=== PATIENT | male | born 1960 | race Caucasian/White ===

== ENCOUNTER 2023-06-17 23:39 | Emergency (ER) | payer OTHER, SELFPAY ==
[2023-06-18] VITALS (7 sets, daily range): BP systolic 117–155; BP diastolic 50–96; BMI 37.3
--- NOTE | 2023-06-18 03:00 | ED.GENMED ---
History of Present Illness
<ARTI Carr - Last Filed: 06/18/23 05:44>
General
Chief Complaint: Alcohol Problem
Source: patient
Exam Limitations: none
Time Seen by Provider: 06/18/23 02:40
Nursing documentation reviewed up to this point in time: agreed with
Travel History
Have you had any contact with someone who has COVID-19?: No
Do you have any symptoms of coronavirus? Fever > 100 degrees, chills, cough, shortness of breath, sore throat, loss of taste or smell, muscle aches, or headache?: No
History of Present Illness
History of Present Illness:
This is a 63 year old male with a PMH of COPD, afib, CHF, and alcohol abuse, who presents to the ED c/o SOB x 4 days. Pt states he started drinking 4 days ago which is when his symptoms began. He drinks 2 bottles of wine a day. Pt is also having
associated palpitations, fatigue, nausea and vomiting. Pt denies hematemesis but states he has been dry heaving and vomiting mucus. He notes that he has also developed chills. Pt notes that he has an appointment scheduled in 4 days at an alcohol
abuse clinic and he has been to rehab 4 times in the past. Pt has not been weighing himself daily and the last weight he measured was 240 lbs 2 weeks ago. He stopped taking his lasix 1 month ago. Pt denies any CP, lightheadedness, diarrhea,
constipation. Pt was alcohol free for about 1 month post discharge from the hospital and was exercising twice a day.
Pt stopped smoking 4 years ago.
Past History
<ARTI Carr - Last Filed: 06/18/23 05:44>
Past History
ED Past Medical History: Arrthythmia, CHF, COPD, HTN and Hypercholesterolemia
ED Past Surgical History: Appendectomy
Patient has exhibited threatening behavior?: No
Social History
Tobacco: Former smoker
Alcohol: Chronic alcoholic
Drug: None
Personal:
Living: with family
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
Family History
Family History: Other (Non-contributory)
Review of Systems
<ARTI Carr - Last Filed: 06/18/23 05:44>
Review of Systems
Constitutional: Reports chills; Denies fever
Respiratory: Reports trouble breathing; Denies cough
Cardiac: Reports palpitations; Denies chest pain
ABD/GI: Reports nausea and vomiting; Denies abdominal pain, diarrhea or constipated
: Reports no symptoms
Skin: Reports no symptoms
Phy Exam
<ARTI Carr - Last Filed: 06/18/23 05:44>
General Physical Exam
General Presentation: well appearing
General age: appears stated age
General Skin: warm and dry
General Habitus: obese
General Mental: alert
General Hydration: dry mucous membranes
Cardiovascular Exam
Cardiovascular Exam: no edema, no murmur and irregularly irregular
Pulmonary Exam
Pulmonary Exam: no stridor, no cough and decreased breath sounds
Oxygen Status: room air
Gastrointestinal Exam
Gastrointestinal Exam: normal bowel sounds, non tender, soft and non distended
Neurological Exam
Neurological Exam: alert and oriented x3
Musculoskeletal Exam
Musculoskeletal Exam: no edema
Skin Exam
Skin Exam: normal color and warm/dry
Psychiatric Exam
Psychiatric Exam: normal mood/affect
Scores
<ARTI Carr - Last Filed: 06/18/23 05:44>
Withdrawal Assessment of Alcohol
Withdrawal Assessment Completed?: Not applicable
<Kristie Gale DO - Last Filed: 06/18/23 09:42>
Withdrawal Assessment of Alcohol
Withdrawal Assessment Completed?: Yes
Nausea and Vomiting: No nausea and no vomiting
Tactile Disturbances: None
Tremor: No tremor
Auditory Disturbances: Not present
Paroxysmal Sweats: No sweat visible
Visual Disturbances: Not present
Anxiety: No anxiety, at ease
Headache, Fullness in Head: Not present
Agitation: Normal activity
Orientation and clouding of sensorium: Oriented and can do serial additions
Total CIWA Score: 0
Alcohol Withdrawal Medication Recommendation: Equal to MSAS Score 0-4. Monitor & re-assess q2hrs, NO MEDICATION NEEDED
Course
<ARTI Carr - Last Filed: 06/18/23 05:44>
Orders/Labs/Results
Orders:
Orders
06/18/23 00:49
Electrocardiogram (*1) Urgent
Reason for Study: Shortness of Breath
EKG- Treatment ONCE
Chest [CR Chest - 2 Views ] Urgent
Comment:
Reason For Exam: feels sob
06/18/23 03:04
Vital Signs- Treatment ONCE
Frequency: Once
06/18/23 03:05
Cardiac Monitoring- Treatment ONCE
06/18/23 03:15
Encourage PO Hydration-Treatme ONCE
Ipratropium/Albuterol Sulfate [Duoneb] 3 ml INH R NOW ONE
06/18/23 03:35
Alcohol Urgent
Complete Blood Count/With Diff Urgent
Comprehensive Metabolic Panel Urgent
NT-proBNP Urgent
Troponin I Urgent
06/18/23 07:00
0.9% Sodium Chloride 1000 ml [Nss] 1,000 ml Mvi, Adult [Multivitamin] 10 ml Thiamine Injection 100 mg IV 1,000 mls/hr
Abnormal Lab Results
06/18/23
03:35
RBC 3.99 L 10^6/uL
(4.70-6.10)
Hgb 12.9 L g/dL
(13.0-18.0)
Hct 36.8 L %
(39.0-52.0)
MCH 32.3 H pg
(27.0-31.0)
Plt Count 123 L 10^3/uL
(130-400)
Absolute Monos (auto) 0.7 H 10^3/uL
(0.1-0.6)
Glucose 127 H mg/dl
(70-99)
Calcium 7.9 L mg/dl
(8.4-10.2)
AST 81 H U/L
(17-59)
Alkaline Phosphatase 308 H U/L
(38-126)
06/18/23 03:35
06/18/23 03:35
Vital Signs
Initial and Last Documented VS:
Initial Vital Signs
Temp Pulse Resp BP Pulse Ox
97.8 F 50 22 117/54 96
06/18/23 00:10 06/18/23 00:10 06/18/23 00:10 06/18/23 00:10 06/18/23 00:10
Last Documented Vital Signs
Temp Pulse Resp BP Pulse Ox
97.8 F 83 20 155/96 94
06/18/23 00:10 06/18/23 07:58 06/18/23 07:58 06/18/23 07:58 06/18/23 07:58
<Kristie Gale, DO - Last Filed: 06/18/23 09:42>
Orders/Labs/Results
Orders:
Orders
06/18/23 00:49
Electrocardiogram (*1) Urgent
Reason for Study: Shortness of Breath
EKG- Treatment ONCE
Chest [CR Chest - 2 Views ] Urgent
Comment:
Reason For Exam: feels sob
06/18/23 03:04
Vital Signs- Treatment ONCE
Frequency: Once
06/18/23 03:05
Cardiac Monitoring- Treatment ONCE
06/18/23 03:15
Encourage PO Hydration-Treatme ONCE
Ipratropium/Albuterol Sulfate [Duoneb] 3 ml INH R NOW ONE
06/18/23 03:35
Alcohol Urgent
Complete Blood Count/With Diff Urgent
Comprehensive Metabolic Panel Urgent
NT-proBNP Urgent
Troponin I Urgent
06/18/23 07:00
0.9% Sodium Chloride 1000 ml [Nss] 1,000 ml Mvi, Adult [Multivitamin] 10 ml Thiamine Injection 100 mg IV 1,000 mls/hr
Abnormal Lab Results
06/18/23
03:35
RBC 3.99 L 10^6/uL
(4.70-6.10)
Hgb 12.9 L g/dL
(13.0-18.0)
Hct 36.8 L %
(39.0-52.0)
MCH 32.3 H pg
(27.0-31.0)
Plt Count 123 L 10^3/uL
(130-400)
Absolute Monos (auto) 0.7 H 10^3/uL
(0.1-0.6)
Glucose 127 H mg/dl
(70-99)
Calcium 7.9 L mg/dl
(8.4-10.2)
AST 81 H U/L
(17-59)
Alkaline Phosphatase 308 H U/L
(38-126)
06/18/23 03:35
06/18/23 03:35
Vital Signs
Initial and Last Documented VS:
Initial Vital Signs
Temp Pulse Resp BP Pulse Ox
97.8 F 50 22 117/54 96
06/18/23 00:10 06/18/23 00:10 06/18/23 00:10 06/18/23 00:10 06/18/23 00:10
Last Documented Vital Signs
Temp Pulse Resp BP Pulse Ox
97.8 F 83 20 155/96 94
06/18/23 00:10 06/18/23 07:58 06/18/23 07:58 06/18/23 07:58 06/18/23 07:58
<ARTI Carr - Last Filed: 06/18/23 05:44>
*Critical Care Note
Total Time (30-74mins, 75-104mins- exclusive of procedures): Not Applicable
<Kristie Gale DO - Last Filed: 06/18/23 09:42>
*Radiology
Radiology exam reviewed: preliminary read by ED provider (Chest x-ray similar and unchanged to previous. No evidence of CHF nor infiltrate.)
*Pulse Oximetry
Patient hypoxic: no
*EKG
Interpreted by ED Provider?: Yes
Interpretation: abnormal
Comparison EKG: no changes (Unchanged from previous)
Rate: bradycardiac
Rhythm: a-fib
[place]: normal axis
Interval: normal QT interval
QRS Pattern: normal QRS
Ischemia: no ischemia
*Shipping/Receiving Clerk Interpretation
Rate: bradycardiac
Interpretation: normal
Rhythm: a-fib
ED Attending Note
<ARTI aCrr - Last Filed: 06/18/23 05:44>
-
Portions of this chart may have been created with voice recognition software.� Occasional wrong word or��sound alike� substitutions may have occurred due to the inherent limitations of voice recognition software.
<Kristie Gale DO - Last Filed: 06/18/23 09:42>
ED Attending Note
Patient seen and examined by attending physician: Yes
I performed the substantive portion of visit, reviewed & personally made and approve the management plan that is documented in note by myself or JHONNY.: Yes
I performed a history and physical exam of patient and discussed management with resident, I reviewed resident's note and agree with documented findings and plan of care.: Yes
ED Attending Note:
63-year-old gentleman with history of alcohol abuse, sporadic binge drinking was recently hospitalized 1 month ago for similar complaints of shortness of breath. Found to have exacerbation of COPD as well as acute CHF.
Patient states he remained sober and had been feeling well, going to the gym once or twice a day until 4 days ago when he began binge drinking again admits to drinking 2 bottles of wine per day.
With resumption of alcohol he complains of increasing shortness of breath over the past 4 days. He has not had a cough, denies fever nor chills, no chest pain. Shortness of breath is worse with exertion, worse with lying supine.
Symptoms are worse tonight prompting ED visit. He does admit to intermittent dry heaves but has had no vomiting, no hematemesis. He denies abdominal pain, no diarrhea or constipation, he denies black or tarry stools.
He does have history of permanent atrial fibrillation, maintained on aspirin.
He has history of cirrhosis with history of esophageal varices, previous GI bleeds with variceal banding. No recent GI bleeding.
Patient states he has an appointment with outpatient alcohol detox program scheduled for June 22. He is currently not interested in inpatient rehabilitation.
Previous smoker, he quit 4 years ago.
Patient feels he is dehydrated and requesting IV fluids.
He does admit to moderate weight gain over the past 2 weeks but denies peripheral edema. He was prescribed as needed Lasix upon discharge 1 month ago. He has not taken Lasix.
GENERAL: 63-year-old gentleman appears his stated age, awake and alert, pleasant, appears in no acute distress. Lying supine, easily rolls from [id number], no acute distress. No cough appreciated.
EYE: pupils equal and reactive. anicteric
NECK: Supple, nontender, no meningismus, no significant adenopathy.
ENT: posterior pharynx is clear, oral mucosa is minimally dry. No rhinorrhea.
CARDIAC: Irregularly irregular at a rate of 50, no murmur.
LUNGS: no acute respiratory distress, moderately decreased breath sounds throughout, scattered end expiratory wheezing bilaterally.
ABDOMEN: Rotund, soft, nondistended, without focal tenderness, no r/g, no cvat. normoactive BS.
NEUROLOGICAL: Alert and oriented x3, no focal neuro deficits. Gait is steady.
SKIN: Warm and dry, normal color, skin intact. No rash.
MUSCULOSKELETAL: No C/C/E. peripheral pulses are full and equal b/l. No palpable tenderness.
PSYCH: Normal and appropriate interaction.
With recurrent shortness of breath, concern for COPD exacerbation, concern for recurrent CHF. Less likely pneumonia, patient has not had a cough nor fever.
PE is unlikely as well.
Alcohol intoxication is likely not cause for shortness of breath as well.
There is concern for recurrent alcohol use/binge drinking. Concern for potential alcohol withdrawal. Thus far no evidence of withdrawal on exam.
Will give DuoNeb nebulizer, check labs including BNP.
Chest x-ray shows mild interstitial fibrosis, platelike atelectasis left lateral lung field, overall similar to previous film May 25.
EKG shows atrial fibrillation with slow ventricular response at 50. No acute ST-T wave abnormalities.
06/18/2023 07:00 AM
Patient has been sleeping soundly since receiving DuoNeb nebulizer.
He has had no vomiting, no shortness of breath.
Labs overall reassuring.
Troponin is negative. BNP is low at 170.
Alcohol level elevated at 242.
He continues to have no evidence of alcohol withdrawal.
I suspect his symptoms are acute alcohol intoxication related.
Encouraged to remain sober and his plan is to follow-up with outpatient counseling on June 22.
06/18/2023 08:30 AM
Patient complains of recurrent nausea, feeling somewhat short of breath but again respirations are easy and nonlabored, lungs are clear to auscultation.
He does admit to significant concern that he will be unable to remain sober.
I have again recommended inpatient treatment for alcohol use disorder and patient is now agreeable to speak with [facility] collections specialist.
There is no indication for further IV fluids, he is currently tolerating sips of water.
Vital signs remained stable.
Awaiting [facility] collections specialist evaluation.
Discharge Plan
Departure
Patient Disposition: Home (Routine Discharge)
Date of Disposition: 06/18/23
Time of Disposition: 07:17
Patient with high blood pressure during this ER visit?: No
Condition: Good
Discharge Problem:
Alcohol intoxication, Alcohol consumption binge drinking, Exertional shortness of breath
Instructions: Alcohol Use Disorder (DC)
Prescriptions:
No Action
omega 5-too-oiy-fish oil [Fish Oil] 1,000 mg (120 mg-180 mg) Capsule
2 cap PO DAILY
Hold Instructions: Resume on 11/12/22.
Trelegy Ellipta 100-62.5-25 mcg Blister With Device
1 inh INHALATION R DAILY
metoprolol succinate 50 mg tablet extended release 24 hr
100 mg PO DAILY
diltiazem HCl 360 mg capsule,extended release 24hr
360 mg PO DAILY Qty: 0 0RF
levalbuterol tartrate 45 mcg/actuation Hfa Aerosol Inhaler
1 puff INHALATION R DAILY
aspirin 81 mg tablet,delayed release (DR/EC)
81 mg PO DAILY
pantoprazole [Protonix] 40 mg tablet,delayed release (DR/EC)
40 mg PO DAILY
prednisone 10 mg Tablet
See Rx Instructions .ROUTE .COMPLEX Qty: 30 0RF
Rx Instructions:
30 mg daily x3 days, 20 mg daily x3 days, 10 mg daily x3 days.
furosemide [Lasix] 40 mg tablet
40 mg PO DAILY PRN (Reason: Weight gain) Qty: 30 0RF
Referrals:
Berna Lyons CRNP [Family Provider] - Call in 1-3 days for appt
Activity Restrictions/Additional Instructions:
Continue outpatient treatment for alcohol use disorder as already scheduled.
Continue Trelegy inhaler daily and continue albuterol rescue inhaler as needed.
Continue to avoid alcohol consumption.
Interventions
Interventions:
*Risk Screen - Suicide Last Done: 06/18/23 01:27
*General Assessment Last Done: 06/18/23 01:27
*Neglect/Abuse Screening Last Done: 06/18/23 01:27
ED- Fall Risk Assessment Last Done: 06/18/23 03:54
*ED COVID-19 Vaccine History Last Done: 06/18/23 01:27
ED- Neurological Assessment Last Done: 06/18/23 01:27
ED-Psychological Assessment Last Done: 06/18/23 01:27
[2023-06-18] MEDS: DUONEB 3 ML INH (03:44)
[2023-06-18 03:52] LABS: % Basophils 0.6 % (0-2); % Eosinophils 2.5 % (0-6); % Immature Granulocytes 0.5 % (0-0.5); % Lymphocytes 29.1 % (20.5-51.1); % Monocytes 7.6 % (1.7-9.3); % Neutrophils 59.7 % (42.2-75.2); Absolute Basophils 0.1 10^3/uL (0-0.2); Absolute Eosinophils 0.2 10^3/uL (0-0.7); Absolute Lymphocytes 2.5 10^3/uL (1.2-3.4); Absolute Monocytes 0.7 10^3/uL (0.1-0.6); Absolute Neutrophils 5.2 10^3/uL (1.4-6.5); Hematocrit 36.8 % (39.0-52.0); Hemoglobin 12.9 g/dL (13.0-18.0); Mean Corp Hgb Conc. 35.1 g/dL (33.0-37.0); Mean Corpuscular Hgb 32.3 pg (27.0-31.0); Mean Corpuscular Volume 92.2 fL (80.0-94.0); Mean Platelet Volume 9.6 fL (7.4-10.4); Nucleated Red Blood Cells % 0 % (-); Platelet Count 123 10^3/uL (130-400); Red Blood Cell Count 3.99 10^6/uL (4.70-6.10); Red Cell Dist. Width 13.9 % (11.5-14.5); White Blood Cell Count 8.7 10^3/uL (4.8-10.8)
[2023-06-18 04:03] LABS: ALT (SGPT) 49 U/L (0-50); AST (SGOT) 81 U/L (17-59); Albumin 3.8 g/dl (3.5-5.0); Alcohol 242 mg/dl; Alkaline Phosphatase 308 U/L (38-126); Blood Urea Nitrogen 15 mg/dl (9-20); Calcium 7.9 mg/dl (8.4-10.2); Carbon Dioxide 22 mmol/L (22-30); Chloride 103 mmol/L (98-107); Estimated Creatinine Clearance 78 ml/min; Glucose 127 mg/dl (70-99); Sodium 136 mmol/L (135-145); Total Protein 6.6 g/dl (6.3-8.2); eGFR > 60.00
[2023-06-18 04:14] LABS: NT-proBNP 170 pg/ml; Troponin I < 0.012 ng/ml
[2023-06-18] MEDS: MULTIVITAMIN 1011 ML IV (06:44)
[2023-06-18] MEDS: MULTIVITAMIN 1011 MG IV (06:44)
[2023-06-18] MEDS: ZOFRAN ODT (ORALLY DISINTEGRATING) 4 MG PO (10:16)
== END 2023-06-18 11:21 | disposition home or self-care (01) ==
LOC: EMR 23:39
PROVIDERS: EMERGENCY PHYSICIAN Emergency Medicine; FAMILY PHYSICIAN Nurse Practitioner Family
DX: F10.129 Alcohol abuse with intoxication, unspecified (principal); Y90.8 Blood alcohol level of 240 mg/100 ml or more; R06.02 Shortness of breath; I48.21 Permanent atrial fibrillation; K74.60 Unspecified cirrhosis of liver; Z87.891 Personal history of nicotine dependence; Z79.82 Long term (current) use of aspirin
CPT/HCPCS: 99285; 96365; 94640; 71046; 80053; 82077; 83880; 84484; 85025; 93005

== ENCOUNTER 2023-07-05 08:16 | Emergency (ER) | payer OTHER, SELFPAY ==
[2023-07-05 08:19] VITALS: BP 139/91
[2023-07-05 08:55] VITALS: BMI 35.8
[2023-07-05 09:10] LABS: % Basophils 1.2 % (0-2); % Eosinophils 2.2 % (0-6); % Immature Granulocytes 0.5 % (0-0.5); % Lymphocytes 35.8 % (20.5-51.1); % Monocytes 7.5 % (1.7-9.3); % Neutrophils 52.8 % (42.2-75.2); Absolute Basophils 0.1 10^3/uL (0-0.2); Absolute Eosinophils 0.2 10^3/uL (0-0.7); Absolute Lymphocytes 2.8 10^3/uL (1.2-3.4); Absolute Monocytes 0.6 10^3/uL (0.1-0.6); Absolute Neutrophils 4.1 10^3/uL (1.4-6.5); Hematocrit 45.2 % (39.0-52.0); Hemoglobin 15.5 g/dL (13.0-18.0); Mean Corp Hgb Conc. 34.3 g/dL (33.0-37.0); Mean Corpuscular Hgb 31.8 pg (27.0-31.0); Mean Corpuscular Volume 92.8 fL (80.0-94.0); Mean Platelet Volume 9.3 fL (7.4-10.4); Nucleated Red Blood Cells % 0 % (-); Platelet Count 194 10^3/uL (130-400); Red Blood Cell Count 4.87 10^6/uL (4.70-6.10); Red Cell Dist. Width 13.4 % (11.5-14.5); White Blood Cell Count 7.8 10^3/uL (4.8-10.8)
[2023-07-05 09:18] LABS: ALT (SGPT) 61 U/L (0-50); AST (SGOT) 89 U/L (17-59); Albumin 4.3 g/dl (3.5-5.0); Alkaline Phosphatase 283 U/L (38-126); Blood Urea Nitrogen 11 mg/dl (9-20); Calcium 8.4 mg/dl (8.4-10.2); Carbon Dioxide 28 mmol/L (22-30); Chloride 108 mmol/L (98-107); Estimated Creatinine Clearance > 125 ml/min; Glucose 127 mg/dl (70-99); Potassium 4.8 mmol/L (3.5-5.1); Sodium 143 mmol/L (135-145); Total Bilirubin 0.7 mg/dl (0.2-1.3); Total Protein 7.9 g/dl (6.3-8.2); eGFR > 60.00
[2023-07-05 09:22] LABS: COVID-19 Antigen Negative (Negative)
[2023-07-05 09:26] LABS: Alcohol 385 mg/dl
[2023-07-05 09:27] LABS: Amphetamines Negative (Negative); Barbiturates Negative (Negative); Benzodiazepines Negative (Negative); Buprenorphine Negative (Negative); Cocaine Negative (Negative); Marijuana Negative (Negative); Methadone Negative (Negative); Methamphetamines Negative (Negative); Opiates Negative (Negative); Phencyclidine Negative (Negative); Tricyclic Antidepressants Negative (Negative)
--- NOTE | 2023-07-05 09:49 | ED.GENMED ---
History of Present Illness
General
Chief Complaint: Alcohol Problem
Source: patient, spouse and family
Time Seen by Provider: 07/05/23 08:37
Travel History
Have you had any contact with someone who has COVID-19?: No
Do you have any symptoms of coronavirus? Fever > 100 degrees, chills, cough, shortness of breath, sore throat, loss of taste or smell, muscle aches, or headache?: No
History of Present Illness
History of Present Illness:
63-year-old male who presents stating he has been drinking a lot for the last few weeks. The patient states he does go on benders where he drinks a lot. Patient states that he has been depressed and has had some suicidal thoughts. Denies specific
plan to me. The patient presents with his family. He admits that he has a history of A-fib that is likely driven by his alcoholism. He states he has been alcohol for quite some time has been to rehab several times in the past. He was sent for
medical clearance from crisis
Past History
Past History
ED Past Medical History: Arrthythmia (A-fib, not on anticoagulation due to esophageal varices history), Asthma, CHF, COPD, HTN and Hypercholesterolemia
ED Past Surgical History: Appendectomy
Patient has exhibited threatening behavior?: No
Social History
Tobacco: Former smoker
Alcohol: Chronic alcoholic
Drug: None
Personal:
Living: with family
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
Family History
Family History: Other (Non-contributory)
Phy Exam
Physical Exam
Physical Exam:
CONSTITUTIONAL Patient alert and oriented to person, place and time. Well-appearing. Vital signs reviewed. Appears intoxicated
HEAD atraumatic, normocephalic.
EYES eyelids normal to inspection, Pupils equally round and reactive to light, Extraocular muscles intact, Conjunctiva normal, Sclera normal.
NECK normal range of motion, Trachea midline, no jugular venous distention.
RESPIRATORY CHEST No respiratory distress noted, Chest expansion equal, Bilateral breath sounds clear.
CARDIOVASCULAR irregularly irregular, Heart sounds normal.
ABDOMEN abdomen nontender, Bowel sounds normal. No distention.
BACK normal inspection, no obvious deformities
UPPER EXTREMITY range of motion normal, Motor strength normal, no cyanosis, no edema.
LOWER EXTREMITY range of motion normal, Motor strength normal, no cyanosis, no edema.
NEURO Speech normal, No focal motor deficits, Mayo coma scale 15, Memory normal, Cranial Nerves intact to screening exam.
SKIN skin warm, dry, and normal in color.
PSYCHIATRIC patient oriented to person place and time, tearful at times
Scores
Withdrawal Assessment of Alcohol
Withdrawal Assessment Completed?: Not applicable
Course
Orders/Labs/Results
Orders:
Orders
07/05/23 08:36
Electrocardiogram (*1) Urgent
Reason for Study: Other
Other Reason for Exam: medical clearance
07/05/23 08:38
EKG- Treatment ONCE
07/05/23 08:48
Alcohol Urgent
COVID-19 Antigen Urgent
Source: Nasal Swab
Complete Blood Count/With Diff Urgent
Comprehensive Metabolic Panel Urgent
Urine Drug Abuse Screen Urgent
Date Specimen was Collected: 07/05/23
Time Specimen was Collected: 08:38
Abnormal Lab Results
07/05/23
08:48
MCH 31.8 H pg
(27.0-31.0)
Chloride 108 H mmol/L
(98-107)
Glucose 127 H mg/dl
(70-99)
AST 89 H U/L
(17-59)
ALT 61 H U/L
(0-50)
Alkaline Phosphatase 283 H U/L
(38-126)
07/05/23 08:48
07/05/23 08:48
Vital Signs
Initial and Last Documented VS:
Initial Vital Signs
Temp Pulse Resp BP Pulse Ox
98.2 F 109 16 139/91 98
07/05/23 08:19 07/05/23 08:19 07/05/23 08:19 07/05/23 08:19 07/05/23 08:19
Last Documented Vital Signs
Temp Pulse Resp BP Pulse Ox
98.2 F 104 18 135/78 94
07/05/23 08:19 07/05/23 11:32 07/05/23 11:32 07/05/23 11:32 07/05/23 11:32
MDM/Problems Addressed
MDM/Problems Addressed:
Alcoholism, major depression, chronic A-fib
*Pulse Oximetry
Patient hypoxic: no
*EKG
Interpreted by ED Provider?: Yes
Interpretation: abnormal
Rate: tachycardiac
Rhythm: a-fib
Interval: normal interval
Ischemia: non-specific ST changes
*Critical Care Note
Total Time (30-74mins, 75-104mins- exclusive of procedures): Not Applicable
Data Reviewed
Review of Other/Old Records Reveals: Progress Notes (Prior hospitalist notes reviewed reveal that the patient is chronically not on anticoagulation due to GI bleeding risk with esophageal varices) and Discharge Summary (Prior discharge summary
reviewed)
Prescriptions/Medications Considered But Not Given:
Considered anticoagulation but patient is a high risk
Patient Management
Escalation/DeEscalation of care consider admission/obs:
Patient stable. Labs were reviewed. Okay for discharge to crisis
ED Attending Note
-
Portions of this chart may have been created with voice recognition software.� Occasional wrong word or��sound alike� substitutions may have occurred due to the inherent limitations of voice recognition software.
Discharge Plan
Departure
Patient Disposition: [facility]
Date of Disposition: 07/05/23
Time of Disposition: 09:57
Patient with high blood pressure during this ER visit?: Yes
Discharge Problem:
Acute alcoholism, Atrial fibrillation, chronic, Major depression
Instructions: Alcohol Use Disorder (DC)
Prescriptions:
No Action
omega 6-wqy-syl-fish oil [Fish Oil] 1,000 mg (120 mg-180 mg) Capsule
2 cap PO DAILY
Hold Instructions: Resume on 11/12/22.
Trelegy Ellipta 100-62.5-25 mcg Blister With Device
1 inh INHALATION R DAILY
metoprolol succinate 50 mg tablet extended release 24 hr
100 mg PO DAILY
diltiazem HCl 360 mg capsule,extended release 24hr
360 mg PO DAILY Qty: 0 0RF
levalbuterol tartrate 45 mcg/actuation Hfa Aerosol Inhaler
1 puff INHALATION R DAILY
aspirin 81 mg tablet,delayed release (DR/EC)
81 mg PO DAILY
pantoprazole [Protonix] 40 mg tablet,delayed release (DR/EC)
40 mg PO DAILY
prednisone 10 mg Tablet
See Rx Instructions .ROUTE .COMPLEX Qty: 30 0RF
Rx Instructions:
30 mg daily x3 days, 20 mg daily x3 days, 10 mg daily x3 days.
furosemide [Lasix] 40 mg tablet
40 mg PO DAILY PRN (Reason: Weight gain) Qty: 30 0RF
Referrals:
Berna Lyons CRNP [Family Provider] -
Activity Restrictions/Additional Instructions:
Please go directly to crisis for further management
Interventions
Interventions:
*Risk Screen - Suicide Last Done: 07/05/23 08:22
*General Assessment Last Done: 07/05/23 08:55
*Neglect/Abuse Screening Last Done: 07/05/23 08:55
ED- Fall Risk Assessment Last Done: 07/05/23 08:57
*ED COVID-19 Vaccine History Last Done: 07/05/23 08:19
*Nursing Disposition Last Done: 07/05/23 11:33
ED- Neurological Assessment Last Done: 07/05/23 10:00
ED-Psychological Assessment Last Done: 07/05/23 10:00
Discharge Date and Time
Discharge Date/Time: 07/05/23 11:35
[2023-07-05 11:32] VITALS: BP 135/78
== END 2023-07-05 11:35 ==
LOC: EMR 08:16
PROVIDERS: EMERGENCY PHYSICIAN Emergency Medicine; FAMILY PHYSICIAN Nurse Practitioner Family
DX: R45.851 Suicidal ideations (principal); I48.20 Chronic atrial fibrillation, unspecified; F10.229 Alcohol dependence with intoxication, unspecified; F32.9 Major depressive disorder, single episode, unspecified; Z11.52 Encounter for screening for COVID-19; J45.909 Unspecified asthma, uncomplicated; I11.0 Hypertensive heart disease with heart failure; I50.9 Heart failure, unspecified; E78.00 Pure hypercholesterolemia, unspecified; Z87.891 Personal history of nicotine dependence; Z79.82 Long term (current) use of aspirin
CPT/HCPCS: 99284; 80053; 80306; 82077; 85025; 87811; 93005

== ENCOUNTER 2023-07-26 13:35 | Inpatient (IN) | payer OTHER, SELFPAY ==
[2023-07-26] VITALS (35 sets, daily range): BP systolic 127–234; BP diastolic 78–188; BMI 35.5
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
[2023-07-26] MEDS: LR 1000 IV (08:50)
[2023-07-26] MEDS: LOPRESSOR 5 MG IV (08:50)
[2023-07-26 09:12] LABS: % Basophils 0.4 % (0-2); % Eosinophils 1.4 % (0-6); % Immature Granulocytes 0.2 % (0-0.5); % Lymphocytes 28.6 % (20.5-51.1); % Monocytes 7.6 % (1.7-9.3); % Neutrophils 61.8 % (42.2-75.2); Absolute Eosinophils 0.1 10^3/uL (0-0.7); Absolute Lymphocytes 1.4 10^3/uL (1.2-3.4); Absolute Monocytes 0.4 10^3/uL (0.1-0.6); Absolute Neutrophils 3.1 10^3/uL (1.4-6.5); Hematocrit 40.1 % (39.0-52.0); Mean Corp Hgb Conc. 34.9 g/dL (33.0-37.0); Mean Corpuscular Hgb 31.7 pg (27.0-31.0); Mean Corpuscular Volume 90.9 fL (80.0-94.0); Mean Platelet Volume 9.6 fL (7.4-10.4); Nucleated Red Blood Cells % 0 % (-); Red Blood Cell Count 4.41 10^6/uL (4.70-6.10)
[2023-07-26] MEDS: ATIVAN 2 MG IV (09:20)
[2023-07-26 09:28] LABS: ALT (SGPT) 51 U/L (0-50); AST (SGOT) 81 U/L (17-59); Alcohol 92 mg/dl; Alkaline Phosphatase 274 U/L (38-126); Blood Urea Nitrogen 9 mg/dl (9-20); Calcium 7.9 mg/dl (8.4-10.2); Carbon Dioxide 25 mmol/L (22-30); Chloride 106 mmol/L (98-107); Glucose 125 mg/dl (70-99); Potassium 3.8 mmol/L (3.5-5.1); Sodium 140 mmol/L (135-145); eGFR > 60.00
[2023-07-26 09:29] LABS: Platelet Count 89 10^3/uL (130-400)
[2023-07-26 10:33] LABS: Folate 6.4 ng/ml (2.76-20)
[2023-07-26] MEDS: XOPENEX 1.25 MG INHALANT SOLUTION INH ×2 (11:37→19:57)
[2023-07-26] MEDS: DECADRON 6 MG IV ×2 (11:37→22:22)
[2023-07-26] MEDS: ATROVENT NEBULES 0.5 MG INH ×2 (11:37→19:57)
[2023-07-26] MEDS: FOLVITE 50.2000000000000028 MG IV (12:31)
--- NOTE | 2023-07-26 12:35 | HPS.HSE ---
Addendum entered and electronically signed by Ace Santana MD 07/26/23 13:37:
63-year-old male former heavy smoker with a past medical history of COPD, continued heavy alcohol abuse with dependency, paroxysmal atrial fibrillation not on anticoagulation, alcoholic liver cirrhosis with esophageal varices with bleeding requiring
banding, obstructive sleep apnea, and previous alcohol withdrawal with DT presents with a 1 week history of shortness of breath. Patient reports associated coughing, productive of brown sputum. No fever. He also noted that his heart rate was
fast, and felt palpitations. He has a history of atrial fibrillation not on anticoagulation due to esophageal variceal bleeding.
His heart rate is currently in the 120s, blood pressure elevated. He has received 1 dose of metoprolol tartrate 5 mg IV.
Admit to IMU. Will give diltiazem 10 mg IV bolus, followed by diltiazem drip 5 mg/h. Titrate drip as needed. Consult cardiology.
Patient is tachycardic, with shortness of breath. He is mildly wheezing, with diminished breath sounds.
Will check chest CT to rule out PE. Give IV steroids, ipratropium, Xopenex. Avoid albuterol. Consult pulmonology.
He is a heavy drinker, he drinks 3 L of wine a day plus whiskey. Last drink was 07/25/2023.
Will order phenobarbital taper in addition to MSAS protocol with IV ativan, thiamine, folic acid.
As for reported hematuria and bloody stools, will check stool guaiac, asked nurse to save urine and stool.
Trend hemoglobin, SCDs for DVT prophylaxis.
I have personally seen and examined the patient, and agree with the plan of care as documented by WADE Obrien
Advance care planning discussed, patient is a full code.
All other issues as outlined by the advanced care practitioner.
Total time spent to see the patient on the floor, examine the patient, review data and lab results, discuss treatment plan with patient, nursing staff around 75 minutes.
Original Note:
Family Physician
-
Family Physician: WADE Marc
Chief Complaint
-
Shortness of breath, palpitations
History of Present Illness
63-year-old male from home complaning of shortness of breath that started yesterday along with chills. He reports this morning his heart was racing. He has history of A-fib and states he is compliant with his diltiazem but he is only on aspirin 81
mg. He denies prior history of any AC therapy. He has very poor memory recall and review of his chart showed had history of esophageal varices with upper GI bleed May 2022 requiring esophageal banding. He denies current indigestion,
dyspepsia he does state over the past few days he has had some hematuria along with bright red stool x 1 last being on 4 days ago with bright red stool and hematuria resolved yesterday. There are 2 family members at bedside he reports
telling this to yesterday. He drinks daily 3 L of white zinfendel with last drink yesterday 07/25/2023 at 5 PM. He denies headache, chest pain, abdominal pain, nausea, vomiting, diarrhea.
He has past medical history of former smoker 2 pack a day 47 years quit 2019, daily alcohol abuse, paroxysmal A-fib, HTN, GERD, Coles's esophagus, esophageal varices esophageal banding May 2022, cirrhosis, alcohol induced hepatitis, prior
alcohol withdrawal with delirium tremors, fatty liver obesity, COPD, ALCIDES/CPAP, polymyalgia rheumatica.
Medical History
Past Medical History
Past Medical History: Reports Other
Additional Past Medical History:
1. Osteoarthritis,
2. Hypertension.
3. Hyperlipidemia.
4. Paroxysmal atrial fibrillation/atrial flutter
5. Left internal carotid artery stenosis, 70%, and right internal
carotid artery stenosis, 50-69%.
6. Emphysema.
7. Pulmonary nodule.
8. Obstructive sleep apnea, compliant with CPAP.
10. GERD.
11. Coles's esophagus.
12. Diverticulosis with history of diverticulitis.
13. Fatty liver disease.
14. Cirrhosis noted on 2019 ultrasound
15. History of alcohol-induced hepatitis.
16. Previous duodenal ulcer with melena.
17. Esophageal varices with upper GI bleed, 05/2022, status post
esophageal banding;
18. Sciatica.
19. Polymyalgia rheumatica.
20. Left retinal tear, status post repair.
25. Chronic alcoholism with history of delirium tremens.
Past Surgical History: Reports Other
Additional Past Surgical History:
Appendectomy
Bilateral hip replacement
Bilateral retinal surgery
Social History
Tobacco: Former Smoker (47 years 2 pack a day quit 2019)
Alcohol: Daily (3 L of white send Padilla daily)
Drug: None
Personal:
Living: With Family
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
Family History
Family History: Other (Mother breast cancer history of MD, father colon cancer)
Allergies / Home Medications
Allergies reflects when Allergies were last updated in [email or web address].
Home Medications with original date entered in [email or web address]
Allergy/Medication List:
Allergies
Allergy/AdvReac Type Severity Reaction Status Date / Time
No Known Allergies Allergy Verified 02/04/23 10:43
Home Medications
omega 3-qjx-djm-fish oil 1,000 mg (120 mg-180 mg) capsule (Fish Oil) 2 cap PO DAILY Supplement 10/05/22
fluticasone fur. 100 mcg-umeclid 62.5 mcg-vilant 25 mcg inhalat.powder (Trelegy Ellipta) 1 inh inhalation R DAILY Lung/Breathing Issues 10/06/22
metoprolol succinate 50 mg tablet,extended release 24 hr 100 mg PO DAILY Blood Pressure 11/03/22
diltiazem HCl 360 mg capsule,extended release 24 hr 360 mg PO DAILY atrial fibrillation #0 caps 11/06/22
aspirin 81 mg tablet,delayed release 81 mg PO DAILY Blood Clot Prevention/Tx 02/04/23
levalbuterol tartrate 45 mcg/actuation aerosol inhaler 1 puff inhalation R DAILY Lung/Breathing Issues 02/04/23
pantoprazole 40 mg tablet,delayed release (Protonix) 40 mg PO DAILY Gastrointestinal Issue 02/04/23
Review of Systems
-
History Source: Patient and Family (To female family members at bedside)
A 12 point ROS was completed and negative except as noted: Yes
Constitutional: Reports Chills; Denies Fever
EENT: Denies Sore Throat or Runny Nose
Respiratory: Reports Cough and Trouble Breathing
Cardiac: Reports Palpitations; Denies Chest Pain, Diaphoresis or Syncope
Abdomen/GI: Reports Other (Bright red stool last 3 days ago reported); Denies Abdominal Pain, Nausea, Vomiting, Diarrhea or Constipated
: Reports Bleeding (Reported past few days); Denies Dysuria, Frequency, Flank Pain or Incontinence
Musculoskeletal: Denies Joint Pain or Edema
Skin: Denies Itching or Rash
Neurological: Denies Dizzy or Headache
Endocrine: Reports No Symptoms
Hematologic/Lymphatic: Reports No Symptoms
Psych: Reports Calm
Physical Exam
Vital Signs
Vital Signs
Temp Pulse Resp BP Pulse Ox
98.3 F 112 22 161/134 95
07/26/23 07:42 07/26/23 11:30 07/26/23 11:30 07/26/23 11:20 07/26/23 11:30
Physical Exam
General: Comfortable, Conversant, Chills, Obese and Other (Confusion patient unclear of what day it is and recent events, positive tremors to hands); No Fever
HEENT: NormoCephalic, Anicteric, Moist mucous membranes, PERRLA, No Ptosis and Oxygen (2 LNC)
Respiratory: Decreased Breath Sounds
Cardiac: S1/S2 and Irregular Rhythm (Rapid A-fib with RVR); No Murmur, Rub, Gallop or Peripheral Edema
GI: Soft, Non Tender, Non Distended, Normal Bowel Sounds and Other (Protuberant abdomen)
Rectal: Deferred by Provider
Genito-urinary: Deferred by me
Musculoskeletal: No Clubbing, No Cyanosis and No Edema
Skin: Warm and Dry; No Rash
Neuro: Awake, Alert, Oriented (To name, place, some of the events but is confused current date and events of the past few days), Cranial Nerves Intact, No Sensory Deficits and Tremors (Bilateral hands impending DTs); No Slurred Speech or Facial Droop
Psych: Calm
Laboratory Results
-
07/26/23 08:52
07/26/23 08:52
Laboratory Results
Total Bilirubin 1.0 mg/dl (0.2-1.3) 07/26/23 08:52
AST 81 U/L (17-59) H 07/26/23 08:52
ALT 51 U/L (0-50) H 07/26/23 08:52
Alkaline Phosphatase 274 U/L (38-126) H 07/26/23 08:52
Data Reviewed
-
Lab Data: Labs Reviewed by me
Impression/Plan
-
Impression/plan:
Admit to IMU
#A-fib with RVR
No Ac therapy secondary to thrombocytopenia/prior history esophageal varices bleeding requiring banding
-CT pe Study
-Iv cardizem gtt 10 bolus with gtt at 5
Consult CBC cardiology
#Alcohol abuse with alcohol withdrawal concern for impending Wernicke's encephalopathy
Drinks 3 L a day last drink 07/25/2023 5 PM
EtOH 92
-MSAs screen with protocol
IV thiamine, IV folate
-Pehnobarb taper
#Acute on chronic COPD exacerbation
92% 2 LNC
Decadron 6 mg given in ER, continue IV Decadron 6 mg every 12 hours
-Continue Xopenex scheduled and as needed
-Ipratropium nebs
-Consult Pulm
-Continue Trelegy Ellipta
#Accelerated HTN secondary to alcohol withdrawal
161/131
IV Cardizem drip will start and titrate for A-fib
-IV Lopressor given in ER
-Monitor BP
#Reported hematuria
-Follow UA nurse to monitor urine output for hematuria
#Reported rectal bleeding
-Heme check stools monitor bowel movements for rectal bleeding
-Current PLT 89, follow CBC
#Chronic thrombocytopenia secondary to cirrhosis
#Chronic transaminitis secondary to alcohol abuse
#Cirrhosis noted on 2019 ultrasound
#Hx alcohol induced hepatitis
#Fatty liver
-PLT 89, follow CBC
#Hx esophageal varices upper GI bleed May 2022 esophageal banding
#Coles's esophagus
#GERD
-IV PPI
#ALCIDES
On CPAP
#Polymyalgia rheumatica
-No current meds
#Left internal carotid stenosis 70%, right carotid stenosis 50-69%
#Obesity due to excess calorie consumption
Weight loss recommended
DVT prophylaxis
SCDs
Full code
--- NOTE | 2023-07-26 13:30 | CON.CAR ---
Consultation
Consultation Request
Date/Time Consultation Requested: July 26, 2023 12:50 PM
Date/Time Consultation Performed: July 26, 2019 2 PM
Requesting Provider: Hospitalist
Performing Provider: Sam
Reason for Consultation: A-fib RVR
Medical History
-
Chief Complaint: Shortness of breath and A-fib
History of Present Illness:
63-year-old male with extensive past medical history reviewed below who is here today for shortness of breath and atrial fibrillation. He tells me that he got up to go to the bathroom this morning and was unable to breathe. He also felt his heart
racing at that time. He has gone in and out of atrial fibrillation at home. He otherwise feels okay and has no other cardiac symptoms. He tells me he has been drinking for the last 2 weeks. He thinks it has been a while since his last been in
atrial fibrillation. He denies any chest pain or heart failure symptoms. Unfortunately, he has a poor memory. He is a former smoker and quit in 2019. Otherwise, he has no other ischemic or heart failure symptoms. He reports compliance with his
diltiazem. His [id number] score is 1 for hypertension. He is not on anticoagulation at this time. In the ED he was started on a diltiazem drip.
He has past medical history of former smoker 2 pack a day 47 years quit 2019, daily alcohol abuse, paroxysmal A-fib, HTN, GERD, Coles's esophagus, esophageal varices esophageal banding May 2022, cirrhosis, alcohol induced hepatitis, prior
alcohol withdrawal with delirium tremors, fatty liver obesity, COPD, ALCIDES/CPAP, polymyalgia rheumatica.
Past Medical History
Past Medical History: Other (former smoker 2 pack a day 47 years quit 2019, daily alcohol abuse, paroxysmal A-fib, HTN, GERD, Coles's esophagus, esophageal varices esophageal banding May 2022, cirrhosis, alcohol induced hepatitis, prior
alcohol withdrawal with delirium tremors, fatty liver obesity, COPD, ALCIDES/CPAP, polymya)
Past Surgical History: Other (Appendectomy Bilateral hip replacement Bilateral retinal surgery)
Social History
Tobacco: Former Smoker
Alcohol: Daily (3 L of white zinfandel)
Drug: None
Personal:
Living: With Family
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
Family History
Family History: Reviewed & Not Pertinent
Allergies / Home Medications
Allergy/AdvReac Type Severity Reaction Status Date / Time
No Known Allergies Allergy Verified 07/26/23 07:44
Medication Instructions Recorded Confirmed Type
omega 9-luk-yhz-fish oil 1,000 mg 2 cap PO DAILY Supplement 10/05/22 07/26/23 History
(120 mg-180 mg) capsule (Fish Oil)
fluticasone fur. 100 mcg-umeclid 1 inh inhalation R DAILY 10/06/22 07/26/23 History
62.5 mcg-vilant 25 mcg Lung/Breathing Issues
inhalat.powder (Trelegy Ellipta)
metoprolol succinate 50 mg 50 mg PO DAILY Blood Pressure 11/03/22 07/26/23 History
tablet,extended release 24 hr
diltiazem HCl 360 mg 360 mg PO DAILY atrial 11/06/22 07/26/23 Rx
capsule,extended release 24 hr fibrillation #0 caps
aspirin 81 mg tablet,delayed 81 mg PO DAILY Blood Clot 02/04/23 07/26/23 History
release Prevention/Tx
levalbuterol tartrate 45 1 puff inhalation R Q6HPRN PRN sob 02/04/23 07/26/23 History
mcg/actuation aerosol inhaler
Review of Systems
-
All other systems: Negative unless noted
Physical Exam
Vital Signs
Temp Pulse Resp BP Pulse Ox
98.3 F 112 22 161/134 95
07/26/23 07:42 07/26/23 11:30 07/26/23 11:30 07/26/23 11:20 07/26/23 11:30
Lab Results
07/26/23 08:52
07/26/23 08:52
Physical Exam
General: Well Developed and Sweats
HEENT: Normocephalic and Moist Mucous Membranes
Respiratory: Other (Poor air movement bilaterally)
Cardiac: S1/S2 (Tachycardic irregular rhythm) and Irregular Rhythm
GI: Soft
Musculoskeletal: No Clubbing, No Cyanosis and No Edema
Skin: Warm
Neuro: Awake, Alert and Oriented
Psych: Other (Anxious appearing)
Impression / Plan
-
63-year-old male with extensive past medical history is here today with alcohol withdrawal, and hypertension.
A-fib RVR
-Not on anticoagulation secondary to thrombocytopenia and prior history of esophageal varices and bleeding requiring
-Diltiazem drip
Alcohol withdrawal
-Per primary team
-Recommend screening for vitamin deficiencies
Hypertension
-Continue metoprolol
Cirrhosis
-Chronic stable avoid hepatotoxic agents
Data Reviewed
-
EKG: Tracing Personally Visualized and interpreted, Discussed with Patient and Discussed with Family
Medical Tests (Nuc Med, Echo etc): Report Reviewed by me
Labs: Labs Reviewed by me
[2023-07-26 13:36] LABS: COVID-19 Antigen Negative (Negative)
[2023-07-26] MEDS: PHENOBARBITAL 104 MG IV (13:49)
[2023-07-26] MEDS: CARDIZEM 10 MG IV (15:02)
[2023-07-26] MEDS: THIAMINE INJECTION 255 MG IV ×2 (15:03→22:21)
[2023-07-26] MEDS: CARDIZEM 125 IV (16:01)
--- NOTE | 2023-07-26 16:13 | CON.PUL ---
Consultation
Consultation Request
Date/Time Consultation Requested: 07/26/2023
Date/Time Consultation Performed: 07/26/2023
Requesting Provider: Dr. Santana
Performing Provider: Dr. Umair Rossi
Reason for Consultation: Acute exacerbation of COPD
Medical History
-
History of Present Illness:
63-year-old man with history of severe COPD on chronic oxygen, poor compliant with follow-up, cirrhosis of the liver due to alcohol, ongoing alcohol abuse, history of atrial fibrillation not on anticoagulation due to esophageal varices, obstructive
sleep apnea not on CPAP therapy due to intolerance, prior history of alcohol withdrawal. Reports increased coughing, brown phlegm production and shortness of breath. Denies any fevers or hemoptysis.
[place] palpitations, fast heart rate and shortness of breath. He was found to have heart rates in the 120s on atrial fibrillation.
Found to be also mildly bronchospastic.
Past Medical History
Past Medical History: Other (See assessment and plan section)
Social History
Tobacco: Former Smoker (80+ pack year history quit in 2019)
Alcohol: Daily (Significant amount of wine daily)
Drug: None
Living: With Family
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
Family History
Family History: Reviewed & Not Pertinent
Allergies / Home Medications
Allergies
Allergy/AdvReac Type Severity Reaction Status Date / Time
No Known Allergies Allergy Verified 07/26/23 07:44
Home Medications
Medication Instructions Recorded Confirmed Last Taken Type
omega 0-oug-wnj-fish oil 1,000 mg 2 cap PO DAILY Supplement 10/05/22 07/26/23 07/24/23 History
(120 mg-180 mg) capsule (Fish Oil)
fluticasone fur. 100 mcg-umeclid 1 inh inhalation R DAILY 10/06/22 07/26/23 07/26/23 History
62.5 mcg-vilant 25 mcg Lung/Breathing Issues
inhalat.powder (Trelegy Ellipta)
metoprolol succinate 50 mg 50 mg PO DAILY Blood Pressure 11/03/22 07/26/23 07/24/23 History
tablet,extended release 24 hr
diltiazem HCl 360 mg 360 mg PO DAILY atrial 11/06/22 07/26/23 07/24/23 Rx
capsule,extended release 24 hr fibrillation #0 caps
aspirin 81 mg tablet,delayed 81 mg PO DAILY Blood Clot 02/04/23 07/26/23 07/24/23 History
release Prevention/Tx
levalbuterol tartrate 45 1 puff inhalation R Q6HPRN PRN sob 02/04/23 07/26/23 07/26/23 History
mcg/actuation aerosol inhaler
Review of Systems
-
History Source: Patient
All other systems: Negative unless noted
Vitals / Labs / Diagnostic Testing
Vital Signs
Temp Pulse Resp BP Pulse Ox
98.3 F 142 22 180/90 95
07/26/23 07:42 07/26/23 15:02 07/26/23 11:30 07/26/23 15:02 07/26/23 11:30
Lab Data
07/26/23 08:52
07/26/23 08:52
Microbiology
07/26/23 12:36 Nasal Swab Influenza Types A & B (ALFRED) - Final
Negative for Influenza A & B, NAAT
Negative results must be combined with clinical observations
and patient history.
Nucleic Acid Amplification test (NAAT)performed on the
[employer] platform.
Diagnostic Testing:
Physical Exam
-
HEENT: Normocephalic
Cardiovascular: S1/S2
Respiratory: Wheeze
GI: Soft and Non Distended
Neurology: Awake, Alert and Oriented
Skin: Warm
General: Respiratory Distress (Mild with activity)
Assessment
-
63-year-old man with history of severe COPD, chronic hypoxemic respiratory failure, alcoholic comes to the hospital complaining of cough, phlegm production and shortness of breath. Found to be bronchospastic. CT chest with bronchiolitis. Also
found to be in rapid atrial fibrillation admitted for further evaluation.
Acute exacerbation of COPD-possibly infectious in etiology.
CT chest 07/26/2023: Reviewed, showed no evidence for pulmonary embolism. Mild infectious/inflammatory bronchiolitis of the right middle lobe and lower lobes. Hepatic cirrhosis.
Atrial fibrillation with rapid ventricular response-possibly driven by above.
Cardiac biomarkers negative
Normal proBNP.
Conditions present prior to admission:
COPD-follows Dr. García-not on home oxygen, maintained on Trelegy 100, albuterol or nebulizers as needed
Chronic hypoxemic respiratory failure
Former smoker.
Decreased diffusing capacity
Pulmonary nodule.
ALCIDES-CPAP intolerant.
Obesity
Glucose intolerance
Hypertension.
Hyperlipidemia.
Osteoarthritis.
PAF.
Carotid stenosis.
GERD.
Coles's esophagus.
Diverticulosis.
Alcohol cirrhosis.
Alcohol induced hepatitis.
Duodenal ulcer.
Esophageal varices with GI bleed 05/2022.�
Sciatica.
PMR.�
Left retinal tear.
Alcohol use disorder with history of DTs.�
Appendectomy.� Bilateral hip replacements.� Bilateral retinal surgery.
Assessment and plan:
Given increased coughing and phlegm production acute exacerbation possibly infectious in etiology. More so with bronchiolitis RLL on CAT scan.
I agree with IV corticosteroids
Atrovent/levalbuterol
Agree with oral doxycycline 100 mg p.o. twice a day. Total of 7 days given CAT scan findings.
Acapella device
Antitussives
Sputum culture if able
Mucolytic's
Patient usually follows up with Dr. García, has not been able to follow-up recently. Usually maintain on Trelegy
-
Rapid atrial fibrillation: On IV Cardizem
Cardiac biomarkers negative
No evidence for volume overload
Not a candidate for anticoagulation
Cardiology following the patient as well
-
[facility] records reviewed: Patient is followed in our office also for lung nodules. High risk for lung cancer. He will need ongoing radiographic follow-up in the next 6 to 8 weeks. Patient is aware that he is at high risk for cancer. He was
encouraged to follow-up.
-
Severe obstructive sleep apnea: Patient discontinued BiPAP in 2020.
Avoid sedatives
He understands that daily alcohol use makes sleep apnea worse.
He understands verifications of untreated obstructive sleep apnea.
-
Monitor for alcohol withdrawal.
-
DVT prophylaxis SCDs
-
last time seen in our office was in February 2023. He canceled in April. It is recommended that he follow-up in the next 2 weeks after discharge with Dr. García.
-
[2023-07-26 16:45] LABS: Urine Albumin Negative (Neg - Trace); Urine Bilirubin Negative (Negative); Urine Character Clear (Clear); Urine Color Yellow; Urine Glucose Negative (Negative); Urine Ketone Negative (Negative); Urine Leukocyte Negative (Negative); Urine Nitrite Negative (Negative); Urine Occult Blood Negative (Negative); Urine Urobilinogen Negative (Neg - 1+)
[2023-07-26] MEDS: TOPROL XL 50 MG PO (20:18)
[2023-07-26] MEDS: VIBRAMYCIN 100 MG PO (20:19)
[2023-07-26 20:58] LABS: APTT 32.9 Sec (23.4-35.0)
[2023-07-26 21:01] LABS: GGTP 1087 U/L (15-73); Magnesium 1.6 mg/dl (1.6-2.3); Phosphorus 3.4 mg/dl (2.5-4.5)
[2023-07-26 21:07] LABS: B-Hydroxybutyrate 0.11 mmol/L (0.02-0.27)
[2023-07-26] MEDS: PHENOBARBITAL 97.5 MG IV (22:22)
[2023-07-27] VITALS (16 sets, daily range): BP systolic 128–168; BP diastolic 64–124; PULSE 87–116; O2SAT 93; BMI 35.7
[2023-07-27 00:27] LABS: Urine Albumin Negative (Neg - Trace); Urine Bilirubin Negative (Negative); Urine Character Clear (Clear); Urine Color Yellow; Urine Glucose 2+ (Negative); Urine Ketone Negative (Negative); Urine Leukocyte Negative (Negative); Urine Nitrite Negative (Negative); Urine Occult Blood Negative (Negative); Urine Specific Gravity 1.005 (<1.030); Urine Urobilinogen Negative (Neg - 1+)
[2023-07-27 00:40] LABS: Amphetamines Negative (Negative); Barbiturates Positive (Negative); Benzodiazepines Positive (Negative); Buprenorphine Negative (Negative); Cocaine Negative (Negative); Methadone Negative (Negative); Methamphetamines Negative (Negative); Opiates Negative (Negative); Phencyclidine Negative (Negative)
[2023-07-27 00:41] LABS: Marijuana Negative (Negative); Tricyclic Antidepressants Negative (Negative)
[2023-07-27 01:02] LABS: Fentanyl, Urine Negative (Negative)
--- NOTE | 2023-07-27 02:44 | PTCARENOTE ---
Pt admitted from ED. Pt AOA and agreeable to care. Pt received on 2L O2, maintaining SATs of 95%. lungs clear bilaterally. Received Pt with Cardizem at 10 mg/hr. Pt HR remains stable in the 80s, Cardizem rate changed to 5mg/hr per order set. Pt has
slight visible tremors, not experiencing other withdraw symptoms at this time, MSAS remains under 4. UA sent. No new orders at this time. Please see nursing shift assessment for full head to toe.
[2023-07-27 05:09] LABS: Total Bilirubin 1.7 mg/dl (0.2-1.3)
[2023-07-27 05:10] LABS: ALT (SGPT) 44 U/L (0-50); AST (SGOT) 66 U/L (17-59); Albumin 3.8 g/dl (3.5-5.0); Alkaline Phosphatase 250 U/L (38-126); Blood Urea Nitrogen 12 mg/dl (9-20); Calcium 8.2 mg/dl (8.4-10.2); Carbon Dioxide 26 mmol/L (22-30); Chloride 104 mmol/L (98-107); Estimated Creatinine Clearance > 125 ml/min; Glucose 168 mg/dl (70-99); HDL Cholesterol 71 mg/dl; LDL Cholesterol, Calculated 183 mg/dl; Potassium 3.7 mmol/L (3.5-5.1); Sodium 135 mmol/L (135-145); Total Cholesterol 271 mg/dl (50-199); Total Protein 6.9 g/dl (6.3-8.2); Triglyceride 86 mg/dl (10-149); Very Low Density Lipoprotein 17 mg/dl (0-30); eGFR > 60.00
--- NOTE | 2023-07-27 06:00 | PTCARENOTE ---
Cardizem drip at 5mg/hr overnight. Pts HR maintained in the 80s overnight. Updated LICENSING DIRECTOR. LICENSING DIRECTOR advised to maintain rate at 5mg/hr. no new orders at this time.
--- NOTE | 2023-07-27 06:10 | W.PN.PUL3 ---
Today's Communication / Plan
-
Decrease IV steroids
Remains on Cardizem drip
Continue Symbicort, Spiriva. Resume Trelegy as outpatient
Patient has BiPAP machine at home, has not open the box. Will follow-up as outpatient
Continue phenobarbital protocol, monitor for DTs
Assessment
-
63-year-old man with history of severe COPD, chronic hypoxemic respiratory failure, alcoholic comes to the hospital complaining of cough, phlegm production and shortness of breath. Found to be bronchospastic. CT chest with bronchiolitis. Also
found to be in rapid atrial fibrillation admitted for further evaluation.
Acute exacerbation of COPD-possibly infectious in etiology.
CT chest 07/26/2023: Reviewed, showed no evidence for pulmonary embolism. Mild infectious/inflammatory bronchiolitis of the right middle lobe and lower lobes. Hepatic cirrhosis.
Atrial fibrillation with rapid ventricular response-possibly driven by above.
Cardiac biomarkers negative
Normal proBNP.
Conditions present prior to admission:
COPD-follows Dr. García-not on home oxygen, maintained on Trelegy 100, albuterol or nebulizers as needed
Chronic hypoxemic respiratory failure
Former smoker.
Decreased diffusing capacity
Pulmonary nodule.
ALCIDES-CPAP intolerant.
Obesity
Glucose intolerance
Hypertension.
Hyperlipidemia.
Osteoarthritis.
PAF.
Carotid stenosis.
GERD.
Coles's esophagus.
Diverticulosis.
Alcohol cirrhosis.
Alcohol induced hepatitis.
Duodenal ulcer.
Esophageal varices with GI bleed 05/2022.�
Sciatica.
PMR.�
Left retinal tear.
Alcohol use disorder with history of DTs.�
Appendectomy.� Bilateral hip replacements.� Bilateral retinal surgery.
Assessment and plan:
At this time, patient overall has improved. Cough improved, denies any wheezing or chest tightness. Denies any lightheadedness. Remains on Cardizem drip.
Reviewed imaging, mild right lower lobe bronchiolitis
Chest exam is unremarkable, no wheezing
Moving forward
We will continue with steroids, decreased dosing
Atrovent/levalbuterol will continue
Agree with oral doxycycline 100 mg p.o. twice a day. Total of 7 days given CAT scan findings. To be completed 08/01
Acapella device
Antitussives
Sputum culture if able
Mucolytic's
Patient usually follows up with Dr. García, has not been able to follow-up recently. Usually maintain on Trelegy
Currently on Symbicort/Spiriva
-
Rapid atrial fibrillation: On IV Cardizem
Cardiac biomarkers negative
No evidence for volume overload
Not a candidate for anticoagulation
Cardiology following the patient as well
Remains on levalbuterol
-
[facility] records reviewed: Patient is followed in our office also for lung nodules. High risk for lung cancer. He will need ongoing radiographic follow-up in the next 6 to 8 weeks. Patient is aware that he is at high risk for cancer. He was
encouraged to follow-up.
-
Severe obstructive sleep apnea: Patient discontinued BiPAP in 2020.
Avoid sedatives
He understands that daily alcohol use makes sleep apnea worse.
He understands verifications of untreated obstructive sleep apnea.
He has a new machine at home, has yet to open up the box
Will require follow-up to optimize BiPAP given cardiac comorbidities
Monitor for alcohol withdrawal. Tachycardia presently is improved
Remains on phenobarbital protocol
No tremors on my exam
-
DVT prophylaxis SCDs
-
last time seen in our office was in February 2023. He canceled in April. It is recommended that he follow-up in the next 2 weeks after discharge with Dr. García.
Disposition efforts
Subjective Data
-
Date of Service:
Date of Service: July 27, 2023
Subjective:
Patient is feeling improved today. Less short of breath, denies chest pain, chest tightness, lightheadedness, palpitations. Remains on Cardizem drip.
Objective Data
Data Reviewed
Vital Signs / I&O / Oxygen:
Vital Signs
Temp Pulse Resp BP Pulse Ox
97.9 F 81 18 154/97 96
07/27/23 03:38 07/27/23 06:00 07/27/23 06:00 07/27/23 06:00 07/27/23 06:00
SaO2 96
Nasal Cannula flow liters per 2
minute
Physical Exam
General: Comfortable (Large neck)
HEENT: Normocephalic, Anicteric and Moist Mucous Membranes
Cardiovascular: S1-S2, Regular Rhythm, Murmur (n), Rub (n), Peripheral Edema (n sequential teds in place) and Calf Tenderness (n)
Respiratory: Wheeze (n), Crackles (n), Rhonchi (n), Non-Labored Respirations and Other (Decreased)
GI: Soft, Non Distended (Obese) and Non Tender
Neurology: Awake, Alert and No Motor Deficits
Skin: Cyanosis (n), Jaundice (n) and Rash (n)
Labs/Micro/Reports
Lab Data
07/26/23 08:52
07/27/23 04:21
Laboratory Results
07/26/23
20:27
PT 16.0 H
INR 1.30
APTT 32.9
Microbiology
07/26/23 12:36 Nasal Swab Influenza Types A & B (ALFRED) - Final
Negative for Influenza A & B, NAAT
Negative results must be combined with clinical observations
and patient history.
Nucleic Acid Amplification test (NAAT)performed on the
[employer] platform.
[2023-07-27] MEDS: THIAMINE INJECTION 255 MG IV ×3 (06:12→20:41)
[2023-07-27] MEDS: XOPENEX 1.25 MG INHALANT SOLUTION INH ×3 (07:20→19:22)
[2023-07-27] MEDS: SPIRIVA RESPIMAT 2.5 MCG 2 PUFF INH (07:20)
[2023-07-27] MEDS: SYMBICORT 80/4.5 MCG INHALER 2 PUFF INH ×2 (07:20→19:22)
--- NOTE | 2023-07-27 08:14 | W.PN.HOSP.TC ---
Today's Communication/Plan
-
Continue current care
Assessment / Plan
Assessment / Plan
Gen-AAOx3, NAD, obese
HEENT-NC, AT, anicteric, clear oral mm
Neck-supple
CV-reg, no M, +S1/S2
Lungs-clear B/L
Abd-soft, NT, ND
Ext-no edema
Musculoskeletal-no cyanosis, clubbing
Skin-warm and dry
Neuro-grossly non-focal
Psych-calm, cooperative
Acute on chronic hypoxic respiratory failure -due to acute COPD exacerbation.
Acute COPD exacerbation -improving. Not wheezing on exam. Continue doxycycline, steroids, inhalers. Pulmonary following.
Rapid atrial fibrillation with RVR -rate controlled on IV Cardizem drip. Will transition to oral if okay with cardiology. Not on chronic anticoagulation due to known alcohol abuse history, esophageal varices, thrombocytopenia.
Severe alcohol use disorder -monitor for withdrawal. Continue phenobarbital taper. Continue alcohol withdrawal protocol.
Alcoholic cirrhosis
Essential hypertension with hypertensive urgency
Gross hematuria -self resolved. Occurred 3 weeks ago according to patient. No hematuria noted on urinalysis. I spoke with patient and recommend outpatient follow-up with urology.
hyperlipidemia
GERD
History of PMR
Obesity due to excess calories
Full code
Anticipated Discharge: > 48 hours
Subjective/Interval History
-
Date of Service: July 27, 2023
Patient seen and examined. No complaints.
Objective Data
-
Labs:
Laboratory Results
07/26/23 07/27/23
20:27 04:21
PT 16.0 H
INR 1.30
APTT 32.9
Sodium 135
Potassium 3.7
Chloride 104
Carbon Dioxide 26
BUN 12
Creatinine 0.5 L
Glucose 168 H
Calcium 8.2 L
Total Bilirubin 1.7 H
AST 66 H
ALT 44
Alkaline Phosphatase 250 H
Vital Signs:
Vital Signs
Temp Pulse Resp BP Pulse Ox
97.6 F 79 20 154/97 96
07/27/23 07:04 07/27/23 07:21 07/27/23 07:21 07/27/23 06:00 07/27/23 07:21
Review of Systems
-
History Source: Patient
All other systems: Reviewed and negative
[2023-07-27] MEDS: ASPIR LOW (ENTERIC COATED) 81 MG PO (08:18)
[2023-07-27] MEDS: FOLVITE 1 MG PO (08:19)
[2023-07-27] MEDS: TOPROL XL 50 MG PO ×2 (08:19→20:34)
[2023-07-27] MEDS: VIBRAMYCIN 100 MG PO ×2 (08:19→20:34)
[2023-07-27] MEDS: PHENOBARBITAL 97.5 MG IV ×3 (08:19→20:34)
[2023-07-27] MEDS: PROTONIX IV 40 MG IV (08:19)
[2023-07-27] MEDS: DECADRON 4 MG IV ×2 (10:34→20:34)
--- NOTE | 2023-07-27 10:48 | W.PN.CD ---
Today's Communication / Plan
-
Increase metoprolol ER from 50 one time a day to BID
Move IV dilt to Dilt 30 QID
Adjust meds over time
Closer to discharge convert to daily dosing for better adherence
Impression / Plan
-
63-year-old male with extensive past medical history is here today with alcohol withdrawal, and hypertension.
A-fib RVR
- Rate: OK at present
- Rhythm: paroxysmal by history, we saw sinus in Mar 2023, so far staying in AFib
- Anticoagulation: Not a candidtate given prior bleeding varices and active ETOH
- [id number] at least 1 (HTN) and in May [birth year], on his birthday will go to 2
Alcohol use disorder, severe
Hypertension
Cirrhosis
COPD with exacerbation
Subjective:
No CP or dyspnea
Physical Exam
Vital Signs/Labs
Vital Signs
Temp Pulse Resp BP Pulse Ox
97.6 F 79 20 154/97 96
07/27/23 07:04 07/27/23 07:21 07/27/23 07:21 07/27/23 06:00 07/27/23 07:21
07/26/23 07/27/23 07/28/23
06:59 06:59 06:59
Actual Weight 109.6 kg
07/26/23 08:52
07/27/23 04:21
PT 16.0 Sec (11.4-14.6) H 07/26/23 20:27
INR 1.30 07/26/23 20:27
APTT 32.9 Sec (23.4-35.0) 07/26/23 20:27
Magnesium 1.6 mg/dl (1.6-2.3) 07/26/23 20:27
Triglycerides 86 mg/dl (10-149) 07/27/23 04:21
LDL Cholesterol, Calc 183 mg/dl 07/27/23 04:21
VLDL Cholesterol, Calc 17 mg/dl (0-30) 07/27/23 04:21
HDL Cholesterol 71 mg/dl 07/27/23 04:21
Physical Exam
Constitutional: No acute distress
Cardiovascular: Rhythm/rate is irregular
Respiratory: Respiratory effort normal and Lungs clear to auscul.
GI: Soft and Distention absent
Neuro/Psych: AO x 3
Data Reviewed
-
Date of Service: July 27, 2023
--- NOTE | 2023-07-27 11:26 | CM ---
CM following re: discharge planning.
Reviewed pt's chart, met with pt.
Pt is a 63 year old male, admitted with primary dx of rapid A-Fib, ETOH withdrawal.
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 No DME, VN or SNF history.
Pt admitted to sig h/o alcohol abuse, has been drinking 2 big bottles of wine daily. Pt reports he jus twas at [facility] for detox and was staying there for 7 days. Pt reports he has never been to inpatient residential D&A rehab, met with [facility] more
than 5 times, after discharge from [facility] started going to AA meetings. Pt expressed his agreement to meet with [facility] team again and feels he should think seriously regarding working on his sobriety. Pt admitted that it became very difficult for him
to stop drinking. Emotional support with reassurance offered and provided.
A referral to [facility] made and [facility] will meet with the pt tomorrow.
Pt expressed his desire to return back home with resumptions of AA meetings and to follow up with [facility].
PCP: Berna Lyons
Pharmacy: [facility]
D/C plan: home with resumptions of AA meetings and to follow up with [facility].
CM will follow with discharge plan updates as hospitalization progresses
[2023-07-27] MEDS: CARDIZEM 30 MG PO ×3 (13:30→20:34)
--- NOTE | 2023-07-27 16:50 | PTCARENOTE ---
Remains AAOx3, anxious and tearful- emotional support provided. MSAS 2 this am 3 this pm but just prior to IV Phenobarb dose. Tremulous, AF on tele rates 80-90s, Appetite good, NO N/V/D. IV Cardizem off after po doses started today.
[2023-07-27] MEDS: LOVENOX 40 MG SC (18:10)
[2023-07-28] VITALS (7 sets, daily range): BP systolic 103–160; BP diastolic 71–96; BMI 35.0
[2023-07-28 04:00] LABS: % Immature Granulocytes 0.5 % (0-0.5); % Lymphocytes 8.4 % (20.5-51.1); % Monocytes 2.8 % (1.7-9.3); % Neutrophils 88.3 % (42.2-75.2); Absolute Lymphocytes 0.6 10^3/uL (1.2-3.4); Absolute Monocytes 0.2 10^3/uL (0.1-0.6); Absolute Neutrophils 5.8 10^3/uL (1.4-6.5); Hematocrit 39.8 % (39.0-52.0); Hemoglobin 13.7 g/dL (13.0-18.0); Mean Corp Hgb Conc. 34.4 g/dL (33.0-37.0); Mean Corpuscular Hgb 31.1 pg (27.0-31.0); Mean Corpuscular Volume 90.5 fL (80.0-94.0); Mean Platelet Volume 10.1 fL (7.4-10.4); Nucleated Red Blood Cells % 0 % (-); Platelet Count 63 10^3/uL (130-400); Red Cell Dist. Width 13.6 % (11.5-14.5); White Blood Cell Count 6.5 10^3/uL (4.8-10.8)
[2023-07-28 04:31] LABS: ALT (SGPT) 44 U/L (0-50); AST (SGOT) 71 U/L (17-59); Albumin 3.6 g/dl (3.5-5.0); Alkaline Phosphatase 216 U/L (38-126); Blood Urea Nitrogen 18 mg/dl (9-20); Calcium 8.2 mg/dl (8.4-10.2); Carbon Dioxide 23 mmol/L (22-30); Chloride 107 mmol/L (98-107); Estimated Creatinine Clearance > 125 ml/min; Glucose 154 mg/dl (70-99); Potassium 3.8 mmol/L (3.5-5.1); Sodium 135 mmol/L (135-145); Total Bilirubin 1.6 mg/dl (0.2-1.3); Total Protein 6.6 g/dl (6.3-8.2); eGFR > 60.00
--- NOTE | 2023-07-28 05:13 | PTCARENOTE ---
No acute events overnight. MSAS as high as 3. Remained on room air.
[2023-07-28] MEDS: THIAMINE INJECTION 255 MG IV (05:45)
--- NOTE | 2023-07-28 07:05 | W.PN.PUL3 ---
Today's Communication / Plan
-
Wean off steroids as below
Continue Doxy based on CT findings
Strongly rec follow up in sleep clinic
Will need follow up CT in 3 mo
We will sign off. Please call with questions
Assessment
-
63-year-old man with history of severe COPD, chronic hypoxemic respiratory failure, alcoholic comes to the hospital complaining of cough, phlegm production and shortness of breath. Found to be bronchospastic. CT chest with bronchiolitis. Also
found to be in rapid atrial fibrillation admitted for further evaluation.
Acute exacerbation of COPD-possibly infectious in etiology.
CT chest 07/26/2023: Reviewed, showed no evidence for pulmonary embolism. Mild infectious/inflammatory bronchiolitis of the right middle lobe and lower lobes. Hepatic cirrhosis.
Atrial fibrillation with rapid ventricular response-possibly driven by above.
Cardiac biomarkers negative
Normal proBNP.
Conditions present prior to admission:
COPD-follows Dr. García-not on home oxygen, maintained on Trelegy 100, albuterol or nebulizers as needed
Chronic hypoxemic respiratory failure
Former smoker.
Decreased diffusing capacity
Pulmonary nodule.
ALCIDES-CPAP intolerant
Obesity
Glucose intolerance
Hypertension.
Hyperlipidemia.
Osteoarthritis.
PAF.
Carotid stenosis.
GERD.
Coles's esophagus.
Diverticulosis.
Alcohol cirrhosis.
Alcohol induced hepatitis.
Duodenal ulcer.
Esophageal varices with GI bleed 05/2022.�
Sciatica.
PMR.�
Left retinal tear.
Alcohol use disorder with history of DTs.�
Appendectomy.� Bilateral hip replacements.� Bilateral retinal surgery.
Assessment and plan:
At this time, patient overall has improved.
HR better. Chest exam is clear
Reviewed imaging, mild right lower lobe bronchiolitis
No evidence of DTs
Moving forward
We will continue with steroids, decreased dosing. Wean by 10mg every 2 days till off
Atrovent/levalbuterol will continue
Agree with oral doxycycline 100 mg p.o. twice a day. Total of 7 days given CAT scan findings. To be completed 08/01
Patient usually follows up with Dr. García, has not been able to follow-up recently. Usually maintain on Trelegy
Currently on Symbicort/Spiriva
Transitioned to oral CCBs
Not a candidate for anticoagulation
Cardiology following the patient as well
Remains on levalbuterol
[facility] records reviewed: Patient is followed in our office also for lung nodules. High risk for lung cancer. He will need ongoing radiographic follow-up in the next 6 to 8 weeks. Patient is aware that he is at high risk for cancer. He was
encouraged to follow-up.
Severe obstructive sleep apnea: Patient discontinued BiPAP in 2020.
Avoid sedatives
He understands that daily alcohol use makes sleep apnea worse.
He understands verifications of untreated obstructive sleep apnea.
He has a new machine at home, has yet to open up the box
Will require follow-up to optimize BiPAP given cardiac comorbidities
Monitor for alcohol withdrawal. Tachycardia presently is improved
Remains on phenobarbital protocol
No tremors on my exam
DVT prophylaxis SCDs and on Lovenox
last time seen in our office was in February 2023. He canceled in April. It is recommended that he follow-up in the next 2 weeks after discharge with Dr. García.
Disposition efforts
Info left in chart
We will sign off. Please call with questions
Subjective Data
-
Date of Service:
Date of Service: July 28, 2023
Subjective:
Pt feels well. Eating breakfast. Denies cp, n, Abd pain, SOB
Objective Data
Data Reviewed
Vital Signs / I&O / Oxygen:
Vital Signs
Temp Pulse Resp BP Pulse Ox
97.8 F 85 13 154/96 95
07/28/23 04:01 07/28/23 04:00 07/28/23 04:00 07/28/23 04:00 07/28/23 04:00
Intake and Output
07/27/23 07/28/23 07/29/23
06:59 06:59 06:59
Intake Total 2355 / 2355
Output Total 2575 / 2575
Balance -220 / -220
SaO2 95
Nasal Cannula flow liters per 2
minute
Physical Exam
General: Comfortable (Large neck)
HEENT: Normocephalic, Anicteric and Moist Mucous Membranes
Cardiovascular: S1-S2, Regular Rhythm, Murmur (n), Rub (n) and Peripheral Edema (no)
Respiratory: Wheeze (n), Crackles (n), Rhonchi (n), Non-Labored Respirations, Stridor (n) and Other (Decreased)
GI: Soft, Non Distended (Obese) and Non Tender
Neurology: Awake, Alert and No Motor Deficits
Skin: Cyanosis (n), Jaundice (n) and Rash (n)
Labs/Micro/Reports
Lab Data
07/28/23 03:38
07/28/23 03:38
Microbiology
07/26/23 12:36 Nasal Swab Influenza Types A & B (ALFRED) - Final
Negative for Influenza A & B, NAAT
Negative results must be combined with clinical observations
and patient history.
Nucleic Acid Amplification test (NAAT)performed on the
[employer] platform.
[2023-07-28] MEDS: SYMBICORT 80/4.5 MCG INHALER 2 PUFF INH (08:06)
[2023-07-28] MEDS: XOPENEX 1.25 MG INHALANT SOLUTION INH (08:06)
[2023-07-28] MEDS: SPIRIVA RESPIMAT 2.5 MCG 2 PUFF INH (08:06)
--- NOTE | 2023-07-28 08:19 | W.PN.HOSP.TC ---
Addendum entered and electronically signed by Richard Broussard DO 07/28/23 13:05:
Alcohol abuse/dependence with withdrawal
Hypertensive Urgency
Acute infectious bronchiolitis
Acute hypoxic respiratory insufficiency -resolved.
Addendum entered and electronically signed by Richard Broussard, 07/28/23 08:44:
Cardiology, Dr. Kim, okay with discharge today. Outpatient follow-up.
Original Note:
Today's Communication/Plan
-
Disposition
Assessment / Plan
Assessment / Plan
Gen-AAOx3, NAD, obese
HEENT-NC, AT, anicteric, clear oral mm
Neck-supple
CV-reg, no M, +S1/S2
Lungs-clear B/L
Abd-soft, NT, ND
Ext-no edema
Musculoskeletal-no cyanosis, clubbing
Skin-warm and dry
Neuro-grossly non-focal
Psych-calm, cooperative
Acute on chronic hypoxic respiratory failure -due to acute COPD exacerbation. Oxygenation improved, now on room air. Can check ambulatory pulse ox on room air prior to discharge.
Acute COPD exacerbation -improving. Not wheezing on exam. Continue doxycycline, steroids, inhalers. Pulmonary following.
Rapid atrial fibrillation with RVR -rate improving, off IV Cardizem now. Continue oral Cardizem, metoprolol. Metoprolol dose was doubled to 50 mg twice daily. Not on chronic anticoagulation due to known alcohol abuse history, esophageal varices,
thrombocytopenia.
Severe alcohol use disorder -monitor for withdrawal. Continue phenobarbital taper. Continue alcohol withdrawal protocol.
Alcoholic cirrhosis
Essential hypertension with hypertensive urgency -urgency resolved. Blood pressure 145/96 this morning.
Gross hematuria -self resolved. Occurred 3 weeks ago according to patient. No hematuria noted on urinalysis. I spoke with patient and recommend outpatient follow-up with urology.
hyperlipidemia
GERD
History of PMR
Obesity due to excess calories
Full code
Dispo -potential discharge later today if okay with cardiology. Pulmonary okay with discharge, I spoke with Dr. García.
Close outpatient follow-up needed.
Anticipated Discharge: Today
Subjective/Interval History
-
Date of Service: July 28, 2023
Patient seen and examined. Overall feeling better. Getting a nebulizer treatment currently. No complaints.
Objective Data
-
Labs:
Laboratory Results
07/28/23
03:38
WBC 6.5
Hgb 13.7
Hct 39.8
Plt Count 63 L D
Sodium 135
Potassium 3.8
Chloride 107
Carbon Dioxide 23
BUN 18
Creatinine 0.5 L
Glucose 154 H
Calcium 8.2 L
Total Bilirubin 1.6 H
AST 71 H
ALT 44
Alkaline Phosphatase 216 H
Vital Signs:
Vital Signs
Temp Pulse Resp BP Pulse Ox
97.8 F 86 20 145/96 93
07/28/23 04:01 07/28/23 08:09 07/28/23 08:09 07/28/23 07:36 07/28/23 08:09
I&O
07/27/23 07/28/23 07/29/23
06:59 06:59 06:59
Intake Total 2355 / 2355
Output Total 2575 / 2575 600 / 600
Balance -220 / -220 -600 / -600
Review of Systems
-
History Source: Patient
All other systems: Reviewed and negative
--- NOTE | 2023-07-28 08:30 | W.PN.CD ---
Today's Communication / Plan
-
From the cardiac meds home on:
- generic Cardizem CD 120 mg daily
- generic Toprol XL 100 mg daily
- (he will have meds here today so next dose will be tomorrow)
- as outpatient his PCP can offer statin for his LDL with his CAD risk factors
Cardiology will sign off
OK for home from cardiac perspective
Impression / Plan
-
63-year-old male with extensive past medical history is here today with alcohol withdrawal, and hypertension.
A-fib RVR => much improved
- Rate: OK at present
- Rhythm: paroxysmal by history, we saw sinus in Mar 2023, so far staying in AFib
- Anticoagulation: Not a candidate given prior bleeding varices and active ETOH
- WEH2RR2-OEOM at least 1 (HTN) and in May [birth year], on his birthday will go to 2
Mixed hyperlipidemia
- LDL in the 180s
- I told him to discuss statin with his PCP
- If he sees us in the office we will also discuss
Alcohol use disorder, severe
Hypertension
- I asked him to obtain a BP cuff and monitor home BP at least 2x/month and review with his PCP
Cirrhosis
COPD with exacerbation
- Tolerating metoprolol ER
Subjective:
No CP or dyspnea. No palps
Physical Exam
Vital Signs/Labs
Vital Signs
Temp Pulse Resp BP Pulse Ox
97.8 F 86 20 145/96 93
07/28/23 04:01 07/28/23 08:09 07/28/23 08:09 07/28/23 07:36 07/28/23 08:09
07/27/23 07/28/23 07/29/23
06:59 06:59 06:59
Actual Weight 109.6 kg 107.5 kg
07/28/23 03:38
07/28/23 03:38
PT 16.0 Sec (11.4-14.6) H 07/26/23 20:27
INR 1.30 07/26/23 20:27
APTT 32.9 Sec (23.4-35.0) 07/26/23 20:27
Magnesium 1.6 mg/dl (1.6-2.3) 07/26/23 20:27
Triglycerides 86 mg/dl (10-149) 07/27/23 04:21
LDL Cholesterol, Calc 183 mg/dl 07/27/23 04:21
VLDL Cholesterol, Calc 17 mg/dl (0-30) 07/27/23 04:21
HDL Cholesterol 71 mg/dl 07/27/23 04:21
Physical Exam
Constitutional: No acute distress
Cardiovascular: Rhythm/rate is irregular and S1S2 is normal
Respiratory: Respiratory effort normal
GI: Soft and Distention absent
Neuro/Psych: Alert
Data Reviewed
-
Date of Service: July 28, 2023
--- NOTE | 2023-07-28 08:54 | W.DS.TRANS ---
DC Summary - [employer]
-
Discharge Instructions:
Discharge Diagnosis/Procedures Acute COPD exacerbation, rapid atrial
fibrillation, severe alcohol use disorder
Diet Low Fat,Low Cholesterol,2 Gram Sodium
Activity As tolerated
Driving Restrictions As prior to admission
Bathing Restrictions None
Instructions:
Stand-Alone Forms:
Changes to Home Medications: No
Discharge Medications:
DC Medications w/original date entered in [id number]
fluticasone fur. 100 mcg-umeclid 62.5 mcg-vilant 25 mcg inhalat.powder (Trelegy Ellipta) 1 inh inhalation R DAILY Lung/Breathing Issues 10/06/22
aspirin 81 mg tablet,delayed release 81 mg PO DAILY Blood Clot Prevention/Tx 02/04/23
levalbuterol tartrate 45 mcg/actuation aerosol inhaler 1 puff inhalation R Q6HPRN PRN sob 02/04/23
diltiazem HCl 120 mg capsule,extended release 24 hr 120 mg PO DAILY #30 caps 07/28/23
doxycycline hyclate 100 mg capsule 100 mg PO Q12 #10 caps 07/28/23
folic acid 1 mg tablet 1 mg PO DAILY #30 tabs 07/28/23
metoprolol succinate 100 mg tablet,extended release 24 hr 100 mg PO DAILY #30 tabs 07/28/23
phenobarbital 32.4 mg tablet 32.4 mg PO TID #18 tabs 07/28/23
thiamine HCl (vitamin B1) 100 mg tablet 100 mg PO DAILY #30 tabs 07/28/23
Home Medication Changes
Pending Results: No
[2023-07-28] MEDS: PROTONIX IV 40 MG IV (09:26)
[2023-07-28] MEDS: DECADRON 4 MG IV (09:27)
[2023-07-28] MEDS: CARDIZEM CD 120 MG PO (09:27)
[2023-07-28] MEDS: FOLVITE 1 MG PO (09:27)
[2023-07-28] MEDS: VIBRAMYCIN 100 MG PO (09:27)
[2023-07-28] MEDS: ASPIR LOW (ENTERIC COATED) 81 MG PO (09:27)
[2023-07-28] MEDS: TOPROL XL 50 MG PO (09:28)
[2023-07-28] MEDS: PHENOBARBITAL 97.5 MG IV (09:34)
[2023-07-28] MEDS: CARDIZEM PO (10:12)
[2023-07-28] MEDS: TOPROL XL PO (10:12)
--- NOTE | 2023-07-28 10:16 | PTCARENOTE ---
Assumed care of patient at beginning of this shift from previous RN. Patient for discharge with phenobarbital 32.4 po tid; confirmed with Dr Broussard via tiger text that patient may receive scheduled dose of phenobarbital 97.5mg IV and start po dose
tonight. Seen by Dr Kim who ordered toprol xl 50mg now dose, which was given. Patient states he will not have a ride until this afternoon. See worklist for full assessment and vital signs; see MAR for med administration.
--- NOTE | 2023-07-28 10:37 | CM ---
CM following re: discharge planning.
Reviewed pt's chart, met with pt.
Discharge order is noted. Pt is aware, expressed his agreement with discharge and he stated his niece will come at 12:00 p.m. to transport him home.
Pt expressed his desire to work strong on his sobriety. Pt stated he met with [facility] yesterday, has their information and he will follow up with [facility] on an outpatient level. Pt stated he will looking for a possibility to get to Rehab
after work if it will not conflict his job security. Pt stated he will resume AA meetings and will work with his sponsor. Encouragement to participate in inpatient/outpatient D&A related programs offered and provided.
D/C plan: home with [facility] to follow up, resumptions of AA meetings and family support. Niece to transport
--- NOTE | 2023-07-28 12:16 | PN.CDI ---
CDI
- -
CDI:
Physician Documentation Request
Admit Date: 07/26/23 13:35
Dear Doctor Aarti,
Please review the following and provide your response in the progress notes.
Due to conflicting documentation, please clarify the patient's respiratory status....
Clinical Indicators:
H+P, 07/25
#Patient is tachycardic, with shortness of breath.
#He is mildly wheezing, with diminished breath sounds.
Pulmonary consult, 07/25
#COPD-follows Dr. García-not on home oxygen,
#...maintained on Trelegy 100, albuterol or nebulizers as needed
#Chronic hypoxemic respiratory failure
PN, 07/27
#Acute on chronic hypoxic respiratory failure -due to acute COPD exacerbation.
#...Oxygenation improved, now on room air.
#Acute COPD exacerbation -improving.
#...Not wheezing on exam. Continue doxycycline, steroids, inhalers. Pulmonary following.
Maintained on 2L NC O2 and RA
during admission
Recognized standard criteria for respiratory failure includes:
(Source: [facility] Hospitalist Mar 2013)
ABGs (1 or more)
�PO2 <60 or RA SpO2 <91%
�PcO2 >50 and pH <7.35
�pO2 decrease or pcO2 increase by 10 mmHg from baseline if known Symptoms:
�Tachypnea, SOB, dyspnea
�Pallor or cyanosis
�Anxiety or restlessness
�Use of accessory muscles
�Retractions (grunting in newborns)
�Unable to speak in complete sentences
Supplemental O2 requirement of 40% (5LPM) or more Intubation is not required
Based on the above information and the recognized standard for respiratory failure could you please verify this diagnoses is still accurate and reflective of the patient�s condition to ensure quality of the medical record.
Please clarify in the Progress Notes:
Respiratory failure is/was present and is a clinical diagnosis based on (please include this additional support in the medical record)
After study respiratory failure has been ruled out
Other
Use of terms such as suspected, likely, concern for, or probable (associated with a specific diagnosis that is being evaluated, monitored, or treated as if it exists) are acceptable and can be coded in the inpatient setting, when documented at the
time of discharge.
Thank you,
Sandra Betancur RN BSN CCDS
CDI Specialist
please contact via tiger text
Please use your independent medical judgment in providing your response.
--- NOTE | 2023-07-28 12:26 | PN.CDI ---
CDI
- -
CDI:
Physician Documentation Request
Admit Date: 07/26/23 13:35
Dear Doctor Aarti,
Please review the following and provide your response in the progress notes.
Clinical Indicators:
Pulmonary, PN, 07/26
#Acute exacerbation of COPD-possibly infectious in etiology.
#CT chest 07/26/2023: Reviewed, showed no evidence for pulmonary embolism.
#...Mild infectious/inflammatory bronchiolitis of the right middle lobe and lower lobes.
#...continue with steroids, decreased dosing
#Agree with oral doxycycline 100 mg p.o. twice a day.
#...Total of 7 days given CAT scan findings. To be completed 08/01
PN, 07/27
#Acute COPD exacerbation -improving. Not wheezing on exam.
#...Continue doxycycline, steroids, inhalers.
Please clarify which of the following accurately represents the acuity of the infectious/inflammatory bronchiolitis:
Acute infectious bronchiolitis
Other
Unable to determine
Use of terms such as suspected, likely, concern for, or probable (associated with a specific diagnosis that is being evaluated, monitored, or treated as if it exists) are acceptable and can be coded in the inpatient setting, when documented at the
time of discharge.
Thank you,
Sandra Betancur RN BSN CCDS
CDI Specialist
please contact via tiger text
Please use your independent medical judgment in providing your response.
--- NOTE | 2023-07-28 12:34 | PN.CDI ---
CDI
- -
CDI:
Physician Documentation Request
Admit Date: 07/26/23 13:35
Dear Doctor Aarti,
Please review the following and provide your response in the progress notes.
Clinical Indicators:
H+P, 07/25
#Accelerated HTN secondary to alcohol withdrawal
#161/131
#IV Cardizem drip will start and titrate for A-fib
#-IV Lopressor given in ER
#-Monitor BP
PN, 07/26
#Essential hypertension with hypertensive urgency
Please clarify which is a more accurate diagnosis reflecting the type and acuity of the documented hypertension:
Hypertensive Emergency - B/P is severely elevated (systolic > or = to 180 or diastolic > or = to 110) but can occur at lower levels especially in patients who did not previously have high B/P. There is usually associated organ damage. Symptoms may
include: memory loss, LOC, CVA, OK, angina, renal failure, pulmonary edema. Generally requires more aggressive treatment and a hospitalization.
Hypertensive Crisis - an acute elevation in B/P that can lead to organ damage. Broad term that is further differentiated to include urgency or emergency based on presence of organ damage.
Essential primary hypertension
Hypertensive Urgency - B/P is severely elevated (systolic > or = to 180 or diastolic > or = to 110) but there is no associated organ damage. Symptoms may include: headache, shortness of breath, nosebleeds, severe anxiety. Treatment usually consists
of addition to or adjusting of oral medications and does not generally necessitate hospitalization.
Other (please specify)
Use of terms such as suspected, likely, concern for, or probable (associated with a specific diagnosis that is being evaluated, monitored, or treated as if it exists) are acceptable and can be coded in the inpatient setting, when documented at the
time of discharge.
Thank you,
Sandra Betancur RN BSN CCDS
CDI Specialist
please contact via tiger text
Please use your independent medical judgment in providing your response.
--- NOTE | 2023-07-28 12:45 | PN.CDI ---
CDI
- -
CDI:
Physician Documentation Request
Admit Date: 07/26/23 13:35
Dear Doctor Aarti,
Please review the following and provide your response in the progress notes.
Clinical Indicators:
ED, 07/25
#Alcohol withdrawal, Atrial fibrillation with RVR,
#...Acute exacerbation of chronic obstructive pulmonary disease
H+P, 07/25
#Accelerated HTN secondary to alcohol withdrawal
07/27/23 16:50 - Patient Care Note
#Remains AAOx3, anxious and tearful- emotional support provided.
#MSAS 2 this am 3 this pm but just prior to IV Phenobarb dose.
#Tremulous, AF on tele rates 80-90s,
07/28/23 10:16 - Patient Care Note
#Patient for discharge with phenobarbital 32.4 po tid;
#...confirmed with Dr Broussard via tiger text that
#patient may receive scheduled dose of phenobarbital 97.5mg IV and start po dose tonight.
PN, 07/27
#Severe alcohol use disorder -monitor for withdrawal.
#Continue phenobarbital taper.
#Continue alcohol withdrawal protocol.
Selected Entries
07/26/23
08:40 07/26/23
09:00 07/26/23
10:00
MSAS SCORE 9 9 6
07/26/23
11:00 07/26/23
12:00 07/26/23
13:00
MSAS SCORE 5 4 4
07/26/23
14:00 07/26/23
15:00 07/26/23
16:00
MSAS SCORE 3 3 3
07/26/23
17:00 07/26/23
18:00 07/26/23
20:00
MSAS SCORE 3 3 3
07/26/23
22:00 07/27/23
00:00 07/28/23
06:00
MSAS SCORE 4 3 2
07/28/23
10:00
MSAS SCORE 2
Please provide further specificity as outlined below:
Alcohol abuse/dependence with withdrawal
Alcohol use disorder
Other
Use of terms such as suspected, likely, concern for, or probable (associated with a specific diagnosis that is being evaluated, monitored, or treated as if it exists) are acceptable and can be coded in the inpatient setting, when documented at the
time of discharge.
Thank you,
Sandra Betancur RN BSN CCDS
CDI Specialist
please contact via tiger text
Please use your independent medical judgment in providing your response.
== END 2023-07-28 13:19 | disposition home or self-care (01) | DRG 191 ==
LOC: IMU 13:35
PROVIDERS: Clinical Nurse Specialist Family Health; Physician Assistant; ADMITTING PHYSICIAN Family Medicine; ATTENDING PHYSICIAN Hospitalist; CONSULT PHYSICIAN Internal Medicine Cardiovascular Disease; CONSULT PHYSICIAN Internal Medicine Critical Care Medicine; EMERGENCY PHYSICIAN Emergency Medicine; FAMILY PHYSICIAN Nurse Practitioner Family
DX: J44.1 Chronic obstructive pulmonary disease with (acute) exacerbation (principal); F10.239 Alcohol dependence with withdrawal, unspecified; I48.92 Unspecified atrial flutter; J96.11 Chronic respiratory failure with hypoxia; I48.0 Paroxysmal atrial fibrillation; I15.8 Other secondary hypertension; R44.1 Visual hallucinations; K21.9 Gastro-esophageal reflux disease without esophagitis; E78.00 Pure hypercholesterolemia, unspecified; W01.10XA Fall on same level from slipping, tripping and stumbling with subsequent striking against unspecified object, initial encounter; Y93.9 Activity, unspecified; Y92.9 Unspecified place or not applicable; K70.10 Alcoholic hepatitis without ascites; S09.90XA Unspecified injury of head, initial encounter; G47.33 Obstructive sleep apnea (adult) (pediatric); M19.90 Unspecified osteoarthritis, unspecified site; R91.1 Solitary pulmonary nodule; M54.30 Sciatica, unspecified side; M35.3 Polymyalgia rheumatica; K22.70 Barrett's esophagus without dysplasia; K57.90 Diverticulosis of intestine, part unspecified, without perforation or abscess without bleeding; K76.0 Fatty (change of) liver, not elsewhere classified; K70.30 Alcoholic cirrhosis of liver without ascites; J44.0 Chronic obstructive pulmonary disease with (acute) lower respiratory infection; D69.59 Other secondary thrombocytopenia; E78.2 Mixed hyperlipidemia; I16.0 Hypertensive urgency; E66.09 Other obesity due to excess calories; Y90.4 Blood alcohol level of 80-99 mg/100 ml; Z87.11 Personal history of peptic ulcer disease; Z96.643 Presence of artificial hip joint, bilateral; Z79.51 Long term (current) use of inhaled steroids; Z79.82 Long term (current) use of aspirin; Z91.81 History of falling; Z91.199 Patient's noncompliance with other medical treatment and regimen due to unspecified reason; Z87.891 Personal history of nicotine dependence; Z11.52 Encounter for screening for COVID-19; Z68.35 Body mass index [BMI] 35.0-35.9, adult; Z99.81 Dependence on supplemental oxygen
CPT/HCPCS: 70450; 71101; 71275; 80053; 80061; 80306; 80307; 81003; 82010; 82077; 82746; 82977; 83735; 84100; 85025; 85610; 85730; 87502; 87811; 93005; 94640; 96361; 96374; 96375; 97163; 97166; 99285; Q9967

== ENCOUNTER 2023-09-13 02:53 | Inpatient (IN) | payer OTHER, SELFPAY ==
[2023-09-13] VITALS (13 sets, daily range): BP systolic 100–148; BP diastolic 53–124; PULSE 76; O2SAT 95; BMI 36.5; BMI 35.7
[2023-09-13] MEDS: ZOFRAN 4 MG IV (00:17)
[2023-09-13] MEDS: ATIVAN 0.5 MG IV (00:18)
--- NOTE | 2023-09-13 00:21 | ED.GENMED ---
History of Present Illness
General
Chief Complaint: Breathing Problem
Source: patient and ambulance crew
Exam Limitations: none
Time Seen by Provider: 09/13/23 00:16
Nursing documentation reviewed up to this point in time: agreed with
History of Present Illness
History of Present Illness:
Patient with history of alcoholism and atrial fibrillation, currently not on anticoagulation secondary to alcohol abuse and previous history of variceal bleed, presents to ED secondary to recurrent cough with shortness of breath over the past 3
days. Per paramedics, patient was found to be in severe respiratory distress at home with initial pulse ox of 89% on room air. Patient placed on 100% nonrebreather and brought to the hospital. Upon arrival, patient denies chest pain. Denies
nausea, vomiting, or diarrhea. Patient does admit to continual alcohol intake at home, including last night. Denies fever or chills. Denies rash. Denies headache. Denies dizziness. Patient was admitted to the hospital and treated for similar
complaint 2 months ago, when he was discharged home with diagnosis of likely COPD exacerbation with new onset atrial fibrillation, likely secondary to alcohol use.
Past History
Past History
ED Past Medical History: Arrthythmia (A-fib, not on anticoagulation due to esophageal varices history), Asthma, CHF, COPD, HTN and Hypercholesterolemia
ED Past Surgical History: Appendectomy
Patient has exhibited threatening behavior?: No
Social History
Tobacco: Former smoker
Alcohol: Chronic alcoholic
Drug: None
Personal:
Living: with family
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
Family History
Family History: Other (Non-contributory)
Review of Systems
Review of Systems
Allergies reviewed?: Yes
All Other Systems: ROS reviewed and negative except as documented in HPI and ROS
Constitutional: Reports no symptoms; Denies fever or chills
EENT: Reports no symptoms
Respiratory: Reports cough and trouble breathing
Cardiac: Reports no symptoms; Denies chest pain
ABD/GI: Reports no symptoms; Denies abdominal pain, nausea or vomiting
Musculoskeletal: Reports no symptoms
Skin: Reports no symptoms
Neurological: Reports no symptoms
Phy Exam
Physical Exam
Physical Exam:
Physical Exam
General: moderate respiratory distress, acutely ill. afebrile. overweight.
Head: nc/at. eomi
Neck: supple. no meningeal signs.
Heart: irregular irregular, no murmur. equal radial pulses.
Lungs: moderate respiratory distress. diminished breath sounds bilaterally
Abdomen: normal bowel sounds. not tender.
Neuro: alert and oriented. no focal neurological deficits
Skin: no rash
Psychiatric: well kept. interactive and cooperative
Extremities: no edema. no calf tenderness.
Scores
Heart Failure Risk
Heart Failure Risk Score: Not Applicable
Course
Orders/Labs/Results
Orders:
Orders
09/13/23 00:14
Electrocardiogram (*1) Urgent
Reason for Study: Shortness of Breath
Cardiac Monitoring- Treatment ONCE
EKG- Treatment ONCE
09/13/23 00:15
Lorazepam [Ativan] 2 mg .ROUTE .STK-MED ONE
Ondansetron Injectable [Zofran] 4 mg .ROUTE .STK-MED ONE
09/13/23 00:16
Lorazepam [Ativan] 0.5 mg IV NOW STA
Ondansetron Injectable [Zofran] 4 mg IV NOW STA
CR Chest Portable - 1 View Urgent
Comment:
Reason For Exam: sob
Reason Study Needs to be Portable: Patient Unstable
09/13/23 00:18
Alcohol Urgent
CMP [Comprehensive Metabolic Panel] Urgent
Complete Blood Count/With Diff Urgent
Magnesium Urgent
NT-proBNP Urgent
Troponin I Urgent
Dexamethasone Sod Phosphate [Decadron] 10 mg IV NOW STA
Ipratropium/Albuterol Sulfate [Duoneb] 3 ml INH R NOW STA
09/13/23 00:21
COVID-19 Antigen Urgent
Source: Nasal Swab
09/13/23 00:24
Add On- LAB Urgent
Tests Added?: alcohol level
09/13/23 00:25
D-Dimer Urgent
09/13/23 00:58
CT Chest Pe Study Urgent
Comment:
Reason For Exam: sob/hypoxia
09/13/23 02:02
Procalcitonin Urgent
PCT Algorithmm Indication: Respiratory
09/13/23 02:29
Admit/Transfer Patient As Directed
Co-Sign Provider:
Level of Care: Inpatient admission
Assign to:: IMU- Intermediate Care
Physician / Group: Trent
Diagnosis: Acute Hypoxemia, COPD
Reason for Hospitalization: Acute Hypoxemia, COPD
Expected length of stay greater than two midnights?: Yes
ELOS- Estimated Length of Stay in days: 3
I certify the patient meets the requirements for IP care: Yes
09/13/23 02:30
Code Status As Directed
Resuscitation Status: Full Code
09/13/23 02:42
Phenobarbital Sodium [Phenobarbital] 260 mg 0.9% Sodium Chloride 100 ml [Nss] 100 ml IV NOW
09/13/23 04:05
0.9% Sodium Chloride [Nss (Preservative Free)] See Protocol IV PRN PRN
Acetaminophen [Tylenol] 650 mg PO Q4HPRN PRN
Albuterol Nebs [Ventolin Nebules] 2.5 mg INH R Q4HPRN PRN
Dextrose 50%-Water [Dextrose 50% Syringe] 12.5 grams IV [id number] PRN
FOLic ACID [Folvite] 1 mg 0.9% Sodium Chloride 50 ml [Nss] 50 ml IV DAILYPRN
Glucagon [GlucaGen] 1 mg IM PRN PRN
Lorazepam [Ativan] 1 mg IV Q1HPRN PRN
Lorazepam [Ativan] 1 mg PO Q2HPRN PRN
Lorazepam [Ativan] 2 mg IV Q1HPRN PRN
Polyethylene Glycol Powder [Miralax] 17 grams PO DAILY PRN
09/13/23 04:05
Case Management Consult Once
Case Management Consult: Other
Comment: Substance abuse counseling
Consult Notification Routine
Specialty to Notify: Pulmonary
DIETARY CONSULT Routine
Reason for Consult: Nutrition support, possible refeeding guidelines
PULMONARY CONSULT Routine
Consulting Provider: Umair Persaud
Was physician already notified: No
Reason for consult: COPD / Hypoxemia
Activity As Directed
Activity Level: Ambulate
With Assistance
Bedside Glucose Monitoring As Directed
Frequency: AC&HS
Additional Instructions:: Change to q6h if pt on TPN, tube feeding or not eating
Bladder Scan As Directed
Follow Bladder Retention/Intermittent Cath Algorithm?: Yes
PRN if no void in __ hours: 6
Frequency: Per Retention Algorithm
If Bladder Scan Result >: 400
then:: Straight cath
EKG with chest pain [ECG as needed] As Directed
ECG as needed for:: Chest Pain
I/O [Intake/ Output] As Directed
Frequency: Per unit guidelines
MSAS SCORE As Directed
MSAS Score 0-4: Repeat MSAS every 2 hours until 0-4 for three consecutive assessments, then every 4 hours x 48
hours.
MSAS Score 5-7: For MILD withdrawl symptoms. Repeat MSAS and RASS every 2 hours
MSAS Score 8-11: For MODERATE withdrawal symptoms. Repeat MSAS and RASS every 1 hour. Consider ICU or IMU
level of care.
MSAS Score > 11: For SEVERE withdrawal symptoms. Repeat MSAS and RASS every 1 hour. Notify provider, consider
ICU level of care.
MSAS Additional Instructions: If no improvement or no decrease in score from severe to moderate within 12
hours, consult psychiatry
MSAS Notify Provider: Notify provider if patient requires more than 10 mg of Lorazepam in eight hour period.
Pneumatic Compression Sleeves As Directed
Type: Knee high
Straight Cath As Directed
Frequency: Per Retention Algorithm
Additional Instructions: straight cath as needed per acute urinary retention algorithm for 24 hrs
Additional Instructions: for bladder scan greater than 400 mL
Vital Signs As Directed
Frequency: Per unit guidelines
Weight As Directed
Frequency: Daily
Oxygen Therapy [O2 Therapy] [RESP] Routine
Titrate/Wean O2 to maintain O2 sat greater than (%): 94
Rx Incentive Spirometry [RESP] Routine
Frequency: q1h while awake
Ot Eval And Treat Routine
PT Consult [Pt Eval And Treat] Routine
Activity Level: Ambulate
With Assistance
DX Deep Vein Thrombosis Video Routine
09/13/23 04:22
Complete Blood Count/No Diff IN AM
Glycohemoglobin (HgbA1c) IN AM
TSH Reflex To Free T4 Routine
Troponin I Q6H
09/13/23 06:00
EKG [Electrocardiogram (*1)] IN AM
Reason for Study: Chest Pain
09/13/23 07:30
Insulin Aspart Corrective Low [Novolog Flexpen-Low Resistance] See Protocol SC AC
09/13/23 08:00
Aspirin Low Dose EC [Aspir Low (Enteric Coated)] 81 mg PO DAILY
Dexamethasone Sod Phosphate [Decadron] 4 mg IV Q8H
Diltiazem Extended Release [Cardizem Cd] 120 mg PO DAILY
Doxycycline [Vibramycin] 100 mg PO Q12
FOLic ACID [Folvite] 1 mg PO DAILY
Ipratropium/Albuterol Sulfate [Duoneb] 3 ml INH R QID
Metoprolol Xl [Toprol Xl] 100 mg PO DAILY
Phenobarbital Sodium [Phenobarbital] 97.5 mg IV TID
Thiamine Injection 200 mg IV Q8
09/13/23 10:05
Troponin I Q6H
09/13/23 16:05
Troponin I Q6H
09/14/23 Breakfast
Regular
At Your Request: Limited Participation
09/15/23 08:00
Phenobarbital [Luminal] 64.8 mg PO TID
09/16/23 08:00
Thiamine HCl [Vitamin B1] 100 mg PO BID
09/17/23 08:00
Phenobarbital [Luminal] 32.4 mg PO TID
Abnormal Lab Results
09/13/23 09/13/23
00:18 00:25
WBC 11.2 H 10^3/uL
(4.8-10.8)
RBC 4.23 L 10^6/uL
(4.70-6.10)
Hct 37.6 L %
(39.0-52.0)
MCH 31.4 H pg
(27.0-31.0)
Absolute Neuts (auto) 7.6 H 10^3/uL
(1.4-6.5)
Absolute Monos (auto) 1.2 H 10^3/uL
(0.1-0.6)
Monocytes % 10.4 H %
(1.7-9.3)
D-Dimer 1.24 H ug/mlFEU
(0.00-0.50)
Glucose 162 H mg/dl
(70-99)
AST 64 H U/L
(17-59)
Alkaline Phosphatase 215 H U/L
(38-126)
09/13/23 00:18
09/13/23 00:18
Vital Signs
Initial and Last Documented VS:
Initial Vital Signs
Pulse Resp Pulse Ox
88 29 97
09/13/23 00:19 09/13/23 00:19 09/13/23 00:19
Last Documented Vital Signs
Temp Pulse Resp BP Pulse Ox
98.1 F 62 19 136/81 93
09/13/23 04:24 09/13/23 04:45 09/13/23 04:45 09/13/23 03:00 09/13/23 04:45
MDM/Problems Addressed
MDM/Problems Addressed:
Patient evaluated immediately upon arrival secondary to moderate respiratory distress on 100% nonrebreather. Patient given oxygen support as well as neb treatment, ativan, and nebulizer treatment, with improvement in symptoms. Patient able to be
titrated off nonrebreather and placed on oxygen via nasal cannula. Patient presenting symptoms likely secondary to recurrent COPD exacerbation, worsened by underlying anxiety as well as continued alcohol abuse. Patient will be admitted for further
evaluation and treatment.
CTA report reviewed -no PE noted, but groundglass opacities noted bilaterally. Patient without any overt upper respiratory symptoms. As such, will check procalcitonin prior to initiating antibiotics.
Critical care statement: A total of 40 minutes of critical care time was provided for this patient. This includes management of unstable vital signs, evaluation of the patient at bedside, reviewing the patient's pertinent medical records, review of
old EKGs and review of pertinent medical records. This time with separate from time utilized to perform the aforementioned documented procedures
*EKG
Interpreted by ED Provider?: Yes
EKG Intrepretation Date: 09/13/23
Heart Rate: 77
Rate: normal
Rhythm: a-fib
[place]: right axis deviation
Interval: normal interval
QRS Pattern: normal QRS
*Critical Care Note
Total Time (30-74mins, 75-104mins- exclusive of procedures): 40 min
ED Attending Note
-
Portions of this chart may have been created with voice recognition software.� Occasional wrong word or��sound alike� substitutions may have occurred due to the inherent limitations of voice recognition software.
Discharge Plan
Departure
Patient Disposition: Admit
Date of Disposition: 09/13/23
Time of Disposition: 01:57
Admit to: Telemetry
Presentation/result/management discussed w/ accepting MD/DO: Hospitalist
Discharge Problem:
COPD exacerbation
Interventions
Interventions:
*Risk Screen - Suicide Last Done: 09/13/23 00:20
*General Assessment Last Done: 09/13/23 00:20
*Neglect/Abuse Screening Last Done: 09/13/23 00:20
ED- Fall Risk Assessment Last Done: 09/13/23 01:00
*ED COVID-19 Vaccine History Last Done: 09/13/23 00:20
*Nursing Disposition Last Done: 09/13/23 04:17
ED- Cardiac Assessment Last Done: 09/13/23 01:00
ED- Pulmonary Assessment Last Done: 09/13/23 01:00
Discharge Date and Time
Discharge Date/Time: 09/13/23 04:18
[2023-09-13] MEDS: DUONEB 3 ML INH ×5 (00:29→19:27)
[2023-09-13] MEDS: DECADRON 10 MG IV (00:29)
[2023-09-13 00:39] LABS: COVID-19 Antigen Negative (Negative)
[2023-09-13 00:41] LABS: % Basophils 0.3 % (0-2); % Eosinophils 0.5 % (0-6); % Immature Granulocytes 0.4 % (0-0.5); % Monocytes 10.4 % (1.7-9.3); % Neutrophils 67.4 % (42.2-75.2); Absolute Eosinophils 0.1 10^3/uL (0-0.7); Absolute Lymphocytes 2.4 10^3/uL (1.2-3.4); Absolute Monocytes 1.2 10^3/uL (0.1-0.6); Absolute Neutrophils 7.6 10^3/uL (1.4-6.5); Hematocrit 37.6 % (39.0-52.0); Hemoglobin 13.3 g/dL (13.0-18.0); Mean Corp Hgb Conc. 35.4 g/dL (33.0-37.0); Mean Corpuscular Hgb 31.4 pg (27.0-31.0); Mean Corpuscular Volume 88.9 fL (80.0-94.0); Mean Platelet Volume 9.9 fL (7.4-10.4); Nucleated Red Blood Cells % 0 % (-); Platelet Count 134 10^3/uL (130-400); Red Blood Cell Count 4.23 10^6/uL (4.70-6.10); Red Cell Dist. Width 13.6 % (11.5-14.5); White Blood Cell Count 11.2 10^3/uL (4.8-10.8)
[2023-09-13 00:44] LABS: D-Dimer 1.24 ug/mlFEU (0.00-0.50)
[2023-09-13 00:58] LABS: NT-proBNP 576 pg/ml; Troponin I < 0.012 ng/ml
[2023-09-13 01:09] LABS: ALT (SGPT) 40 U/L (0-50); AST (SGOT) 64 U/L (17-59); Albumin 4.2 g/dl (3.5-5.0); Alkaline Phosphatase 215 U/L (38-126); Blood Urea Nitrogen 13 mg/dl (9-20); Calcium 8.6 mg/dl (8.4-10.2); Carbon Dioxide 25 mmol/L (22-30); Chloride 101 mmol/L (98-107); Estimated Creatinine Clearance > 125 ml/min; Glucose 162 mg/dl (70-99); Magnesium 1.6 mg/dl (1.6-2.3); Potassium 4.5 mmol/L (3.5-5.1); Sodium 136 mmol/L (135-145); Total Bilirubin 1.1 mg/dl (0.2-1.3); Total Protein 6.9 g/dl (6.3-8.2); eGFR > 60.00
--- NOTE | 2023-09-13 02:35 | HPS.HSE ---
Family Physician
-
Family Physician: WADE Marc
Chief Complaint
-
SOB
History of Present Illness
Patient is a 63y M with PMH significant for COPD, alcohol use disorder and paroxysmal atrial fibrillation who presents to ED complaining of SOB. Patient states that he felt SOB throughout the day on Thursday. He noted specifically that he
became SOB with any exertion and had trouble even getting around his home. He went to sleep this evening but woke around 11:30 PM acutely SOB. He called EMS and per report his SpO2 was 89% on room air when they arrived. Patient was placed on NRB
mask and brought to the ED for further evaluation.
On initial arrival to the ED, his SpO2 was 96% on NRB mask.
Patient denies any associated chest pain, palpitations, cough, fevers / chills, etc. He denies any recent issues until Thursday AM. No known sick contacts.
Patient notes that he remained abstinent from alcohol for about 6 weeks following his last hospital stay. Unfortunately, he has since returned to drinking and notes that he is now drinking 2 bottles of wine daily with his last drink being this
evening.
He quit smoking about 4 years ago.
He remains non-compliant with his home PAP therapy.
Medical History
Past Medical History
Past Medical History: Reports Other
Additional Past Medical History:
Hypertension
Paroxysmal atrial fibrillation/atrial flutter
ASCVD (Carotid Stenosis)
COPD
Obstructive sleep apnea, non-compliant with CPAP.
GERD / Coles's esophagus.
Diverticular Disease
Alcoholic Cirrhosis
History of Duodenal Ulcer / Esophageal Varices / GI Bleeding
Sciatica.
Polymyalgia rheumatica.
Chronic alcoholism with history of delirium tremens
Past Surgical History: Reports Other
Additional Past Surgical History:
Appendectomy
Bilateral hip replacement
Bilateral retinal surgery
Social History
Tobacco: Former Smoker (47 years 2 pack a day quit 2019)
Alcohol: Daily (Two bottles of wine daily. Occasional whiskey.)
Drug: None
Personal:
Living: With Family
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
Family History
Family History: Other (Mother breast cancer history of [place], father colon cancer)
Allergies / Home Medications
Allergies reflects when Allergies were last updated in [facility].
Home Medications with original date entered in [facility]
Allergy/Medication List:
Allergies
Allergy/AdvReac Type Severity Reaction Status Date / Time
No Known Allergies Allergy Verified 09/13/23 00:26
Home Medications
fluticasone fur. 100 mcg-umeclid 62.5 mcg-vilant 25 mcg inhalat.powder (Trelegy Ellipta) 1 inh inhalation R DAILY Lung/Breathing Issues 10/06/22
aspirin 81 mg tablet,delayed release 81 mg PO DAILY Blood Clot Prevention/Tx 02/04/23
levalbuterol tartrate 45 mcg/actuation aerosol inhaler 1 puff inhalation R Q6HPRN PRN sob 02/04/23
diltiazem HCl 120 mg capsule,extended release 24 hr 120 mg PO DAILY #30 caps 07/28/23
metoprolol succinate 100 mg tablet,extended release 24 hr 100 mg PO DAILY #30 tabs 07/28/23
thiamine HCl (vitamin B1) 100 mg tablet 100 mg PO DAILY #30 tabs 07/28/23
Review of Systems
-
History Source: Patient
A 12 point ROS was completed and negative except as noted: Yes
Constitutional: Reports Fatigue; Denies Fever or Chills
EENT: Denies Sore Throat
Respiratory: Reports Trouble Breathing; Denies Cough or Hemoptysis
Cardiac: Denies Chest Pain or Palpitations
Abdomen/GI: Denies Abdominal Pain, Nausea, Vomiting, Diarrhea, Bloody Stools or Black Stools
: Denies Dysuria, Frequency or Flank Pain
Neurological: Denies Dizzy or Headache
Psych: Reports Anxiety; Denies Depression
Physical Exam
Vital Signs
Vital Signs
Temp Pulse Resp BP Pulse Ox
98.9 F 80 30 121/59 96
09/13/23 00:20 09/13/23 00:20 09/13/23 00:20 09/13/23 00:20 09/13/23 00:20
Physical Exam
General: Other (63y M in moderate distress due to dyspnea.)
HEENT: Moist mucous membranes, PERRLA and Other (Thick neck. No JVD.)
Respiratory: Other (Decreased BS throughout with expiratory wheezes. No rales / rhonchi.)
Cardiac: S1/S2 and Irregular Rhythm; No Murmur
GI: Soft, Non Tender, Non Distended and Normal Bowel Sounds
Musculoskeletal: No Clubbing, No Cyanosis and No Edema
Neuro: AO x 3
Psych: Anxious
Laboratory Results
-
09/13/23 00:18
09/13/23 00:18
Laboratory Results
Total Bilirubin 1.1 mg/dl (0.2-1.3) 09/13/23 00:18
AST 64 U/L (17-59) H 09/13/23 00:18
ALT 40 U/L (0-50) 09/13/23 00:18
Alkaline Phosphatase 215 U/L (38-126) H 09/13/23 00:18
Troponin I < 0.012 ng/ml 09/13/23 00:18
Impression/Plan
-
A/P: Patient is a 63y M with PMH significant for COPD, A-Fib, HTN and alcohol use disorder who presents to ED complaining of SOB.
COPD with Acute Exacerbation
Possible Atypical Pneumonia / Bronchiolitis
Acute Hypoxemic Respiratory Insufficiency
- Admit for further evaluation and treatment.
- Patient with significant subjective dyspnea, hypoxemia and decreased BS / wheezing on exam.
- IV steroids, nebs, O2 support, etc.
- CT done in the ED today shows no PE with scattered ground glass opacities potentially c/w infectious process.
- COVID negative in the ED.
- Doxycycline for now and follow for clinical improvement. Procalcitonin is pending.
- Pulmonary evaluation for additional recommendations.
Paroxysmal Atrial Fibrillation
- Stable. Irregular at present, but rate fairly well-controlled.
- Continue current med regimen and adjust as needed.
- Note that patient is not chronically on OAC given bleeding risks / ongoing alcohol abuse.
Alcohol Use Disorder
Alcoholic Cirrhosis with Esophageal Varices, History of Thrombocytopenia, etc
- Patient already appears anxious and somewhat tremulous in the ED.
- Prior reported history of DTs.
- Will begin phenobarbital taper and monitor MSAS with additional BZD dosing as needed.
- Thiamine / folate supplementation, etc.
- Platelet count is stable at present. No signs / symptoms of active bleeding.
- Would begin PPI daily.
ASCVD / Carotid Stenosis
Benign Hypertension
- Stable. Continue outpatient med regimen.
Obesity due to excess calories
ALCIDES - Not compliant with PAP therapy
- Affects all aspects of care.
- Encourages compliance with PAP though patient states that - 'it doesn't help'.
- Patient reports that he exercises at the gym daily.
- Encouraged improved diet and increased exercise with goal of weight loss.
- Eliminating alcohol would also greatly contribute to weight loss.
Hyperglycemia
- Multiple risk factors for DM. Check A1C.
- Monitor glucose - especially while on IV steroids - and cover with SSI if needed.
DVT Prophylaxis: SCDs
Code Status: Full
[2023-09-13] MEDS: PHENOBARBITAL 104 MG IV (02:55)
[2023-09-13 03:06] LABS: Procalcitonin 0.09 ng/ml (0.0-0.25)
[2023-09-13 04:38] LABS: Hematocrit 36.6 % (39.0-52.0); Hemoglobin 12.9 g/dL (13.0-18.0); Mean Corp Hgb Conc. 35.2 g/dL (33.0-37.0); Mean Corpuscular Hgb 31.3 pg (27.0-31.0); Mean Corpuscular Volume 88.8 fL (80.0-94.0); Mean Platelet Volume 10.2 fL (7.4-10.4); Platelet Count 106 10^3/uL (130-400); Red Blood Cell Count 4.12 10^6/uL (4.70-6.10); Red Cell Dist. Width 13.6 % (11.5-14.5); White Blood Cell Count 7.5 10^3/uL (4.8-10.8)
--- NOTE | 2023-09-13 04:52 | PTCARENOTE ---
pt is aaox3, no c/o pain. MSAS=4. Pt has mild hand tremors. pt is on 2L o2 SpO2=93%. pt is oriented to room w/ call pate in reach.
[2023-09-13 05:01] LABS: ALT (SGPT) 33 U/L (0-50); AST (SGOT) 61 U/L (17-59); Alkaline Phosphatase 210 U/L (38-126); Blood Urea Nitrogen 14 mg/dl (9-20); Calcium 8.8 mg/dl (8.4-10.2); Carbon Dioxide 24 mmol/L (22-30); Chloride 102 mmol/L (98-107); Direct Bilirubin 0.6 mg/dl (0.0-0.4); Estimated Creatinine Clearance > 125 ml/min; Glucose 185 mg/dl (70-99); Potassium 4.9 mmol/L (3.5-5.1); Sodium 134 mmol/L (135-145); Total Bilirubin 1.5 mg/dl (0.2-1.3); Total Protein 6.7 g/dl (6.3-8.2); eGFR > 60.00
[2023-09-13 05:13] LABS: Troponin I < 0.012 ng/ml
[2023-09-13 05:33] LABS: TSH Reflex To Free T4 1.21 uIU/ml (0.47-4.68)
[2023-09-13 08:06] LABS: Glucose - Point of Care 238 mg/dl (70-99)
[2023-09-13] MEDS: NOVOLOG FLEXPEN-LOW RESISTANCE 2 UNITS SC ×3 (08:45→18:35)
[2023-09-13 08:46] LABS: Glycohemoglobin (HgbA1c) 5.8 % (4.0-5.6)
[2023-09-13] MEDS: TOPROL XL 100 MG PO (08:47)
[2023-09-13] MEDS: CARDIZEM CD 120 MG PO (08:47)
[2023-09-13] MEDS: VIBRAMYCIN 100 MG PO ×2 (08:47→19:03)
[2023-09-13] MEDS: FOLVITE 1 MG PO (08:47)
[2023-09-13] MEDS: MAGNESIUM OXIDE 500 MG PO (08:48)
[2023-09-13] MEDS: ASPIR LOW (ENTERIC COATED) 81 MG PO (08:48)
[2023-09-13] MEDS: THIAMINE INJECTION 200 MG IV ×2 (08:48→17:32)
[2023-09-13] MEDS: DECADRON 4 MG IV (08:49)
[2023-09-13] MEDS: PHENOBARBITAL 97.5 MG IV ×3 (08:50→21:11)
[2023-09-13] MEDS: PROTONIX IV 40 MG IV (08:50)
[2023-09-13] MEDS: NSS (PRESERVATIVE FREE) 10 ML IV (08:51)
[2023-09-13] MEDS: MAGNESIUM SULFATE 50 IV (09:29)
--- NOTE | 2023-09-13 10:34 | W.PN.HOSP.TC ---
Today's Communication/Plan
-
IV steroids
Alcohol withdrawal treatment
Replace magnesium
Continue antibiotics
Sputum culture
Wean oxygen as tolerated
Assessment / Plan
Assessment / Plan
63-year-old male presented to the hospital with shortness of breath. Patient drinks 2 bottles of wine every day he quit smoking 4 years ago. He also does not use his CPAP at home CAT scan of the chest-
No central PE. Enlarged main pulmonary artery. Patchy opacities including scattered groundglass opacities bilaterally suggesting inflammatory/infectious etiology with small right and trace left pleural effusion. Coronary artery calcification
possible. Cirrhotic morphology of the liver
Echo 04/10/2023-normal LV size and function. EF 55%. Mild concentric LVH. Normal RV size and function. Mild TR. Pulmonary pressure 38 mmHg.
Sitting in the chair
Feels better
Cardiovascular system S1-S2 appreciated, Irregular
Chest bilateral wheezes noted abdomen soft and nontender
No pedal edema
# Acute hypoxic respiratory failure
Likely atypical pneumonia/bronchitis
On Trelegy Ellipta as outpatient
COPD exacerbation
IV steroids, nebulizer treatment, oxygen support
CTA scan of the chest with no PE scattered groundglass opacities
Doxycycline
Pulmonary consultation
# Paroxysmal atrial fibrillation-presently in regular rhythm rates fairly controlled
He is not on any anticoagulation as outpatient (because of alcohol abuse per )
Continue metoprolol 100 mg daily, diltiazem 120 mg daily
# ASCVD/carotid stenosis
Coronary calcification
# Hypertension-metoprolol
# Alcohol dependence/alcohol use disorder
Cirrhosis morphology of the liver
History of hepatic steatosis likely secondary to alcohol use
Hepatology follow-up as outpatient
Watch for withdrawal
MSAs protocol, thiamine, phenobarbital taper
Patient was in the rehab about 6 weeks ago and lasted there only for a week and did not feel that was for him.
He is aware that he has changes in the liver and also discussed about the course of alcohol liver disease.
He is planning to quit.
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
# Obesity with a BMI of 35.7-weight loss advised
# Sleep apnea-noncompliant with CPAP at home
# Hyperglycemia-check hemoglobin A1c
# GERD/peptic ulcer disease-PPI/Coles's esophagus
# History of polymyalgia rheumatica /osteoarthritis
# Ex-smoker
# DVT prophylaxis-add Lovenox
# Full code
Discussed with at bedside
Discussed with nursing
Anticipated Discharge: > 48 hours
Subjective/Interval History
-
Date of Service: September 13, 2023
Objective Data
-
Labs:
Laboratory Results
09/13/23 09/13/23
00:18 04:22
WBC 11.2 H 7.5
Hgb 13.3 12.9 L
Hct 37.6 L 36.6 L
Plt Count 134 106 L D
Sodium 136 134 L
Potassium 4.5 4.9
Chloride 101 102
Carbon Dioxide 25 24
BUN 13 14
Creatinine 0.7 0.7
Glucose 162 H 185 H
Calcium 8.6 8.8
Total Bilirubin 1.1 1.5 H
AST 64 H 61 H
ALT 40 33
Alkaline Phosphatase 215 H 210 H
Vital Signs:
Vital Signs
Temp Pulse Resp BP Pulse Ox
98.2 F 78 21 136/81 92
09/13/23 07:38 09/13/23 07:36 09/13/23 07:36 09/13/23 03:00 09/13/23 07:36
[2023-09-13 11:25] LABS: Troponin I < 0.012 ng/ml
[2023-09-13 11:40] LABS: Glucose - Point of Care 213 mg/dl (70-99)
--- NOTE | 2023-09-13 13:46 | CON.PUL ---
Addendum entered and electronically signed by Umair Persaud MD 09/13/23 14:12:
Reevaluated the patient.
Moving good air.
Able to speak in full sentences
Would reduce steroids, hopefully to prednisone tomorrow
Home oxygen assessment tomorrow.
Original Note:
Consultation
Consultation Request
Date/Time Consultation Requested: 09/13/2023
Date/Time Consultation Performed: 09/13/2023
Requesting Provider: Dr. Bynum
Performing Provider: Dr. Umair Rossi
Reason for Consultation: Acute exacerbation of COPD
Medical History
-
History of Present Illness:
63-year-old man with past medical history significant for COPD, alcohol use, paroxysmal atrial fibrillation who presented to the emergency room complaining of shortness of breath.
Shortness of breath that started on Thursday all day. Progressed to the point that it was minimal efforts. He was found to have mildly hypoxemic at 89%. He was placed on a nonrebreather mask. There is no reports of hemoptysis, fevers, chills or
purulent sputum production.
He has been drinking daily, 2 bottles of wine the evening of admission.
Quit smoking 4 years ago.
He is supposed to use CPAP therapy but he is not compliant.
Past Medical History
Past Medical History: Other (See assessment and plan section)
Social History
Tobacco: Former Smoker (Quit 4 years ago)
Alcohol: Daily
Drug: None
Personal:
Living: With Family
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
Family History
Family History: Reviewed & Not Pertinent
Allergies / Home Medications
Allergies
Allergy/AdvReac Type Severity Reaction Status Date / Time
No Known Allergies Allergy Verified 09/13/23 00:26
Home Medications
�Medication �Instructions �Recorded �Confirmed �Last Taken �Type
fluticasone fur. 100 mcg-umeclid 1 inh inhalation R DAILY 10/06/22 09/13/23 07/26/23 History
62.5 mcg-vilant 25 mcg Lung/Breathing Issues
inhalat.powder (Trelegy Ellipta)
aspirin 81 mg tablet,delayed 81 mg PO DAILY Blood Clot 02/04/23 09/13/23 07/24/23 History
release Prevention/Tx
levalbuterol tartrate 45 1 puff inhalation R Q6HPRN PRN sob 02/04/23 09/13/23 07/26/23 History
mcg/actuation aerosol inhaler
diltiazem HCl 120 mg 120 mg PO DAILY #30 caps 07/28/23 09/13/23 Unknown Rx
capsule,extended release 24 hr
metoprolol succinate 100 mg 100 mg PO DAILY #30 tabs 07/28/23 09/13/23 Unknown Rx
tablet,extended release 24 hr
thiamine HCl (vitamin B1) 100 mg 100 mg PO DAILY #30 tabs 07/28/23 09/13/23 Unknown Rx
tablet
Review of Systems
-
History Source: Patient
All other systems: Negative unless noted
Vitals / Labs / Diagnostic Testing
Vital Signs
Temp Pulse Resp BP Pulse Ox
97.5 F 68 19 124/109 95
09/13/23 11:55 09/13/23 11:10 09/13/23 11:10 09/13/23 10:00 09/13/23 11:10
Lab Data
09/13/23 04:22
09/13/23 04:22
Diagnostic Testing:
Physical Exam
-
HEENT: Normocephalic
Cardiovascular: S1/S2
Respiratory: Wheeze
GI: Soft and Non Distended
Neurology: Awake, Alert, Oriented, AO x 3 and No Motor Deficits
Skin: Warm
General: Respiratory Distress (n)
Assessment
-
Acute exacerbation of JEGF-qvjlzrrhz-fdqupiei infectious
CT chest 09/13/2023: Limited study, motion artifact. No evidence for pulmonary embolism. Enlarged main pulmonary artery. Patchy opacities including scattered groundglass opacities bilaterally suggesting inflammatory/infectious etiology/trace
lateral effusion on the left.
Prominent lingular solid pulmonary nodule. To my view new compared to July 2023.
Right lower lobe groundglass opacity new compared to July 2022. Scattered other small areas of groundglass opacity.
Conditions present prior admission:
Discharged from the hospital 07/2023.
Hypertension
Carotid stenosis
COPD-follows up with Dr. García maintained on Trelegy, albuterol nebulizer as needed.
History of pulmonary nodule
History of paroxysmal atrial fibrillation
Obstructive sleep apnea noncompliant with CPAP
GERD/Coles's esophagus
Diverticular disease
Alcoholic cirrhosis
History of duodenal ulcer/esophageal varices and GI bleeding
Sciatica pain
Polymyalgia rheumatica
Chronic alcohol use-prior history of delirium.
Bilateral hip replacement
Bilateral retinal surgery.
Former smoker [id number] history quit in 2019.
Assessment and plan:
Acute exacerbation of COPD: Possibly infectious
Discussed with patient he states that he overdid it, suspect he might have aspirated while he was intoxicated.
Given ongoing alcohol abuse, check for aspiration. Recent admission with similar symptoms 07/2023.
Negative influenza
Negative COVID/afebrile
Initial leukocytosis on admission
-
Continue with current plan
IV corticosteroids
Doxycycline orally twice a day would complete total of 7 days.
Sputum culture if able
Speech evaluation
Nebulizer therapy 4 times a day
Monitor for fevers
Hold inhalers while on acute exacerbation. Restarted per discharge.
-
Lung nodules: Some of their are new compared to July. Could be inflammatory versus malignant.
[facility] records reviewed: Patient is followed in our office also for lung nodules. High risk for lung cancer. He will need ongoing radiographic follow-up in the next 6 to 8 weeks. Patient is aware that he is at high risk for cancer. He was
encouraged to follow-up.
Severe obstructive sleep apnea: Patient discontinued BiPAP in 2020.
Avoid sedatives
He understands that daily alcohol use makes sleep apnea worse.
He understands verifications of untreated obstructive sleep apnea.
Has a new machine but not using.
Will require follow-up to optimize BiPAP given cardiac comorbidities
-
Monitor for alcohol withdrawal.
No tremors on my exam
-
DVT prophylaxis-Lovenox
-
Will continue to follow
[2023-09-13] MEDS: LOVENOX 40 MG SC (17:33)
[2023-09-13 18:10] LABS: Glucose - Point of Care 217 mg/dl (70-99)
[2023-09-13 18:44] LABS: Troponin I < 0.012 ng/ml
[2023-09-13] MEDS: DECADRON 2 MG IV (19:03)
--- NOTE | 2023-09-13 20:19 | PTCARENOTE ---
this rn responsible for vital signs captured after 1900.
[2023-09-13 21:47] LABS: Glucose - Point of Care 272 mg/dl (70-99)
[2023-09-14] VITALS (8 sets, daily range): BP systolic 127–146; BP diastolic 74–95; O2SAT 92–94
[2023-09-14] MEDS: THIAMINE INJECTION 200 MG IV ×2 (00:24→10:51)
[2023-09-14 06:00] LABS: Hematocrit 36.8 % (39.0-52.0); Hemoglobin 12.9 g/dL (13.0-18.0); Mean Corp Hgb Conc. 35.1 g/dL (33.0-37.0); Mean Corpuscular Hgb 31.7 pg (27.0-31.0); Mean Corpuscular Volume 90.4 fL (80.0-94.0); Red Blood Cell Count 4.07 10^6/uL (4.70-6.10); Red Cell Dist. Width 13.3 % (11.5-14.5); White Blood Cell Count 6.8 10^3/uL (4.8-10.8)
[2023-09-14 06:18] LABS: Blood Urea Nitrogen 17 mg/dl (9-20); Calcium 8.8 mg/dl (8.4-10.2); Carbon Dioxide 26 mmol/L (22-30); Chloride 104 mmol/L (98-107); Estimated Creatinine Clearance > 125 ml/min; Glucose 152 mg/dl (70-99); Potassium 4.3 mmol/L (3.5-5.1); Sodium 135 mmol/L (135-145); eGFR > 60.00
[2023-09-14 07:45] LABS: Glucose - Point of Care 133 mg/dl (70-99)
[2023-09-14] MEDS: DUONEB 3 ML INH ×3 (08:10→15:25)
[2023-09-14 08:18] LABS: Mean Platelet Volume 9.9 fL (7.4-10.4); Platelet Count 78 10^3/uL (130-400)
[2023-09-14] MEDS: NOVOLOG FLEXPEN-LOW RESISTANCE SC (08:28)
[2023-09-14] MEDS: CARDIZEM CD 120 MG PO (09:01)
[2023-09-14] MEDS: VIBRAMYCIN 100 MG PO (09:02)
[2023-09-14] MEDS: ASPIR LOW (ENTERIC COATED) 81 MG PO (09:02)
[2023-09-14] MEDS: TOPROL XL 100 MG PO (09:02)
[2023-09-14] MEDS: MAGNESIUM OXIDE 500 MG PO (09:02)
[2023-09-14] MEDS: PHENOBARBITAL 97.5 MG IV (09:02)
[2023-09-14] MEDS: NSS (PRESERVATIVE FREE) 10 ML IV (09:04)
[2023-09-14] MEDS: DECADRON 2 MG IV (09:04)
[2023-09-14] MEDS: PROTONIX IV 40 MG IV (09:04)
[2023-09-14] MEDS: FOLVITE 1 MG PO (09:05)
--- NOTE | 2023-09-14 09:11 | PTOTSP ---
Dysphagia Evaluation
Suspect oral and pharyngeal stages of swallowing are grossly WFL. Patient denied any signs/symptoms of dysphagia/aspiration. No signs observed this date. Patient has acute on chronic risk factors for dysphagia (i.e., acute COPD exacerbation,
GERD, alcohol use disorder).
Recommend:
1. Regular, Thin Liquids
2. General aspiration and reflux precautions
3. Medications as best tolerated
4. No further dysphagia therapy warranted at this time. Please reconsult as appropriate/aligned with patient's wishes.
--- NOTE | 2023-09-14 10:53 | W.PN.PUL3 ---
Today's Communication / Plan
-
Steroid wean
Complete course of PO Abx
Outpatient follow up for his multiple lung nodules seen on current CTA chest
He also qualifies for LDCT Chest for lung cancer screening until 2034 (he quit smoking in 2019)
Pt being prepared for discharge home - pulmonary service will now sign off. Please call with any questions or concerns.
We will arrange for outpatient office follow up.
Assessment
-
Acute exacerbation of GATX-hdgoxrzka-eaxegwtc infectious
CT chest 09/13/2023: Limited study, motion artifact. No evidence for pulmonary embolism. Enlarged main pulmonary artery. Patchy opacities including scattered groundglass opacities bilaterally suggesting inflammatory/infectious etiology/trace
lateral effusion on the left.
Prominent terrance-medial PRETTY solid pulmonary nodule, new compared to July 2023.
Right lower lobe groundglass opacity new compared to July 2022. Scattered other small areas of groundglass + nodular opacities, likely due to aspiration PNA/pneumonitis
Conditions present prior admission:
Discharged from the hospital 07/2023.
Hypertension
Carotid stenosis
COPD-follows up with Dr. García maintained on Trelegy, albuterol nebulizer as needed.
History of pulmonary nodule
History of paroxysmal atrial fibrillation
Obstructive sleep apnea noncompliant with CPAP
GERD/Coles's esophagus
Diverticular disease
Alcoholic cirrhosis
History of duodenal ulcer/esophageal varices and GI bleeding
Sciatica pain
Polymyalgia rheumatica
Chronic alcohol use-prior history of delirium.
Bilateral hip replacement
Bilateral retinal surgery.
Former smoker [id number] history quit in 2019.
Assessment and plan:
Acute exacerbation of COPD: Possibly infectious
Discussed with patient he states that he overdid it, suspect he might have aspirated while he was intoxicated.
Given ongoing alcohol abuse, check for aspiration --> passed MONOTYPE MACHINIST eval on 09/14/2023. Recent admission with similar symptoms 07/2023.
Negative influenza
Negative COVID/afebrile
Initial leukocytosis on admission - now resolved
-
Continue with current plan
Transition from IV decadron to PO prednisone taper starting at 40mg and reduce by 10mg every 4th day until off
Doxycycline orally twice a day would complete total of 7 days.
Sputum culture shows NGTD
Passed MONOTYPE MACHINIST eval today
Nebulizer therapy 4 times a day
Monitor for fevers
Hold inhalers while on acute exacerbation. Restart Trelegy upon discharge.
-
Lung nodules: Some of them are new compared to July; he had a 5mm RML nodule seen in July 2023 that is now gone as of current CT chest. THis suggests his nodules are inflammatory/infection. He does have new nodules in his PRETTY that need to be
monitored as these could be malignant.
[facility] records reviewed: Patient is followed in our office also for lung nodules. High risk for lung cancer. He will need ongoing radiographic follow-up in the next 6 to 8 weeks. Patient is aware that he is at high risk for cancer. He was
encouraged to follow-up.
Severe obstructive sleep apnea: Patient discontinued BiPAP in 2020.
Avoid sedatives
He understands that daily alcohol use makes sleep apnea worse.
He understands verifications of untreated obstructive sleep apnea.
Has a new machine but not using.
Will require follow-up to optimize BiPAP given cardiac comorbidities
-
Monitor for alcohol withdrawal.
No tremors on my exam
-
DVT prophylaxis-Lovenox
-
Pt being prepared for discharge home. We will arrange for outpatient office follow up with us. We will now sign off. Please call with questions.
Patient seen and evaluated on 09/14/2023.
Subjective Data
-
Date of Service:
Date of Service: September 14, 2023
Chief Complaint: Pulmonary Follow Up
Subjective:
Seen today prior to him going home. He says he feels well, he understands he needs to quit drinking alcohol. He is currently on room air breathing comfortably. He passed MONOTYPE MACHINIST eval today. No overnight events reported. Denies chest pain, COX, SOB,
abd pain, n/v/f/c.
Review of Systems
General: Other (neg unless mentioned above)
Objective Data
Data Reviewed
Vital Signs / I&O / Oxygen:
Vital Signs
Temp Pulse Resp BP Pulse Ox
97.2 F 83 18 136/82 95
09/14/23 07:47 09/14/23 09:01 09/14/23 08:28 09/14/23 09:01 09/14/23 08:30
Intake and Output
09/13/23 09/14/23 09/15/23
06:59 06:59 06:59
Intake Total 930 / 930
Output Total 1150 / 1150 450 / 450
Balance -220 / -220 -450 / -450
SaO2 95
Nasal Cannula flow liters per 2
minute
Physical Exam
General: Respiratory Distress (negative) and Comfortable
HEENT: Normocephalic, Anicteric and Moist Mucous Membranes
Cardiovascular: S1-S2 and Peripheral Edema (negative)
Respiratory: Wheeze (negative), Crackles (negative), Rhonchi (negative) and Non-Labored Respirations
GI: Soft, Non Distended and Non Tender
Neurology: Awake, Alert and Tremors (negative)
Skin: Warm and Dry
Labs/Micro/Reports
Lab Data
09/14/23 05:36
09/14/23 05:36
Microbiology
09/13/23 18:02 Sputum Respiratory Culture - Final
09/13/23 18:02 Sputum Gram Stain - Final
--- NOTE | 2023-09-14 11:00 | W.PN.HOSP.TC ---
Addendum entered and electronically signed by Sandra Storey MD 09/25/23 06:42:
aspiration pneumonitis (due to vomiting) was also possibly a contributor to acute hypoxic resp failure
Addendum entered and electronically signed by Sandra Storey MD 09/14/23 14:47:
pt seen and examined independently--agree with plan set forth by Dr. Terry
GENERAL: well developed, well nourished, male in no apparent distress
HEENT: NC/AT--no O2
HEART: regular rate and rhythm, +S1, +S2
LUNGS : clear to auscultation bilaterally
ABDOM: soft, nontender, nondistended, + bowel sounds
EXT: no cyanosis, clubbing, or edema
NEUROLOGIC: grossly intact--no signs of DTs
Acute hypoxic respiratory failure--multifactorial--COPD exac (previous smoker), aspiration pneumonitis (from vomiting)--On Trelegy Ellipta as outpatient--Weaned off oxygen, on room air--does not qualify for home O2--Will switch to oral prednisone
with quick taper
Proximal atrial fibrillation--Patient has not been on any anticoagulation outpatient--likely due to possible falls and thrombocytopenia--Continue metoprolol 100 mg daily, diltiazem 120 mg daily
Alcohol use disorder-- no signs of DTs--Patient is alert, oriented to time place and person--On MSAS protocol, has not needed Ativan since admission--He declines rehab--had discussion with him about AA--refuses [facility]
Essential Hypertension--On metoprolol
Thrombocytopenia--Suspect due to alcohol use disorder--would recheck cbc in 1 week--was also on lovenox for DVT proph
Sleep apnea--Noncompliant with CPAP
Hyperglycemia--Blood glucose 152
GERD
DVT ppx
code status -- full code
Original Note:
Today's Communication/Plan
-
possible discharge today
Assessment / Plan
Assessment / Plan
Impression
Acute hypoxic respiratory failure
Proximal atrial fibrillation
Hypertension
Alcohol use disorder
Thrombocytopenia
sleep apnea
Hyperglycemia
GERD
Assessment and plan
Acute hypoxic respiratory failure
COPD exacerbation
On Trelegy Ellipta as outpatient. He has a history of past COPD exacerbation
Weaned off oxygen, on room air
Is able to get up from the bed and sit in the chair without distress
Will switch to oral prednisone
Possible discharge today
CHEST CT :
IMPRESSION:
Limited study as a result of motion artifact without findings to suggest central pulmonary embolism. More peripheral pulmonary embolism cannot be excluded.Enlarged main pulmonary artery. Is there a history of pulmonary artery hypertension?. Some
patchy opacities including scattered groundglass opacities bilaterally suggesting inflammatory/infectious etiology with accompanying small right and trace left pleural effusions.
Likely coronary artery calcifications, limited by contrast.
Included portions of liver suggesting cirrhotic morphology. Clinical correlation recommended.
Proximal atrial fibrillation
Patient has not been on any anticoagulation outpatient
Continue metoprolol 100 mg daily, diltiazem 120 mg daily
As patient is an alcoholic user, starting Eliquis can have bleeding risk, falls
Alcohol use disorder
Patient is alert, oriented to time place and person.
On MSAS protocol, has not needed Ativan since admission
Reduce dose of phenobarbital
Continue to watch withdrawal symptoms
Patient denies any tremor or hallucination
Encourage patient on quitting
Patient is aware and is ready to quit and go ' cold turkey'
He declines rehab
Hypertension
On metoprolol
Thrombocytopenia
Suspect due to alcohol use disorder
Sleep apnea
Noncompliant with CPAP
Hyperglycemia
Check A1c
Blood glucose 152
# GERD
# DVT ppx
Anticipated Discharge: Today
Subjective/Interval History
-
Date of Service: September 14, 2023
Patient denies chest pain shortness of breath
Objective Data
-
Labs:
Laboratory Results
09/14/23
05:36
WBC 6.8
Hgb 12.9 L
Hct 36.8 L
Plt Count 78 L D
Sodium 135
Potassium 4.3
Chloride 104
Carbon Dioxide 26
BUN 17
Creatinine 0.6 L
Glucose 152 H
Calcium 8.8
Vital Signs:
Vital Signs
Temp Pulse Resp BP Pulse Ox
97.2 F 83 18 136/82 95
09/14/23 07:47 09/14/23 09:01 09/14/23 08:28 09/14/23 09:01 09/14/23 08:30
I&O
09/13/23 09/14/23 09/15/23
06:59 06:59 06:59
Intake Total 930 / 930
Output Total 1150 / 1150 450 / 450
Balance -220 / -220 -450 / -450
Review of Systems
-
History Source: Patient
All other systems: Reviewed and negative
Physical Exam
-
General: Comfortable
HEENT: Normocephalic and Atraumatic
Respiratory: Clear to Auscultation
Cardiac: Regular Rhythm and S1/S2
GI: Soft, Nontender, Nondistended and Other (Reducible umbilical hernia)
Musculoskeletal: No Edema
Neuro: AO x 3
--- NOTE | 2023-09-14 11:35 | PTCARENOTE ---
Pt rec'd from production shift supervisor, Aox3 but sl fidgety,medications reviewed, pt stated he is taking a med that his PCP prescribed to help with alcohol cravings but he is not sure of the name. Pt anxious to go home. Walked to bathroom to wash up and PCT
found him in the shower. Pt reminded that he needs to have order to shower. Continuing to monitor.
--- NOTE | 2023-09-14 11:58 | W.DCSUMMARY ---
Addendum entered and electronically signed by Sandra Storey MD 09/25/23 06:42:
aspiration pneumonitis (due to vomiting) was also possibly a contributor to acute hypoxic resp failure
Addendum entered and electronically signed by Sandra Storey MD 09/14/23 18:36:
Read fully Dr. Tilley's d/c summary. Agree with plan as outline below.
Time for d/c 38 minutes with the assistance of the resident.
Original Note:
Discharge Summary
Discharge Data
Date of Admission: 09/13/23
Date of Discharge: 09/14/23
-
Pending Results: No
Hospital Course
63-year-old male came to the ED shortness of breath. Per EMS report his SpO2 SpO2 was 89% on room air. Patient was placed on nonrebreather mask which improved his oxygen saturation and he was brought to ED. on NRB his oxygen improved to 96%.
In the ED patient was normotensive and afebrile. Patient has a history of chronic alcohol abuse , did not have any withdrawal symptoms on arrival to ED. in the ED patient was given oxygen to, and which improved his symptoms. Patient's presenting
symptom was likely secondary to her recurrent a COPD exacerbation which was worsened by underlying anxiety as well as continued alcohol use. Patient was then transferred to IMU on telemetry. Patient has a history of proximal atrial fibrillation.
He is not on any anticoagulation at home. On diltiazem was continued and patient was also started on metoprolol for atrial fibrillation. Pulmonology was consulted, doxycycline 100 mg orally twice a day was started for acute exacerbation. Patient
was was then monitored for any withdrawal symptoms of alcohol which she did not develop he. He was given phenobarbital which was then tapered. Leukocytosis improved on antibiotics. Thrombocytopenia was noted possibly due to chronic alcohol use.
CBC in 1 week after discharge. Patient was noted to be hyperglycemic, no history of diabetes mellitus. On the day of discharge vitals were stable. No tremors were noted, Ativan was not needed as patient did not have any withdrawal symptoms.
Phenobarbital was tapered. Patient will be switched to tapered oral prednisone for 5 days. Patient is in no acute respiratory distress, SpO2 95 on room air. Ambulatory pulse ox on room air was 92% at goal.
Acute hypoxic respiratory failure
Continue Trelegy Ellipta
Switch to order tapered prednisone-40 mg x 2 days, 20 mg x 2 days, 10 mg x 2 days
Paroxysmal atrial fibrillation
Continue metoprolol 100 mg daily, diltiazem 120 mg daily
Follow-up with a vocational rehabilitation specialist
Alcohol use disorder
Encourage patient to quit's drinking. Patient is convinced and wants to go ' cold turkey'
Advised patient AAA would be helpful.
Continue thiamine
Hypertension
Continue metoprolol
Thrombocytopenia
Suspect due to alcohol use disorder
CBC in 1 week after discharge
Sleep apnea
Advised to use CPAP
Hyperglycemia
Follow-up with PCP
Check A1c, blood glucose level
GERD
Continue home medication
Time spent 38 minutes
Discharge Plan
-
Patient Disposition: Home (Routine Discharge)
Discharge Diagnosis/Procedures: Acute hypoxic respiratory failure
Proximal atrial fibrillation
Hypertension
Alcohol use disorder
Thrombocytopenia
sleep apnea
Hyperglycemia
GERD
History of polymyalgia rheumatica /osteoarthritis
Former smoker
Condition: Fair
Diet: 2 Gram Sodium
Activity: As tolerated
Driving Restrictions: As prior to admission
Bathing Restrictions: None
Blood Work: CBC in 1 week
Other Services: PT
Referrals:
Berna Lyons CRNP [Family Provider] - in less than 1 week
Additional Discharge Medication Instructions: Diltiazem 120 mg orally 1 tablet once a day
Metoprolol succinate 100 mg 1 tablet once a day orally
Prescriptions:
New
metoprolol succinate 100 mg Tablet Extended Release 24 Hr
100 mg PO DAILY Qty: 90 0RF
diltiazem HCl 120 mg Capsule,Extended Release 24hr
120 mg PO DAILY Qty: 90 0RF
prednisone 10 mg Tablet
See Rx Instructions .ROUTE .COMPLEX Qty: 30 0RF
Rx Instructions:
Take By Mouth:
40 mg daily x3 days, 30 mg daily x3 days,
20 mg daily x3 days, 10 mg daily x3 days.
doxycycline hyclate 100 mg capsule
100 mg PO BID 5 Days Qty: 10 0RF
Continued
metoprolol succinate 100 mg Tablet Extended Release 24 Hr
100 mg PO DAILY Qty: 30 0RF
thiamine HCl (vitamin B1) 100 mg tablet
100 mg PO DAILY Qty: 30 0RF
aspirin 81 mg tablet,delayed release (DR/EC)
81 mg PO DAILY Qty: 30 0RF
levalbuterol tartrate 45 mcg/actuation Hfa Aerosol Inhaler
1 puff INHALATION R Q6HPRN PRN (Reason: sob) Qty: 90 0RF
Trelegy Ellipta 100-62.5-25 mcg Blister With Device
1 inh INHALATION R DAILY Qty: 90 0RF
Discontinued
diltiazem HCl 120 mg Capsule,Extended Release 24hr
120 mg PO DAILY Qty: 30 0RF
Discharge Orders:
Discharge Patient (As Directed); Ordered 09/14/23
Ordered By: Mara Terry
Discharge Date and Time
Discharge Date/Time: 09/14/23 17:35
Print Language: VENEZUELAN
--- NOTE | 2023-09-14 12:02 | CM ---
Addendum entered by Leana Mitchell 09/14/23 14:57:
Plan: Home when medically stable with script for outpatient physical therapy for agency of his choice
Sister will provide transport home
Original Note:
Met with patient at the bedside; initial assessment and case management consult completed
Pharmacy verified: [facility]
Lives with his in a [place] w/Basement home; 1 step to enter; 15 steps down to the basement; railing present on basement stairs; his bathroom has a stall shower
Reported that he started taking Naltrexone
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
DME: rolling walker, cane
SNF/Rehab/Home Health utilization history: had a recent ETOH rehab stay @ [facility] 6 weeks ago; also reported that he went to Cardiac Rehab in the past
Transportation: Family or Friend will provide ride home
Plan: Home when medically stable
PT recommended home health for home PT; patient prefers going to outpatient physical therapy. Attending notified via [place] Text to write a script for outpatient Physical Therapy
[facility] counseling offered. Patient declined.
[2023-09-14 12:08] LABS: Glucose - Point of Care 185 mg/dl (70-99)
[2023-09-14] MEDS: NOVOLOG FLEXPEN-LOW RESISTANCE 1 UNITS SC (13:24)
--- NOTE | 2023-09-23 09:10 | PN.CDI ---
CDI
- -
CDI:
Physician Documentation Request
Admit Date: 09/13/23 02:53
Dear Doctor Harrison,
Clinical Indicators:
The diagnosis of aspiration pneumonitis was documented on 09/13 in progress notes but is not consistently noted in subsequent documentation /discharge summary
09/13 note 'Acute hypoxic respiratory failure--multifactorial--COPD exac (previous smoker), aspiration pneumonitis (from vomiting)'
Discharge summary states 'Patient's presenting symptom was likely secondary to her recurrent a COPD exacerbation which was worsened by underlying anxiety as well as continued alcohol use..... Pulmonology was consulted, doxycycline 100 mg orally
twice a day was started for acute exacerbation'
Please clarify the following:
____ - aspiration pneumonitis was present on admission
____ - aspiration pneumonitis was ruled out
____ - Other
Use of terms such as suspected, likely, concern for, or probable (associated with a specific diagnosis that is being evaluated, monitored, or treated as if it exists) are acceptable and can be coded in the inpatient setting, when documented at the
time of discharge.
Thank you,
Esperanza Hawthorne RN, BSN
CDI Specialist
tiger text
Please use your independent medical judgment in providing your response.
== END 2023-09-14 17:35 | disposition home or self-care (01) | DRG 177 ==
LOC: IMU 02:53
PROVIDERS: Hospitalist; Student in an Organized Health Care Education/Training Program; ADMITTING PHYSICIAN Hospitalist; ATTENDING PHYSICIAN Internal Medicine; CONSULT PHYSICIAN Internal Medicine Critical Care Medicine; EMERGENCY PHYSICIAN Emergency Medicine; FAMILY PHYSICIAN Nurse Practitioner Family
DX: J69.0 Pneumonitis due to inhalation of food and vomit (principal); J96.01 Acute respiratory failure with hypoxia; J44.1 Chronic obstructive pulmonary disease with (acute) exacerbation; I85.10 Secondary esophageal varices without bleeding; I48.92 Unspecified atrial flutter; F10.20 Alcohol dependence, uncomplicated; I48.0 Paroxysmal atrial fibrillation; E78.00 Pure hypercholesterolemia, unspecified; G47.33 Obstructive sleep apnea (adult) (pediatric); I25.10 Atherosclerotic heart disease of native coronary artery without angina pectoris; K21.9 Gastro-esophageal reflux disease without esophagitis; K22.70 Barrett's esophagus without dysplasia; M35.3 Polymyalgia rheumatica; I50.9 Heart failure, unspecified; E66.09 Other obesity due to excess calories; R73.9 Hyperglycemia, unspecified; R91.1 Solitary pulmonary nodule; M19.90 Unspecified osteoarthritis, unspecified site; D72.829 Elevated white blood cell count, unspecified; I71.40 Abdominal aortic aneurysm, without rupture, unspecified; K70.30 Alcoholic cirrhosis of liver without ascites; D69.6 Thrombocytopenia, unspecified; I11.0 Hypertensive heart disease with heart failure; F41.9 Anxiety disorder, unspecified; Z96.643 Presence of artificial hip joint, bilateral; Z87.891 Personal history of nicotine dependence; Z91.199 Patient's noncompliance with other medical treatment and regimen due to unspecified reason; Z87.11 Personal history of peptic ulcer disease; Z79.51 Long term (current) use of inhaled steroids; Z79.82 Long term (current) use of aspirin; Z68.35 Body mass index [BMI] 35.0-35.9, adult; Z11.52 Encounter for screening for COVID-19
CPT/HCPCS: 71045; 71275; 80048; 80053; 82077; 82248; 82962; 83036; 83735; 83880; 84145; 84443; 84484; 85025; 85027; 85379; 87205; 87811; 92610; 93005; 94640; 96374; 96375; 97163; 97166; 99291; Q9967

== ENCOUNTER 2023-11-11 08:22 | Inpatient (IN) | payer OTHER, SELFPAY ==
[2023-11-09 13:26] VITALS: BP 171/81
[2023-11-09 14:02] LABS: % Basophils 0.5 % (0-2); % Immature Granulocytes 0.5 % (0-0.5); % Lymphocytes 14.3 % (20.5-51.1); % Monocytes 8.4 % (1.7-9.3); % Neutrophils 76.3 % (42.2-75.2); Absolute Lymphocytes 0.9 10^3/uL (1.2-3.4); Absolute Monocytes 0.5 10^3/uL (0.1-0.6); Absolute Neutrophils 4.8 10^3/uL (1.4-6.5); Hematocrit 43.6 % (39.0-52.0); Hemoglobin 14.3 g/dL (13.0-18.0); Mean Corp Hgb Conc. 32.8 g/dL (33.0-37.0); Mean Corpuscular Volume 94.6 fL (80.0-94.0); Mean Platelet Volume 9.3 fL (7.4-10.4); Nucleated Red Blood Cells % 0 % (-); Platelet Count 102 10^3/uL (130-400); Red Blood Cell Count 4.61 10^6/uL (4.70-6.10); Red Cell Dist. Width 14.6 % (11.5-14.5); White Blood Cell Count 6.3 10^3/uL (4.8-10.8)
[2023-11-09 14:13] LABS: ALT (SGPT) 42 U/L (0-50); AST (SGOT) 78 U/L (17-59); Albumin 4.3 g/dl (3.5-5.0); Alkaline Phosphatase 448 U/L (38-126); Blood Urea Nitrogen 12 mg/dl (9-20); Calcium 8.7 mg/dl (8.4-10.2); Carbon Dioxide 24 mmol/L (22-30); Chloride 104 mmol/L (98-107); Glucose 191 mg/dl (70-99); Potassium 4.1 mmol/L (3.5-5.1); Sodium 139 mmol/L (135-145); Total Bilirubin 2.3 mg/dl (0.2-1.3); Total Protein 8.1 g/dl (6.3-8.2); eGFR > 60.00
[2023-11-09 14:26] LABS: Lipase 149 U/L (23-300)
[2023-11-09 14:34] LABS: Alcohol None Detected
--- NOTE | 2023-11-09 15:23 | ED TECH ---
Pt in triage stating that he 'feels like he is going to pass out.' Vitals signs repeated and triage nurse made aware.
[2023-11-09 15:25] VITALS: BP 160/86
[2023-11-09 16:19] VITALS: BP 156/91
[2023-11-09] MEDS: ZOFRAN 4 MG IV (16:32)
[2023-11-09] MEDS: ATIVAN 1 MG IV (16:33)
--- NOTE | 2023-11-09 16:40 | ED.GENMED ---
History of Present Illness
General
Chief Complaint: Withdrawal Symptoms
Source: patient and spouse
Time Seen by Provider: 11/09/23 16:00
History of Present Illness
History of Present Illness:
63-year-old male with past medical history of atrial fibrillation, COPD, CHF, hypertension, hyperlipidemia, esophageal varices secondary to alcohol abuse presenting to the emergency department for evaluation of shortness of breath and palpitations
that started yesterday which orts feels similar to when he has been in A-fib in the past. Patient and note that he has been drinking extensively over the last 2 weeks noting at least 750 mL bottles one of them daily but states up to as many as
4 bottles per day. Patient notes that today he has been feeling very tremulous, nauseous and generally feeling unwell. He notes that he has withdrawn from alcohol in the past and has gone through DTs with hallucinations but denies any seizure
history. Patient's last drink was at some time Thursday. Patient is on metoprolol and diltiazem p.o. for his A-fib but is not able to be anticoagulated due to his alcohol history, history of GI bleeding and known esophageal varices.
Past History
Past History
ED Past Medical History: Arrthythmia (A-fib, not on anticoagulation due to esophageal varices history), Asthma, CHF, COPD, HTN and Hypercholesterolemia
ED Past Surgical History: Appendectomy, Orthopedic and Other
Patient has exhibited threatening behavior?: No
Social History
Tobacco: Former smoker
Alcohol: Chronic alcoholic
Drug: None
Personal:
Living: with family
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
Family History
Family History: Other (Non-contributory)
Review of Systems
Review of Systems
All Other Systems: ROS reviewed and negative except as documented in HPI and ROS
Phy Exam
Physical Exam
Physical Exam:
GENERAL: Alert , in no apparent distress
EYE: Clear conjunctiva
NECK: Supple
ENT: o/p clr, mmm.
CARDIAC: Irregularly irregular, rate between 88 bpm and 98 bpm
LUNGS: Clear breath sounds bilaterally, no acute respiratory distress,
ABDOMEN: Soft but distended, without focal tenderness, no r/g, no cvat
NEUROLOGICAL: Alert and oriented
SKIN: Warm and dry, skin intact.
MUSCULOSKELETAL: well perfused.
PSYCH: Normal and appropriate interaction.
Scores
[id number] Score for Afib Stroke Risk
Age in Years (65=0, 65-74=1, >/=75=2): <65
Sex (Female=+1): Male
Congestive Heart Failure History (Yes=+1): Yes
Hypertension History (Yes=+1): Yes
Stroke/TIA/Thromboembolism History (Yes=+2): No
Vascular Disease History (Yes=+1): No
Diabetes Mellitus (Yes=+1): No
Score: 2
Anticoagulation Recommendations: Recommend anticoagulation (as validated in nonvalvular fib)
Heart Failure Risk
Heart Failure Risk Score: Not Applicable
Heart Score for Chest Pain Patients
STEMI patient?: Not applicable
Withdrawal Assessment of Alcohol
Withdrawal Assessment Completed?: Yes
Nausea and Vomiting: Mild nausea with no vomiting
Tactile Disturbances: Very mild itching, pins and needles, burning or numbness
Tremor: Moderate, with patient's arms extended
Auditory Disturbances: Not present
Paroxysmal Sweats: No sweat visible
Visual Disturbances: Not present
Anxiety: Mild anxiety
Headache, Fullness in Head: Not present
Agitation: Normal activity
Orientation and clouding of sensorium: Oriented and can do serial additions
Total CIWA Score: 7
Alcohol Withdrawal Medication Recommendation: Equal to MSAS Score 0-4. Monitor & re-assess q2hrs, NO MEDICATION NEEDED
Course
Orders/Labs/Results
Orders:
Orders
11/09/23 13:29
Electrocardiogram (*1) Urgent
Reason for Study: Palpitations
EKG- Treatment ONCE
11/09/23 13:36
Alcohol Urgent
Complete Blood Count/With Diff Urgent
Comprehensive Metabolic Panel Urgent
Lipase Urgent
Magnesium Urgent
Phosphorus Urgent
Comment: MAG & PHOS ADDED ON BY FLOOR 4:50PM 11-09-23
11/09/23 16:10
Lorazepam [Ativan] 1 mg IV NOW STA
Ondansetron Injectable [Zofran] 4 mg IV NOW STA
11/09/23 16:53
Add On- LAB Urgent
Tests Added?: magnesium, phosphorus
Abnormal Lab Results
11/09/23
13:36
RBC 4.61 L 10^6/uL
(4.70-6.10)
MCV 94.6 H fL
(80.0-94.0)
MCHC 32.8 L g/dL
(33.0-37.0)
RDW 14.6 H %
(11.5-14.5)
Plt Count 102 L 10^3/uL
(130-400)
Absolute Lymphs (auto) 0.9 L 10^3/uL
(1.2-3.4)
Neutrophils % 76.3 H %
(42.2-75.2)
Lymphocytes % 14.3 L %
(20.5-51.1)
Creatinine 0.6 L mg/dL
(0.7-1.3)
Glucose 191 H mg/dl
(70-99)
Total Bilirubin 2.3 H mg/dl
(0.2-1.3)
AST 78 H U/L
(17-59)
Alkaline Phosphatase 448 H U/L
(38-126)
11/09/23 13:36
11/09/23 13:36
Vital Signs
Initial and Last Documented VS:
Initial Vital Signs
Temp Pulse Resp BP Pulse Ox
97.1 F 112 22 171/81 95
11/09/23 13:26 11/09/23 13:26 11/09/23 13:26 11/09/23 13:26 11/09/23 13:26
Last Documented Vital Signs
Temp Pulse Resp BP Pulse Ox
97.1 F 99 18 160/86 93
11/09/23 13:26 11/09/23 15:25 11/09/23 15:25 11/09/23 15:25 11/09/23 16:25
Enamel Pulverizer consulted with Physician
Enamel Pulverizer consulted with physician?: Yes
Name of Physician Consulted: Omayra
MDM/Problems Addressed
Differential Diagnosis Includes:
Atrial fibrillation secondary to chronic alcohol use, alcohol withdrawal, electrolyte disturbance, no current symptoms to suggest acute GI bleeding
MDM/Problems Addressed:
63-year-old male presenting the emergency department for evaluation of 2 separate concerns. First concern is alcohol abuse noting to be drinking up to 4 bottles of wine per day, last drink was a little less than 24 hours ago. Currently feeling
withdrawal symptoms including palpitations, paresthesias, nausea and tremors. Patient found to be in A-fib but is currently rate controlled. Unable to be anticoagulated despite his [id number] score due to history of GI bleeding, esophageal
varices and continued alcohol use. Patient declining [facility] consultation. Based off his chronic medical conditions I do have some concern for discharging the patient home. Combined with his active A-fib and acute withdrawal symptoms will admit
for continued cardiac monitoring and treatment of his alcohol withdrawal. Cardiology can be consulted as needed.
Chronic conditions affecting care: Arrhythmia and Psychiatric illness (Alcohol abuse)
Acute Exacerbation and/or Progression of Chronic Illness: Arrhythmia and Psychiatric illness (Alcohol abuse)
*Pulse Oximetry
Patient hypoxic: no
*EKG
Interpreted by ED Provider?: Yes
Comparison EKG: no changes
Heart Rate: 102
Rate: tachycardiac
Rhythm: a-fib
[place]: right axis deviation
Ischemia: no ischemia
*Deputy Harbormaster Interpretation
Rate: normal
Rhythm: a-fib
*Critical Care Note
Total Time (30-74mins, 75-104mins- exclusive of procedures): Not Applicable
Data Reviewed
Review of Other/Old Records Reveals: Labs and Records
Source: patient
Patient Management
Discussion with other providers: Hospitalist
Escalation/DeEscalation of care consider admission/obs:
Hospitalist team was notified and accepts for continued evaluation and treatment. Patient was given Ativan and Zofran in the ER. He remains currently stable.
ED Attending Note
-
Portions of this chart may have been created with voice recognition software.� Occasional wrong word or��sound alike� substitutions may have occurred due to the inherent limitations of voice recognition software.
Discharge Plan
Departure
Patient Disposition: Admit
Date of Disposition: 11/09/23
Time of Disposition: 16:54
Presentation/result/management discussed w/ accepting MD/DO: Hospitalist
Discharge Problem:
Alcohol withdrawal, Atrial fibrillation
Prescriptions:
No Action
metoprolol succinate 100 mg Tablet Extended Release 24 Hr
100 mg PO DAILY Qty: 30 0RF
thiamine HCl (vitamin B1) 100 mg tablet
100 mg PO DAILY Qty: 30 0RF
metoprolol succinate 100 mg Tablet Extended Release 24 Hr
100 mg PO DAILY Qty: 90 0RF
diltiazem HCl 120 mg Capsule,Extended Release 24hr
120 mg PO DAILY Qty: 90 0RF
aspirin 81 mg tablet,delayed release (DR/EC)
81 mg PO DAILY Qty: 30 0RF
levalbuterol tartrate 45 mcg/actuation Hfa Aerosol Inhaler
1 puff INHALATION R Q6HPRN PRN (Reason: sob) Qty: 90 0RF
Trelegy Ellipta 100-62.5-25 mcg Blister With Device
1 inh INHALATION R DAILY Qty: 90 0RF
prednisone 10 mg Tablet
See Rx Instructions .ROUTE .COMPLEX Qty: 30 0RF
Rx Instructions:
Take By Mouth:
40 mg daily x3 days, 30 mg daily x3 days,
20 mg daily x3 days, 10 mg daily x3 days.
doxycycline hyclate 100 mg capsule
100 mg PO BID 5 Days Qty: 10 0RF
Referrals:
Berna Lyons CRNP [Family Provider] -
Interventions
Interventions:
*Risk Screen - Suicide Last Done: 11/09/23 13:26
*General Assessment Last Done: 11/09/23 13:26
*Neglect/Abuse Screening Last Done: 11/09/23 13:26
*ED COVID-19 Vaccine History Last Done: 11/09/23 16:28
ED- Cardiac Assessment Last Done: 11/09/23 16:25
ED- Neurological Assessment Last Done: 11/09/23 16:25
ED-Psychological Assessment Last Done: 11/09/23 16:25
ED- Pulmonary Assessment Last Done: 11/09/23 16:25
Discharge Date and Time
Print Language: LUXEMBOURGISH
--- NOTE | 2023-11-09 17:08 | HPS.HSE ---
Family Physician
-
Family Physician: WADE Marc
Chief Complaint
-
shortness of breath
History of Present Illness
63-year-old male past medical history of COPD, paroxysmal atrial fibrillation not on anticoagulation, hypertension, alcohol use disorder, alcoholic cirrhosis, esophageal varices, thrombocytopenia, carotid stenosis, obesity, obstructive sleep apnea
presenting for shortness of breath which started last night which he noticed while hw was lying down.
He did have some nausea without any vomiting. He denies any palpitations, chest pain. He did have some chills. Denies any lower extremity edema. He denies any abdominal pain or diarrhea or GI bleeding.
Patient states that he went to rehab but started drinking alcohol again 3 months ago. He drinks 1 bottle of wine every day. Yesterday he drank 3 bottles of wine, his last drink in the morning. He denies smoking or marijuana or any other drugs.
Medical History
Past Medical History
Past Medical History: Reports Other (COPD, paroxysmal atrial fibrillation not on anticoagulation, hypertension, alcohol use disorder, alcoholic cirrhosis, esophageal varices, thrombocytopenia, carotid stenosis, obesity, obstructive sleep apnea)
Past Surgical History: Reports None
Social History
Tobacco: Non-smoker
Alcohol: Daily
Drug: None
Family History
Family History: Not pertinent
Allergies / Home Medications
Allergies reflects when Allergies were last updated in [facility].
Home Medications with original date entered in [facility]
Allergy/Medication List:
Allergies
Allergy/AdvReac Type Severity Reaction Status Date / Time
No Known Allergies Allergy Verified 11/09/23 13:26
Home Medications
metoprolol succinate 100 mg tablet,extended release 24 hr 100 mg PO DAILY #30 tabs 07/28/23
thiamine HCl (vitamin B1) 100 mg tablet 100 mg PO DAILY #30 tabs 07/28/23
aspirin 81 mg tablet,delayed release 81 mg PO DAILY Blood Clot Prevention/Tx #30 tabs 09/14/23
diltiazem HCl 120 mg capsule,extended release 24 hr 120 mg PO DAILY #90 caps 09/14/23
doxycycline hyclate 100 mg capsule 100 mg PO BID 5 days #10 caps 09/14/23
fluticasone fur. 100 mcg-umeclid 62.5 mcg-vilant 25 mcg inhalat.powder (Trelegy Ellipta) 1 inh inhalation R DAILY Lung/Breathing Issues #90 ea 09/14/23
levalbuterol tartrate 45 mcg/actuation aerosol inhaler 1 puff inhalation R Q6HPRN PRN sob #90 grams 09/14/23
metoprolol succinate 100 mg tablet,extended release 24 hr 100 mg PO DAILY #90 tabs 09/14/23
prednisone 10 mg tablet See Rx Instructions .Route .COMPLEX Lung/breathing issues #30 tabs 09/14/23
Review of Systems
-
History Source: Patient
A 12 point ROS was completed and negative except as noted: Yes
Constitutional: Reports No Symptoms
EENT: Reports No Symptoms
Respiratory: Reports See HPI
Cardiac: Reports See HPI
Abdomen/GI: Reports See HPI
: Reports No Symptoms
Musculoskeletal: Reports No Symptoms
Skin: Reports No Symptoms
Neurological: Reports No Symptoms
Endocrine: Reports No Symptoms
Hematologic/Lymphatic: Reports No Symptoms
Psych: Reports No Symptoms
Physical Exam
Vital Signs
Vital Signs
Temp Pulse Resp BP Pulse Ox
97.1 F 99 18 160/86 93
11/09/23 13:26 11/09/23 15:25 11/09/23 15:25 11/09/23 15:25 11/09/23 16:25
Physical Exam
General: Well Developed, Well Nourished and No Apparent Distress
HEENT: NormoCephalic, Moist mucous membranes and Atraumatic
Respiratory: Clear
Cardiac: S1/S2 and Regular Rhythm; No Murmur or Rub
GI: Soft, Non Tender, Non Distended and Normal Bowel Sounds; No Organomegaly
Rectal: Deferred by Provider
Musculoskeletal: No Clubbing, No Cyanosis and No Edema
Skin: No Rash
Neuro: Nonfocal/grossly intact
Laboratory Results
-
11/09/23 13:36
11/09/23 13:36
Laboratory Results
Total Bilirubin 2.3 mg/dl (0.2-1.3) H 11/09/23 13:36
AST 78 U/L (17-59) H 11/09/23 13:36
ALT 42 U/L (0-50) 11/09/23 13:36
Alkaline Phosphatase 448 U/L (38-126) H 11/09/23 13:36
Lipase 149 U/L (23-300) 11/09/23 13:36
Data Reviewed
-
Lab Data: Labs Reviewed by me
Old Records: Reviewed
Impression/Plan
-
IMPRESSION:
PLAN:
# Acute alcohol withdrawal
# Alcohol use disorder
-Alcohol level negative
-Alcohol withdrawal protocol
-Thiamine and folate
-IV fluids
# Atrial fibrillation with RVR
-EKG shows atrial fibrillation with heart rate of 102, max heart rate recorded 112
-[id number] of 2 however not candidate for anticoagulation given history of varices
-check CXR
-Continue diltiazem
-Continue metoprolol
Alcoholic cirrhosis
History of esophageal varices
Thrombocytopenia secondary to cirrhosis
-Stable
COPD
-Continue inhalers
Essential hypertension
Carotid stenosis
-Continue aspirin
Obesity secondary to excess calories
Obstructive sleep apnea
-Noncompliant with CPAP
Full code
DVT prophylaxis�SCDs
Regular diet
[2023-11-09 17:25] LABS: Magnesium 1.7 mg/dl (1.6-2.3); Phosphorus 3.1 mg/dl (2.5-4.5)
[2023-11-09 18:00] VITALS: BP 165/108
[2023-11-09 18:40] VITALS: BMI 34.3
[2023-11-09 18:51] VITALS: BP 153/71; BMI 34.3
--- NOTE | 2023-11-09 18:55 | PTCARENOTE ---
pt presents from ED via stretcher. pt is AAO*3, Vss 2 L o2. MSAS score 6. pt c/o pain in his abd 5 out of 10. c/o nausea no vomiting. pt is oriented to the room. call pate within the reach. will continue plan of care.
--- NOTE | 2023-11-09 19:21 | PTCARENOTE ---
pt msas score 6. pt calm. pt refused ativan.
[2023-11-09] MEDS: NSS 1000 IV (19:24)
[2023-11-09] MEDS: THIAMINE INJECTION 200 MG IV (19:56)
[2023-11-09] MEDS: NSS (PRESERVATIVE FREE) 10 ML IV (20:15)
[2023-11-09] MEDS: PROTONIX IV 40 MG IV (20:15)
[2023-11-09 23:26] VITALS: BP 157/85
[2023-11-10 03:36] VITALS: BP 162/91
[2023-11-10 06:52] LABS: % Basophils 0.7 % (0-2); % Eosinophils 1.5 % (0-6); % Immature Granulocytes 0.5 % (0-0.5); % Lymphocytes 24.1 % (20.5-51.1); % Monocytes 10.6 % (1.7-9.3); % Neutrophils 62.6 % (42.2-75.2); Absolute Eosinophils 0.1 10^3/uL (0-0.7); Absolute Monocytes 0.4 10^3/uL (0.1-0.6); Absolute Neutrophils 2.5 10^3/uL (1.4-6.5); Hematocrit 38.1 % (39.0-52.0); Hemoglobin 12.7 g/dL (13.0-18.0); Mean Corp Hgb Conc. 33.3 g/dL (33.0-37.0); Mean Corpuscular Hgb 31.1 pg (27.0-31.0); Mean Corpuscular Volume 93.4 fL (80.0-94.0); Mean Platelet Volume 9.7 fL (7.4-10.4); Nucleated Red Blood Cells % 0 % (-); Platelet Count 62 10^3/uL (130-400); Red Blood Cell Count 4.08 10^6/uL (4.70-6.10); Red Cell Dist. Width 14.7 % (11.5-14.5); White Blood Cell Count 4.1 10^3/uL (4.8-10.8)
[2023-11-10] MEDS: SPIRIVA RESPIMAT 2.5 MCG 2 PUFF INH (07:06)
[2023-11-10] MEDS: SYMBICORT 80/4.5 MCG INHALER 2 PUFF INH ×2 (07:07→19:48)
[2023-11-10] MEDS: XOPENEX HFA 45 MCG INHALER 2 PUFF INH (07:10)
[2023-11-10 07:30] VITALS: BP 148/83
[2023-11-10 09:26] LABS: ALT (SGPT) 32 U/L (0-50); AST (SGOT) 58 U/L (17-59); Albumin 3.6 g/dl (3.5-5.0); Alkaline Phosphatase 304 U/L (38-126); Blood Urea Nitrogen 13 mg/dl (9-20); Calcium 8.5 mg/dl (8.4-10.2); Carbon Dioxide 27 mmol/L (22-30); Chloride 105 mmol/L (98-107); Estimated Creatinine Clearance > 125 ml/min; Glucose 111 mg/dl (70-99); Sodium 138 mmol/L (135-145); Total Bilirubin 2.4 mg/dl (0.2-1.3); eGFR > 60.00
[2023-11-10] MEDS: NSS IV (09:29)
[2023-11-10] MEDS: ATIVAN 1 MG PO ×3 (09:35→18:25)
[2023-11-10] MEDS: TOPROL XL 100 MG PO (09:36)
[2023-11-10] MEDS: PROTONIX 40 MG PO (09:36)
[2023-11-10] MEDS: ASPIR LOW (ENTERIC COATED) 81 MG PO (09:36)
[2023-11-10] MEDS: FOLVITE 1 MG PO (09:36)
[2023-11-10] MEDS: CARDIZEM CD 120 MG PO (09:36)
[2023-11-10] MEDS: THIAMINE INJECTION 200 MG IV ×2 (09:39→19:28)
[2023-11-10 11:05] VITALS: BP 151/83
--- NOTE | 2023-11-10 11:42 | W.PN.HOSP.TC ---
Today's Communication/Plan
-
MSAS protocol-if worsening will need standing meds
dc IVF
Cont home meds
encourage po intake
Assessment / Plan
Assessment / Plan
# Acute alcohol withdrawal
# Alcohol use disorder almost daily basis
-Alcohol level negative
-Alcohol withdrawal protocol
-Thiamine and folate
-IV fluids DCed
-encourage po intake
# Paroxysmal Atrial fibrillation with RVR
-[id number] of 2 however not candidate for anticoagulation given history of varices and alcohol abuse placing him at extremely high risk of bleeding complications.
-Continue diltiazem
-Continue metoprolol
Alcoholic cirrhosis
History of esophageal varices
Thrombocytopenia likely secondary to alcohol effects on bone marrow
-counseled on alcohol cessation. However, multiple admission with similar situation.
COPD
-Continue inhalers
Essential hypertension
Carotid stenosis
-Continue aspirin
Obesity secondary to excess calories
Obstructive sleep apnea
-Noncompliant with CPAP
Full code
DVT prophylaxis�SCDs
Anticipated Discharge: > 48 hours
Subjective/Interval History
-
Date of Service: November 10, 2023
states of tremors
agreeable to take ativan
Objective Data
-
Labs:
Laboratory Results
11/10/23
06:31
WBC 4.1 L
Hgb 12.7 L
Hct 38.1 L
Plt Count 62 L D
Sodium 138
Potassium 4.0
Chloride 105
Carbon Dioxide 27
BUN 13
Creatinine 0.7
Glucose 111 H
Calcium 8.5
Total Bilirubin 2.4 H
AST 58
ALT 32
Alkaline Phosphatase 304 H
Vital Signs:
Vital Signs
Temp Pulse Resp BP Pulse Ox
98.1 F 89 18 151/83 98
11/10/23 11:05 11/10/23 11:05 11/10/23 11:05 11/10/23 11:05 11/10/23 11:23
I&O
11/09/23 11/10/23 11/11/23
06:59 06:59 06:59
Intake Total 240 / 240
Output Total 905 / 905
Balance -665 / -665
Physical Exam
-
HEENT: Normocephalic and Atraumatic
Respiratory: Clear to Auscultation
Cardiac: Regular Rhythm and S1/S2
GI: Soft, Nontender and Nondistended
Musculoskeletal: No Edema
Neuro: Awake, Alert, Oriented, AO x 3 and Tremors
Psych: Anxious
Data Reviewed
-
Total Time Spent with Patient (in minutes): 55
[2023-11-10 15:42] VITALS: BP 150/83
--- NOTE | 2023-11-10 17:02 | CM ---
Alert awake oriented patient who lives with his Laurence who lives in a 1 story home with 1 step to enter and bed and bathroom on first floor. He is independent in driving and in all activities of daily living.He was offered VN he declined
need.[facility] saw pt he declined resources.He is on oxygen here.Reg observation letter given signed on chart.
[facility] hx /[facility] SN[facility] history
Pharmacy [facility]
PCP DR Lyons
PLAN Home Declined VN [facility] for oxygen needs
[2023-11-10 19:45] VITALS: BP 143/68
[2023-11-10 23:42] VITALS: BP 144/85
[2023-11-11 03:46] VITALS: BP 156/86
[2023-11-11] MEDS: ATIVAN 1 MG PO ×6 (06:57→23:11)
[2023-11-11] MEDS: CARDIZEM CD 120 MG PO (06:57)
[2023-11-11] MEDS: TOPROL XL 100 MG PO (06:58)
[2023-11-11 07:13] VITALS: BP 150/73
--- NOTE | 2023-11-11 07:16 | PTCARENOTE ---
Patient with HR up in 140s @ change of shift. Scheduled Cardizem and metoprolol given. Complains of SOB. Respiratory team notified to administer Xopenex. Patient placed on 2L. MSAS of 6. PRN ativan given. Plan of care ongoing.
[2023-11-11] MEDS: SPIRIVA RESPIMAT 2.5 MCG 2 PUFF INH (07:20)
[2023-11-11] MEDS: SYMBICORT 80/4.5 MCG INHALER 2 PUFF INH ×2 (07:20→19:37)
[2023-11-11] MEDS: XOPENEX HFA 45 MCG INHALER 2 PUFF INH (07:20)
[2023-11-11] MEDS: ASPIR LOW (ENTERIC COATED) 81 MG PO (09:28)
[2023-11-11] MEDS: FOLVITE 1 MG PO (09:29)
[2023-11-11] MEDS: PROTONIX 40 MG PO (09:29)
[2023-11-11] MEDS: THIAMINE INJECTION 200 MG IV ×2 (09:29→19:23)
[2023-11-11 11:00] VITALS: BP 146/86
--- NOTE | 2023-11-11 11:36 | W.PN.HOSP.TC ---
Today's Communication/Plan
-
Continue with bronchodilators
Start patient on IV steroids
Assessment / Plan
Assessment / Plan
# Acute alcohol withdrawal
# Alcohol use disorder almost daily basis
-Alcohol level negative
-Alcohol withdrawal protocol
-Thiamine and folate
-IV fluids DCed
-Intermittently refusing as needed Ativan�will start standing Ativan 1mg-hold for sedation
-encourage po intake
# Paroxysmal Atrial fibrillation with RVR
-[id number] of 2 however not candidate for anticoagulation given history of varices and alcohol abuse placing him at extremely high risk of bleeding complications.
-Continue diltiazem
-Continue metoprolol
Alcoholic cirrhosis
History of esophageal varices
Thrombocytopenia likely secondary to alcohol effects on bone marrow
-counseled on alcohol cessation. However, multiple admission with similar situation.
Acute hypoxic respiratory insufficiency
Mild acute COPD exacerbation
-Continue inhalers Xopenex, LAMA/LABA
-As needed nebulizer
-Sputum sample
-Start patient on Decadron 4 every 12
Essential hypertension
Carotid stenosis
-Continue aspirin
Obesity secondary to excess calories
Obstructive sleep apnea
-Noncompliant with CPAP
Full code
DVT prophylaxis�SCDs
Anticipated Discharge: > 48 hours
Subjective/Interval History
-
Date of Service: November 11, 2023
states of productive cough wtih brown sputum
on 2L oxygen
tremors improved
was tachycardic earlier and now HR improved
Objective Data
-
Vital Signs:
Vital Signs
Temp Pulse Resp BP Pulse Ox
98.8 F 81 16 146/86 96
11/11/23 11:00 11/11/23 11:00 11/11/23 11:00 11/11/23 11:00 11/11/23 11:00
I&O
11/10/23 11/11/23 11/12/23
06:59 06:59 06:59
Intake Total 240 / 240 1080 / 1080
Output Total 905 / 905 850 / 850
Balance -665 / -665 230 / 230
Physical Exam
-
General: Well Nourished, No Apparent Distress and Obese
HEENT: Normocephalic and Atraumatic
Respiratory: Decreased Breath Sounds
Cardiac: Regular Rhythm and S1/S2
GI: Soft, Nontender and Nondistended
Musculoskeletal: No Edema
Neuro: Awake, Alert, Oriented, AO x 3, Tremors and Nonfocal/Grossly Intact
Psych: Calm
Data Reviewed
-
Total Time Spent with Patient (in minutes): 55
--- NOTE | 2023-11-11 11:50 | PTCARENOTE ---
Blood tinged urine noted. Dr. Cabrera made aware. Patient stays this issue has been 'off and on for a few months.' Patient attribute blood tinged urine to his hernia. Plan of care on going at this time. Hemoglobin stable.
[2023-11-11] MEDS: DECADRON 4 MG IV ×2 (12:24→23:11)
[2023-11-11 14:35] VITALS: BP 143/79
[2023-11-11] MEDS: XOPENEX 1.25 MG INHALANT SOLUTION INH (16:45)
[2023-11-11] MEDS: ATROVENT NEBULES 0.5 MG INH (16:45)
[2023-11-11 19:33] VITALS: BP 139/88
[2023-11-11 23:19] VITALS: BP 155/79
[2023-11-12] VITALS (7 sets, daily range): BP systolic 134–170; BP diastolic 84–109; O2SAT 92–95; BMI 33.9
[2023-11-12] MEDS: ATIVAN 1 MG PO (06:04)
[2023-11-12] MEDS: TOPROL XL 100 MG PO (06:31)
[2023-11-12 07:37] LABS: Blood Urea Nitrogen 20 mg/dl (9-20); Calcium 9.1 mg/dl (8.4-10.2); Carbon Dioxide 22 mmol/L (22-30); Chloride 106 mmol/L (98-107); Estimated Creatinine Clearance > 125 ml/min; Glucose 168 mg/dl (70-99); Magnesium 1.8 mg/dl (1.6-2.3); Potassium 3.8 mmol/L (3.5-5.1); Sodium 138 mmol/L (135-145); eGFR > 60.00
[2023-11-12] MEDS: SPIRIVA RESPIMAT 2.5 MCG 2 PUFF INH (08:12)
[2023-11-12] MEDS: SYMBICORT 80/4.5 MCG INHALER 2 PUFF INH (08:12)
[2023-11-12] MEDS: XOPENEX HFA 45 MCG INHALER 2 PUFF INH (08:13)
[2023-11-12] MEDS: FOLVITE 1 MG PO (08:39)
[2023-11-12] MEDS: CARDIZEM CD 120 MG PO (08:39)
[2023-11-12] MEDS: PROTONIX 40 MG PO (08:39)
[2023-11-12] MEDS: THIAMINE INJECTION 200 MG IV (08:39)
[2023-11-12] MEDS: ASPIR LOW (ENTERIC COATED) 81 MG PO (08:39)
[2023-11-12] MEDS: FLUSH (NSS) 1 FLUSH IV (08:40)
--- NOTE | 2023-11-12 11:49 | W.PN.HOSP.TC ---
Today's Communication/Plan
-
stop standing ativan
steroids
bronchodilators
Assessment / Plan
Assessment / Plan
# Acute alcohol withdrawal
# Alcohol use disorder almost daily basis
-Alcohol level negative
-Alcohol withdrawal protocol
-Thiamine and folate
-IV fluids DCed
-Can DC further standing ativan.
-encourage po intake
# Paroxysmal Atrial fibrillation with RVR
-[id number] of 2 however not candidate for anticoagulation given history of varices and alcohol abuse placing him at extremely high risk of bleeding complications.
-Continue diltiazem
-Continue metoprolol
Alcoholic cirrhosis
History of esophageal varices
Thrombocytopenia likely secondary to alcohol effects on bone marrow
-counseled on alcohol cessation. However, multiple admission with similar situation.
Acute hypoxic respiratory insufficiency
Mild acute COPD exacerbation
-Continue inhalers Xopenex, LAMA/LABA
-As needed nebulizer
-Sputum sample
-Start patient on Decadron 4 every 12 and po prednisone taper on dc.
-wean off to RA at rest.
Essential hypertension
Carotid stenosis
-Continue aspirin
Obesity secondary to excess calories
Obstructive sleep apnea
-Noncompliant with CPAP
Full code
DVT prophylaxis�SCDs
Anticipated Discharge: Within 24 hours
Subjective/Interval History
-
Date of Service: November 12, 2023
denies productive cough
SOB has improved
no tremors
feeling better
Objective Data
-
Labs:
Laboratory Results
11/12/23
06:50
Sodium 138
Potassium 3.8
Chloride 106
Carbon Dioxide 22
BUN 20
Creatinine 0.6 L
Glucose 168 H
Calcium 9.1
Vital Signs:
Vital Signs
Temp Pulse Resp BP Pulse Ox
97.8 F 91 16 148/86 94
11/12/23 11:37 11/12/23 11:37 11/12/23 11:37 11/12/23 11:37 11/12/23 11:37
I&O
11/11/23 11/12/23 11/13/23
06:59 06:59 06:59
Intake Total 1080 / 1080 960 / 960
Output Total 850 / 850 1400 / 1400
Balance 230 / 230 -440 / -440
Physical Exam
-
General: Well Nourished, No Apparent Distress and Obese
HEENT: Normocephalic and Atraumatic
Respiratory: Clear to Auscultation (improvement compared to yesterday )
Cardiac: Regular Rhythm and S1/S2
GI: Soft, Nontender, Nondistended and Normal Bowel Sounds
Musculoskeletal: No Edema
Neuro: Awake, Alert, Oriented, AO x 3 and Nonfocal/Grossly Intact; Negative Tremors
Psych: Calm
[2023-11-12] MEDS: DECADRON 4 MG IV (13:33)
--- NOTE | 2023-11-12 13:41 | W.DCSUMMARY ---
Discharge Summary
Discharge Data
Date of Admission: 11/11/23
Date of Discharge: 11/12/23
-
Pending Results: No
Hospital Course
63-year-old with past medical history of alcohol abuse daily basis, atrial fibrillation, alcohol cirrhosis, COPD, hypertension, carotid stenosis, obesity, ALCIDES noncompliant with CPAP was presenting from home for alcohol withdrawal. Patient was
started on alcohol withdrawal protocol. IV fluid was started. Patient was tolerating diet�IV fluid discontinued. Patient received Ativan per the protocol and also standing Ativan. Patient alcohol withdrawal significantly improved. Patient was
tolerating diet. Patient also found to be in mild COPD exacerbation was started on IV steroids. Patient with improvement in breathing. Oxygen was able to be weaned off. Patient was not interested in inpatient rehab. States he will try to cut
down as outpatient. Counseled patient multiple times to stop drinking alcohol. Patient will be discharged on p.o. prednisone taper recommendation to follow-up outpatient with pulmonary. Patient upon ambulation oxygenation was stable.
Discharge Plan
-
Patient Disposition: Home (Routine Discharge)
Discharge Diagnosis/Procedures: Acute alcohol withdrawal
Alcohol use disorder almost daily basis
Acute hypoxic respiratory insufficiency secondary to mild acute COPD exacerbation
Condition: Fair
Diet: Regular
Activity: With assistance and As tolerated
Driving Restrictions: No driving for 24 hours
Activity Restrictions/Additional Instructions:
Follow-up with your primary hand collator in 2 to 3 weeks.
Referrals:
Berna Lyons CRNP [Family Provider] - in less than 1 week
Prescriptions:
New
prednisone 10 mg Tablet
See Rx Instructions .ROUTE .COMPLEX Qty: 30 0RF
Rx Instructions:
Take By Mouth:
40 mg daily x3 days, 30 mg daily x3 days,
20 mg daily x3 days, 10 mg daily x3 days.
Continued
metoprolol succinate 100 mg Tablet Extended Release 24 Hr
100 mg PO DAILY Qty: 30 0RF
diltiazem HCl 120 mg Capsule,Extended Release 24hr
120 mg PO DAILY Qty: 90 0RF
aspirin 81 mg tablet,delayed release (DR/EC)
81 mg PO DAILY Qty: 30 0RF
levalbuterol tartrate 45 mcg/actuation Hfa Aerosol Inhaler
1 puff INHALATION R Q6HPRN PRN (Reason: sob) Qty: 90 0RF
Trelegy Ellipta 100-62.5-25 mcg Blister With Device
1 inh INHALATION R DAILY Qty: 90 0RF
pantoprazole 40 mg Tablet,Delayed Release (Dr/Ec)
40 mg PO DAILY
levalbuterol tartrate 45 mcg/actuation Hfa Aerosol Inhaler
2 puff INHALATION R DAILY
Patient Comments:
11/09/23: patient states he take the 2 puffs before he uses his Trelegy Ellipta every day.
Unknown Eye Drops drops
1 drp BOTH EYES DAILY
thiamine HCl (vitamin B1) 100 mg tablet
100 mg PO DAILY
Discharge Orders:
Discharge Patient (As Directed); Ordered 11/12/23
Ordered By: Sherif Cabrera
Discharge Date and Time
Print Language: ICELANDIC
== END 2023-11-12 16:39 | disposition home or self-care (01) | DRG 897 ==
LOC: 4 EAST ACU 08:22
PROVIDERS: Emergency Medicine; ADMITTING PHYSICIAN Hospitalist; ATTENDING PHYSICIAN Hospitalist; EMERGENCY PHYSICIAN Emergency Medicine; FAMILY PHYSICIAN Nurse Practitioner Family
DX: F10.939 Alcohol use, unspecified with withdrawal, unspecified (principal); J44.1 Chronic obstructive pulmonary disease with (acute) exacerbation; R06.89 Other abnormalities of breathing; R09.02 Hypoxemia
CPT/HCPCS: 71046; 80048; 80053; 82077; 83690; 83735; 84100; 85025; 87070; 87205; 93005; 94640; 96374; 96375; 99285

== ENCOUNTER 2023-12-05 03:20 | Inpatient (IN) | payer OTHER, SELFPAY ==
[2023-12-04 22:53] VITALS: BP 107/57; BP 121/73; BMI 37.1
[2023-12-04 23:00] VITALS: BP 107/57
[2023-12-04 23:11] LABS: % Basophils 0.4 % (0-2); % Eosinophils 0.4 % (0-6); % Immature Granulocytes 0.6 % (0-0.5); % Lymphocytes 24.2 % (20.5-51.1); % Neutrophils 65.4 % (42.2-75.2); Absolute Immature Granulocytes 0.1 10^3/uL (0-0.05); Absolute Lymphocytes 2.4 10^3/uL (1.2-3.4); Absolute Monocytes 0.9 10^3/uL (0.1-0.6); Absolute Neutrophils 6.5 10^3/uL (1.4-6.5); Hematocrit 39.8 % (39.0-52.0); Hemoglobin 13.4 g/dL (13.0-18.0); Mean Corp Hgb Conc. 33.7 g/dL (33.0-37.0); Mean Corpuscular Hgb 31.8 pg (27.0-31.0); Mean Corpuscular Volume 94.3 fL (80.0-94.0); Mean Platelet Volume 9.9 fL (7.4-10.4); Nucleated Red Blood Cells % 0 % (-); Platelet Count 133 10^3/uL (130-400); Red Blood Cell Count 4.22 10^6/uL (4.70-6.10); Red Cell Dist. Width 16.1 % (11.5-14.5); White Blood Cell Count 9.9 10^3/uL (4.8-10.8)
[2023-12-04] MEDS: ATROVENT NEBULES 1 MG INH (23:13)
[2023-12-04] MEDS: VENTOLIN NEBULES 15 MG INH (23:13)
[2023-12-04] MEDS: SOLU-MEDROL PF 125 MG IV (23:17)
[2023-12-04] MEDS: MAGNESIUM SULFATE 50 IV (23:25)
[2023-12-04 23:30] VITALS: BP 100/53
[2023-12-04 23:30] LABS: AST (SGOT) 272 U/L (17-59); Albumin 3.9 g/dl (3.5-5.0); Alkaline Phosphatase 488 U/L (38-126); Blood Urea Nitrogen 11 mg/dl (9-20); Carbon Dioxide 19 mmol/L (22-30); Estimated Creatinine Clearance 55 ml/min; Glucose 131 mg/dl (70-99); Magnesium 1.9 mg/dl (1.6-2.3); Total Bilirubin 2.2 mg/dl (0.2-1.3); Total Protein 7.2 g/dl (6.3-8.2); eGFR 44.46
[2023-12-04 23:31] LABS: NT-proBNP 438 pg/ml; Troponin I < 0.012 ng/ml
[2023-12-04] MEDS: ATROPINE 0.1 MG/ML SYRINGE 1 MG IV (23:36)
[2023-12-04 23:38] LABS: ALT (SGPT) 127 U/L (0-50); Calcium 7.7 mg/dl (8.4-10.2); Chloride 104 mmol/L (98-107); Potassium 5.4 mmol/L (3.5-5.1); Sodium 137 mmol/L (135-145)
[2023-12-05] VITALS (12 sets, daily range): BP systolic 106–158; BP diastolic 48–95; PULSE 2; BMI 36.7
[2023-12-05 00:06] LABS: TSH 1.52 uIU/ml (0.47-4.68)
[2023-12-05] MEDS: NSS 1000 IV ×4 (00:15→23:50)
[2023-12-05] MEDS: CALCIUM GLUCONATE 100 IV ×2 (00:28→10:50)
--- NOTE | 2023-12-05 00:33 | ED.GENMED ---
History of Present Illness
<Chasity Mata PA-C - Last Filed: 12/05/23 02:57>
General
Chief Complaint: Breathing Problem
Source: patient and ambulance crew
Time Seen by Provider: 12/04/23 23:03
History of Present Illness
History of Present Illness:
63yoM with a history of atrial fibrillation, COPD, and alcohol use presenting via EMS for evaluation of shortness of breath. Patient reports being short of breath for the past 2 weeks with associated cough and congestion. EMS was called today due to
respiratory distress. He was hypoxic to 88% on EMS arrival and was placed on a NRB. Heart rate is in the 30s on arrival. Patient reportedly drank several bottles of wine this evening. Remainder of history is limited. He denies any chest pain,
dizziness, syncope.
Past History
<Chasity Mata PA-C - Last Filed: 12/05/23 02:57>
Past History
ED Past Medical History: Arrthythmia (A-fib, not on anticoagulation due to esophageal varices history), Asthma, CHF, COPD, HTN and Hypercholesterolemia
ED Past Surgical History: Appendectomy, Orthopedic and Other
Patient has exhibited threatening behavior?: No
Social History
Tobacco: Former smoker
Alcohol: Chronic alcoholic
Drug: None
Personal:
Living: with family
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
Family History
Family History: Other (Non-contributory)
Phy Exam
<Chasity Mata PA-C - Last Filed: 12/05/23 02:57>
General Physical Exam
General Presentation: moderate distress
General Skin: warm and diaphoretic
General Habitus: obese
General Mental: appears intoxicated
Cardiovascular Exam
Cardiovascular Exam: bradycardia (HR in 30s) and irregularly irregular
Pulmonary Exam
Pulmonary Exam: decreased breath sounds
Oxygen Status: non-rebreather mask
Respirations: accessory muscle use and labored
Musculoskeletal Exam
Musculoskeletal Exam: no edema
Scores
<Chasity Mata PA-C - Last Filed: 12/05/23 02:57>
Heart Failure Risk
Heart Failure Risk Score: Not Applicable
Course
<Chasity Mata PA-C - Last Filed: 12/05/23 02:57>
Orders/Labs/Results
Orders:
Orders
12/04/23 22:55
EKG [Electrocardiogram (*1)] Urgent
Reason for Study: Tachycardia
EKG- Treatment ONCE
12/04/23 22:58
Portable Chest Xray [CR Chest Portable - 1 View] Urgent
Comment:
Reason For Exam: sob
Reason Study Needs to be Portable: Patient Unstable
12/04/23 23:00
Complete Blood Count/With Diff Urgent
Comprehensive Metabolic Panel Urgent
Magnesium Urgent
Comment: ADD ON
Pro-BNP [NT-proBNP] Urgent
TSH Urgent
Comment: ADD ON
Troponin I Urgent
Comment: ADD ON
12/04/23 23:01
Add On- LAB Urgent
Tests Added?: troponin
12/04/23 23:02
Add On- LAB Urgent
Tests Added?: TSH, mag
Atropine Sulfate [Atropine 0.1 mg/ml Syringe] 1 mg .ROUTE .STK-MED ONE
12/04/23 23:04
Albuterol Sulfate [Ventolin Nebules] 15 mg INH R NOW STA
Calcium Gluconate 1,000 mg IV PRN PRN
Ipratropium Nebs [Atrovent Nebules] 1 mg INH R NOW STA
Magnesium Sulfate 2 Gram/50 ml [Magnesium Sulfate] 2 gram in 50 ml IV NOW
Magnesium Sulfate 4 Gram/100Ml [Magnesium Sulfate] 4 gram in 100 ml IV NOW
MethylPREDNISolone PF [Solu-Medrol Pf] 125 mg IV NOW STA
12/04/23 23:05
INT (Intravenous Needle Therapy) As Directed
Comment: Insert and maintain 2 IV access sites
Rx Incentive Spirometry [RESP] Routine
Frequency: Other
Comment: BID
12/04/23 23:34
Atropine Sulfate [Atropine 0.1 mg/ml Syringe] 1 mg IV NOW STA
12/05/23 00:09
0.9% Sodium Chloride 1000 ml [Nss] 1,000 ml IV BOLUS
12/05/23 00:15
Calcium Gluconate 2 gram/100mL [Calcium Gluconate] 2 gram in 100 ml IV ONCE
12/05/23 02:51
COVID-19 Antigen Urgent
Source: Nasal Swab
Abnormal Lab Results
12/04/23
23:00
RBC 4.22 L 10^6/uL
(4.70-6.10)
MCV 94.3 H fL
(80.0-94.0)
MCH 31.8 H pg
(27.0-31.0)
RDW 16.1 H %
(11.5-14.5)
Abs Immat Gran (auto) 0.1 H 10^3/uL
(0-0.05)
Absolute Monos (auto) 0.9 H 10^3/uL
(0.1-0.6)
Immature Gran % 0.6 H %
(0-0.5)
Potassium 5.4 H mmol/L
(3.5-5.1)
Carbon Dioxide 19 L mmol/L
(22-30)
Creatinine 1.7 H mg/dL
(0.7-1.3)
Glucose 131 H mg/dl
(70-99)
Calcium 7.7 L mg/dl
(8.4-10.2)
Total Bilirubin 2.2 H mg/dl
(0.2-1.3)
AST 272 H U/L
(17-59)
ALT 127 H U/L
(0-50)
Alkaline Phosphatase 488 H U/L
(38-126)
12/04/23 23:00
12/04/23 23:00
Vital Signs
Initial and Last Documented VS:
Initial Vital Signs
Pulse Resp BP Pulse Ox
41 18 107/57 97
12/04/23 22:53 12/04/23 22:53 12/04/23 22:53 12/04/23 22:53
Last Documented Vital Signs
Temp Pulse Resp BP Pulse Ox
97.4 F 69 12 141/70 94
12/05/23 02:41 12/05/23 02:30 12/05/23 02:30 12/05/23 02:30 12/05/23 02:30
<Danica Mederos MD - Last Filed: 12/05/23 01:15>
Orders/Labs/Results
Orders:
Orders
12/04/23 22:55
EKG [Electrocardiogram (*1)] Urgent
Reason for Study: Tachycardia
EKG- Treatment ONCE
12/04/23 22:58
Portable Chest Xray [CR Chest Portable - 1 View] Urgent
Comment:
Reason For Exam: sob
Reason Study Needs to be Portable: Patient Unstable
12/04/23 23:00
Complete Blood Count/With Diff Urgent
Comprehensive Metabolic Panel Urgent
Magnesium Urgent
Comment: ADD ON
Pro-BNP [NT-proBNP] Urgent
TSH Urgent
Comment: ADD ON
Troponin I Urgent
Comment: ADD ON
12/04/23 23:01
Add On- LAB Urgent
Tests Added?: troponin
12/04/23 23:02
Add On- LAB Urgent
Tests Added?: TSH, mag
Atropine Sulfate [Atropine 0.1 mg/ml Syringe] 1 mg .ROUTE .STK-MED ONE
12/04/23 23:04
Albuterol Sulfate [Ventolin Nebules] 15 mg INH R NOW STA
Calcium Gluconate 1,000 mg IV PRN PRN
Ipratropium Nebs [Atrovent Nebules] 1 mg INH R NOW STA
Magnesium Sulfate 2 Gram/50 ml [Magnesium Sulfate] 2 gram in 50 ml IV NOW
Magnesium Sulfate 4 Gram/100Ml [Magnesium Sulfate] 4 gram in 100 ml IV NOW
MethylPREDNISolone PF [Solu-Medrol Pf] 125 mg IV NOW STA
12/04/23 23:05
INT (Intravenous Needle Therapy) As Directed
Comment: Insert and maintain 2 IV access sites
Rx Incentive Spirometry [RESP] Routine
Frequency: Other
Comment: BID
12/04/23 23:34
Atropine Sulfate [Atropine 0.1 mg/ml Syringe] 1 mg IV NOW STA
12/05/23 00:09
0.9% Sodium Chloride 1000 ml [Nss] 1,000 ml IV BOLUS
12/05/23 00:15
Calcium Gluconate 2 gram/100mL [Calcium Gluconate] 2 gram in 100 ml IV ONCE
12/05/23 02:51
COVID-19 Antigen Urgent
Source: Nasal Swab
Abnormal Lab Results
12/04/23
23:00
RBC 4.22 L 10^6/uL
(4.70-6.10)
MCV 94.3 H fL
(80.0-94.0)
MCH 31.8 H pg
(27.0-31.0)
RDW 16.1 H %
(11.5-14.5)
Abs Immat Gran (auto) 0.1 H 10^3/uL
(0-0.05)
Absolute Monos (auto) 0.9 H 10^3/uL
(0.1-0.6)
Immature Gran % 0.6 H %
(0-0.5)
Potassium 5.4 H mmol/L
(3.5-5.1)
Carbon Dioxide 19 L mmol/L
(22-30)
Creatinine 1.7 H mg/dL
(0.7-1.3)
Glucose 131 H mg/dl
(70-99)
Calcium 7.7 L mg/dl
(8.4-10.2)
Total Bilirubin 2.2 H mg/dl
(0.2-1.3)
AST 272 H U/L
(17-59)
ALT 127 H U/L
(0-50)
Alkaline Phosphatase 488 H U/L
(38-126)
12/04/23 23:00
12/04/23 23:00
Vital Signs
Initial and Last Documented VS:
Initial Vital Signs
Pulse Resp BP Pulse Ox
41 18 107/57 97
12/04/23 22:53 12/04/23 22:53 12/04/23 22:53 12/04/23 22:53
Last Documented Vital Signs
Temp Pulse Resp BP Pulse Ox
97.4 F 69 12 141/70 94
12/05/23 02:41 12/05/23 02:30 12/05/23 02:30 12/05/23 02:30 12/05/23 02:30
[place];Chasity Mata PA-C - Last Filed: 12/05/23 02:57>
MDM/Problems Addressed
Differential Diagnosis Includes:
63yoM here with SOB x 2 weeks. Patient also drank multiple bottles of wine this evening. He arrives on a NRB. HR in the 30s on arrival. BP stable. He is ill appearing, diaphoretic. Breath sounds decreased with tachypnea. Differential diagnosis
includes but is not limited to: arrhythmia, heart block, COPD exacerbation, CHF, ACS, pneumonia
Initial ED plan: Check cardiac labs, TSH, magnesium, EKG, and CXR. Will give hour long neb, IV Solumedrol, and IV magnesium for bronchospasm.
<Chasity Mata PA-C - Last Filed: 12/05/23 02:57>
*EKG
Interpreted by ED Provider?: Yes
EKG Intrepretation Date: 12/04/23
Interpretation: abnormal
Heart Rate: 37
Rate: bradycardiac
Rhythm: a-fib
[place]: normal axis
Ischemia: non-specific ST changes
*Critical Care Note
Total Time (30-74mins, 75-104mins- exclusive of procedures): 35
<Chasity Mata PA-C - Last Filed: 12/05/23 02:57>
Update Note
Update Note:
EKG shows slow afib, no evidence of heart block. Labs reveal a creatinine of 1.7, up from baseline of 0.6. Potassium 5.4. Troponin is normal. CXR is clear. Patient ultimately given IV atropine with improvement of his HR to the 50s. Unclear etiology
of bradycardia, ?BRASH syndrome. IV calcium ordered given hyperkalemia. He was admitted for further management.
ED Attending Note
<Chasity Mata PA-C - Last Filed: 12/05/23 02:57>
-
Portions of this chart may have been created with voice recognition software.� Occasional wrong word or��sound alike� substitutions may have occurred due to the inherent limitations of voice recognition software.
<Danica Mederos MD - Last Filed: 12/05/23 01:15>
ED Attending Note
Patient seen and examined by attending physician: Yes
I performed the substantive portion of visit, reviewed & personally made and approve the management plan that is documented in note by myself or JHONNY.: Yes
ED Attending Note:
Patient personally evaluated by me. Arrives with acute respiratory distress, is diaphoretic and bradycardic. Pulse ox came up well with nasal oxygen (3L). Patient appears to be in severe bronchospasm. Will treat with 1 hour DuoNebs, IV steroid,
and mag. It is unclear why patient is so bradycardic. EKG does not look like a heart block, rather, it looks like a slow A-fib.
Discharge Plan
Departure
Patient Disposition: Admit
Date of Disposition: 12/05/23
Time of Disposition: 00:38
Presentation/result/management discussed w/ accepting MD/DO: Hospitalist
Discharge Problem:
Bradycardia, COPD with acute exacerbation, Alcohol intoxication, Acute kidney injury, Hyperkalemia
Prescriptions:
No Action
metoprolol succinate 100 mg Tablet Extended Release 24 Hr
100 mg PO DAILY Qty: 30 0RF
diltiazem HCl 120 mg Capsule,Extended Release 24hr
120 mg PO DAILY Qty: 90 0RF
aspirin 81 mg tablet,delayed release (DR/EC)
81 mg PO DAILY Qty: 30 0RF
levalbuterol tartrate 45 mcg/actuation Hfa Aerosol Inhaler
1 puff INHALATION R Q6HPRN PRN (Reason: sob) Qty: 90 0RF
Trelegy Ellipta 100-62.5-25 mcg Blister With Device
1 inh INHALATION R DAILY Qty: 90 0RF
pantoprazole 40 mg Tablet,Delayed Release (Dr/Ec)
40 mg PO DAILY
levalbuterol tartrate 45 mcg/actuation Hfa Aerosol Inhaler
2 puff INHALATION R DAILY
Patient Comments:
11/09/23: patient states he take the 2 puffs before he uses his Trelegy Ellipta every day.
Unknown Eye Drops drops
1 drp BOTH EYES DAILY
thiamine HCl (vitamin B1) 100 mg tablet
100 mg PO DAILY
prednisone 10 mg Tablet
See Rx Instructions .ROUTE .COMPLEX Qty: 30 0RF
Rx Instructions:
Take By Mouth:
40 mg daily x3 days, 30 mg daily x3 days,
20 mg daily x3 days, 10 mg daily x3 days.
Referrals:
PRIVATE,PHYSICIAN [Family Provider] -
Interventions
Interventions:
*Risk Screen - Suicide Last Done: 12/04/23 22:53
*General Assessment Last Done: 12/04/23 22:53
*Neglect/Abuse Screening Last Done: 12/04/23 22:53
ED- Fall Risk Assessment Last Done: 12/05/23 02:33
*ED COVID-19 Vaccine History Last Done: 12/04/23 22:53
ED- Cardiac Assessment Last Done: 12/04/23 23:27
ED- Pulmonary Assessment Last Done: 12/04/23 23:27
Discharge Date and Time
Print Language: ARABIC
--- NOTE | 2023-12-05 03:11 | HPS.HSE ---
Family Physician
-
Family Physician: PHYSICIAN PRIVATE
Chief Complaint
-
SOB
History of Present Illness
Patient is a 63y M with PMH significant for COPD, A-Fib and alcohol use disorder who presents to ED complaining of SOB. Patient states that he drank 3 bottles of wine today and feels that he 'overdid it'. He states he has been somewhat SOB for
the past week or so - but felt much worse this evening. He denies any fevers / chills or new / worsened cough. He called 911 and was brought to the ED via EMS. He was noted to have initial SpO2 in the 80s and was placed on supplemental oxygen
therapy. He was treated with magnesium and hour-long neb in the ED.
At the time of my examination, patient is sleeping quite soundly. He wakes with a start and states that he continues to feel somewhat SOB.
He denies any chest pain, palpitations, N/V/D, urinary symptoms or other complaints.
Medical History
Past Medical History
Past Medical History: Reports Other
Additional Past Medical History:
Hypertension
Paroxysmal atrial fibrillation/atrial flutter
ASCVD (Carotid Stenosis)
COPD
Obstructive sleep apnea, non-compliant with CPAP.
GERD / Coles's esophagus.
Diverticular Disease
Alcoholic Cirrhosis
History of Duodenal Ulcer / Esophageal Varices / GI Bleeding
Sciatica.
Polymyalgia rheumatica.
Chronic alcoholism with history of delirium tremens
Past Surgical History: Reports Other
Additional Past Surgical History:
Appendectomy
Bilateral hip replacement
Bilateral retinal surgery
Social History
Tobacco: Former Smoker (47 years 2 pack a day quit 2019)
Alcohol: Daily (Two bottles of wine daily. Occasional whiskey.)
Drug: None
Personal:
Living: With Family
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
Family History
Family History: Other (Mother breast cancer history of [place], father colon cancer)
Allergies / Home Medications
Allergies reflects when Allergies were last updated in [facility]
Home Medications with original date entered in [facility]
Allergy/Medication List:
Allergies
Allergy/AdvReac Type Severity Reaction Status Date / Time
No Known Allergies Allergy Verified 11/09/23 13:26
Home Medications
metoprolol succinate 100 mg tablet,extended release 24 hr 100 mg PO DAILY #30 tabs 07/28/23
aspirin 81 mg tablet,delayed release 81 mg PO DAILY Blood Clot Prevention/Tx #30 tabs 09/14/23
diltiazem HCl 120 mg capsule,extended release 24 hr 120 mg PO DAILY #90 caps 09/14/23
fluticasone fur. 100 mcg-umeclid 62.5 mcg-vilant 25 mcg inhalat.powder (Trelegy Ellipta) 1 inh inhalation R DAILY Lung/Breathing Issues #90 ea 09/14/23
levalbuterol tartrate 45 mcg/actuation aerosol inhaler 1 puff inhalation R Q6HPRN PRN sob #90 grams 09/14/23
Unknown Eye Drops 1 drp BOTH EYES DAILY dry eyes 11/09/23
levalbuterol tartrate 45 mcg/actuation aerosol inhaler 2 puff inhalation R DAILY Lung/Breathing Issues 11/09/23
pantoprazole 40 mg tablet,delayed release 40 mg PO DAILY Gastrointestinal Issue 11/09/23
thiamine HCl (vitamin B1) 100 mg tablet 100 mg PO DAILY Supplement 11/10/23
Review of Systems
-
History Source: Patient
A 12 point ROS was completed and negative except as noted: Yes
Constitutional: Reports Fatigue; Denies Fever or Chills
EENT: Denies Sore Throat
Respiratory: Reports Cough and Trouble Breathing; Denies Hemoptysis
Cardiac: Denies Chest Pain, Diaphoresis, Palpitations or Syncope
Abdomen/GI: Denies Abdominal Pain, Nausea, Vomiting or Diarrhea
: Denies Dysuria, Frequency or Flank Pain
Musculoskeletal: Denies Joint Pain or Edema
Neurological: Denies Dizzy or Headache
Psych: Denies Depression or Anxiety
Physical Exam
Vital Signs
Vital Signs
Temp Pulse Resp BP Pulse Ox
97.4 F 72 14 158/91 95
12/05/23 02:41 12/05/23 03:00 12/05/23 03:00 12/05/23 03:00 12/05/23 03:00
Physical Exam
General: Other (63y M sleeping soundly / intoxicated. Wakes with a start. Not in evident distress.)
HEENT: Other (Thick neck. MMM.)
Respiratory: Other (Mild expiratory wheezes. Decreased BS at bases.)
Cardiac: S1/S2 and Irregular Rhythm; No Murmur
GI: Non Tender, Non Distended, Normal Bowel Sounds and Other (Obese, Umbilical hernia that is soft, nontender and easily reducible.)
Musculoskeletal: No Clubbing, No Cyanosis and No Edema
Neuro: AO x 3 and Nonfocal/grossly intact
Laboratory Results
-
12/04/23 23:00
12/04/23 23:00
Laboratory Results
Total Bilirubin 2.2 mg/dl (0.2-1.3) H 12/04/23 23:00
AST 272 U/L (17-59) H 12/04/23 23:00
ALT 127 U/L (0-50) H 12/04/23 23:00
Alkaline Phosphatase 488 U/L (38-126) H 12/04/23 23:00
Troponin I Cancelled 12/04/23 23:04
Impression/Plan
-
A/P: Patient is a 63y M with PMH significant for COPD, A-Fib, HTN and alcohol use disorder who presents to ED complaining of SOB.
Acute Hypoxemic Respiratory Failure
COPD
- Admit for further evaluation and treatment.
- ? COPD exacerbation (though not a great deal of wheezing on exam at present) v recurrent aspiration due to intoxication v other.
- Continue IV steroids, nebs, supplemental O2, etc for now.
- Follow for clinical improvement.
- Speech therapy evaluation / aspiration precautions.
Paroxysmal Atrial Fibrillation
Bradycardia
- Patient with HR in the 30s on initial presentation.
- Received a dose of atropine in the ED with rates increasing to the 60-70 range and stable since that time.
- Hold rate modifying medications acutely and follow on telemetry.
- Patient is not on chronic OAC due to history of GI bleeding / ongoing alcohol abuse.
- ? if initial bradycardia was related to acute alcohol intoxication.
Alcohol Use Disorder
Acute Intoxication
Acute Alcoholic Hepatitis
Alcoholic Cirrhosis with Esophageal Varices, Thrombocytopenia, etc
- Patient reports drinking 3 bottles of wine this evening. Typically drinks 2 bottles daily ever day.
- Check alcohol level now.
- Follow for signs / symptoms of withdrawal and treat with BZDs as needed.
- Thiamine, folate, MVI replacement.
- Encourage alcohol cessation efforts.
- Follow for improvement in LFTs.
LORENZO
- SCr = 1.7 compared to baseline of 0.6.
- Likely pre-renal in origin. ? unreported volume losses, N/V?
- IVF support overnight.
- Follow for return to baseline renal function.
ASCVD / Carotid Stenosis
Benign Hypertension
- Stable. Continue outpatient med regimen.
Obesity due to excess calories
ALCIDES - Not compliant with PAP therapy
- Affects all aspects of care.
- Patient states that he no longer has PAP machine at home.
- Encourage cessation of alcohol intake, healthy diet and increased physical activity with goal of weight reduction.
DVT Prophylaxis: SCDs
Code Status: Full
[2023-12-05 03:24] LABS: COVID-19 Antigen Negative (Negative)
[2023-12-05 04:32] LABS: Alcohol 337 mg/dl
[2023-12-05] MEDS: VENTOLIN NEBULES 2.5 MG INH ×3 (05:24→15:14)
[2023-12-05 05:38] LABS: Hematocrit 39.1 % (39.0-52.0); Mean Corp Hgb Conc. 33.2 g/dL (33.0-37.0); Mean Corpuscular Hgb 31.8 pg (27.0-31.0); Mean Corpuscular Volume 95.6 fL (80.0-94.0); Mean Platelet Volume 10.1 fL (7.4-10.4); Platelet Count 117 10^3/uL (130-400); Red Blood Cell Count 4.09 10^6/uL (4.70-6.10); Red Cell Dist. Width 16.1 % (11.5-14.5); White Blood Cell Count 8.1 10^3/uL (4.8-10.8)
[2023-12-05 05:47] LABS: ALT (SGPT) 167 U/L (0-50); AST (SGOT) 480 U/L (17-59); Albumin 3.7 g/dl (3.5-5.0); Alkaline Phosphatase 430 U/L (38-126); Blood Urea Nitrogen 16 mg/dl (9-20); Calcium 7.7 mg/dl (8.4-10.2); Carbon Dioxide 19 mmol/L (22-30); Chloride 106 mmol/L (98-107); Direct Bilirubin 1.5 mg/dl (0.0-0.4); Estimated Creatinine Clearance 66 ml/min; Glucose 141 mg/dl (70-99); Magnesium 2.2 mg/dl (1.6-2.3); Sodium 138 mmol/L (135-145); Total Bilirubin 2.8 mg/dl (0.2-1.3); Total Protein 6.6 g/dl (6.3-8.2); eGFR 56.13
[2023-12-05 06:00] LABS: Troponin I < 0.012 ng/ml
[2023-12-05 06:20] LABS: TSH Reflex To Free T4 0.45 uIU/ml (0.47-4.68)
--- NOTE | 2023-12-05 06:34 | PTCARENOTE ---
Received patient AAOx3, denying pain, CONTEH, complains of feeling lightheaded/dizzy. Pupils 3 mm, sluggish. MSAS 0, neuro checks Q4. Afib 60s-70s, BP stable 120s/70s. Rectal temp 93.2, MARKETING AUTOMATION SPECIALIST notified, started on bairhugger. Palpable radial and pedal
pulses bilaterally, SCDs on. On 6 liters nasal cannula, saturating 95%. SOB, dyspneic at rest and on exertion, orthopneic. RT notified, breathing treatment given. Lung sounds coarse with crackles in the bases, diminished throughout. Abdomen soft,
round, obese. Umbilical hernia POA, positive bowel sounds. Urinal to void. Skin intact, bruises/scabs throughout extremities. CHG bath done, labs sent. NSS at 100 mls/hr ongoing. Call pate within reach.
[2023-12-05 06:49] LABS: Free T4 1.29 ng/dl (0.78-2.19)
--- NOTE | 2023-12-05 07:39 | W.PN.HOSP.TC ---
Today's Communication/Plan
-
phenobarbital taper
BIPAP prn shortness of breath
MSAS protocol
cont steroids bronchodilators
Assessment / Plan
Assessment / Plan
Physical Exam
General: no acute distress appears comfortable obese
HEENT: Thick neck. MMM
Respiratory: Decreased BS no wheezing noted
Cardiac: S1/S2 and Irregular Rhythm; No Murmur
GI: Non Tender, Non Distended, Normal Bowel Sounds Umbilical hernia that is soft, nontender and easily reducible
Musculoskeletal: No Clubbing, No Cyanosis and No Edema
Neuro: AO x 3 and Nonfocal/grossly intact
Psych: anxious
A/P: Patient is a 63y M with PMH significant for COPD, A-Fib, HTN and alcohol use disorder who presents to ED complaining of SOB.
Acute Hypoxemic Respiratory Failure
COPD
-Continue IV steroids, nebs, supplemental O2, taper as tolerated
- Speech therapy eval appreciated appropriate for reg diet, aspiration precautions.
-BIPAP prn sob
Paroxysmal Atrial Fibrillation
Bradycardia
- Patient with HR in the 30s on initial presentation.
- Received a dose of atropine in the ED with rates increasing to the 60-70 range and stable since that time.
- Hold rate modifying medications acutely and follow on telemetry.
- Patient is not on chronic OAC due to history of GI bleeding / ongoing alcohol abuse.
- suspect bradycardia related to acute alcohol intoxication.
Alcohol Use Disorder
Acute Intoxication
Acute Alcoholic Hepatitis
Alcoholic Cirrhosis with Esophageal Varices, Thrombocytopenia, etc
- Patient reports drinking 3 bottles of wine this evening. Typically drinks 2 bottles daily ever day.
- alcohol level appreciated 300s
- cont MSAS protocol
-phenobarbital taper started
- Thiamine, folate, MVI replacement.
- Encourage alcohol cessation efforts.
- trend LFTs.
Hypothermia suspect due to ETOH intoxication
-resolving
LORENZO
- SCr = 1.7 compared to baseline of 0.6.
- Likely pre-renal in origin. ? unreported volume losses, N/V?
- IVF support overnight.
- Follow for return to baseline renal function.
ASCVD / Carotid Stenosis
Benign Hypertension
- Stable. Continue outpatient med regimen.
Obesity due to excess calories
ALCIDES - Not compliant with PAP therapy
- Affects all aspects of care.
- Patient states that he no longer has PAP machine at home.
- Encourage cessation of alcohol intake, healthy diet and increased physical activity with goal of weight reduction.
DVT Prophylaxis: SCDs
Code Status: Full
discussed with patient at bedside and patient's Laurence over phone
I spent a total of 57 minutes with the patient or on the floor. More than 50% of this time involved counseling and coordination of care.
Anticipated Discharge: > 48 hours
Subjective/Interval History
-
Date of Service: December 05, 2023
No acute distress resting comfortably in bed sleeping. Easily woken. Reports feeling sob anxious abd pain tenderness.
Objective Data
-
Labs:
Laboratory Results
12/04/23 12/05/23
23:00 05:17
WBC 9.9 8.1
Hgb 13.4 13.0
Hct 39.8 39.1
Plt Count 133 117 L
Sodium 137 138
Potassium 5.4 H 5.0
Chloride 104 106
Carbon Dioxide 19 L 19 L
BUN 11 16
Creatinine 1.7 H 1.4 H
Glucose 131 H 141 H
Calcium 7.7 L 7.7 L
Total Bilirubin 2.2 H 2.8 H
AST 272 H 480 H
ALT 127 H 167 H
Alkaline Phosphatase 488 H 430 H
Vital Signs:
Vital Signs
Temp Pulse Resp BP Pulse Ox
94.2 F L 64 16 152/92 95
12/05/23 05:54 12/05/23 06:00 12/05/23 06:00 12/05/23 06:00 12/05/23 06:31
I&O
12/04/23 12/05/23 12/06/23
06:59 06:59 06:59
Intake Total 580 / 580
Balance 580 / 580
[2023-12-05] MEDS: SPIRIVA RESPIMAT 2.5 MCG 2 PUFF INH (07:41)
[2023-12-05] MEDS: SYMBICORT 80/4.5 MCG INHALER 2 PUFF INH ×2 (07:41→20:42)
[2023-12-05] MEDS: FOLVITE 1 MG PO (08:46)
[2023-12-05] MEDS: ASPIR LOW (ENTERIC COATED) 81 MG PO (08:46)
[2023-12-05] MEDS: PROTONIX 40 MG PO (08:46)
[2023-12-05] MEDS: THIAMINE INJECTION 200 MG IV ×3 (08:46→23:50)
[2023-12-05] MEDS: SOLU-MEDROL PF 40 MG IV ×2 (08:47→20:38)
[2023-12-05 11:40] LABS: Cortisol, Random > 123.0 ug/dl
--- NOTE | 2023-12-05 11:43 | CON.CAR ---
Addendum entered and electronically signed by Gurvinder Sandra MD 12/05/23 12:38:
I saw and examined the patient.
The DEPUTY MANAGER's note was reviewed and I agree with the note.
63-year-old male with a history of atrial fibrillation, alcohol abuse, GI bleeding, smoking/quit 4 years ago, COPD and obstructive sleep apnea who presents with increased shortness of breath. He has chronic shortness of breath but which was worse
today. He thinks it was related to drinking too much last night. Reportedly drank 3 bottles of wine. Patient noted to have A-fib with slow ventricular response on presentation and also hypothermic with a temperature of 93.2. Heart rates have
since improved. Patient remains short of breath sitting upright with pursed lip breathing on 6 L. Decreased breath sounds bilaterally A-fib rate controlled on telemetry. Currently being treated for exacerbation of COPD.
#Bradycardia/atrial fibrillation with slow ventricular response. Currently heart rates are stable. Bradycardia may have been further precipitated by hypothermia. No additional intervention required at this time.
-Monitor on telemetry
-Echocardiogram Thursday
-Hold on rate control medications and observe.
# A-fib. Patient with history of A-fib was also noted to be A-fib on last admission. Patient's A-fib likely persistent rather than paroxysmal.
-[id number] would be 1 if he has a history of hypertension and he will develop another point when he turns 64 in April. With alcohol history there would be concern regarding safety of anticoagulation and risk versus benefit
# Shortness of breath/respiratory insufficiency/COPD exacerbation. Patient on 6 L decreased air movement bilaterally. Patient just about to get neb treatment.
-Treatment of COPD including nebs, steroids and decision regarding antibiotics as per primary team. If patient does not have prompt improvement consider pulmonary consultation.
# Hypothermia. Some of his hypothermia on presentation could have been due to the fact that he had lots of alcohol last night and he tends to keep the air conditioning on it high at home. TSH unremarkable. Always need to consider sepsis if
patient is persistently hypothermic. Temperature appears to be improving additional evaluation and treatment as directed by primary team.
# Alcohol abuse. Monitor with for withdrawal
Original Note:
Consultation
Consultation Request
Date/Time Consultation Requested: 12/05/23 4:30a
Date/Time Consultation Performed: 12/05/23 11:30a
Requesting Provider: Dr. Newman
Performing Provider: WADE Robles for Dr. Sandra
Reason for Consultation: bradycardia
Medical History
-
Chief Complaint: sob
History of Present Illness:
Mr. Garcia is a 63 yo male with paroxysmal atrial fibrillation, history of GI bleed, COPD, ALCIDES on CPAP, hypertension, dyslipidemia, former smoker and EtOH abuse, who presents to the ER with complaints of shortness of breath. He also admits to
drinking 3 bottles of wine last night. Typically he admits to drinking 2 bottles of wine. Upon arrival to the ER heart rate was in the 30s and 40s in A-fib. He was treated with atropine in the ER and continue to monitor on telemetry without
recurrent bradycardia. Also on admission he was noted to be hypothermic with temperature 93.2, which contributes to bradycardia. Currently he is admitted to the hospitalist service and we are consulted for bradycardia. He feels his shortness of
breath is mildly improved. Telemetry reviewed and no recurrent bradycardia or pauses noted.
Past Medical History
Past Medical History: Other (As above)
Past Surgical History: Other (As above)
Social History
Tobacco: Former Smoker
Alcohol: Daily (2 bottles of wine daily)
Personal:
Living: With Family
Employment: Disabled
Family History
Family History: Reviewed & Not Pertinent
Allergies / Home Medications
Allergy/AdvReac Type Severity Reaction Status Date / Time
No Known Allergies Allergy Verified 11/09/23 13:26
�Medication �Instructions �Recorded �Confirmed �Type
metoprolol succinate 100 mg 100 mg PO DAILY #30 tabs 07/28/23 12/05/23 Rx
tablet,extended release 24 hr
aspirin 81 mg tablet,delayed 81 mg PO DAILY Blood Clot 09/14/23 12/05/23 Rx
release Prevention/Tx #30 tabs
diltiazem HCl 120 mg 120 mg PO DAILY #90 caps 09/14/23 12/05/23 Rx
capsule,extended release 24 hr
fluticasone fur. 100 mcg-umeclid 1 inh inhalation R DAILY 09/14/23 12/05/23 Rx
62.5 mcg-vilant 25 mcg Lung/Breathing Issues #90 ea
inhalat.powder (Trelegy Ellipta)
levalbuterol tartrate 45 1 puff inhalation R Q6HPRN PRN sob 09/14/23 12/05/23 Rx
mcg/actuation aerosol inhaler #90 grams
Unknown Eye Drops 1 drp BOTH EYES DAILY dry eyes 11/09/23 12/05/23 History
levalbuterol tartrate 45 2 puff inhalation R DAILY 11/09/23 12/05/23 History
mcg/actuation aerosol inhaler Lung/Breathing Issues
pantoprazole 40 mg tablet,delayed 40 mg PO DAILY Gastrointestinal 11/09/23 12/05/23 History
release Issue
thiamine HCl (vitamin B1) 100 mg 100 mg PO DAILY Supplement 11/10/23 12/05/23 History
tablet
Review of Systems
-
History Source: Patient
All other systems: Negative unless noted
Physical Exam
Vital Signs
Temp Pulse Resp BP Pulse Ox
95.1 F L 73 18 152/92 93
12/05/23 07:39 12/05/23 07:47 12/05/23 07:47 12/05/23 06:00 12/05/23 07:47
Lab Results
12/05/23 05:17
12/05/23 05:17
Troponin I Cancelled 12/05/23 16:36
Plj-M-Jgycwxhzdkh Pept 438 pg/ml 12/04/23 23:00
Physical Exam
General: Well Developed, No Apparent Distress and Other (Obese)
HEENT: Normocephalic and Moist Mucous Membranes
Respiratory: Wheezes (Mild bilateral diffuse)
Cardiac: S1/S2 and Irregular Rhythm
Breast: Deferred by me
GI: Soft, Non Tender and Normal Bowel Sounds
Rectal: Deferred by Provider
Genito-urinary: Clear Urine
Musculoskeletal: No Clubbing and No Edema
Skin: Warm and Dry
Neuro: AO x 3
Psych: Other (Anxious, tearful talking about EtOH abuse)
Impression / Plan
-
Bradycardia -acute upon arrival in the ER rates in the 30s and 40s.
-Given atropine in the ER with improvement of heart rate.
-No recurrence, no pauses on telemetry.
-Holding diltiazem and Toprol.
-Hypothermia also can cause bradycardia, per hospitalist.
Paroxysmal atrial fibrillation -slow ventricular response on arrival.
-Rates have been in the 60s to 70s sinus with occasional A-fib and PVC.
-Diltiazem and Toprol held given bradycardia, monitor and resume if needed.
-[id number] score is 1, due to prior GI bleed/anemia and EtOH abuse, no OAC therapy.
Hypertension - stable.
-Continue to monitor, currently holding diltiazem and Toprol given bradycardia.
COPD - acute exacerbation per hospitalist.
ALCIDES - stable on CPAP, continue
EtOH abuse - chronic, drinks 2 bottles of wine daily.
-He states being in rehab before but is only remained sober for 6 months.
-We discussed quitting drinking alcohol and inpatient rehab, he will think about it.
Anemia/prior GI bleed - stable H/H.
Data Reviewed
-
EKG: Tracing Personally Visualized and interpreted (initial EKG Afib 37 bpm, then Afib 68 bpm with PVC)
Radiology: Report Reviewed by me (no acute PNA or CHF)
Medical Tests (Nuc Med, Echo etc): Report Reviewed by me (echo 04/2023: EF 55%, mild cLVH, mild TR, PASP 38 mmHg.)
Labs: Labs Reviewed by me
Old Records: Reviewed
--- NOTE | 2023-12-05 11:49 | PTOTSP ---
SPEECH THERAPY SWALLOW EVALUATION:
Patient exhibits oropharyngeal swallow grossly within functional limits at this time, given limited assessment as solids were not assessed at this time due to shortness of breath Patient with predisposing dysphagia risk factors (COPD, GERD, etoh use
disorder). CXR currently clear of acute process, WBC WNL. Patient not exhibiting any signs or symptoms of aspiration at bedside. However, patient remains at risk for aspiration due to respiratory status, and post-prandial aspiration given GERD.
Noted redness of mucosa in oropharynx and posterior oral cavity. Hoarse vocal quality, suspect may be related to reflux and/or frequent vomiting with etoh use. Aspiration of reflux/vomited material not excluded. Limited assessment of swallowing at
this time given respiratory status, though suspect patient would be appropriate to resume baseline diet when respiratory status improves. Recommend Regular texture diet and thin liquids when patient respiratory status improves. Medications whole
with liquid, one at a time. Aspiration and Reflux precautions: Upright positioning; Small single sips; Slow rate of intake; Only provide p.o. when SpO2>90% and RR<30; do not eat when short of breath; Take breaks while eating; Remain upright 30
minutes after eating/drinking; monitor for signs of aspiration and d/c oral diet if any decline in mental or respiratory status. Speech therapy to follow, assess diet tolerance and modify as appropriate, determine indication for instrumental
assessment via VSE if warranted, and provide continued education regarding aspiration risks and precautions.
RECOMMEND:
1) Regular texture diet and thin liquids when respiratory status improves
2) Medications whole with liquid, one at a time
3) Aspiration and Reflux precautions: Upright positioning; Small single sips; Slow rate of intake; Only provide p.o. when SpO2>90% and RR<30; do not eat when short of breath; Take breaks while eating; Remain upright 30 minutes after eating/drinking;
monitor for signs of aspiration and d/c oral diet if any decline in mental or respiratory status
4) Speech therapy to follow
[2023-12-05] MEDS: ATIVAN 1 MG PO ×3 (13:55→20:47)
[2023-12-05] MEDS: DUONEB 3 ML INH ×2 (16:15→20:42)
[2023-12-05] MEDS: LOVENOX 40 MG SC (17:22)
[2023-12-05] MEDS: PHENOBARBITAL 97.5 MG IV ×2 (17:22→20:38)
--- NOTE | 2023-12-05 19:20 | PTCARENOTE ---
day shift note. see nursing assessment. pt in afib on monitor with controlled rate. iv fluids infusing, poor po intake. pt is dyspneic at rest and exertion. occasional harsh cough withsputum production. pt very dyspneic with slight activity and
becomes very anxious. prn nebs given by resp therapy and pt placed on bipap per Dr Jackson order. pt often removing bipap so 6 liters o2 by nasal cannula left in place by resp therapist. sats maintained in 90s. phenobarbitl iv given per order and pt
recieved 2 doses of 1 mg po ativan for MSAS score of 5. pt is occasionally tearful and expressing his frustration that he cant stop drinking alcohol. pt expresses worry that his will leave due to his alcohol use .emotional support provided.
--- NOTE | 2023-12-05 20:00 | PTCARENOTE ---
rec`d pt at 1900. anxious and SOB on exertion. MSAS continued. PRNs given per protocol. afib on monitor. pt took BIPAP off at change of shift. now just on 4L. POX 94%. reg diet but poor appetite. pt uses urinal. NS going in left AC @100/hr. call
pate in reach. safe environment maintained.
[2023-12-05] MEDS: ATIVAN 1 MG IV (23:40)
[2023-12-06] VITALS (14 sets, daily range): BP systolic 123–162; BP diastolic 61–135; PULSE 93–120; O2SAT 96–97; BMI 37.7
[2023-12-06 04:16] LABS: Hematocrit 35.1 % (39.0-52.0); Hemoglobin 12.3 g/dL (13.0-18.0); Mean Corpuscular Volume 91.4 fL (80.0-94.0); Mean Platelet Volume 11.1 fL (7.4-10.4); Platelet Count 45 10^3/uL (130-400); Red Blood Cell Count 3.84 10^6/uL (4.70-6.10); White Blood Cell Count 6.7 10^3/uL (4.8-10.8)
[2023-12-06 04:28] LABS: ALT (SGPT) 139 U/L (0-50); AST (SGOT) 272 U/L (17-59); Albumin 3.9 g/dl (3.5-5.0); Alkaline Phosphatase 421 U/L (38-126); Blood Urea Nitrogen 25 mg/dl (9-20); Calcium 8.6 mg/dl (8.4-10.2); Carbon Dioxide 23 mmol/L (22-30); Chloride 104 mmol/L (98-107); Estimated Creatinine Clearance > 125 ml/min; Glucose 204 mg/dl (70-99); Magnesium 2.2 mg/dl (1.6-2.3); Potassium 4.4 mmol/L (3.5-5.1); Sodium 133 mmol/L (135-145); eGFR > 60.00
[2023-12-06] MEDS: ATIVAN 1 MG IV ×6 (05:05→22:18)
[2023-12-06] MEDS: SYMBICORT 80/4.5 MCG INHALER 2 PUFF INH ×2 (07:13→20:14)
[2023-12-06] MEDS: DUONEB 3 ML INH ×3 (07:14→15:17)
--- NOTE | 2023-12-06 07:19 | W.PN.HOSP.TC ---
Today's Communication/Plan
-
cont MSAS protocol
phenobarbital taper
switch duonebs to Xopenex d/t tachycardia
cont steroids bronchodilators
wean O2 supplementation as tolerated
BIPAP prn comfort shortness of breath
resume Home cardizem as short acting with IV lopressor prn
Assessment / Plan
Assessment / Plan
Physical Exam
General: no acute distress appears comfortable obese
HEENT: Thick neck. MMM
Respiratory: Decreased BS no wheezing noted
Cardiac: S1/S2 and Irregular Irregular tachy; No Murmur
GI: Non Tender, Non Distended, Normal Bowel Sounds Umbilical hernia that is soft, nontender and easily reducible
Musculoskeletal: No Clubbing, No Cyanosis and No Edema
Neuro: AO x 3 and Nonfocal/grossly intact
Psych: anxious
A/P: Patient is a 63y M with PMH significant for COPD, A-Fib, HTN and alcohol use disorder who presents to ED complaining of SOB.
Acute Hypoxemic Respiratory Failure
COPD
-Continue IV steroids, nebs, supplemental O2, taper as tolerated
-Duonebs swiched to Xopenex d/t tachycardia
- Speech therapy eval appreciated appropriate for reg diet, aspiration precautions.
-BIPAP prn sob
Paroxysmal Atrial Fibrillation
Bradycardia
- Patient with HR in the 30s on initial presentation.
- Received a dose of atropine in the ED with rates increasing to the 60-70 range and stable since that time.
- Hold rate modifying medications acutely and follow on telemetry.
- Patient is not on chronic OAC due to history of GI bleeding / ongoing alcohol abuse.
- suspect bradycardia related to acute alcohol intoxication since resolved but now in withdrawal
-HR since increased tachy, resuming home Cardizem but short acting with holding parameters.
Alcohol Use Disorder
Acute Intoxication
Acute Alcoholic Hepatitis
Alcoholic Cirrhosis with Esophageal Varices, Thrombocytopenia, etc
- Patient reports drinking 3 bottles of wine this evening. Typically drinks 2 bottles daily ever day.
- alcohol level appreciated 300s on admission
- cont MSAS protocol
-cont phenobarbital taper
- Thiamine, folate, MVI replacement.
- Encourage alcohol cessation efforts.
- trend LFTs.
Hypothermia suspect due to ETOH intoxication
-resolved
LORENZO
- SCr = 1.7 compared to baseline of 0.6.
- Likely pre-renal in origin. ? unreported volume losses, N/V?
- Resolved with IVF since completed
ASCVD / Carotid Stenosis
Hypertension
-Home Cardizem resumed short acting 30 mg QID given recent Bradycardia d/t ETOH intoxication vs ETOH interaction with medications
-Home metoprolol remains on hold for now, IV lopressor prn
Obesity due to excess calories
ALCIDES - Not compliant with PAP therapy
- Affects all aspects of care.
- Patient states that he no longer has PAP machine at home.
- Encourage cessation of alcohol intake, healthy diet and increased physical activity with goal of weight reduction.
DVT Prophylaxis: SCDs
Code Status: Full
discussed with patient at bedside and patient's Laurence over phone
I spent a total of 58 minutes with the patient or on the floor. More than 50% of this time involved counseling and coordination of care.
Anticipated Discharge: > 48 hours
Subjective/Interval History
-
Date of Service: December 06, 2023
Alcohol withdrawal symptoms persistent. Appears calm at time of evaluation. Continues to require prn ativan.
Objective Data
-
Labs:
Laboratory Results
12/06/23
03:35
WBC 6.7
Hgb 12.3 L
Hct 35.1 L
Plt Count 45 L D
Sodium 133 L
Potassium 4.4
Chloride 104
Carbon Dioxide 23
BUN 25 H
Creatinine 0.7
Glucose 204 H
Calcium 8.6
Total Bilirubin 3.0 H
AST 272 H
ALT 139 H
Alkaline Phosphatase 421 H
Vital Signs:
Vital Signs
Temp Pulse Resp BP Pulse Ox
98.0 F 84 16 136/61 95
12/06/23 03:38 12/06/23 07:16 12/06/23 07:16 12/06/23 04:00 12/06/23 07:16
I&O
12/05/23 12/06/23 12/07/23
06:59 06:59 06:59
Intake Total 580 / 580 1100 / 1100
Output Total 500 / 500
Balance 580 / 580 600 / 600
[2023-12-06] MEDS: SOLU-MEDROL PF 40 MG IV ×2 (07:39→20:30)
[2023-12-06] MEDS: ASPIR LOW (ENTERIC COATED) 81 MG PO (07:40)
[2023-12-06] MEDS: PHENOBARBITAL 97.5 MG IV ×3 (07:40→22:19)
[2023-12-06] MEDS: NSS (PRESERVATIVE FREE) 0.5 ML IV ×4 (07:40→16:52)
[2023-12-06] MEDS: PROTONIX 40 MG PO (07:40)
[2023-12-06] MEDS: THIAMINE INJECTION 200 MG IV ×2 (07:41→16:14)
[2023-12-06] MEDS: FOLVITE 1 MG PO (07:41)
--- NOTE | 2023-12-06 07:49 | W.PN.CD ---
Today's Communication / Plan
-
Respiratory status improving. Patient sleeping comfortably laying on her side on O2 this morning. Yesterday he had to sit upright and was struggling to breathe. Continued treatment of pulmonary issues as directed by primary team.
Bradycardia has resolved. No indication for pacing. Continue to monitor A-fib rates on telemetry
Echocardiogram tomorrow
Continue to monitor for EtOH withdrawal
Impression / Plan
-
Bradycardia -acute upon arrival in the ER rates in the 30s and 40s.
-Bradycardia has improved after treatment of hypothermia. no further evidence of bradycardia.
-Holding diltiazem and Toprol.
Atrial fibrillation -slow ventricular response on arrival. Persistent A-fib. Patient's had a history of atrial fibrillation and was in atrial fibrillation on prior ECGs including a ECGs in September.
-Diltiazem and Toprol previously listed as meds. He has not been given any of these since admission due to presentation with bradycardia. Unclear which meds he was taking as outpatient.
-[id number] score is 1, due to prior GI bleed/anemia and EtOH abuse, no OAC therapy.
Hypertension - stable.
-Continue to monitor, currently holding diltiazem and Toprol given bradycardia.
COPD - acute exacerbation per hospitalist.
ALCIDES - stable on CPAP, continue
EtOH abuse - chronic, drinks 2 bottles of wine daily.
Monitor for withdrawal
Anemia/prior GI bleed - stable H/H.
Physical Exam
Vital Signs/Labs
Vital Signs
Temp Pulse Resp BP Pulse Ox
97.8 F 84 16 136/61 95
12/06/23 07:24 12/06/23 07:16 12/06/23 07:16 12/06/23 04:00 12/06/23 07:16
12/05/23 12/06/23 12/07/23
06:59 06:59 06:59
Actual Weight 112.6 kg 115.7 kg
12/06/23 03:35
12/06/23 03:35
Magnesium 2.2 mg/dl (1.6-2.3) 12/06/23 03:35
TSH 1.52 uIU/ml (0.47-4.68) 12/04/23 23:00
Free T4 1.29 ng/dl (0.78-2.19) 12/05/23 05:17
12/04/23
23:00
Mug-D-Vhoegiovmpe Pept 438
LAB Results
12/04/23 12/04/23 12/05/23
23:00 23:04 05:17
Troponin I < 0.012 Cancelled < 0.012
12/05/23 12/05/23
10:36 16:36
Troponin I Cancelled Cancelled
Physical Exam
Constitutional: No acute distress
Cardiovascular: Rhythm/rate is irregular
Respiratory: Respiratory effort normal
GI: Soft
Neuro/Psych: Alert
Data Reviewed
-
Date of Service: December 06, 2023
Medical Decision Making: Reviewed Test Results
X-Ray/CT/US/MRI/NUC/PET: Report Reviewed by me
Medical Tests (PFT, Pathology etc): Report Reviewed by me
Labs: Labs Reviewed by me
[2023-12-06] MEDS: ATIVAN 1 MG PO ×2 (11:31→20:50)
[2023-12-06] MEDS: NSS 1000 IV (11:31)
[2023-12-06] MEDS: LOVENOX 40 MG SC (16:15)
--- NOTE | 2023-12-06 17:05 | PTCARENOTE ---
Rec'd pt this AM. Throughout shift MSAS has increased from 6-11. Meds given as ordered. Ellieifereyes RUBIO. Additional dose of Ativan ordered and given. Pt tachycardic, tachypnic. O2 sat stable at 96% on 3L NC. Beginning to show signs of hallucinations.
confusion. Improved appetite. Education provided to regarding illness.
[2023-12-06] MEDS: ATIVAN 2 MG IV (17:31)
[2023-12-06] MEDS: NSS (PRESERVATIVE FREE) 1 ML IV (17:31)
--- NOTE | 2023-12-06 17:36 | PTCARENOTE ---
Pt with active hallucionations. MSAS 12. 2mg IV Ativan given
[2023-12-06 18:24] LABS: NT-proBNP 1020 pg/ml
[2023-12-06] MEDS: XOPENEX 0.63 MG INHALANT SOLUTION INH (20:14)
[2023-12-06] MEDS: CARDIZEM 30 MG PO (22:39)
[2023-12-07] VITALS (26 sets, daily range): BP systolic 137–177; BP diastolic 82–116; BMI 37.0
[2023-12-07] MEDS: ATIVAN 1 MG IV ×7 (00:04→21:06)
[2023-12-07] MEDS: NSS (PRESERVATIVE FREE) 0.5 ML IV ×2 (00:04→04:14)
[2023-12-07] MEDS: THIAMINE INJECTION 200 MG IV ×3 (00:05→17:15)
[2023-12-07] MEDS: ATIVAN 2 MG IV ×4 (02:12→09:23)
[2023-12-07] MEDS: NSS (PRESERVATIVE FREE) 1 ML IV (02:13)
[2023-12-07] MEDS: LOPRESSOR 5 MG IV ×3 (03:35→13:39)
--- NOTE | 2023-12-07 05:20 | PTCARENOTE ---
Pt MSAS scores increasing overnight. Pt increasingly agitated, restless. HR in the 160's, pt given prn lopressor for increased HR. BPs reading 160-170 systolic. Pt dosed ativan according to MSAS. VEIN ACCESS TECHNICIAN notifed of changing Pt status. Order received
for b/l soft limb wrist restraints. No new other orders at this time.
[2023-12-07] MEDS: NSS (PRESERVATIVE FREE) 10 ML IV ×2 (05:23→21:07)
[2023-12-07 05:30] LABS: Hematocrit 35.8 % (39.0-52.0); Hemoglobin 12.1 g/dL (13.0-18.0); Mean Corp Hgb Conc. 33.8 g/dL (33.0-37.0); Mean Corpuscular Hgb 33.1 pg (27.0-31.0); Mean Corpuscular Volume 97.8 fL (80.0-94.0); Mean Platelet Volume 10.5 fL (7.4-10.4); Platelet Count 37 10^3/uL (130-400); Red Blood Cell Count 3.66 10^6/uL (4.70-6.10); Red Cell Dist. Width 15.9 % (11.5-14.5); White Blood Cell Count 3.5 10^3/uL (4.8-10.8)
[2023-12-07 05:45] LABS: ALT (SGPT) 123 U/L (0-50); AST (SGOT) 197 U/L (17-59); Albumin 3.4 g/dl (3.5-5.0); Alkaline Phosphatase 441 U/L (38-126); Blood Urea Nitrogen 14 mg/dl (9-20); Calcium 8.3 mg/dl (8.4-10.2); Carbon Dioxide 29 mmol/L (22-30); Chloride 102 mmol/L (98-107); Estimated Creatinine Clearance > 125 ml/min; Glucose 183 mg/dl (70-99); Magnesium 1.9 mg/dl (1.6-2.3); Phosphorus 2.7 mg/dl (2.5-4.5); Potassium 3.8 mmol/L (3.5-5.1); Sodium 136 mmol/L (135-145); Total Bilirubin 2.4 mg/dl (0.2-1.3); Total Protein 6.5 g/dl (6.3-8.2); eGFR > 60.00
[2023-12-07] MEDS: SYMBICORT 80/4.5 MCG INHALER 2 PUFF INH ×2 (07:23→19:30)
[2023-12-07] MEDS: XOPENEX 0.63 MG INHALANT SOLUTION INH ×3 (07:23→19:30)
[2023-12-07] MEDS: PHENOBARBITAL 97.5 MG IV (07:50)
[2023-12-07] MEDS: ASPIR LOW (ENTERIC COATED) 81 MG PO (07:50)
[2023-12-07] MEDS: FOLVITE 1 MG PO (07:50)
[2023-12-07] MEDS: CARDIZEM 30 MG PO ×3 (07:50→17:15)
[2023-12-07] MEDS: PROTONIX 40 MG PO (07:50)
[2023-12-07] MEDS: SOLU-MEDROL PF 40 MG IV ×2 (07:51→20:30)
--- NOTE | 2023-12-07 07:58 | W.PN.CD ---
Today's Communication / Plan
-
Consider treatment for possible PNA
Dilt 30qid starting and continue prn lopressor for HR>120
Impression / Plan
-
Bradycardia -acute upon arrival in the ER rates in the 30s and 40s.
-Resolved after correction of hypothermia
- Now tachycardic with VR 120s (permanent AF pt)
- Dilt 30qid with first dose to be given now
- ECHO today
Atrial fibrillation -slow ventricular response on arrival. Persistent A-fib. Patient's had a history of atrial fibrillation and was in atrial fibrillation on prior ECGs including a ECGs in September.
-Diltiazem and Toprol previously listed as meds. He has not been given any of these since admission due to presentation with bradycardia. Unclear which meds he was taking as outpatient.
-[id number] score is 1, due to prior GI bleed/anemia and EtOH abuse, no OAC therapy.
- Will try dilt 30qid and continue to give prn metoprolol for HR >120
Leukopenia
- CXR raises question PNA
-Lungs with coarse rhonchi
-No fever but would consider ABX for possible PNA
Hypertension - stable.
-Continue to monitor, currently holding diltiazem and Toprol given bradycardia.
COPD - acute exacerbation per hospitalist.
ALCIDES - stable on CPAP, continue
EtOH abuse - chronic, drinks 2 bottles of wine daily.
Appears to now be in full blown alcohol withdrawl
plan per IM
Anemia/prior GI bleed - stable H/H. Hb 12.1.
Physical Exam
Vital Signs/Labs
Vital Signs
Temp Pulse Resp BP Pulse Ox
98.0 F 128 20 152/90 98
12/07/23 03:10 12/07/23 07:50 12/07/23 07:28 12/07/23 07:50 12/07/23 07:28
12/06/23 12/07/23 12/08/23
06:59 06:59 06:59
Actual Weight 255 lb 1.197 oz 250 lb 10.649 oz
12/07/23 04:48
12/07/23 04:48
Magnesium 1.9 mg/dl (1.6-2.3) 12/07/23 04:48
TSH 1.52 uIU/ml (0.47-4.68) 12/04/23 23:00
Free T4 1.29 ng/dl (0.78-2.19) 12/05/23 05:17
12/04/23 12/06/23
23:00 17:56
Mah-E-Oqeuwyqcpaq Pept 438 1020
LAB Results
12/04/23 12/04/23 12/05/23
23:00 23:04 05:17
Troponin I < 0.012 Cancelled < 0.012
12/05/23 12/05/23
10:36 16:36
Troponin I Cancelled Cancelled
Physical Exam
Constitutional: Distress (mildly agitated)
Cardiovascular: Rhythm/rate is irregular and Murmur/rub/gallop absent
Respiratory: Respiratory effort normal, Wheeze Absent, Crackles Absent and Rhonchi Present
Neuro/Psych: Other (Oriented x zero, can move all extremities. speech is unintelligible. )
Data Reviewed
-
Date of Service: December 07, 2023
[2023-12-07 09:48] LABS: Urine Albumin Trace (Neg - Trace); Urine Bilirubin Negative (Negative); Urine Character Clear (Clear); Urine Color Yellow; Urine Glucose 2+ (Negative); Urine Ketone Negative (Negative); Urine Leukocyte Negative (Negative); Urine Nitrite Negative (Negative); Urine Occult Blood Negative (Negative); Urine Urobilinogen 1+ (Neg - 1+); Urine pH 6.5 (5.0-9.0)
--- NOTE | 2023-12-07 10:13 | PTCARENOTE ---
pt responds to name. nods head sometimes to questions. garbled nonsensical speech. bilat wrist restraints on pt for safety. prn ativan given as ordered per msas. pt at bedside reviewed pt condition and plan of care. condom cath in place.
rapid afib seen on monitor. cardiology at bedside reviewed vital signs and current meds. prn lopressor given for HR.
[2023-12-07] MEDS: STERILE WATER FOR INJECTION 10 ML IV (10:32)
[2023-12-07] MEDS: ROCEPHIN 1000 MG IV (10:32)
[2023-12-07] MEDS: VIBRAMYCIN 100 MG PO (10:32)
--- NOTE | 2023-12-07 14:29 | W.PN.HOSP.TC ---
Today's Communication/Plan
-
ceftriaxone, doxycycline
iv steroids
dilt QID, lopressor IV PRN
CIWA, Ativan, Phenobarb
Assessment / Plan
Assessment / Plan
Physical Exam
General: no acute distress appears comfortable obese
HEENT: Thick neck. MMM
Respiratory: Decreased BS no wheezing noted
Cardiac: S1/S2 and Irregular Irregular tachy; No Murmur
GI: Non Tender, Non Distended, Normal Bowel Sounds Umbilical hernia that is soft, nontender and easily reducible
Musculoskeletal: No Clubbing, No Cyanosis and No Edema
Neuro: AO x 3 and Nonfocal/grossly intact
Psych: anxious
A/P: Patient is a 63y M with PMH significant for COPD, A-Fib, HTN and alcohol use disorder who presents to ED complaining of SOB.
Acute Hypoxemic Respiratory Failure
COPD
Pneumonia
-Continue IV steroids, nebs, supplemental O2, taper as tolerated
-Duonebs swiched to Xopenex d/t tachycardia
- Speech therapy eval appreciated appropriate for reg diet, aspiration precautions.
-BIPAP prn sob
-Start Ceftriaxone, Doxycycline (d1)
Paroxysmal Atrial Fibrillation
Bradycardia
- Patient with HR in the 30s on initial presentation.
- suspect bradycardia related to hypothermia
- Patient is not on chronic OAC due to history of GI bleeding / ongoing alcohol abuse.
- restart Dilt and prn lopressor
-F/u ECHO
Alcohol Use Disorder
Acute Intoxication, now withdrawal
Acute Alcoholic Hepatitis
Alcoholic Cirrhosis with Esophageal Varices, Thrombocytopenia, etc
- Patient reports drinking 3 bottles of wine prior to arrival. Typically drinks 2 bottles daily ever day.
- alcohol level appreciated 300s on admission
- cont MSAS protocol
-cont phenobarbital taper
- Thiamine, folate, MVI replacement.
- Encourage alcohol cessation efforts.
- trend LFTs.
-CIWA, ativan IV PRN, phenobarb
Hypothermia suspect due to ETOH intoxication
-resolved
Pancytopenia
-most likely 2/2 to EtOH abuse +/- acute infection
-ctm with resuscitation
LORENZO
- SCr = 1.7 compared to baseline of 0.6.
- Likely pre-renal in origin. ? unreported volume losses, N/V?
- Resolved with IVF since completed
ASCVD / Carotid Stenosis
Hypertension
-Home Cardizem resumed short acting 30 mg QID given recent Bradycardia d/t ETOH intoxication vs ETOH interaction with medications
-Home metoprolol remains on hold for now, IV lopressor prn
Obesity due to excess calories
ALCIDES - Not compliant with PAP therapy
- Affects all aspects of care.
- Patient states that he no longer has PAP machine at home.
- Encourage cessation of alcohol intake, healthy diet and increased physical activity with goal of weight reduction.
DVT Prophylaxis: SCDs
Code Status: Full
Anticipated Discharge: > 48 hours
Subjective/Interval History
-
Date of Service: December 07, 2023
agitated, in 2 point soft restraints
Objective Data
-
Labs:
Laboratory Results
12/07/23
04:48
WBC 3.5 L
Hgb 12.1 L
Hct 35.8 L
Plt Count 37 L
Sodium 136
Potassium 3.8
Chloride 102
Carbon Dioxide 29
BUN 14
Creatinine 0.5 L
Glucose 183 H
Calcium 8.3 L
Total Bilirubin 2.4 H
AST 197 H
ALT 123 H
Alkaline Phosphatase 441 H
Vital Signs:
Vital Signs
Temp Pulse Resp BP Pulse Ox
97.6 F 115 19 153/97 96
12/07/23 11:48 12/07/23 14:03 12/07/23 14:03 12/07/23 13:39 12/07/23 14:03
I&O
12/06/23 12/07/23 12/08/23
06:59 06:59 06:59
Intake Total 1100 / 1100 1890 / 1890
Output Total 500 / 500 2300 / 2300 900 / 900
Balance 600 / 600 -410 / -410 -900 / -900
Review of Systems
-
History Source: Patient
All other systems: Not reviewed unless documented
Physical Exam
-
General: Well Nourished, No Apparent Distress and Obese
HEENT: Normocephalic and Atraumatic
Respiratory: Clear to Auscultation
Cardiac: Regular Rhythm and S1/S2
GI: Soft, Nontender, Nondistended and Normal Bowel Sounds
Musculoskeletal: No Edema
Neuro: Awake, Alert, Oriented, AO x 3 and Nonfocal/Grossly Intact; Negative Tremors
Psych: Calm
Data Reviewed
-
Diagnostic Radiology: Image personally visualized and interpreted and Report Reviewed by me
Labs: Labs Reviewed by me
--- NOTE | 2023-12-07 15:28 | CM ---
CM met with spouse bedside
Pt on MSAS protocol, confused and sedated
Per spouse, they reside in a [facility] with 1[facility]
Pt is independent with his ADLs, drives + and denies use of DMEs
Pt has a WW and SPC from prior knee surgeries
No financial insecurities
PCP- Truong Puga
Rx- Dalila Briones
Spouse tearful during meeting
Hopeful pt is receptive to services through [facility] and inpatient tx
Notes hx with treatment
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
Home alone during the day and spouse of out the house working
PT/OT evals ordered and on hold due to medical status
CM will continue to follow for dc planning
Plan to discuss D/A resources and [facility] once pt more alert and oriented
Discharge Disposition- TBD
[2023-12-07] MEDS: LUMINAL 64.8 MG PO (17:15)
--- NOTE | 2023-12-07 17:26 | PTCARENOTE ---
pt sleeping at times. wakes to name. confused reaching out in the air. garbled speech. calm in bed. falls back to sleep when not stimulated. msas as documented. any sedation held at this time to not oversedate pt.
[2023-12-07] MEDS: VIBRAMYCIN PO ×2 (20:30→20:45)
[2023-12-07] MEDS: CARDIZEM PO (22:36)
[2023-12-07] MEDS: LUMINAL PO (22:36)
[2023-12-07] MEDS: CARDIZEM 125 IV (22:39)
[2023-12-07] MEDS: PHENOBARBITAL 65 MG IV (22:40)
[2023-12-08] VITALS (13 sets, daily range): BP systolic 127–184; BP diastolic 85–108; BMI 36.0
[2023-12-08] MEDS: THIAMINE INJECTION 200 MG IV (00:13)
[2023-12-08] MEDS: ATIVAN 1 MG IV ×4 (00:18→14:36)
[2023-12-08] MEDS: NSS (PRESERVATIVE FREE) 0.25 ML IV (00:19)
[2023-12-08 04:14] LABS: Glucose - Point of Care 156 mg/dl (70-99)
[2023-12-08] MEDS: NSS (PRESERVATIVE FREE) 10 ML IV ×2 (04:45→08:25)
[2023-12-08 04:46] LABS: Venous Blood Gas B.E. 7.7 mmol/L (-4 to +4); Venous Blood Gas HCO3 32.7 mmol/L (22-27); Venous Blood Gas O2 Sat % 99.3 %; Venous Blood Gas pCO2 46 mmHg (35-48); Venous Blood Gas pH 7.46 (7.32-7.43); Venous Blood Gas pO2 133 mmHg (30-50)
[2023-12-08 05:13] LABS: Hematocrit 40.9 % (39.0-52.0); Hemoglobin 13.6 g/dL (13.0-18.0); Mean Corp Hgb Conc. 33.3 g/dL (33.0-37.0); Mean Corpuscular Hgb 32.2 pg (27.0-31.0); Mean Corpuscular Volume 96.9 fL (80.0-94.0); Mean Platelet Volume 9.8 fL (7.4-10.4); Platelet Count 37 10^3/uL (130-400); Red Blood Cell Count 4.22 10^6/uL (4.70-6.10); Red Cell Dist. Width 15.4 % (11.5-14.5); White Blood Cell Count 4.1 10^3/uL (4.8-10.8)
[2023-12-08 05:25] LABS: ALT (SGPT) 112 U/L (0-50); AST (SGOT) 122 U/L (17-59); Albumin 3.6 g/dl (3.5-5.0); Alkaline Phosphatase 407 U/L (38-126); Blood Urea Nitrogen 14 mg/dl (9-20); Calcium 8.7 mg/dl (8.4-10.2); Carbon Dioxide 32 mmol/L (22-30); Chloride 102 mmol/L (98-107); Estimated Creatinine Clearance > 125 ml/min; Glucose 178 mg/dl (70-99); Phosphorus 2.9 mg/dl (2.5-4.5); Potassium 3.9 mmol/L (3.5-5.1); Sodium 136 mmol/L (135-145); Total Bilirubin 2.3 mg/dl (0.2-1.3); Total Protein 6.7 g/dl (6.3-8.2); eGFR > 60.00
--- NOTE | 2023-12-08 06:19 | PTCARENOTE ---
Caring for pt overnight. aaox2-3, forgetful, anxious. Very tachypneic, SOB, wheezing, increased WOB, in beginning of shift. RT at bedside to assess. Pt refused bipap. 2LNC remains. ETCO2 applied. Pt so SOB unable to give PO meds. SENIOR DIRECTOR CREATIVE SERVICES aware, PO meds
switched around to IV. Cardizem gtt started, HR can be up to 150's afib when awake and moving. MSAS protocol. Restraints removed at beginning of shift. Oral care & suction done numerous times a shift. Pt still hard to understand and mumbling speech.
Neuro checks completed. Will monitor. BA on.
[2023-12-08] MEDS: XOPENEX 0.63 MG INHALANT SOLUTION INH ×4 (07:20→19:50)
[2023-12-08] MEDS: SYMBICORT 80/4.5 MCG INHALER 2 PUFF INH ×2 (07:20→19:50)
--- NOTE | 2023-12-08 08:21 | W.PN.CD ---
Today's Communication / Plan
-
- ECHO today
- Dilt 180 mg QD and titrate Dilt drip
Impression / Plan
-
Tachy Kavon syndrome
-Bradycardia -acute upon arrival in the ER rates in the 30s and 40s.
-Resolved after correction of hypothermia
- Now tachycardic with VR 120s (permanent AF pt)
- Dilt 30qid tried with little effect overnight. Now on IV DIlt drip
- Rate controlled. Will start Dilt 180 mg QD and titrate drip
- May have swallowing issues as well. If swallowing remains an issue, can consider leadless PPM with AVJ ablation.
- ECHO today
Atrial fibrillation -slow ventricular response on arrival. Persistent A-fib. Patient's had a history of atrial fibrillation and was in atrial fibrillation on prior ECGs including a ECGs in September.
-Diltiazem and Toprol previously listed as meds. He has not been given any of these since admission due to presentation with bradycardia. Unclear which meds he was taking as outpatient.
-[id number] score is 1, due to prior GI bleed/anemia and EtOH abuse, no OAC therapy.
- Will try dilt 180 mg QD along with Dilt drip and continue to give prn metoprolol for HR >120
Leukopenia
- CXR raises question PNA
-Lungs with coarse rhonchi
-No fever but would consider ABX for possible PNA
Hypertension - stable.
-Continue to monitor, currently holding diltiazem and Toprol given bradycardia.
COPD - acute exacerbation per hospitalist.
ALCIDES - stable on CPAP, continue
EtOH abuse - chronic, drinks 2 bottles of wine daily.
Appears to now be in full blown alcohol withdrawal
plan per IM
Anemia/prior GI bleed - stable H/H. Hb 12.1 -->13.6.
Physical Exam
Vital Signs/Labs
Vital Signs
Temp Pulse Resp BP Pulse Ox
98.0 F 108 16 169/99 96
12/07/23 23:40 12/08/23 07:24 12/08/23 07:24 12/08/23 06:00 12/08/23 07:24
12/07/23 12/08/23 12/09/23
06:59 06:59 06:59
Actual Weight 113.7 kg 110.4 kg
12/08/23 04:35
12/08/23 04:35
Magnesium 2.0 mg/dl (1.6-2.3) 12/08/23 04:35
TSH 1.52 uIU/ml (0.47-4.68) 12/04/23 23:00
Free T4 1.29 ng/dl (0.78-2.19) 12/05/23 05:17
12/04/23 12/06/23
23:00 17:56
Nhr-V-Cphjcugrfqy Pept 438 [id number]
Physical Exam
Constitutional: No acute distress and Comfortable
EENT: Anicteric and Moist mucous membranes
Cardiovascular: Rhythm & rate is regular, JVD present and Systolic murmur present
Respiratory: Respiratory effort normal and Crackles Present
GI: Soft, Normal bowel sounds and Other (obese)
Neuro/Psych: Other (confused and somewhat agitated. )
Data Reviewed
-
Date of Service: December 08, 2023
Medical Decision Making: Reviewed Test Results, Tests Ordered, Test Interpretation and Review of Case with other Provider
EKG: Tracing Personally Visualized and interpreted
Echo: Report Reviewed by me
Labs: Labs Reviewed by me
Old Records: Reviewed
[2023-12-08] MEDS: PHENOBARBITAL 65 MG IV ×3 (08:25→22:56)
[2023-12-08] MEDS: PROTONIX IV 40 MG IV (08:26)
[2023-12-08] MEDS: SOLU-MEDROL PF 40 MG IV (08:26)
[2023-12-08] MEDS: CARDIZEM 125 IV (09:37)
[2023-12-08] MEDS: CARDIZEM CD PO (10:35)
[2023-12-08] MEDS: VIBRAMYCIN PO (10:35)
[2023-12-08] MEDS: ASPIR LOW (ENTERIC COATED) PO (10:35)
--- NOTE | 2023-12-08 10:42 | PTOTSP ---
Dysphagia Therapy
Patient is at an elevated risk for reduced breathing/swallowing coordination and aspiration given current dyspnea, tachypnea, and changes to mental status and alertness from alcohol withdrawal. Signs concerning for aspiration observed with thin
liquids.
Recommend:
1. Temporary NPO
2. Medications: non-oral preferred; if unable to be given non-orally essential medications sparingly in applesauce
3. Oral care 3x daily
4. Dysphagia therapy at the acute care level.
[2023-12-08] MEDS: STERILE WATER FOR INJECTION 10 ML IV (10:50)
[2023-12-08] MEDS: ROCEPHIN 1000 MG IV (10:50)
--- NOTE | 2023-12-08 11:07 | PTCARENOTE ---
Addendum entered by Haily Cerna RN 12/08/23 11:29:
Frequent loose cough continues; productive for thick white/yellow sputum Oral suctioning via yankauer continues.
Original Note:
Assumed care of patient at beginning of this shift from previous RN with cardizem infusing at 10mg/hr. Cardiology in to see patient and ordered po cardizem. Patient with excessive secretions, confused, unable to understand words at times (mumbles);
Dr Zapata made aware that patient might not be able to take po. Reviewed with Dr Gold; speech therapy consult was entered. Speech therapist Alda recommended patient be NPO and may take po meds only if no alternative, then would need to be in
applesauce. Alda stated that patient is a high risk for aspiration. Dr Gold on unit and made aware; stated he will adjust po meds to IV. See worklist for full assessment, MSAS score and vital signs; see MAR for med administration. Cardizem
infusion remains.
--- NOTE | 2023-12-08 12:03 | PN.CDI ---
CDI
- -
CDI:
Physician Documentation Request
Admit Date: 12/05/23 03:20
Dear Doctor Alla,
Patient admitted for
12/06 Cardiology PN: 'Persistent A-fib. Patient's had a history of atrial fibrillation and was in atrial fibrillation on prior ECGs including a ECGs in September.'
12/07 Hospitalist PN: 'Paroxysmal Atrial Fibrillation'
If possible, please provide further specificity regarding atrial fibrillation, such as:
Persistent atrial fibrillation - episodes of continuous AF that last more than 7 days and do not self-terminate
Paroxysmal atrial fibrillation - terminates spontaneously or with intervention within 7 days of onset
Other - please specify
Use of terms such as suspected, likely, concern for, or probable (associated with a specific diagnosis that is being evaluated, monitored, or treated as if it exists) are acceptable and can be coded in the inpatient setting, when documented at the
time of discharge.
Thank you,
Tana Sparrow RN, BSN
CDI Specialist
Available via [employer] text
Please use your independent medical judgment in providing your response.
[2023-12-08] MEDS: LOPRESSOR 5 MG IV ×2 (12:18→17:18)
[2023-12-08 13:59] LABS: Glucose - Point of Care 158 mg/dl (70-99)
--- NOTE | 2023-12-08 14:14 | W.PN.HOSP.TC ---
Today's Communication/Plan
-
wean steroids to 40mg q24h
abx
npo
dilt ggt
echo
ammonia level
msas, ativan
Assessment / Plan
Assessment / Plan
Physical Exam
General: no acute distress appears comfortable obese
HEENT: Thick neck. MMM
Respiratory: Decreased BS no wheezing noted
Cardiac: S1/S2 and Irregular Irregular tachy; No Murmur
GI: Non Tender, Non Distended, Normal Bowel Sounds Umbilical hernia that is soft, nontender and easily reducible
Musculoskeletal: No Clubbing, No Cyanosis and No Edema
Neuro: AO x 3 and Nonfocal/grossly intact
Psych: anxious
A/P: Patient is a 63y M with PMH significant for COPD, A-Fib, HTN and alcohol use disorder who presents to ED complaining of SOB.
Acute Hypoxemic Respiratory Failure
COPD
Pneumonia
-Continue IV steroids, nebs, supplemental O2, taper as tolerated - wean to 40mg q24h
-Duonebs swiched to Xopenex d/t tachycardia
- Speech therapy eval appreciated appropriate for reg diet, aspiration precautions.
-BIPAP prn sob
-Start Ceftriaxone, Doxycycline (d2)
-NPO
Paroxysmal Atrial Fibrillation
Bradycardia
- Patient with HR in the 30s on initial presentation.
- suspect bradycardia related to hypothermia
- Patient is not on chronic OAC due to history of GI bleeding / ongoing alcohol abuse.
- restart Dilt ggt as NPO
-F/u ECHO
Alcohol Use Disorder
Acute Intoxication, now withdrawal
Acute Alcoholic Hepatitis
Alcoholic Cirrhosis with Esophageal Varices, Thrombocytopenia, etc
- Patient reports drinking 3 bottles of wine prior to arrival. Typically drinks 2 bottles daily ever day.
- alcohol level appreciated 300s on admission
- cont MSAS protocol
-cont phenobarbital taper
- Thiamine, folate, MVI replacement.
- Encourage alcohol cessation efforts.
- trend LFTs.
-CIWA, ativan IV PRN, phenobarb
Acute Metabolic Encephaolpathy
-2/2 to EtOH withdrawal
-ammonia level
-MSAS
Hypothermia suspect due to ETOH intoxication
-resolved
Pancytopenia
-most likely 2/2 to EtOH abuse +/- acute infection
-ctm with resuscitation
LORENZO
- SCr = 1.7 compared to baseline of 0.6.
- Likely pre-renal in origin. ? unreported volume losses, N/V?
- Resolved with IVF since completed
ASCVD / Carotid Stenosis
Hypertension
-Home Cardizem resumed short acting 30 mg QID given recent Bradycardia d/t ETOH intoxication vs ETOH interaction with medications
-Home metoprolol remains on hold for now, IV lopressor prn
Obesity due to excess calories
ALCIDES - Not compliant with PAP therapy
- Affects all aspects of care.
- Patient states that he no longer has PAP machine at home.
- Encourage cessation of alcohol intake, healthy diet and increased physical activity with goal of weight reduction.
DVT Prophylaxis: SCDs
Code Status: Full
Anticipated Discharge: > 48 hours
Subjective/Interval History
-
Date of Service: December 08, 2023
calmer today
Objective Data
-
Labs:
Laboratory Results
12/08/23
04:35
WBC 4.1 L
Hgb 13.6
Hct 40.9
Plt Count 37 L
Sodium 136
Potassium 3.9
Chloride 102
Carbon Dioxide 32 H
BUN 14
Creatinine 0.5 L
Glucose 178 H
Calcium 8.7
Total Bilirubin 2.3 H
AST 122 H
ALT 112 H
Alkaline Phosphatase 407 H
Vital Signs:
Vital Signs
Temp Pulse Resp BP Pulse Ox
97.5 F 102 18 165/96 96
12/08/23 07:35 12/08/23 13:37 12/08/23 13:37 12/08/23 12:18 12/08/23 13:37
I&O
12/07/23 12/08/23 12/09/23
06:59 06:59 06:59
Intake Total 1889 / 1889
Output Total 0 / 2300 2049
Balance -410 / -410 -2049 / -2049
Review of Systems
-
History Source: Patient
All other systems: Not reviewed unless documented
Data Reviewed
-
Diagnostic Radiology: Image personally visualized and interpreted and Report Reviewed by me
Labs: Labs Reviewed by me
[2023-12-08] MEDS: NOVOLOG FLEXPEN-LOW RESISTANCE 1 UNITS SC ×2 (14:45→17:44)
--- NOTE | 2023-12-08 14:49 | PTCARENOTE ---
Patient continues with confusion, difficulty communicating, not making sense when he talks. He has been getting ativan IV prn per the MSAS protocol. POx 95-96% on 2L n/c. Reviewed with Dr Gold who state patient was worse yesterday. See worklist
for MSAS scoring and MAR for med administration.
[2023-12-08] MEDS: VIBRAMYCIN 260 MG IV (15:58)
--- NOTE | 2023-12-08 16:20 | PTCARENOTE ---
Patient with audible wheezing and use of accessory muscles when awake. POx 97% on 2L. He nods his head yes when asked if he feels SOB. Dr Gold made aware via [employer] text. Resp therapist texted for treatment.
[2023-12-08 16:28] LABS: Ammonia 30 umol/L (9-30)
[2023-12-08] MEDS: NOVOLOG FLEXPEN-LOW RESISTANCE SC ×2 (17:12→23:04)
[2023-12-08 17:51] LABS: Glucose - Point of Care 177 mg/dl (70-99)
[2023-12-08 23:15] LABS: Glucose - Point of Care 131 mg/dl (70-99)
[2023-12-09] VITALS (14 sets, daily range): BP systolic 126–177; BP diastolic 84–106
[2023-12-09] MEDS: ATIVAN 1 MG IV ×5 (00:15→22:05)
[2023-12-09] MEDS: CARDIZEM 125 IV ×3 (04:04→20:24)
[2023-12-09] MEDS: VIBRAMYCIN 260 MG IV ×2 (04:04→16:17)
[2023-12-09 05:59] LABS: Hematocrit 38.7 % (39.0-52.0); Hemoglobin 13.1 g/dL (13.0-18.0); Mean Corp Hgb Conc. 33.9 g/dL (33.0-37.0); Mean Corpuscular Volume 94.4 fL (80.0-94.0); Mean Platelet Volume 10.8 fL (7.4-10.4); Platelet Count 56 10^3/uL (130-400); Red Cell Dist. Width 15.7 % (11.5-14.5); White Blood Cell Count 6.1 10^3/uL (4.8-10.8)
[2023-12-09 06:07] LABS: ALT (SGPT) 86 U/L (0-50); AST (SGOT) 80 U/L (17-59); Albumin 3.3 g/dl (3.5-5.0); Alkaline Phosphatase 338 U/L (38-126); Blood Urea Nitrogen 23 mg/dl (9-20); Calcium 8.3 mg/dl (8.4-10.2); Carbon Dioxide 30 mmol/L (22-30); Chloride 103 mmol/L (98-107); Estimated Creatinine Clearance > 125 ml/min; Glucose 129 mg/dl (70-99); Magnesium 2.1 mg/dl (1.6-2.3); Phosphorus 3.1 mg/dl (2.5-4.5); Potassium 3.2 mmol/L (3.5-5.1); Sodium 138 mmol/L (135-145); Total Bilirubin 1.9 mg/dl (0.2-1.3); Total Protein 6.2 g/dl (6.3-8.2); eGFR > 60.00
[2023-12-09] MEDS: NOVOLOG FLEXPEN-LOW RESISTANCE SC (06:11)
[2023-12-09 06:21] LABS: Glucose - Point of Care 124 mg/dl (70-99)
--- NOTE | 2023-12-09 06:34 | PTCARENOTE ---
Caring for pt overnight. Continuing MSAS & ativan. Pt calm & sleeping in beginning of shift, seemed to be doing better, breathing was better and mentation & speech seemed to be getting better than yesterday as well. Around 0100 pt started becoming
very agitated and trying to climb out of bed, being combative. Reached out to RABBET OPERATOR for b/l wrist restraints. Cardizem gtt continues. IV abx. 2LNC. BA on. AAOx1. Will monitor.
[2023-12-09] MEDS: KCL 160 MEQ IV (06:46)
[2023-12-09] MEDS: XOPENEX 0.63 MG INHALANT SOLUTION INH ×3 (07:23→19:40)
[2023-12-09] MEDS: SYMBICORT 80/4.5 MCG INHALER 2 PUFF INH ×2 (07:23→19:40)
--- NOTE | 2023-12-09 07:56 | W.PN.CD ---
Today's Communication / Plan
-
Cont dilt gtt likely HRs elevated given alcohol withdrawal
Transition to PO likely tomorrow when no longer NPO and able to take meds
Impression / Plan
-
Tachy Kavon syndrome
-Bradycardia -acute upon arrival in the ER rates in the 30s and 40s.
-Resolved after correction of hypothermia
- Remains in AF RVR sometimes HRs controlled, currently NPO per speech
- Cont IV dilt for now while NPO, can transition likely titrate to dilt 60 q6 hrs when able to take po and swallow
- May have swallowing issues as well. If swallowing remains an issue, can consider leadless PPM with AVJ ablation. per EP
- ECHO today below
Atrial fibrillation -slow ventricular response on arrival. Persistent A-fib. Patient's had a history of atrial fibrillation and was in atrial fibrillation on prior ECGs including a ECGs in September.
-Diltiazem and Toprol previously listed as meds held given bradycardi; Unclear which meds he was taking as outpatient.
-[id number] score is 1, due to prior GI bleed/anemia and EtOH abuse, no OAC therapy.
- Cont dilt gtt currently NPO per speech, likely can try dilt 60 q6 hrs for when he is able to take PO
Leukopenia
- abx per primary for PNA
Hypertension - elevate for now in setting of withdrawal
-Continue to monitor, currently holding diltiazem and Toprol given bradycardia and NPO
COPD - acute exacerbation per hospitalist.
ALCIDES - stable on CPAP, continue
EtOH abuse - chronic, drinks 2 bottles of wine daily.
Appears to now be in full blown alcohol withdrawal
plan per IM
Anemia/prior GI bleed - stable H/H. Hb 12.1 -->13.6.
Echo: CONCLUSIONS
Left ventricular ejection fraction is 60-65%, by visual assessment. Grossly
normal regional wall motion.
Normal right ventricular size and function.
Trace mitral regurgitation.
Aortic sclerosis without stenosis.
Trace tricuspid regurgitation. Estimated pulmonary artery pressure of 25-30
mmHg.
No significant change since the prior study of 04/10/2023.
Subjective: No acute complaints mildly confused he is unclear why he is here or why restraints are on
Physical Exam
Vital Signs/Labs
Vital Signs
Temp Pulse Resp BP Pulse Ox
98.2 F 106 16 157/91 95
12/09/23 03:25 12/09/23 07:24 12/09/23 07:24 12/09/23 06:00 12/09/23 07:24
12/08/23 12/09/23 12/10/23
06:59 06:59 06:59
Actual Weight 243 lb 6.245 oz
12/09/23 05:18
12/09/23 05:18
Magnesium 2.1 mg/dl (1.6-2.3) 12/09/23 05:18
TSH 1.52 uIU/ml (0.47-4.68) 12/04/23 23:00
Free T4 1.29 ng/dl (0.78-2.19) 12/05/23 05:17
12/04/23 12/06/23
23:00 17:56
Gvf-Y-Uagvywcpjoy Pept 438 1020
Physical Exam
Constitutional: No acute distress
EENT: Anicteric
Cardiovascular: Pedal edema is absent and Rhythm/rate is irregular
Respiratory: Respiratory effort normal
GI: Soft
Neuro/Psych: Alert and Oriented
Data Reviewed
-
Date of Service: December 09, 2023
EKG: Tracing Personally Visualized and interpreted (af)
Echo: Report Reviewed by me
Labs: Labs Reviewed by me
[2023-12-09] MEDS: CARDIZEM CD PO (08:01)
[2023-12-09] MEDS: ASPIR LOW (ENTERIC COATED) PO (08:01)
[2023-12-09] MEDS: SOLU-MEDROL PF 40 MG IV (08:24)
[2023-12-09] MEDS: PROTONIX IV 40 MG IV (08:24)
[2023-12-09] MEDS: PHENOBARBITAL 65 MG IV ×3 (08:25→21:28)
[2023-12-09] MEDS: NSS (PRESERVATIVE FREE) 10 ML IV (08:25)
--- NOTE | 2023-12-09 08:38 | VATNOTE ---
During routine assessment, swelling noted to L arm at site of IV infiltrate. Heat applied and arm elevated.
--- NOTE | 2023-12-09 10:20 | PTOTSP ---
ST Follow-Up
Pt continues to present with clinical signs of pharyngeal dysphagia at bedside. PO diet initiation is premature at this time.
Recommendations:
- Continue NPO status with the exception of meds whole or crushed in puree.
- ARHP - ice chips/small sips of water, sparingly, with supervision, ONLY after oral care has been completed.
- Aspiration precautions: HOB upright as often as possible; oral care a minimum of QID; encourage pt to expectorate secretions/sputum; suctioning with yankauer PRN; only provide PO meds/AHRP if pt is fully awake, alert, and upright.
- TRESTLE BUILDER to re-assess pt's candidacy for PO diet initiation and to determine whether pt would benefit from an instrumental swallow study.
[2023-12-09] MEDS: KCL 270 MEQ IV (10:41)
[2023-12-09] MEDS: ROCEPHIN 1000 MG IV (11:00)
[2023-12-09] MEDS: STERILE WATER FOR INJECTION 10 ML IV (11:00)
[2023-12-09] MEDS: ATIVAN 2 MG IV ×4 (12:35→23:02)
[2023-12-09] MEDS: NSS (PRESERVATIVE FREE) 1 ML IV (12:36)
--- NOTE | 2023-12-09 13:28 | PTCARENOTE ---
attempted to trial pt off b/l wrist restraintsat approx 12 00 this nurse was notified by another staff member that patient appeared to be holding iv tubing in hand. upon entering room pt ripping at monitor wires, pt had ripped iv tubing and pulled
out iv x 2. heart rate 130s pt confused and angry, yelling and swinging at staff. wrist restraints replaced and pt medicated per MSAs with 2 mg ativan. pt currently drowsy and calmer but awakens and is suspicious and angry with staff, calling names.
pt is oriented to self only at this time.
[2023-12-09 13:33] LABS: Glucose - Point of Care 172 mg/dl (70-99)
[2023-12-09] MEDS: NOVOLOG FLEXPEN-LOW RESISTANCE 1 UNITS SC ×2 (13:45→17:54)
--- NOTE | 2023-12-09 14:16 | W.PN.HOSP.TC ---
Today's Communication/Plan
-
phenobarb taper
ct head
electrolyte repletion
Speech eval - PO as tolerated
Cont abx
IV steroids until can tolerate PO steroids
Assessment / Plan
Assessment / Plan
Physical Exam
General: no acute distress appears comfortable obese
HEENT: Thick neck. MMM
Respiratory: Decreased BS no wheezing noted
Cardiac: S1/S2 and Irregular Irregular tachy; No Murmur
GI: Non Tender, Non Distended, Normal Bowel Sounds Umbilical hernia that is soft, nontender and easily reducible
Musculoskeletal: No Clubbing, No Cyanosis and No Edema
Neuro: AO x 3 and Nonfocal/grossly intact
Psych: anxious
A/P: Patient is a 63y M with PMH significant for COPD, A-Fib, HTN and alcohol use disorder who presents to ED complaining of SOB.
Acute Hypoxemic Respiratory Failure
COPD
Pneumonia
-Continue IV steroids, nebs, supplemental O2, taper as tolerated - wean to 40mg q24h
-Duonebs switched to Xopenex d/t tachycardia
- Speech therapy eval appreciated appropriate for reg diet, aspiration precautions.
-BIPAP prn sob
-Start Ceftriaxone, Doxycycline (d3)
-NPO - eval speech
Paroxysmal Atrial Fibrillation
Bradycardia
- Patient with HR in the 30s on initial presentation.
- suspect bradycardia related to hypothermia
- Patient is not on chronic OAC due to history of GI bleeding / ongoing alcohol abuse.
- restart Dilt ggt as NPO
-F/u ECHO - 60-65%
Alcohol Use Disorder
Acute Intoxication, now withdrawal
Acute Alcoholic Hepatitis
Alcoholic Cirrhosis with Esophageal Varices, Thrombocytopenia, etc
- Patient reports drinking 3 bottles of wine prior to arrival. Typically drinks 2 bottles daily ever day.
- alcohol level appreciated 300s on admission
- cont MSAS protocol
-cont phenobarbital taper
- Thiamine, folate, MVI replacement.
- Encourage alcohol cessation efforts.
- trend LFTs.
-CIWA, ativan IV PRN, phenobarb
-CT head
Acute Metabolic Encephaolpathy
-2/2 to EtOH withdrawal
-ammonia level: OK
-MSAS
Hypothermia suspect due to ETOH intoxication
-resolved
Hypokalemia
-monitor and replete
Pancytopenia
-most likely 2/2 to EtOH abuse +/- acute infection
-ctm with resuscitation
LORENZO
- SCr = 1.7 compared to baseline of 0.6.
- Likely pre-renal in origin. ? unreported volume losses, N/V?
- Resolved with IVF since completed
ASCVD / Carotid Stenosis
Hypertension
-Home Cardizem resumed short acting 30 mg QID given recent Bradycardia d/t ETOH intoxication vs ETOH interaction with medications
-Home metoprolol remains on hold for now, IV lopressor prn
Obesity due to excess calories
ALCIDES - Not compliant with PAP therapy
- Affects all aspects of care.
- Patient states that he no longer has PAP machine at home.
- Encourage cessation of alcohol intake, healthy diet and increased physical activity with goal of weight reduction.
DVT Prophylaxis: SCDs
Code Status: Full
Anticipated Discharge: > 48 hours
Subjective/Interval History
-
Date of Service: December 09, 2023
altered but improved in the afternoon
Objective Data
-
Labs:
Laboratory Results
12/09/23
05:18
WBC 6.1
Hgb 13.1
Hct 38.7 L
Plt Count 56 L D
Sodium 138
Potassium 3.2 L
Chloride 103
Carbon Dioxide 30
BUN 23 H
Creatinine 0.6 L
Glucose 129 H
Calcium 8.3 L
Total Bilirubin 1.9 H
AST 80 H
ALT 86 H
Alkaline Phosphatase 338 H
Vital Signs:
Vital Signs
Temp Pulse Resp BP Pulse Ox
97.3 F 116 20 157/91 95
12/09/23 07:40 12/09/23 14:01 12/09/23 14:01 12/09/23 06:00 12/09/23 14:01
I&O
12/08/23 12/09/23 12/10/23
06:59 06:59 06:59
Output Total 2049 / 2049 750 / 750
Balance -2049 / -2049 -750 / -750
Review of Systems
-
History Source: Patient
All other systems: Not reviewed unless documented
Data Reviewed
-
Diagnostic Radiology: Image personally visualized and interpreted and Report Reviewed by me
Labs: Labs Reviewed by me
--- NOTE | 2023-12-09 17:26 | CM ---
Patient with Dx Acute Hypoxemic Respiratory Failure, COPD, Pneumonia Tachy Kavon Syndrome, Afib, Alcohol Use Disorder, Acute Metabolic Encephaolpathy. O2 2L. Receiving IV Caleb gluconate, IV Abx, cardizem gtt, IV solumedrol, IV Phenobarb, IV Ativan
prn. NPO. ST for dysphagia. PT & OT on hold. Per nursing; confused, agitated today. Restraints per nursing. MSAS Score 12.
CM continuing to follow.
Plan TBD.
[2023-12-09 17:35] LABS: Glucose - Point of Care 159 mg/dl (70-99)
[2023-12-09] MEDS: ATIVAN 1 MG PO (20:25)
--- NOTE | 2023-12-09 23:22 | PTCARENOTE ---
Pt initially received awake, confused, restless but cooperative. Med with ativan po for MSAS of 7. Pt with increasing agitation and becoming combative with staff necessitating placing bilat mitts and bilat ankle restraints on in addition to bilat
wrist restraints that were already on. IV ativan given as ordered for increasing MSAS. Will continue to monitor closely.
[2023-12-10] VITALS (16 sets, daily range): BP systolic 134–180; BP diastolic 77–128; BMI 35.9
[2023-12-10] MEDS: ATIVAN 1 MG IV ×8 (00:10→22:14)
[2023-12-10 00:22] LABS: Glucose - Point of Care 125 mg/dl (70-99)
[2023-12-10] MEDS: NOVOLOG FLEXPEN-LOW RESISTANCE SC ×5 (00:33→23:48)
[2023-12-10] MEDS: ATIVAN 2 MG IV ×2 (01:19→23:38)
[2023-12-10] MEDS: CARDIZEM 125 IV ×3 (04:05→20:12)
[2023-12-10] MEDS: VIBRAMYCIN 260 MG IV ×2 (04:06→15:45)
[2023-12-10 04:49] LABS: Hemoglobin 13.7 g/dL (13.0-18.0); Mean Corp Hgb Conc. 34.3 g/dL (33.0-37.0); Mean Corpuscular Hgb 32.1 pg (27.0-31.0); Mean Corpuscular Volume 93.7 fL (80.0-94.0); Mean Platelet Volume 9.6 fL (7.4-10.4); Platelet Count 60 10^3/uL (130-400); Red Blood Cell Count 4.27 10^6/uL (4.70-6.10); Red Cell Dist. Width 15.8 % (11.5-14.5); White Blood Cell Count 6.7 10^3/uL (4.8-10.8)
[2023-12-10 06:05] LABS: ALT (SGPT) 80 U/L (0-50); AST (SGOT) 82 U/L (17-59); Albumin 3.5 g/dl (3.5-5.0); Alkaline Phosphatase 315 U/L (38-126); Blood Urea Nitrogen 20 mg/dl (9-20); Calcium 8.5 mg/dl (8.4-10.2); Carbon Dioxide 28 mmol/L (22-30); Chloride 105 mmol/L (98-107); Estimated Creatinine Clearance > 125 ml/min; Glucose 111 mg/dl (70-99); Phosphorus 3.2 mg/dl (2.5-4.5); Potassium 3.4 mmol/L (3.5-5.1); Sodium 138 mmol/L (135-145); Total Bilirubin 2.4 mg/dl (0.2-1.3); Total Protein 6.5 g/dl (6.3-8.2); eGFR > 60.00
[2023-12-10] MEDS: NSS (PRESERVATIVE FREE) 10 ML IV (07:16)
[2023-12-10] MEDS: PROTONIX IV 40 MG IV (07:16)
[2023-12-10] MEDS: SOLU-MEDROL PF 40 MG IV (07:17)
[2023-12-10] MEDS: ASPIR LOW (ENTERIC COATED) 81 MG PO (07:35)
[2023-12-10] MEDS: LUMINAL 32.4 MG PO ×3 (07:35→22:14)
[2023-12-10] MEDS: CARDIZEM CD 180 MG PO (07:36)
[2023-12-10] MEDS: SYMBICORT 80/4.5 MCG INHALER 2 PUFF INH ×2 (07:58→20:29)
[2023-12-10] MEDS: XOPENEX 0.63 MG INHALANT SOLUTION INH ×3 (07:58→20:30)
[2023-12-10] MEDS: KCL 270 MEQ IV (10:24)
[2023-12-10] MEDS: ROCEPHIN 1000 MG IV (10:25)
[2023-12-10] MEDS: STERILE WATER FOR INJECTION 10 ML IV (10:26)
[2023-12-10 12:07] LABS: Glucose - Point of Care 146 mg/dl (70-99)
--- NOTE | 2023-12-10 12:31 | W.PN.CD ---
Today's Communication / Plan
-
- Agitated but slowly improving.
- Rate control with Dilt gtt
Impression / Plan
-
Tachy Kavon syndrome
-Bradycardia -acute upon arrival in the ER rates in the 30s and 40s.
-Resolved after correction of hypothermia
- Remains in AF RVR sometimes HRs controlled, currently NPO per speech
- Cont IV dilt for now while NPO, can transition likely titrate to dilt 60 q6 hrs when able to take po and swallow - able to swallow intermittently.
- May have swallowing issues as well. If swallowing remains an issue, can consider leadless PPM with AVJ ablation. per EP
- ECHO 12/08/23 - LVEF 60%.
-Keep K > 3,5 (supplemented - now 3.4
Atrial fibrillation -slow ventricular response on arrival. Persistent A-fib. Patient's had a history of atrial fibrillation and was in atrial fibrillation on prior ECGs including a ECGs in September.
-Diltiazem and Toprol previously listed as meds held given bradycardi; Unclear which meds he was taking as outpatient.
-[id number] score is 1, due to prior GI bleed/anemia and EtOH abuse, no OAC therapy.
- Cont dilt gtt currently NPO per speech, likely can try dilt 60 q6 hrs for when he is able to take PO
Leukopenia
- abx per primary for PNA
Hypertension - elevate for now in setting of withdrawal
-Continue to monitor, currently holding diltiazem and Toprol given bradycardia and NPO
COPD - acute exacerbation per hospitalist.
ALCIDES - stable on CPAP, continue
EtOH abuse - chronic, drinks 2 bottles of wine daily.
Appears to now be in full blown alcohol withdrawal
plan per IM
Anemia/prior GI bleed - stable H/H. Hb 12.1 -->13.7.
Echo: CONCLUSIONS
Left ventricular ejection fraction is 60-65%, by visual assessment. Grossly
normal regional wall motion.
Normal right ventricular size and function.
Trace mitral regurgitation.
Aortic sclerosis without stenosis.
Trace tricuspid regurgitation. Estimated pulmonary artery pressure of 25-30
mmHg.
No significant change since the prior study of 04/10/2023.
Subjective: No acute complaints mildly confused he is unclear why he is here or why restraints are on
Physical Exam
Vital Signs/Labs
Vital Signs
Temp Pulse Resp BP Pulse Ox
97.2 F 102 17 142/83 92
12/10/23 07:35 12/10/23 12:00 12/10/23 12:00 12/10/23 12:00 12/10/23 12:00
12/09/23 12/10/23 12/11/23
06:59 06:59 06:59
Actual Weight 110.2 kg
12/10/23 04:17
12/10/23 04:17
Magnesium 2.0 mg/dl (1.6-2.3) 12/10/23 04:17
TSH 1.52 uIU/ml (0.47-4.68) 12/04/23 23:00
Free T4 1.29 ng/dl (0.78-2.19) 12/05/23 05:17
12/04/23 12/06/23
23:00 17:56
Xuz-M-[id number] Pept [id number]
Physical Exam
Constitutional: No acute distress and Confusion
EENT: Anicteric and Moist mucous membranes
Cardiovascular: Pedal edema is absent, JVD pressure is normal, Rhythm/rate is irregular and Systolic murmur present
Respiratory: Respiratory effort normal
Neuro/Psych: Other (agitated and in soft restraints. )
Data Reviewed
-
Date of Service: December 10, 2023
Medical Decision Making: Reviewed Test Results, Test Interpretation and Review of Case with other Provider
EKG: Tracing Personally Visualized and interpreted
Echo: Report Reviewed by me
Labs: Labs Reviewed by me
Old Records: Reviewed
--- NOTE | 2023-12-10 14:50 | W.PN.HOSP.TC ---
Today's Communication/Plan
-
phenobarb taper
ct head
electrolyte repletion
Speech eval - PO as tolerated
Cont abx
IV steroids until can tolerate PO steroids
Dilt ggt
RUQ Sono
Assessment / Plan
Assessment / Plan
Physical Exam
General: no acute distress appears comfortable obese
HEENT: Thick neck. MMM
Respiratory: Decreased BS no wheezing noted
Cardiac: S1/S2 and Irregular Irregular tachy; No Murmur
GI: Non Tender, Non Distended, Normal Bowel Sounds Umbilical hernia that is soft, nontender and easily reducible
Musculoskeletal: No Clubbing, No Cyanosis and No Edema
Neuro: AO x 3 and Nonfocal/grossly intact
Psych: anxious
A/P: Patient is a 63y M with PMH significant for COPD, A-Fib, HTN and alcohol use disorder who presents to ED complaining of SOB.
Acute Hypoxemic Respiratory Failure
COPD
Pneumonia
-Continue IV steroids, nebs, supplemental O2, taper as tolerated - wean to 40mg q24h
-Duonebs switched to Xopenex d/t tachycardia
- Speech therapy eval appreciated appropriate for reg diet, aspiration precautions.
-BIPAP prn sob
-Start Ceftriaxone, Doxycycline (d4)
-NPO - eval speech
Paroxysmal Atrial Fibrillation
Bradycardia
- Patient with HR in the 30s on initial presentation.
- suspect bradycardia related to hypothermia
- Patient is not on chronic OAC due to history of GI bleeding / ongoing alcohol abuse.
- restart Dilt ggt as NPO
-F/u ECHO - 60-65%
Alcohol Use Disorder
Acute Intoxication, now withdrawal
Acute Alcoholic Hepatitis
Alcoholic Cirrhosis with Esophageal Varices, Thrombocytopenia, etc
- Patient reports drinking 3 bottles of wine prior to arrival. Typically drinks 2 bottles daily ever day.
- alcohol level appreciated 300s on admission
- cont MSAS protocol
-cont phenobarbital taper
- Thiamine, folate, MVI replacement.
- Encourage alcohol cessation efforts.
- trend LFTs.
-CIWA, ativan IV PRN, phenobarb
-CT head
Acute Metabolic Encephaolpathy
-2/2 to EtOH withdrawal
-ammonia level: OK
-MSAS
-CT head pending
#Transaminitis
-RUQ sono
-most likely 2/2 to alcoholic hepatitis
Hypothermia suspect due to ETOH intoxication
-resolved
Hypokalemia
-monitor and replete
Pancytopenia
-most likely 2/2 to EtOH abuse +/- acute infection
-ctm with resuscitation
LORENZO
- SCr = 1.7 compared to baseline of 0.6.
- Likely pre-renal in origin. ? unreported volume losses, N/V?
- Resolved with IVF since completed
ASCVD / Carotid Stenosis
Hypertension
-Home Cardizem resumed short acting 30 mg QID given recent Bradycardia d/t ETOH intoxication vs ETOH interaction with medications
-Home metoprolol remains on hold for now, IV lopressor prn
Obesity due to excess calories
ALCIDES - Not compliant with PAP therapy
- Affects all aspects of care.
- Patient states that he no longer has PAP machine at home.
- Encourage cessation of alcohol intake, healthy diet and increased physical activity with goal of weight reduction.
DVT Prophylaxis: HSQ
Code Status: Full
Anticipated Discharge: > 48 hours
Subjective/Interval History
-
Date of Service: December 10, 2023
slightly more awake today
Objective Data
-
Labs:
Laboratory Results
12/10/23
04:17
WBC 6.7
Hgb 13.7
Hct 40.0
Plt Count 60 L
Sodium 138
Potassium 3.4 L
Chloride 105
Carbon Dioxide 28
BUN 20
Creatinine 0.5 L
Glucose 111 H
Calcium 8.5
Total Bilirubin 2.4 H
AST 82 H
ALT 80 H
Alkaline Phosphatase 315 H
Vital Signs:
Vital Signs
Temp Pulse Resp BP Pulse Ox
97.2 F 111 19 134/102 95
12/10/23 07:35 12/10/23 14:00 12/10/23 14:00 12/10/23 14:00 12/10/23 12:33
I&O
12/09/23 12/10/23 12/11/23
06:59 06:59 06:59
Intake Total 180 / 180
Output Total 750 / 750 850 / 850
Balance -750 / -750 -670 / -670
Review of Systems
-
History Source: Patient
All other systems: Not reviewed unless documented
Data Reviewed
-
Diagnostic Radiology: Image personally visualized and interpreted and Report Reviewed by me
Labs: Labs Reviewed by me
[2023-12-10 18:27] LABS: Glucose - Point of Care 145 mg/dl (70-99)
--- NOTE | 2023-12-10 18:57 | PTCARENOTE ---
day shift note. see nursing assessment. afib on monitor. pt remains npo. medicated prn with ativan per MSAS
[2023-12-10] MEDS: HEPARIN 5000 UNITS SC (20:04)
[2023-12-10] MEDS: ATIVAN 1 MG PO (20:29)
--- NOTE | 2023-12-10 20:33 | VATNOTE ---
this josé miguel when called to redress IV sites, noted left asrm inftrate as still swollen, approx. +2 edema. mostly forearm area
[2023-12-10 23:50] LABS: Glucose - Point of Care 111 mg/dl (70-99)
[2023-12-11] VITALS (32 sets, daily range): BP systolic 118–169; BP diastolic 70–124; BMI 36.0; BMI 35.3
[2023-12-11] MEDS: ATIVAN 1 MG IV ×2 (01:27→03:43)
[2023-12-11] MEDS: CARDIZEM 125 IV ×4 (03:13→19:49)
[2023-12-11] MEDS: ATIVAN 1 MG PO (05:08)
[2023-12-11] MEDS: VIBRAMYCIN 260 MG IV ×2 (05:14→16:52)
[2023-12-11] MEDS: NOVOLOG FLEXPEN-LOW RESISTANCE SC ×3 (05:20→17:39)
[2023-12-11 05:30] LABS: Glucose - Point of Care 104 mg/dl (70-99)
--- NOTE | 2023-12-11 05:47 | PTCARENOTE ---
Patient scored between 8-12 on MSAS overnight. PO and IV ativan given. Patient frequently agitated and confused, applied bilateral mitts due to pulling out IV lines, removing oxygen and aggression. Bilateral wrist restraints still applied for
aggression, agitation and removing IV/O2. Patient repositioned in bed and resting. will continue to monitor.
[2023-12-11 05:54] LABS: ALT (SGPT) 70 U/L (0-50); AST (SGOT) 77 U/L (17-59); Albumin 3.5 g/dl (3.5-5.0); Alkaline Phosphatase 307 U/L (38-126); Blood Urea Nitrogen 20 mg/dl (9-20); Calcium 8.5 mg/dl (8.4-10.2); Carbon Dioxide 28 mmol/L (22-30); Chloride 106 mmol/L (98-107); Estimated Creatinine Clearance > 125 ml/min; Glucose 111 mg/dl (70-99); Magnesium 1.9 mg/dl (1.6-2.3); Phosphorus 3.4 mg/dl (2.5-4.5); Potassium 3.7 mmol/L (3.5-5.1); Sodium 139 mmol/L (135-145); Total Bilirubin 2.6 mg/dl (0.2-1.3); Total Protein 6.5 g/dl (6.3-8.2); eGFR > 60.00
[2023-12-11 05:56] LABS: Hemoglobin 13.7 g/dL (13.0-18.0); Mean Corp Hgb Conc. 33.4 g/dL (33.0-37.0); Mean Corpuscular Hgb 31.7 pg (27.0-31.0); Mean Corpuscular Volume 94.9 fL (80.0-94.0); Mean Platelet Volume 9.6 fL (7.4-10.4); Platelet Count 70 10^3/uL (130-400); Red Blood Cell Count 4.32 10^6/uL (4.70-6.10); Red Cell Dist. Width 15.8 % (11.5-14.5); White Blood Cell Count 7.9 10^3/uL (4.8-10.8)
[2023-12-11] MEDS: SYMBICORT 80/4.5 MCG INHALER 2 PUFF INH (07:48)
[2023-12-11] MEDS: XOPENEX 0.63 MG INHALANT SOLUTION INH ×3 (07:48→19:48)
[2023-12-11] MEDS: ATIVAN 2 MG IV ×5 (08:02→16:53)
--- NOTE | 2023-12-11 08:02 | W.PN.CD ---
Today's Communication / Plan
-
- Rate control continued
- Titrate IV dilt and PO 60 mg qid as able to take.
Impression / Plan
-
Tachy Kavon syndrome
-Bradycardia -acute upon arrival in the ER rates in the 30s and 40s.
-Resolved after correction of hypothermia
- Remains in AF RVR sometimes HRs controlled, currently NPO per speech
- Cont IV dilt for now while NPO, can transition likely titrate to dilt 60 q6 hrs when able to take po and swallow - able to swallow intermittently.
- May have swallowing issues as well. If swallowing remains an issue, can consider leadless PPM with AVJ ablation. per EP
- ECHO 12/08/23 - LVEF 60%.
-Keep K > 3,5 (supplemented - now 3.4
Atrial fibrillation -slow ventricular response on arrival. Persistent A-fib. Patient's had a history of atrial fibrillation and was in atrial fibrillation on prior ECGs including a ECGs in September.
-Diltiazem and Toprol previously listed as meds held given bradycardi; Unclear which meds he was taking as outpatient.
-[id number] score is 1, due to prior GI bleed/anemia and EtOH abuse, no OAC therapy.
- Cont dilt gtt currently NPO per speech, likely can try dilt 60 q6 hrs for when he is able to take PO
Leukopenia
- abx per primary for PNA
Hypertension - elevate for now in setting of withdrawal
-Continue to monitor, currently holding diltiazem and Toprol given bradycardia and NPO
COPD - acute exacerbation per hospitalist.
ALCIDES - stable on CPAP, continue
EtOH abuse - chronic, drinks 2 bottles of wine daily.
Appears to now be in full blown alcohol withdrawal
plan per IM
Anemia/prior GI bleed - stable H/H. Hb 12.1 -->13.7.
Echo: CONCLUSIONS
Left ventricular ejection fraction is 60-65%, by visual assessment. Grossly
normal regional wall motion.
Normal right ventricular size and function.
Trace mitral regurgitation.
Aortic sclerosis without stenosis.
Trace tricuspid regurgitation. Estimated pulmonary artery pressure of 25-30
mmHg.
No significant change since the prior study of 04/10/2023.
Subjective: No acute complaints; mildly confused
Physical Exam
Vital Signs/Labs
Vital Signs
Temp Pulse Resp BP Pulse Ox
97.5 F 102 18 150/90 98
12/11/23 03:46 12/11/23 08:00 12/11/23 08:00 12/11/23 04:00 12/11/23 08:00
12/10/23 12/11/23 12/12/23
06:59 06:59 06:59
Actual Weight 110.2 kg 110.5 kg
12/11/23 05:16
12/11/23 05:16
Magnesium 1.9 mg/dl (1.6-2.3) 12/11/23 05:16
TSH 1.52 uIU/ml (0.47-4.68) 12/04/23 23:00
Free T4 1.29 ng/dl (0.78-2.19) 12/05/23 05:17
12/04/23 12/06/23
23:00 17:56
Rtz-[id number]-[id number] Pept 438 1020
Physical Exam
Constitutional: Comfortable and Confusion
EENT: Anicteric and Moist mucous membranes
Cardiovascular: JVD pressure is normal, Rhythm/rate is irregular and Systolic murmur present
Respiratory: Respiratory effort normal and Lungs clear to auscul.
GI: Soft, Non tender and Normal bowel sounds
Neuro/Psych: Other (confused)
Data Reviewed
-
Date of Service: December 11, 2023
Medical Decision Making: Reviewed Test Results and Test Interpretation
EKG: Tracing Personally Visualized and interpreted
Echo: Report Reviewed by me
Labs: Labs Reviewed by me
Old Records: Reviewed
[2023-12-11] MEDS: NSS (PRESERVATIVE FREE) 1 ML IV ×4 (08:04→14:31)
[2023-12-11] MEDS: NSS (PRESERVATIVE FREE) 10 ML IV (08:07)
[2023-12-11] MEDS: SOLU-MEDROL PF 40 MG IV (08:07)
[2023-12-11] MEDS: PROTONIX IV 40 MG IV (08:08)
[2023-12-11] MEDS: CARDIZEM CD 180 MG PO (08:08)
[2023-12-11] MEDS: ASPIR LOW (ENTERIC COATED) 81 MG PO (08:08)
[2023-12-11] MEDS: HEPARIN 5000 UNITS SC ×2 (08:08→19:49)
[2023-12-11] MEDS: LUMINAL 32.4 MG PO (08:08)
--- NOTE | 2023-12-11 08:20 | PTCARENOTE ---
Recd pt this AM. MSAS 14, combative, hallucinating, using profanity. uncooperative. See MAR. bedside abdominal US in progress.
--- NOTE | 2023-12-11 09:43 | PTCARENOTE ---
Pt remains with MSAS 14, additoinal dose of Ativan given per protocol, See. MAR.
[2023-12-11] MEDS: STERILE WATER FOR INJECTION 10 ML IV (10:17)
[2023-12-11] MEDS: ROCEPHIN 1000 MG IV (10:17)
[2023-12-11 12:13] LABS: Glucose - Point of Care 135 mg/dl (70-99)
--- NOTE | 2023-12-11 15:24 | W.PN.HOSP.TC ---
Addendum entered and electronically signed by Denver Gold MD 12/11/23 15:31:
Stop steroids with ongoing Encephalopathy
no wheezing, resp status stable
Original Note:
Today's Communication/Plan
-
F/u Sono read
Abx
Dilt ggt
Assessment / Plan
Assessment / Plan
Physical Exam
General: no acute distress appears comfortable obese
HEENT: Thick neck. MMM
Respiratory: Decreased BS no wheezing noted
Cardiac: S1/S2 and Irregular Irregular tachy; No Murmur
GI: Non Tender, Non Distended, Normal Bowel Sounds Umbilical hernia that is soft, nontender and easily reducible
Musculoskeletal: No Clubbing, No Cyanosis and No Edema
Neuro: AO x 3 and Nonfocal/grossly intact
Psych: anxious
A/P: Patient is a 63y M with PMH significant for COPD, A-Fib, HTN and alcohol use disorder who presents to ED complaining of SOB.
Acute Hypoxemic Respiratory Failure
COPD
Pneumonia
-Continue IV steroids, nebs, supplemental O2, taper as tolerated - wean to 40mg q24h
-Duonebs switched to Xopenex d/t tachycardia
- Speech therapy eval appreciated appropriate for reg diet, aspiration precautions.
-BIPAP prn sob
-Start Ceftriaxone, Doxycycline (d5) out of D7
-NPO - eval speech
Paroxysmal Atrial Fibrillation
Bradycardia
- Patient with HR in the 30s on initial presentation.
- suspect bradycardia related to hypothermia
- Patient is not on chronic OAC due to history of GI bleeding / ongoing alcohol abuse.
- restart Dilt ggt as NPO
-F/u ECHO - 60-65%
Alcohol Use Disorder
Acute Intoxication, now withdrawal
Acute Alcoholic Hepatitis
Alcoholic Cirrhosis with Esophageal Varices, Thrombocytopenia, etc
- Patient reports drinking 3 bottles of wine prior to arrival. Typically drinks 2 bottles daily ever day.
- alcohol level appreciated 300s on admission
- cont MSAS protocol
-cont phenobarbital taper
- Thiamine, folate, MVI replacement.
- Encourage alcohol cessation efforts.
- trend LFTs.
-CIWA, ativan IV PRN, phenobarb
-no need for CT head - no focal multisensory loss
-Will need to decide enteral intake if no improvement in mental status soon
Acute Metabolic Encephalopathy
-2/2 to EtOH withdrawal
-ammonia level: OK
-MSAS
#Transaminitis
-RUQ sono still pending read - if ascites - will need to tap
-most likely 2/2 to alcoholic hepatitis
Hypothermia suspect due to ETOH intoxication
-resolved
Hypokalemia
-monitor and replete
Pancytopenia
-most likely 2/2 to EtOH abuse +/- acute infection
-ctm with resuscitation
LORENZO
- SCr = 1.7 compared to baseline of 0.6.
- Likely pre-renal in origin. ? unreported volume losses, N/V?
- Resolved with IVF since completed
ASCVD / Carotid Stenosis
Hypertension
-Home Cardizem resumed short acting 30 mg QID given recent Bradycardia d/t ETOH intoxication vs ETOH interaction with medications
-Home metoprolol remains on hold for now, IV lopressor prn
Obesity due to excess calories
ALCIDES - Not compliant with PAP therapy
- Affects all aspects of care.
- Patient states that he no longer has PAP machine at home.
- Encourage cessation of alcohol intake, healthy diet and increased physical activity with goal of weight reduction.
DVT Prophylaxis: HSQ
Code Status: Full
Anticipated Discharge: Within 24 hours
Subjective/Interval History
-
Date of Service: December 11, 2023
still confused
Objective Data
-
Labs:
Laboratory Results
12/11/23
05:16
WBC 7.9
Hgb 13.7
Hct 41.0
Plt Count 70 L
Sodium 139
Potassium 3.7
Chloride 106
Carbon Dioxide 28
BUN 20
Creatinine 0.6 L
Glucose 111 H
Calcium 8.5
Total Bilirubin 2.6 H
AST 77 H
ALT 70 H
Alkaline Phosphatase 307 H
Vital Signs:
Vital Signs
Temp Pulse Resp BP Pulse Ox
98.0 F 113 20 169/120 98
12/11/23 11:53 12/11/23 14:33 12/11/23 14:33 12/11/23 12:00 12/11/23 14:33
I&O
12/10/23 12/11/23 12/12/23
06:59 06:59 06:59
Intake Total 180 / 180 930 / 930
Output Total 850 / 850
Balance -670 / -670 930 / 930
Review of Systems
-
History Source: Patient
All other systems: Not reviewed unless documented
Data Reviewed
-
Diagnostic Radiology: Image personally visualized and interpreted and Report Reviewed by me
Labs: Labs Reviewed by me
[2023-12-11] MEDS: PHENOBARBITAL 32.5 MG IV ×2 (16:44→21:34)
[2023-12-11] MEDS: PRECEDEX 100 IV ×2 (16:45→21:34)
[2023-12-11] MEDS: LUMINAL PO (16:51)
--- NOTE | 2023-12-11 16:56 | CON.INTV ---
Consultation
Consultation Request
Date/Time Consultation Requested: 12/11/2023 - 161
Date/Time Consultation Performed: 12/11/2023 - 163
Requesting Provider: Dr. Gold
Performing Provider: Dr. Etienne
Reason for Consultation: EtOH withdrawal
Medical History
-
Chief Complaint: SOB
History of Present Illness:
63-year-old male former tobacco smoker with a past medical history of COPD, lung nodules, severe ALCIDES noncompliant with CPAP, alcoholic cirrhosis, chronic alcoholism, hypertension, history of GI bleed with history of duodenal ulcer/esophageal
varices, polymyalgia rheumatica and sciatica who presented with shortness of breath on 12/05/2023. He drank 3 bottles of wine on the day of admission. His breathing has been poor about a week or so prior to him come to the ER. He was initially
admitted for possible COPD exacerbation with IV steroids, nebs and oxygen. He also was bradycardic into the 30s initially during his hospitalization and received atropine in the ER. He was started on MSAS protocol with phenobarbital taper.
Patient also started on antibiotics for left mid�lower lung pneumonia. Patient was having worsening alcohol withdrawal symptoms and was n.p.o., starting on Cardizem drip for his A-fib with RVR. He has been receiving prn Ativan since admission with
high MSAS scores with worsening agitation, and is now being transferred to the ICU for Precedex initiation. Critical care services consulted for additional management/recommendations.
When I saw the patient he was in bed, just given phenobarbital 32.5 mg, Ativan 2mg IVP x1, and now on Precedex at 0.4mcg/kg/hr, and he is sedated, easily arousable to voice, but then quickly falls back asleep. Currently on Cardizem drip at 10 mg/h.
Heart rate 98, BP 146/70 and saturating 90% on 1 L/min nasal cannula.
PMHx: Hypertension, carotid artery stenosis, COPD, lung nodules, paroxysmal A-fib, severe ALCIDES noncompliant with CPAP, GERD, Coles's esophagus, diverticular disease, alcoholic cirrhosis, history of duodenal ulcer/EV with history of GI bleed,
sciatica, history of PMR, alcoholism, former tobacco use disorder ([id number] history, quit 2019)
PSHx: Bilateral hip replacement, bilateral retinal surgery, appendectomy, cataract surgery
Past Medical History
Past Medical History: Other (Above as per HPI)
Past Surgical History: Other (Above as per HPI)
Social History
Tobacco: Former Smoker ([id number] history, quit 2019)
Alcohol: Chronic Alcoholic
Drug: None
Personal:
Living: With Family
Employment: Employed ([employer])
Family History
Family History: Cancer (Father + mother: Unknown which type)
Allergies / Home Medications
Allergies
Allergy/AdvReac Type Severity Reaction Status Date / Time
No Known Allergies Allergy Verified 11/09/23 13:26
Home Medications
�Medication �Instructions �Recorded �Confirmed �Last Taken �Type
metoprolol succinate 100 mg 100 mg PO DAILY #30 tabs 07/28/23 12/05/23 11/09/23 Rx
tablet,extended release 24 hr
aspirin 81 mg tablet,delayed 81 mg PO DAILY Blood Clot 09/14/23 12/05/23 11/09/23 Rx
release Prevention/Tx #30 tabs
diltiazem HCl 120 mg 120 mg PO DAILY #90 caps 09/14/23 12/05/23 11/09/23 Rx
capsule,extended release 24 hr
fluticasone fur. 100 mcg-umeclid 1 inh inhalation R DAILY 09/14/23 12/05/23 11/09/23 Rx
62.5 mcg-vilant 25 mcg Lung/Breathing Issues #90 ea
inhalat.powder (Trelegy Ellipta)
levalbuterol tartrate 45 1 puff inhalation R Q6HPRN PRN sob 09/14/23 12/05/23 07/26/23 Rx
mcg/actuation aerosol inhaler #90 grams
Unknown Eye Drops 1 drp BOTH EYES DAILY dry eyes 11/09/23 12/05/23 11/09/23 History
levalbuterol tartrate 45 2 puff inhalation R DAILY 11/09/23 12/05/23 11/09/23 History
mcg/actuation aerosol inhaler Lung/Breathing Issues
pantoprazole 40 mg tablet,delayed 40 mg PO DAILY Gastrointestinal 11/09/23 12/05/23 11/09/23 History
release Issue
thiamine HCl (vitamin B1) 100 mg 100 mg PO DAILY Supplement 11/10/23 12/05/23 11/09/23 History
tablet
Review of Systems
-
Unable to Obtain full review of systems at this time due to: Acuity
Vitals / Labs / Diagnostic Testing
Vital Signs
Temp Pulse Resp BP Pulse Ox
97.9 F 113 20 169/120 98
12/11/23 15:51 12/11/23 14:33 12/11/23 14:33 12/11/23 12:00 12/11/23 14:33
Lab Data
12/11/23 05:16
12/11/23 05:16
Diagnostic Testing:
Physical Exam
-
HEENT: Normocephalic and Anicteric
Cardiovascular: S1/S2 and Peripheral Edema (negative)
Respiratory: Wheeze (negative), Rales (negative), Rhonchi (negative) and Non-Labored Respirations
GI: Soft, Non Distended, Non Tender and Normal Bowel Sounds
Neurology: Tremors (negative) and Other (Sedated; pupils are equal at 2 mm bilaterally)
Skin: Warm and Dry
General: Respiratory Distress (negative), Comfortable, Chills (negative) and Sweats (negative)
Assessment
-
Assessment: 63-year-old male former tobacco smoker with a past medical history of COPD, lung nodules, severe ALCIDES noncompliant with CPAP, alcoholic cirrhosis, chronic alcoholism, hypertension, history of GI bleed with history of duodenal
ulcer/esophageal varices, polymyalgia rheumatica and sciatica who presented with shortness of breath on 12/05/2023. He drank 3 bottles of wine on the day of admission. His breathing has been poor about a week or so prior to him come to the ER. He
was initially admitted for possible COPD exacerbation with IV steroids, nebs and oxygen. He also was bradycardic into the 30s initially during his hospitalization and received atropine in the ER. He was started on MSAS protocol with phenobarbital
taper. Patient also started on antibiotics for left mid�lower lung pneumonia. Patient was having worsening alcohol withdrawal symptoms and was n.p.o., starting on Cardizem drip for his A-fib with RVR. He has been receiving prn Ativan since
admission with high MSAS scores, and is now being transferred to the ICU for Precedex initiation. Critical care services consulted for additional management/recommendations.
Conditions present prior admission:
Discharged from the hospital 07/2023.
Hypertension
Carotid stenosis
COPD-follows up with Dr. García maintained on Trelegy, albuterol nebulizer as needed.
History of pulmonary nodule
History of paroxysmal atrial fibrillation
Severe obstructive sleep apnea noncompliant with CPAP
GERD/Coles's esophagus
Diverticular disease
Alcoholic cirrhosis
History of duodenal ulcer/esophageal varices and GI bleeding
Sciatica pain
Polymyalgia rheumatica
Chronic alcohol use-prior history of delirium.
Bilateral hip replacement
Bilateral retinal surgery.
Former smoker [id number] history quit in 2019.
Impression:
#Alcohol withdrawal with suspected DT
#Left sided pneumonia/CAP
#Atrial fibrillation with RVR
#Alcoholic cirrhosis with ascites, portal hypertension and history of esophageal varices with UGIB
#Thrombocytopenia (due to cirrhosis)
#Transaminitis with hyperbilirubinemia (likely due to alcoholic hepatitis in the setting of alcoholic cirrhosis)
#Moderate-severe COPD with air trapping (last FEV1 was 1.61L / 50% predicted via spirometry from 02/2023) with suspected recent acute exacerbation
#Severe ALCIDES (total index: 53 with O2 saturation jose: 87%) noncompliant to BiPAP (stopped in 2020 for unclear reasons)
Plan:
- Transferred to the ICU for close monitoring and initiation of Precedex
- Continue MSAS with prn ativan
- NPO with aspiration precautions; keep head of bed >30-45�
- Thiamine + folic acid
- 4-point restraints with 4 rails
- Low threshold to intubate
- Check/trend ammonia, INR, AST, ALT, T. bili and GGT
- Regarding his COPD, he follows with us in the office with Dr. García, last office visit in February 2020. He uses Trelegy 100mcg with prn levalbuterol HFA
- Considering patient is now more sedated, changes inhalers to nebs with atrovent/xopenex+ budesonide
- Maintain SpO2 >88% and <96%
- Steroids stopped in setting of his worsening agitation and AMS
- Antibiotics with ceftriaxone + doxycycline and will treat for at least 7 days total (antibiotics started on 12/07/2023)
- Mainta in SpO2 >90-94%
- Cultures have not been obtained this hospitalization
-If patient spikes a fever then gonzalez-culture at that time
- He will need repeat imaging with CXR in about 6 weeks to follow-up left-sided pneumonia to resolution
- Heart rate control with goal HR <110
- Continue Cardizem drip, wean as tolerated
- Replete electrolytes with K>4, Mg>2
- Maintain MAP>65
- Maintain euglycemia with goal BG 140-180
- He also qualifies for LDCT Chest for lung cancer screening until 2034 (he quit smoking in 2019) - this can be discussed in the office when he follows with Dr. García
- DVT ppx
Critical care statement: A total of 44 minutes of critical care time was provided for this patient today. This includes management of unstable vital signs, evaluation of the patient at bedside, reviewing the patient's pertinent medical records
including radiographs, microbiology, laboratory evaluations, and discussion with primary team, consultants, pharmacy, nutrition, physical therapy, case management, charge nurse, critical care nursing, and respiratory therapy.
Data:
Abdominal ultrasound 12/11/2023:
1. SEVERE HEPATIC CIRRHOSIS.
2. No sonographic evidence for cholelithiasis or biliary obstruction.
3. Mild splenomegaly secondary to portal hypertension.
4. Small volume of ascites.
Transthoracic echocardiogram 12/08/2023:
Left ventricular ejection fraction is 60-65%, by visual assessment. Grossly
normal regional wall motion.
Normal right ventricular size and function.
Trace mitral regurgitation.
Aortic sclerosis without stenosis.
Trace tricuspid regurgitation. Estimated pulmonary artery pressure of 25-30
mmHg.
No significant change since the prior study of 04/10/2023.
CXR 12/06/2023:
Parenchymal opacity within the left mid to lower lung, increasing when comparing to to most recent chest radiographs. Finding would be suggestive of pneumonia, although atelectasis could have a similar appearance.
No convincing evidence for pulmonary edema pattern.
--- NOTE | 2023-12-11 17:18 | CM ---
Patient with Dx Acute Hypoxemic Respiratory Failure, COPD, Pneumonia Tachy Kavon Syndrome, Afib, Alcohol Use Disorder, Acute Metabolic Encephaolpathy. O2 2L. Receiving IV Abx, IV Phenobarb. NPO. MSAS. Per nurse;
combative/hallucinating/uncoopertive this am. PT/OT on hold.
Patient transfered from IMU to ICU today for Precedex.
CM continuing to follow.
Plan TBD.
[2023-12-11 17:37] LABS: Glucose - Point of Care 145 mg/dl (70-99)
--- NOTE | 2023-12-11 17:39 | PTCARENOTE ---
patient received from IMU. combative, agitated and yelling expletives. medicated with Ativan per MSAS, Precedex initiated. VAT team at bedside. midline placed right upper arm, with good blood returns. Cardizem per work list. lungs diminished. wet
non productive cough. 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 monitor afib. orders received
[2023-12-11 17:51] LABS: INR 1.57; PT 18.6 Sec (11.4-14.6)
[2023-12-11 17:53] LABS: APTT 30.2 Sec (23.4-35.0)
--- NOTE | 2023-12-11 18:31 | PTCARENOTE ---
spouse at bedside, updated. support given. remains@0.4 mcq precedex, cardizem@10. safe environment maintained
--- NOTE | 2023-12-11 19:05 | PTCARENOTE ---
Assumed care of pt. approx 1899.
Pt currently in 4 point restraints for protective measures, started on DEX for ETOH W/D agitation/violence.
Will attempt to remove lower restraints as tolerated for patient safety.
Current Gtt include cardizem, and DEX see titration flow sheets for details.
Only alert to tactile stimulation, very disoriented, restless upon stimulation. Pupils =/r 2 mm brisk.
MSAS 6, RASS -1.
[2023-12-11] MEDS: ATROVENT NEBULES 0.5 MG INH (19:47)
[2023-12-11] MEDS: PULMICORT 0.5 MG INH (19:48)
[2023-12-12] VITALS (26 sets, daily range): BP systolic 127–145; BP diastolic 67–95; BMI 35.1
[2023-12-12] MEDS: NOVOLOG FLEXPEN-LOW RESISTANCE SC ×4 (00:17→18:08)
[2023-12-12 00:25] LABS: Glucose - Point of Care 116 mg/dl (70-99)
--- NOTE | 2023-12-12 00:30 | PTCARENOTE ---
Pt. assessment remains unchanged.
MSAS steady at 6.
Will trial off 4 point restraints, convert to bi lateral wrist.
[2023-12-12] MEDS: ATIVAN 2 MG IV ×3 (03:15→19:06)
[2023-12-12] MEDS: VIBRAMYCIN 260 MG IV ×2 (03:16→15:58)
[2023-12-12 03:32] LABS: Ammonia 25 umol/L (9-30)
[2023-12-12 03:38] LABS: ALT (SGPT) 58 U/L (0-50); AST (SGOT) 58 U/L (17-59); Albumin 2.9 g/dl (3.5-5.0); Alkaline Phosphatase 224 U/L (38-126); Blood Urea Nitrogen 21 mg/dl (9-20); Calcium 8.2 mg/dl (8.4-10.2); Carbon Dioxide 31 mmol/L (22-30); Chloride 106 mmol/L (98-107); Direct Bilirubin 1.2 mg/dl (0.0-0.4); Estimated Creatinine Clearance > 125 ml/min; GGTP 1109 U/L (15-73); Glucose 122 mg/dl (70-99); Magnesium 1.9 mg/dl (1.6-2.3); Phosphorus 4.2 mg/dl (2.5-4.5); Potassium 4.1 mmol/L (3.5-5.1); Sodium 138 mmol/L (135-145); Total Bilirubin 2.2 mg/dl (0.2-1.3); Total Protein 5.7 g/dl (6.3-8.2); eGFR > 60.00
[2023-12-12 03:59] LABS: Hematocrit 39.3 % (39.0-52.0); Hemoglobin 13.5 g/dL (13.0-18.0); Mean Corp Hgb Conc. 34.4 g/dL (33.0-37.0); Mean Corpuscular Hgb 32.1 pg (27.0-31.0); Mean Corpuscular Volume 93.6 fL (80.0-94.0); Mean Platelet Volume 9.7 fL (7.4-10.4); Platelet Count 65 10^3/uL (130-400); Red Cell Dist. Width 15.1 % (11.5-14.5); White Blood Cell Count 4.1 10^3/uL (4.8-10.8)
[2023-12-12 05:42] LABS: Glucose - Point of Care 107 mg/dl (70-99)
[2023-12-12] MEDS: PRECEDEX 100 IV ×3 (06:00→23:19)
--- NOTE | 2023-12-12 06:20 | PTCARENOTE ---
Assessment HS remains unchanged.
Out of 4 point rx and mitts. only in bi lateral soft wrist restraints.
[2023-12-12] MEDS: XOPENEX 0.63 MG INHALANT SOLUTION INH ×3 (07:25→20:00)
[2023-12-12] MEDS: PULMICORT 0.5 MG INH ×2 (07:25→20:13)
[2023-12-12] MEDS: ATROVENT NEBULES 0.5 MG INH ×3 (07:25→20:00)
[2023-12-12] MEDS: ASPIR LOW (ENTERIC COATED) PO (08:26)
[2023-12-12] MEDS: PROTONIX IV 40 MG IV (08:26)
[2023-12-12] MEDS: PHENOBARBITAL 32.5 MG IV ×3 (08:26→23:15)
[2023-12-12] MEDS: HEPARIN 5000 UNITS SC ×2 (08:26→19:05)
[2023-12-12] MEDS: CARDIZEM CD PO (08:26)
[2023-12-12] MEDS: NSS (PRESERVATIVE FREE) 10 ML IV (08:26)
--- NOTE | 2023-12-12 09:02 | W.PN.INTV ---
Today's Communication / Plan
Recommendations
Precedex
MSAS with prn Ativan
Restraints as needed
Trend LFTs
Psych consult once more awake
Telemetry with repletion of electrolytes
Heart rate control with goal <110 on Cardizem drip, wean as tolerated
Low threshold to intubate although apparently he has advanced directive which had previously brought in; try to locate this soon as possible and I advised to bring in copy as well which she will do tomorrow
Aspiration precautions
Assessment
-
Assessment: 63-year-old male former tobacco smoker with a past medical history of COPD, lung nodules, severe ALCIDES noncompliant with CPAP, alcoholic cirrhosis, chronic alcoholism, hypertension, history of GI bleed with history of duodenal
ulcer/esophageal varices, polymyalgia rheumatica and sciatica who presented with shortness of breath on 12/05/2023. He drank 3 bottles of wine on the day of admission. His breathing has been poor about a week or so prior to him come to the ER. He
was initially admitted for possible COPD exacerbation with IV steroids, nebs and oxygen. He also was bradycardic into the 30s initially during his hospitalization and received atropine in the ER. He was started on MSAS protocol with phenobarbital
taper. Patient also started on antibiotics for left mid�lower lung pneumonia. Patient was having worsening alcohol withdrawal symptoms and was n.p.o., starting on Cardizem drip for his A-fib with RVR. He has been receiving prn Ativan since
admission with high MSAS scores, and is now being transferred to the ICU for Precedex initiation. Critical care services consulted for additional management/recommendations.
Conditions present prior admission:
Discharged from the hospital 07/2023.
Hypertension
Carotid stenosis
COPD-follows up with Dr. García maintained on Trelegy, albuterol nebulizer as needed.
History of pulmonary nodule
History of paroxysmal atrial fibrillation
Severe obstructive sleep apnea noncompliant with CPAP
GERD/Coles's esophagus
Diverticular disease
Alcoholic cirrhosis
History of duodenal ulcer/esophageal varices and GI bleeding
Sciatica pain
Polymyalgia rheumatica
Chronic alcohol use-prior history of delirium.
Bilateral hip replacement
Bilateral retinal surgery.
Former smoker [id number] history quit in 2019.
Impression:
#Alcohol withdrawal with suspected DT
#Left sided pneumonia/CAP
#Atrial fibrillation with RVR now controlled on Cardizem gtt
#Alcoholic cirrhosis with ascites, portal hypertension and history of esophageal varices with UGIB
#Thrombocytopenia (due to cirrhosis)
#Transaminitis with hyperbilirubinemia (likely due to alcoholic hepatitis in the setting of alcoholic cirrhosis)
#Moderate-severe COPD with air trapping (last FEV1 was 1.61L / 50% predicted via spirometry from 02/2023) with suspected recent acute exacerbation
#Severe ALCIDES (total index: 53 with O2 saturation jose: 87%) noncompliant to BiPAP (stopped in 2020 for unclear reasons)
Plan:
- Transferred to the ICU for close monitoring and initiation of Precedex
- Continue MSAS with prn ativan
- Continue NPO until mentation improves; continue aspiration precautions; keep head of bed >30-45�
- Thiamine + folic acid
- Restraints as needed with 4 rails
- Low threshold to intubate
- Ammonia level 25 this AM (12/12/2023); trend LFTs, INR, AST, ALT, T. bili and GGT
- Regarding his COPD, he follows with us in the office with Dr. García, last office visit in February 2020. He uses Trelegy 100mcg with prn levalbuterol HFA
- Considering patient is now more sedated, on 12/10 I changed inhalers to nebs with atrovent/xopenex+ budesonide
- Maintain SpO2 >88% and <96%
- Steroids stopped in setting of his worsening agitation and AMS
- Continue antibiotics with ceftriaxone + doxycycline and will treat for at least 7 days total (antibiotics started on 12/07/2023)
- Maintain SpO2 >90-94%
- Cultures have not been obtained this hospitalization
-If patient spikes a fever then gonzalez-culture at that time
- He will need repeat imaging with CXR in about 6 weeks to follow-up left-sided pneumonia to resolution
- Heart rate control with goal HR <110
- Continue Cardizem drip, wean as tolerated
- Replete electrolytes with K>4, Mg>2
- Maintain MAP>65
- Maintain euglycemia with goal BG 140-180
- He also qualifies for LDCT Chest for lung cancer screening until 2034 (he quit smoking in 2019) - this can be discussed in the office when he follows with Dr. García
- DVT ppx
Critical care statement: A total of 37 minutes of critical care time was provided for this patient today. This includes management of unstable vital signs, evaluation of the patient at bedside, reviewing the patient's pertinent medical records
including radiographs, microbiology, laboratory evaluations, and discussion with primary team, consultants, pharmacy, nutrition, physical therapy, case management, charge nurse, critical care nursing, and respiratory therapy.
Data:
Abdominal ultrasound 12/11/2023:
1. SEVERE HEPATIC CIRRHOSIS.
2. No sonographic evidence for cholelithiasis or biliary obstruction.
3. Mild splenomegaly secondary to portal hypertension.
4. Small volume of ascites.
Transthoracic echocardiogram 12/08/2023:
Left ventricular ejection fraction is 60-65%, by visual assessment. Grossly
normal regional wall motion.
Normal right ventricular size and function.
Trace mitral regurgitation.
Aortic sclerosis without stenosis.
Trace tricuspid regurgitation. Estimated pulmonary artery pressure of 25-30
mmHg.
No significant change since the prior study of 04/10/2023.
CXR 12/06/2023:
Parenchymal opacity within the left mid to lower lung, increasing when comparing to to most recent chest radiographs. Finding would be suggestive of pneumonia, although atelectasis could have a similar appearance.
No convincing evidence for pulmonary edema pattern.
Subjective Dataa
Subjective Data
Date of Service:
Date of Service: December 12, 2023
Chief Complaint: Medical Doctor Md/Medical Director Follow Up
Subjective:
Patient seen and evaluated today at bedside. Remains on Precedex at 0.4mcg/kg/hr and cardizem gtt at 5mg/hr. , Laurence, at bedside and all questions were answered. Heart rate is 85. No acute events reported from overnight.
Review of Systems
General: Unobtainable - Pat Unresp
Objective Data
Data Reviewed
Vital Signs / I&O / Oxygen:
Vital Signs
Temp Pulse Resp BP Pulse Ox
98.0 F 81 10 136/84 97
12/12/23 07:52 12/12/23 09:00 12/12/23 09:00 12/12/23 09:00 12/12/23 09:04
Intake and Output
12/11/23 12/12/23 12/13/23
06:59 06:59 06:59
Intake Total 930 / 930 536.4 / 552.2 63.2 / 63.2
Output Total 1520 / 1520
Balance 930 / 930 -983.6 / -967.8 63.2 / 63.2
SaO2 97
Nasal Cannula flow liters per 3
minute
Physical Exam
General: Respiratory Distress (Negative) and Comfortable
HEENT: Normocephalic and Anicteric
Cardiovascular: Irregular Rhythm and Peripheral Edema (Negative)
Respiratory: Wheeze (Negative), Crackles (Negative), Rhonchi (Negative) and Non-Labored Respirations
GI: Soft, Non Distended, Non Tender and Normal Bowel Sounds
Neurology: Unresponsive (Awakens to verbal and tactile stimulation but then quickly falls back asleep)
Skin: Warm and Dry
Labs/Micro/Reports
Lab Data
12/12/23 03:12
12/12/23 03:12
Laboratory Results
12/11/23
17:28
PT 18.6 H
INR 1.57
APTT 30.2
--- NOTE | 2023-12-12 09:04 | PTCARENOTE ---
pt sedate on precedex gtt. wakes to touch. able to state name. restless when awake. falls asleep quickly. unable to give po meds do to pt sedation/ asp risk. inc of urine condom cath placed on pt. oral care done.
--- NOTE | 2023-12-12 09:07 | PTCARENOTE ---
desmond connor running. cardiology at bedside. updated that pt unable to take po meds. dr stated to hold cardialysem po.
--- NOTE | 2023-12-12 09:23 | W.PN.CD ---
Today's Communication / Plan
-
- Now rate-controlled on Cardizem drip; remains NPO per speech.
- Continue Cardizem drip; transition to Cardizem CD 180 mg daily when tolerating PO intake.
Impression / Plan
-
Tachy Kavon syndrome
- Bradycardia -acute upon arrival in the ER rates in the 30s and 40s.
- Resolved after correction of hypothermia
- Now rate-controlled on Cardizem drip; remains NPO per speech.
- Continue Cardizem drip; transition to Cardizem CD 180 mg daily when tolerating PO intake.
- If swallowing remains an issue, can consider leadless PPM with AVJ ablation per EP Cardiology.
- ECHO 12/08/23 - LVEF 60%.
Atrial fibrillation -slow ventricular response on arrival. Persistent A-fib. Patient's had a history of atrial fibrillation and was in atrial fibrillation on prior ECGs including a ECGs in September.
-Diltiazem and Toprol previously listed as meds held given bradycardia; unclear which meds he was taking as outpatient.
-[id number] score is 1, due to prior GI bleed/anemia and EtOH abuse-->no OAC therapy.
-Continue Cardizem drip as above.
Leukopenia
- abx per primary for PNA
Hypertension -
-Currently controlled.
COPD - acute exacerbation per hospitalist.
ALCIDES - stable on CPAP, continue
EtOH abuse - chronic, drinks 2 bottles of wine daily.
Appears to now be in full blown alcohol withdrawal
plan per IM
Anemia/prior GI bleed - stable H/H. Hb 12.1 -->13.7.
Echo: CONCLUSIONS
Left ventricular ejection fraction is 60-65%, by visual assessment. Grossly
normal regional wall motion.
Normal right ventricular size and function.
Trace mitral regurgitation.
Aortic sclerosis without stenosis.
Trace tricuspid regurgitation. Estimated pulmonary artery pressure of 25-30
mmHg.
No significant change since the prior study of 04/10/2023.
Subjective: No major events overnight. Remains obtunded.
Physical Exam
Vital Signs/Labs
Vital Signs
Temp Pulse Resp BP Pulse Ox
98.0 F 81 10 136/84 97
12/12/23 07:52 12/12/23 09:00 12/12/23 09:00 12/12/23 09:00 12/12/23 09:04
12/11/23 12/12/23 12/13/23
06:59 06:59 06:59
Actual Weight 110.5 kg 107.8 kg
12/12/23 03:12
12/12/23 03:12
PT 18.6 Sec (11.4-14.6) H 12/11/23 17:28
INR 1.57 12/11/23 17:28
APTT 30.2 Sec (23.4-35.0) 12/11/23 17:28
Magnesium 1.9 mg/dl (1.6-2.3) 12/12/23 03:12
TSH 1.52 uIU/ml (0.47-4.68) 12/04/23 23:00
Free T4 1.29 ng/dl (0.78-2.19) 12/05/23 05:17
12/04/23 12/06/23
23:00 17:56
[id number] Pept 438 1020
Physical Exam
Constitutional: No acute distress and Confusion (Obtunded)
EENT: Anicteric
Cardiovascular: Pedal edema is absent, Systolic murmur absent, Rhythm/rate is irregular and S1S2 is normal
Respiratory: Respiratory effort normal and Lungs clear to auscul.
GI: Soft
Neuro/Psych: Other (Obtunded)
Other: Skin (Warm, dry, intact)
Data Reviewed
-
Date of Service: December 12, 2023
EKG: Tracing Personally Visualized and interpreted (Telemetry: Rate-controlled atrial fibrillation)
Medical Tests (PFT, Pathology etc): Discussed with Nurse
Labs: Labs Reviewed by me
Critical Care Time (in minutes): 37
[2023-12-12] MEDS: STERILE WATER FOR INJECTION 10 ML IV (11:21)
[2023-12-12] MEDS: ROCEPHIN 1000 MG IV (11:21)
--- NOTE | 2023-12-12 12:53 | VATNOTE ---
During assessment, noted +2 pitting edema to pt's left arm at site of previous IV infiltration. Heat applied and arm elevated.
--- NOTE | 2023-12-12 13:49 | W.PN.HOSP.TC ---
Addendum entered and electronically signed by Denver Gold MD 12/12/23 14:51:
Persistent A-fib.
Original Note:
Today's Communication/Plan
-
Dexmedetomidine
Ativan as needed
MSAS
Cardizem drip
Advance care directives
Will need to decide on enteral intake soon
Trend LFTs
Assessment / Plan
Assessment / Plan
Physical Exam
General: no acute distress appears comfortable obese
HEENT: Thick neck. MMM
Respiratory: Decreased BS no wheezing noted
Cardiac: S1/S2 and Irregular Irregular tachy; No Murmur
GI: Non Tender, Non Distended, Normal Bowel Sounds Umbilical hernia that is soft, nontender and easily reducible
Musculoskeletal: No Clubbing, No Cyanosis and No Edema
Neuro: AO x 3 and Nonfocal/grossly intact
Psych: anxious
A/P: Patient is a 63y M with PMH significant for COPD, A-Fib, HTN and alcohol use disorder who presents to ED complaining of SOB.
Acute Hypoxemic Respiratory Failure
COPD
Pneumonia
-Continue IV steroids, nebs, supplemental O2, taper as tolerated - wean to 40mg q24h
-Duonebs switched to Xopenex d/t tachycardia
- Speech therapy eval appreciated appropriate for reg diet, aspiration precautions.
-BIPAP prn sob
-Start Ceftriaxone, Doxycycline (d6) out of D7
-NPO - eval speech
Paroxysmal Atrial Fibrillation
Bradycardia
- Patient with HR in the 30s on initial presentation.
- suspect bradycardia related to hypothermia
- Patient is not on chronic OAC due to history of GI bleeding / ongoing alcohol abuse.
- restart Dilt ggt as NPO
-F/u ECHO - 60-65%
� Improved on dexmedetomidine
Alcohol Use Disorder
Acute Intoxication, now withdrawal
Acute Alcoholic Hepatitis
Alcoholic Cirrhosis with Esophageal Varices, Thrombocytopenia, etc
- Patient reports drinking 3 bottles of wine prior to arrival. Typically drinks 2 bottles daily ever day.
- alcohol level appreciated 300s on admission
- cont MSAS protocol
-cont phenobarbital taper
� Start dexmedetomidine, transferred to ICU
- Thiamine, folate, MVI replacement.
- Encourage alcohol cessation efforts.
- trend LFTs.
-CIWA, ativan IV PRN, phenobarb
-no need for CT head - no focal multisensory loss
-Will need to decide enteral intake if no improvement in mental status soon
Acute Metabolic Encephalopathy
-2/2 to EtOH withdrawal
-ammonia level: OK
-MSAS
#Transaminitis
#Severe hepatic cirrhosis
� Small volume ascites, if no improvement in mental status, will need to perform paracentesis to rule out SBP
-most likely 2/2 to alcoholic hepatitis
�LFTs improving
Hypothermia suspect due to ETOH intoxication
-resolved
Hypokalemia
-monitor and replete
Pancytopenia
-most likely 2/2 to EtOH abuse +/- acute infection
-ctm with resuscitation
LORENZO
- SCr = 1.7 compared to baseline of 0.6.
- Likely pre-renal in origin. ? unreported volume losses, N/V?
- Resolved with IVF
ASCVD / Carotid Stenosis
Hypertension
-Home Cardizem resumed short acting 30 mg QID given recent Bradycardia d/t ETOH intoxication vs ETOH interaction with medications
-Home metoprolol remains on hold for now, IV lopressor prn
Obesity due to excess calories
ALCIDES - Not compliant with PAP therapy
- Affects all aspects of care.
- Patient states that he no longer has PAP machine at home.
- Encourage cessation of alcohol intake, healthy diet and increased physical activity with goal of weight reduction.
DVT Prophylaxis: HSQ
Code Status: Full ( Has Adv Directive she is trying to locate - Patient does not want any stomach feeding tubes, or being a 'vegetable')
Total time spent on today's encounter was 50 minutes which included time spent in counseling the patient/family regarding diagnosis and treatment plan as listed above, goals of care, and symptom management. Case was discussed with nursing staff,
specialists, and care coordinators/case management. All labs and imaging personally reviewed by me. Remainder the time spent in detailed review of previous records, lab data, imaging, and other medical provider documentation.
Anticipated Discharge: > 48 hours
Subjective/Interval History
-
Date of Service: December 12, 2023
No acute events overnight
Objective Data
-
Labs:
Laboratory Results
12/12/23
03:12
WBC 4.1 L
Hgb 13.5
Hct 39.3
Plt Count 65 L
Sodium 138
Potassium 4.1
Chloride 106
Carbon Dioxide 31 H
BUN 21 H
Creatinine 0.6 L
Glucose 122 H
Calcium 8.2 L
Total Bilirubin 2.2 H
AST 58
ALT 58 H
Alkaline Phosphatase 224 H
Vital Signs:
Vital Signs
Temp Pulse Resp BP Pulse Ox
98.1 F 77 20 134/80 97
12/12/23 11:39 12/12/23 12:51 12/12/23 12:51 12/12/23 11:00 12/12/23 12:51
I&O
12/11/23 12/12/23 12/13/23
06:59 06:59 06:59
Intake Total 930 / 930 536.4 / 552.2 73.6 / 73.6
Output Total 1520 / 1520
Balance 930 / 930 -983.6 / -967.8 73.6 / 73.6
Review of Systems
-
History Source: Patient
All other systems: Not reviewed unless documented
Data Reviewed
-
Diagnostic Radiology: Image personally visualized and interpreted and Report Reviewed by me
Labs: Labs Reviewed by me
[2023-12-12 14:10] LABS: Glucose - Point of Care 104 mg/dl (70-99)
[2023-12-12] MEDS: CARDIZEM 125 IV (15:53)
[2023-12-12 18:18] LABS: Glucose - Point of Care 117 mg/dl (70-99)
--- NOTE | 2023-12-12 19:56 | PTCARENOTE ---
assumed care of pt approx 1900.
Remains in bi lat wrist RX.
DEX on 0.2, titrated to 0.4 due to increased RASS. x1 Ativan given for agitation.
redirectable at times, oriented to self, and place, forgetful of situation.
Afib, on cardizem gtt 5. Normotensive, Normothermic, anasarca.
--- NOTE | 2023-12-12 23:53 | PTCARENOTE ---
Assessment remains unchanged.
Remains of DEX, MSAS 2, RASS -1.
[2023-12-13] VITALS (26 sets, daily range): BP systolic 119–143; BP diastolic 74–93; BMI 35.2
[2023-12-13] MEDS: NOVOLOG FLEXPEN-LOW RESISTANCE SC ×5 (00:37→23:54)
[2023-12-13 00:41] LABS: Glucose - Point of Care 102 mg/dl (70-99)
[2023-12-13] MEDS: ATIVAN 2 MG IV ×5 (02:41→19:27)
[2023-12-13] MEDS: VIBRAMYCIN 260 MG IV ×2 (03:41→16:45)
--- NOTE | 2023-12-13 04:03 | PTCARENOTE ---
Pt having increased agitation, unable to be redirected, ativan given.
assessment remains largely unchanged from prior.
[2023-12-13] MEDS: PRECEDEX 100 IV ×4 (04:21→22:56)
[2023-12-13 04:57] LABS: Hematocrit 42.8 % (39.0-52.0); Hemoglobin 14.4 g/dL (13.0-18.0); Mean Corp Hgb Conc. 33.6 g/dL (33.0-37.0); Mean Corpuscular Hgb 32.1 pg (27.0-31.0); Mean Corpuscular Volume 95.3 fL (80.0-94.0); Mean Platelet Volume 10.3 fL (7.4-10.4); Platelet Count 79 10^3/uL (130-400); Red Blood Cell Count 4.49 10^6/uL (4.70-6.10); White Blood Cell Count 3.7 10^3/uL (4.8-10.8)
[2023-12-13 05:15] LABS: Glucose - Point of Care 89 mg/dl (70-99)
[2023-12-13 05:36] LABS: ALT (SGPT) 56 U/L (0-50); AST (SGOT) 59 U/L (17-59); Albumin 2.9 g/dl (3.5-5.0); Alkaline Phosphatase 226 U/L (38-126); Blood Urea Nitrogen 24 mg/dl (9-20); Calcium 7.9 mg/dl (8.4-10.2); Carbon Dioxide 28 mmol/L (22-30); Chloride 106 mmol/L (98-107); Estimated Creatinine Clearance > 125 ml/min; Glucose 92 mg/dl (70-99); Magnesium 1.8 mg/dl (1.6-2.3); Potassium 3.7 mmol/L (3.5-5.1); Sodium 137 mmol/L (135-145); Total Bilirubin 3.1 mg/dl (0.2-1.3); Total Protein 5.6 g/dl (6.3-8.2); eGFR > 60.00
[2023-12-13] MEDS: XOPENEX 0.63 MG INHALANT SOLUTION INH ×2 (07:33→12:35)
[2023-12-13] MEDS: ATROVENT NEBULES 0.5 MG INH ×2 (07:33→12:35)
[2023-12-13] MEDS: PULMICORT 0.5 MG INH ×2 (07:33→20:06)
[2023-12-13] MEDS: ASPIR LOW (ENTERIC COATED) PO (08:05)
[2023-12-13] MEDS: HEPARIN 5000 UNITS SC ×2 (08:05→19:27)
[2023-12-13] MEDS: PHENOBARBITAL 32.5 MG IV ×3 (08:06→21:38)
[2023-12-13] MEDS: PROTONIX IV 40 MG IV (08:06)
[2023-12-13] MEDS: NSS (PRESERVATIVE FREE) 10 ML IV (08:06)
--- NOTE | 2023-12-13 09:02 | W.PN.INTV ---
Today's Communication / Plan
Recommendations
Precedex
MSAS with prn Ativan
Restraints as needed
Trend LFTs
Psych consult once more awake
Repletion of electrolytes
Heart rate control with goal <110 on Cardizem drip, wean as tolerated
Low threshold to intubate although apparently he has advanced directive which had previously brought in; brought in copy --> considering the patient is not in a terminal condition, it is appropriate to maintain full code
Aspiration precautions
If mentation does not improve by tomorrow, insert Dobbhoff tube to start tube feeds
Assessment
-
Assessment: 63-year-old male former tobacco smoker with a past medical history of COPD, lung nodules, severe ALCIDES noncompliant with CPAP, alcoholic cirrhosis, chronic alcoholism, hypertension, history of GI bleed with history of duodenal
ulcer/esophageal varices, polymyalgia rheumatica and sciatica who presented with shortness of breath on 12/05/2023. He drank 3 bottles of wine on the day of admission. His breathing has been poor about a week or so prior to him come to the ER. He
was initially admitted for possible COPD exacerbation with IV steroids, nebs and oxygen. He also was bradycardic into the 30s initially during his hospitalization and received atropine in the ER. He was started on MSAS protocol with phenobarbital
taper. Patient also started on antibiotics for left mid�lower lung pneumonia. Patient was having worsening alcohol withdrawal symptoms and was n.p.o., starting on Cardizem drip for his A-fib with RVR. He has been receiving prn Ativan since
admission with high MSAS scores, and is now being transferred to the ICU for Precedex initiation. Critical care services consulted for additional management/recommendations.
Conditions present prior admission:
Discharged from the hospital 07/2023.
Hypertension
Carotid stenosis
COPD-follows up with Dr. García maintained on Trelegy, albuterol nebulizer as needed.
History of pulmonary nodule
History of paroxysmal atrial fibrillation
Severe obstructive sleep apnea noncompliant with CPAP
GERD/Coles's esophagus
Diverticular disease
Alcoholic cirrhosis
History of duodenal ulcer/esophageal varices and GI bleeding
Sciatica pain
Polymyalgia rheumatica
Chronic alcohol use-prior history of delirium.
Bilateral hip replacement
Bilateral retinal surgery.
Former smoker [id number] history quit in 2019.
Impression:
#Alcohol withdrawal with suspected DT
#Left sided pneumonia/CAP
#Atrial fibrillation with RVR now HR controlled on Cardizem gtt
#Alcoholic cirrhosis with ascites, portal hypertension and history of esophageal varices with UGIB
#Thrombocytopenia (due to cirrhosis)
#Transaminitis with hyperbilirubinemia (likely due to alcoholic hepatitis in the setting of alcoholic cirrhosis)
#Moderate-severe COPD with air trapping (last FEV1 was 1.61L / 50% predicted via spirometry from 02/2023) with suspected recent acute exacerbation
#Severe ALCIDES (total index: 53 with O2 saturation jose: 87%) noncompliant to BiPAP (stopped in 2020 for unclear reasons)
Plan:
- Transferred to the ICU for close monitoring and initiation of Precedex
- Continue MSAS with prn ativan
- Continue NPO until mentation improves; continue aspiration precautions; keep head of bed >30-45�
- If mentation does not improve by tomorrow then he will need Dobbhoff tube for enteral nutrition and PO meds
- Thiamine + folic acid
- Restraints as needed with 4 rails
- Low threshold to intubate
- Ammonia level 25 on AM of 12/12/2023; trend LFTs, INR, AST, ALT, T. bili and GGT
- MELD-Na is 16
- Regarding his COPD, he follows with us in the office with Dr. García, last office visit in February 2020. He is Rx Trelegy 100mcg with prn levalbuterol HFA
- Considering patient remains sedated, on 12/10 I changed inhalers to nebs with atrovent/xopenex+ budesonide --> change atrovent/xopenex to Duonebs BID
- Maintain SpO2 >88% and <96%
- Steroids stopped in setting of his worsening agitation and AMS
- Continue antibiotics with ceftriaxone + doxycycline and will treat for at least 7 days total (antibiotics started on 12/07/2023)
- Maintain SpO2 >90-94%
- Cultures have not been obtained this hospitalization
-If patient spikes a fever then gonzalez-culture at that time
- He will need repeat imaging with CXR in about 6 weeks to follow-up left-sided pneumonia to resolution
- Heart rate control with goal HR <110
- Continue Cardizem drip, wean as tolerated
- Replete electrolytes with K>4, Mg>2
- Maintain MAP>65
- Maintain euglycemia with goal BG 140-180
- He also qualifies for LDCT Chest for lung cancer screening until 2034 (he quit smoking in 2019) - this can be discussed in the office when he follows with Dr. García
- DVT ppx
Critical care statement: A total of 41 minutes of critical care time was provided for this patient today. This includes management of unstable vital signs, evaluation of the patient at bedside, reviewing the patient's pertinent medical records
including radiographs, microbiology, laboratory evaluations, and discussion with primary team, consultants, pharmacy, nutrition, physical therapy, case management, charge nurse, critical care nursing, and respiratory therapy.
Data:
Abdominal ultrasound 12/11/2023:
1. SEVERE HEPATIC CIRRHOSIS.
2. No sonographic evidence for cholelithiasis or biliary obstruction.
3. Mild splenomegaly secondary to portal hypertension.
4. Small volume of ascites.
Transthoracic echocardiogram 12/08/2023:
Left ventricular ejection fraction is 60-65%, by visual assessment. Grossly
normal regional wall motion.
Normal right ventricular size and function.
Trace mitral regurgitation.
Aortic sclerosis without stenosis.
Trace tricuspid regurgitation. Estimated pulmonary artery pressure of 25-30
mmHg.
No significant change since the prior study of 04/10/2023.
CXR 12/06/2023:
Parenchymal opacity within the left mid to lower lung, increasing when comparing to to most recent chest radiographs. Finding would be suggestive of pneumonia, although atelectasis could have a similar appearance.
No convincing evidence for pulmonary edema pattern.
Subjective Dataa
Subjective Data
Date of Service:
Date of Service: December 13, 2023
Chief Complaint: Supervisor Pressing Department Follow Up
Subjective:
Seen and evaluated today at bedside. Still remaining agitated when given medications or when stimulated. When I saw the patient he was on Precedex 0.6mcg/kg/hr, and a Cardizem drip at 5 mg an hour. Heart rate 86, BP 119/76 and saturating 93% on 2
L/min nasal cannula. No acute events reported overnight.
Review of Systems
General: Unobtainable - Sedation
Objective Data
Data Reviewed
Vital Signs / I&O / Oxygen:
Vital Signs
Temp Pulse Resp BP Pulse Ox
98.2 F 84 14 139/85 94
12/13/23 07:15 12/13/23 11:00 12/13/23 11:00 12/13/23 11:00 12/13/23 11:00
Intake and Output
12/12/23 12/13/23 12/14/23
06:59 06:59 06:59
Intake Total 536.4 / 552.2 791.2 / 815.2 115.7 / 115.7
Output Total 1520 / 1520 595 / 1095 500 / 500
Balance -983.6 / -967.8 196.2 / -279.8 -384.3 / -384.3
SaO2 94
Nasal Cannula flow liters per 3
minute
Physical Exam
General: Respiratory Distress (Negative) and Comfortable
HEENT: Normocephalic and Anicteric
Cardiovascular: Irregular Rhythm and Peripheral Edema (Negative)
Respiratory: Wheeze (Negative), Crackles (negative), Rhonchi (Negative) and Non-Labored Respirations
GI: Soft, Non Distended, Non Tender and Normal Bowel Sounds
Neurology: Unresponsive (Awakens to verbal and tactile stimulation but then quickly falls back asleep; agitated as times)
Skin: Warm, Dry and Jaundice (negative)
Labs/Micro/Reports
Lab Data
12/13/23 04:33
12/13/23 04:33
[2023-12-13] MEDS: STERILE WATER FOR INJECTION 10 ML IV (10:33)
[2023-12-13] MEDS: ROCEPHIN 1000 MG IV (10:33)
--- NOTE | 2023-12-13 11:12 | PTCARENOTE ---
Family at bedside with Hospitalist team. Review events of day. Follow up plan of cares, reinforce teaching, continue with icu procedures and protocols. Patient continues to wax and wane from sleep to agitation. Follow up MSAS and drip protocols.
Assessment updated, vital signs ongoing and as per protocols. Continue with teaching and supportive cares. Will follow up patient asking information about revcovery care, AA, treatment programs and support system available.
--- NOTE | 2023-12-13 11:19 | W.PN.CD ---
Today's Communication / Plan
-
- Patient remains NPO; still not fully lucid.
- Continue Cardizem drip; transition to Cardizem CD 180 mg daily when tolerating PO intake.
Impression / Plan
-
Tachy Kavon syndrome
- Bradycardia -acute upon arrival in the ER rates in the 30s and 40s.
- Resolved after correction of hypothermia
- Patient remains NPO; still not fully lucid.
- Continue Cardizem drip; transition to Cardizem CD 180 mg daily when tolerating PO intake.
- If swallowing remains an issue, can consider leadless PPM with AVJ ablation per EP Cardiology.
- ECHO 12/08/23 - LVEF 60%.
Atrial fibrillation -slow ventricular response on arrival. Persistent A-fib. Patient's had a history of atrial fibrillation and was in atrial fibrillation on prior ECGs including a ECGs in September.
-Diltiazem and Toprol previously listed as meds held given bradycardia; unclear which meds he was taking as outpatient.
-[id number] score is 1, due to prior GI bleed/anemia and EtOH abuse-->no OAC therapy.
-Continue Cardizem drip until tolerating PO.
Leukopenia
- abx per primary for PNA
Hypertension -
-Currently controlled.
COPD - acute exacerbation per hospitalist.
ALCIDES - stable on CPAP, continue
EtOH abuse - chronic, drinks 2 bottles of wine daily.
Appears to now be in full blown alcohol withdrawal
plan per IM
Anemia/prior GI bleed - stable H/H. Hb 12.1 -->13.7.
Echo: CONCLUSIONS
Left ventricular ejection fraction is 60-65%, by visual assessment. Grossly
normal regional wall motion.
Normal right ventricular size and function.
Trace mitral regurgitation.
Aortic sclerosis without stenosis.
Trace tricuspid regurgitation. Estimated pulmonary artery pressure of 25-30
mmHg.
No significant change since the prior study of 04/10/2023.
Subjective: No major events overnight. Somnolent this a.m.
Physical Exam
Vital Signs/Labs
Vital Signs
Temp Pulse Resp BP Pulse Ox
98.2 F 84 14 139/85 94
12/13/23 07:15 12/13/23 11:00 12/13/23 11:00 12/13/23 11:00 12/13/23 11:00
12/12/23 12/13/23 12/14/23
06:59 06:59 06:59
Actual Weight 107.8 kg 108 kg
12/13/23 04:33
12/13/23 04:33
PT 18.6 Sec (11.4-14.6) H 12/11/23 17:28
INR 1.57 12/11/23 17:28
APTT 30.2 Sec (23.4-35.0) 12/11/23 17:28
Magnesium 1.8 mg/dl (1.6-2.3) 12/13/23 04:33
TSH 1.52 uIU/ml (0.47-4.68) 12/04/23 23:00
Free T4 1.29 ng/dl (0.78-2.19) 12/05/23 05:17
12/04/23 12/06/23
23:00 17:56
[id number] Pept 438 1020
Physical Exam
Constitutional: Other (Somnolent)
EENT: Anicteric
Cardiovascular: Pedal edema is absent, Systolic murmur absent, Rhythm/rate is irregular and S1S2 is normal
Respiratory: Respiratory effort normal and Lungs clear to auscul.
GI: Soft
Neuro/Psych: Other (Somnolent)
Other: Skin (Warm, dry, intact)
Data Reviewed
-
Date of Service: December 13, 2023
EKG: Tracing Personally Visualized and interpreted (Telemetry: Atrial fibrillation)
Labs: Labs Reviewed by me
Critical Care Time (in minutes): 36
[2023-12-13 11:40] LABS: Glucose - Point of Care 91 mg/dl (70-99)
--- NOTE | 2023-12-13 13:39 | PTCARENOTE ---
Family in and out at bedside. Skin cares, oral cares and position/turning protocols in process. Update with hotel front office manager, continue precedex wean. Follow up living will, advanced directive from family, on chart. Will continue to follow and update
assessment trends. Continue with teaching and follow up patient care needs.
--- NOTE | 2023-12-13 13:45 | W.PN.HOSP.TC ---
Today's Communication/Plan
-
Dexmedetomidine wean
Complete abx most likely today
Wean o2 as tolerated
Ativan as needed
MSAS
Cardizem drip
Advance care directives
Will need to decide on enteral intake within 24 hours if no improvement in mental status/speech
Trend LFTs
Assessment / Plan
Assessment / Plan
Physical Exam
General: no acute distress appears comfortable obese
HEENT: Thick neck. MMM
Respiratory: Decreased BS no wheezing noted
Cardiac: S1/S2 and Irregular Irregular tachy; No Murmur
GI: Non Tender, Non Distended, Normal Bowel Sounds Umbilical hernia that is soft, nontender and easily reducible
Musculoskeletal: No Clubbing, No Cyanosis and No Edema
Neuro: AO x 3 and Nonfocal/grossly intact
Psych: anxious
A/P: Patient is a 63y M with PMH significant for COPD, A-Fib, HTN and alcohol use disorder who presents to ED complaining of SOB.
Acute Hypoxemic Respiratory Failure
COPD
Pneumonia
-Continue IV steroids, nebs, supplemental O2, taper as tolerated - DC IV steroids 12/11
-Duonebs switched to Xopenex d/t tachycardia
- Speech therapy eval appreciated appropriate for reg diet, aspiration precautions.
-BIPAP prn sob
-Start Ceftriaxone, Doxycycline (d7) out of D7
-NPO - eval speech
Paroxysmal Atrial Fibrillation
Bradycardia
- Patient with HR in the 30s on initial presentation.
- suspect bradycardia related to hypothermia
- Patient is not on chronic OAC due to history of GI bleeding / ongoing alcohol abuse.
- restart Dilt ggt as NPO
-F/u ECHO - 60-65%
� Improved on dexmedetomidine
Alcohol Use Disorder
Acute Intoxication, now withdrawal
Acute Alcoholic Hepatitis
Alcoholic Cirrhosis with Esophageal Varices, Thrombocytopenia, etc
- Patient reports drinking 3 bottles of wine prior to arrival. Typically drinks 2 bottles daily ever day.
- alcohol level appreciated 300s on admission
- cont MSAS protocol
-cont phenobarbital taper
� Cont to attempt to wean off dexmedetomidine in ICU
- Thiamine, folate, MVI replacement.
- Encourage alcohol cessation efforts.
- trend LFTs.
-CIWA, ativan IV PRN, phenobarb
-Will need to decide enteral intake if no improvement in mental status within 24 hours
Acute Metabolic Encephalopathy
-2/2 to EtOH withdrawal
-ammonia level: OK
-MSAS
#Transaminitis
#Severe hepatic cirrhosis
� Small volume ascites, if no improvement in mental status, will need to perform paracentesis to rule out SBP
-most likely 2/2 to alcoholic hepatitis
�LFTs improving
Hypothermia suspect due to ETOH intoxication
-resolved
Hypokalemia
-monitor and replete
Pancytopenia
-most likely 2/2 to EtOH abuse +/- acute infection
-ctm with resuscitation
LORENZO
- SCr = 1.7 compared to baseline of 0.6.
- Likely pre-renal in origin. ? unreported volume losses, N/V?
- Resolved with IVF
ASCVD / Carotid Stenosis
Hypertension
-Home Cardizem resumed short acting 30 mg QID given recent Bradycardia d/t ETOH intoxication vs ETOH interaction with medications
-Home metoprolol remains on hold for now, IV lopressor prn
Obesity due to excess calories
ALCIDES - Not compliant with PAP therapy
- Affects all aspects of care.
- Patient states that he no longer has PAP machine at home.
- Encourage cessation of alcohol intake, healthy diet and increased physical activity with goal of weight reduction.
DVT Prophylaxis: HSQ
Code Status: Full ( Has Adv Directive she is trying to locate - Patient does not want any stomach feeding tubes, or being a 'vegetable')
Anticipated Discharge: > 48 hours
Subjective/Interval History
-
Date of Service: December 13, 2023
no acute events
Objective Data
-
Labs:
Laboratory Results
12/13/23
04:33
WBC 3.7 L
Hgb 14.4
Hct 42.8
Plt Count 79 L D
Sodium 137
Potassium 3.7
Chloride 106
Carbon Dioxide 28
BUN 24 H
Creatinine 0.6 L
Glucose 92
Calcium 7.9 L
Total Bilirubin 3.1 H
AST 59
ALT 56 H
Alkaline Phosphatase 226 H
Vital Signs:
Vital Signs
Temp Pulse Resp BP Pulse Ox
98.1 F 88 14 124/79 94
12/13/23 11:15 12/13/23 13:00 12/13/23 13:00 12/13/23 13:00 12/13/23 13:37
I&O
12/12/23 12/13/23 12/14/23
06:59 06:59 06:59
Intake Total 536.4 / 552.2 791.2 / 815.2 158.1 / 158.1
Output Total 1520 / 1520 595 / 1095 500 / 500
Balance -983.6 / -967.8 196.2 / -279.8 -341.9 / -341.9
Review of Systems
-
History Source: Patient
All other systems: Not reviewed unless documented
Physical Exam
-
General: Well Nourished, No Apparent Distress and Obese
HEENT: Normocephalic and Atraumatic
Respiratory: Clear to Auscultation
Cardiac: Regular Rhythm and S1/S2
GI: Soft, Nontender, Nondistended and Normal Bowel Sounds
Musculoskeletal: No Edema
Neuro: Awake, Alert, Oriented, AO x 3 and Nonfocal/Grossly Intact; Negative Tremors
Psych: Calm
Data Reviewed
-
Diagnostic Radiology: Image personally visualized and interpreted and Report Reviewed by me
Labs: Labs Reviewed by me
--- NOTE | 2023-12-13 14:59 | PTCARENOTE ---
Continue MSAS. Patient awoke yelling i have to go down stairs. Tore off condom cath, incontinent large amount billie urine and mucoidal stool. Tachy afib to 126 bp 158/99 holding presedex wean, continue ativan, MSAS, and phenobarb as per orders.
upset at this time going home with family will call back to check on . Continue teaching and supportive cares. Safety checks, spd protocols, bedside/frequent rounds and safety checks. Continue reorientation and redirection.
[2023-12-13 17:41] LABS: Glucose - Point of Care 89 mg/dl (70-99)
--- NOTE | 2023-12-13 19:13 | PTCARENOTE ---
assessed LA infiltrate, appears unchanged from previous VAT assessment, pt with upper extremity generalized anasarca. warmth applied, arm elevated
--- NOTE | 2023-12-13 19:54 | PTCARENOTE ---
pt restless, calling out, pulling at restraints. PRN ativan given. remains on precedex.
[2023-12-13] MEDS: DUONEB 3 ML INH (20:06)
[2023-12-14] VITALS (25 sets, daily range): BP systolic 92–159; BP diastolic 60–94; BMI 34.7
[2023-12-14 00:01] LABS: Glucose - Point of Care 103 mg/dl (70-99)
--- NOTE | 2023-12-14 03:01 | PTCARENOTE ---
pt resting, occasionally calls out for his mom and goes back to bed. becomes restless throwing legs over the side rails when he has to urinate.
[2023-12-14] MEDS: VIBRAMYCIN 260 MG IV (03:17)
[2023-12-14] MEDS: ATIVAN 2 MG IV ×3 (03:22→23:53)
[2023-12-14 04:23] LABS: Hematocrit 39.5 % (39.0-52.0); Hemoglobin 13.9 g/dL (13.0-18.0); Mean Corp Hgb Conc. 35.2 g/dL (33.0-37.0); Mean Corpuscular Hgb 32.3 pg (27.0-31.0); Mean Corpuscular Volume 91.6 fL (80.0-94.0); Mean Platelet Volume 10.2 fL (7.4-10.4); Platelet Count 82 10^3/uL (130-400); Red Blood Cell Count 4.31 10^6/uL (4.70-6.10); Red Cell Dist. Width 14.7 % (11.5-14.5); White Blood Cell Count 4.2 10^3/uL (4.8-10.8)
[2023-12-14 04:50] LABS: ALT (SGPT) 55 U/L (0-50); AST (SGOT) 71 U/L (17-59); Albumin 2.9 g/dl (3.5-5.0); Alkaline Phosphatase 206 U/L (38-126); Blood Urea Nitrogen 19 mg/dl (9-20); Calcium 7.8 mg/dl (8.4-10.2); Carbon Dioxide 27 mmol/L (22-30); Chloride 103 mmol/L (98-107); Estimated Creatinine Clearance > 125 ml/min; Glucose 97 mg/dl (70-99); Magnesium 1.8 mg/dl (1.6-2.3); Sodium 134 mmol/L (135-145); Total Protein 5.5 g/dl (6.3-8.2); eGFR > 60.00
[2023-12-14] MEDS: PRECEDEX 100 IV ×2 (05:41→17:26)
[2023-12-14] MEDS: NOVOLOG FLEXPEN-LOW RESISTANCE SC ×4 (05:41→23:41)
--- NOTE | 2023-12-14 06:07 | W.PN.HOSP.TC ---
Today's Communication/Plan
-
wean precedex gtt
speech eval
Lactulose Rifaximin if cleared for oral intake
Consider alternative means of nutrition if NPO status persists
GI eval
Assessment / Plan
Assessment / Plan
Physical Exam
General: no acute distress appears comfortable obese
HEENT: Thick neck. MMM
Respiratory: Decreased BS no wheezing noted
Cardiac: S1/S2 and Irregular Irregular tachy; No Murmur
GI: Non Tender, Non Distended, Normal Bowel Sounds Umbilical hernia that is soft, nontender and easily reducible
Musculoskeletal: No Clubbing, No Cyanosis and No Edema
Neuro: Lethargic but arousable disoriented to time follows simple commands +asterixis
Psych: Calm
A/P: Patient is a 63y M with PMH significant for COPD, A-Fib, HTN and alcohol use disorder who presents to ED complaining of SOB.
Alcohol Use Disorder
Acute Intoxication, now withdrawal
Acute Alcoholic Hepatitis
Alcoholic Cirrhosis with Esophageal Varices, Thrombocytopenia, etc
Initially Acute Metabolic Encephalopathy d/t Intoxication later Withdrawal and currently likely Hepatic Encephalopathy no bowel movement in 5 days
- Patient reports drinking 3 bottles of wine prior to arrival. Typically drinks 2 bottles daily ever day.
- alcohol level appreciated 300s on admission
- cont MSAS protocol
-phenobarbital taper completed, currently on precedex gtt
� Cont to attempt to wean off dexmedetomidine in ICU
- Thiamine, folate, MVI replacement.
- Encourage alcohol cessation efforts.
- trend LFTs.
-CIWA, ativan IV PRN
-NPO pending improvement in mental status speech eval
-start Lactulose Rifaximin if cleared for oral intake
-GI eval requested
Acute Hypoxemic Respiratory Failure
COPD
Pneumonia
-Continue IV steroids, nebs, supplemental O2, taper as tolerated - completed empiric IV steroids 12/11
-Duonebs switched to Xopenex d/t tachycardia
- Speech therapy eval appreciated appropriate for reg diet, aspiration precautions.
-BIPAP prn sob
-Completed 8 days Ceftriaxone, Doxycycline
Paroxysmal Atrial Fibrillation
Bradycardia
- Patient with HR in the 30s on initial presentation.
- suspect bradycardia related to hypothermia vs ETOH intoxication since resolved.
- Patient is not on chronic OAC due to history of GI bleeding / ongoing alcohol abuse.
- restarted on Dilt ggt as NPO
-F/u ECHO - 60-65%
#mild Transaminitis
#Severe hepatic cirrhosis
� Small volume ascites
-most likely 2/2 to alcoholic hepatitis
�LFTs overall improving though mild persistent elevation
-recent coags wnl
Hypothermia suspect due to ETOH intoxication
-resolved
Hypokalemia
-monitor and replete
Pancytopenia
-most likely 2/2 to EtOH abuse +/- acute infection vs cirrhosis
-ctm
LORENZO
- SCr = 1.7 compared to baseline of 0.6.
- Likely pre-renal
- Resolved with IVF
ASCVD / Carotid Stenosis
Hypertension
-Home Cardizem resumed short acting 30 mg QID given recent Bradycardia d/t ETOH intoxication vs ETOH interaction with medications
-eventually long acting Cardizem was resumed and titrated up as per Cardiology. Converted back to gtt due to worsening mental status NPO transfer to ICU as above
-Home metoprolol remains on hold for now, IV lopressor prn
Obesity due to excess calories
ALCIDES - Not compliant with PAP therapy
- Affects all aspects of care.
- Patient states that he no longer has PAP machine at home.
- Encourage cessation of alcohol intake, healthy diet and increased physical activity with goal of weight reduction.
DVT Prophylaxis: HSQ
Code Status: Full
Total Critical Care Time__50___ minutes. I was immediately available to the patient and staff. I personally examined, reviewed labs, diagnostic images/reports, interpretations, treatment plans, discussed patient care with other providers and
patient's Laurence (patient is unable to make decisions at this time), entered orders as appropriate and documented the medical record.
Anticipated Discharge: > 48 hours
Subjective/Interval History
-
Date of Service: December 14, 2023
Seen and examined at bedside in no acute distress resting comfortably in bed. Lethargic but arousable disoriented to time. slow mentation. speaks few words at a time. on non-violent restraints. weaning off Precedex. Follows simple commands,
asterixis present.
Objective Data
-
Labs:
Laboratory Results
12/14/23
03:52
WBC 4.2 L
Hgb 13.9
Hct 39.5
Plt Count 82 L
Sodium 134 L
Potassium 4.0
Chloride 103
Carbon Dioxide 27
BUN 19
Creatinine 0.5 L
Glucose 97
Calcium 7.8 L
Total Bilirubin 4.0 H
AST 71 H
ALT 55 H
Alkaline Phosphatase 206 H
Vital Signs:
Vital Signs
Temp Pulse Resp BP Pulse Ox
99.1 F 97 18 135/72 96
12/14/23 04:19 12/14/23 04:00 12/14/23 04:00 12/14/23 04:00 12/14/23 04:00
I&O
12/12/23 12/13/23 12/14/23
06:59 06:59 06:59
Intake Total 536.4 / 552.2 791.2 / 815.2 728.0 / 728.0
Output Total 1520 / 1520 595 / 1095 1850 / 1850
Balance -983.6 / -967.8 196.2 / -279.8 -1122.0 / -1122.0
[2023-12-14] MEDS: PROTONIX IV 40 MG IV (07:30)
[2023-12-14] MEDS: NSS (PRESERVATIVE FREE) 10 ML IV (07:30)
[2023-12-14] MEDS: HEPARIN 5000 UNITS SC (07:30)
[2023-12-14] MEDS: ASPIR LOW (ENTERIC COATED) PO (07:30)
[2023-12-14] MEDS: DUONEB 3 ML INH ×2 (07:53→20:20)
[2023-12-14] MEDS: PULMICORT 0.5 MG INH ×2 (07:55→20:20)
--- NOTE | 2023-12-14 08:07 | PTCARENOTE ---
report received, assessments per work list. precedex titration per work list/RASS. monitor afib, remains on cardizem@5mg. rate controlled. right arm edema noted. midline and INT with good blood returns. lungs with crackles 1/3 up bilaterally.
vigorous oral care, pulmonary toileting provided. able to suction large thick mendez sputum and plugs. condom cath removed, penis noted to have MASD, barrier ointment applied. restraints maintained for patient safety
--- NOTE | 2023-12-14 08:40 | W.PN.INTV ---
Today's Communication / Plan
Recommendations
Precedex
MSAS with prn Ativan
Restraints as needed
Trend LFTs
Psych consult once more awake
Repletion of electrolytes
Heart rate control with goal <110 on Cardizem drip, wean as tolerated
Low threshold to intubate although apparently he has advanced directive which had previously brought in; brought in copy --> considering the patient is not in a terminal condition, it is appropriate to maintain full code
Aspiration precautions
Insert Dobbhoff tube to start tube feeds and PO meds
Once drowsiness resolves and he continues to awaken, will potentially remove restraints, and DHT and check LARGE SHEETFED PRESS OPERATOR evaluation
Assessment
-
Assessment: 63-year-old male former tobacco smoker with a past medical history of COPD, lung nodules, severe ALCIDES noncompliant with CPAP, alcoholic cirrhosis, chronic alcoholism, hypertension, history of GI bleed with history of duodenal
ulcer/esophageal varices, polymyalgia rheumatica and sciatica who presented with shortness of breath on 12/05/2023. He drank 3 bottles of wine on the day of admission. His breathing has been poor about a week or so prior to him come to the ER. He
was initially admitted for possible COPD exacerbation with IV steroids, nebs and oxygen. He also was bradycardic into the 30s initially during his hospitalization and received atropine in the ER. He was started on MSAS protocol with phenobarbital
taper. Patient also started on antibiotics for left mid�lower lung pneumonia. Patient was having worsening alcohol withdrawal symptoms and was n.p.o., starting on Cardizem drip for his A-fib with RVR. He has been receiving prn Ativan since
admission with high MSAS scores, and is now being transferred to the ICU for Precedex initiation. Critical care services consulted for additional management/recommendations.
Conditions present prior admission:
Discharged from the hospital 07/2023.
Hypertension
Carotid stenosis
COPD-follows up with Dr. García maintained on Trelegy, albuterol nebulizer as needed.
History of pulmonary nodule
History of paroxysmal atrial fibrillation
Severe obstructive sleep apnea noncompliant with CPAP
GERD/Coles's esophagus
Diverticular disease
Alcoholic cirrhosis
History of duodenal ulcer/esophageal varices and GI bleeding
Sciatica pain
Polymyalgia rheumatica
Chronic alcohol use-prior history of delirium.
Bilateral hip replacement
Bilateral retinal surgery.
Former smoker [id number] history quit in 2019.
Impression:
#Alcohol withdrawal with suspected DT now on precedex gtt
#Left sided pneumonia/CAP
#Atrial fibrillation with RVR now HR controlled on Cardizem gtt
#Alcoholic cirrhosis with ascites, portal hypertension and history of esophageal varices with UGIB
#Thrombocytopenia (due to cirrhosis)
#Transaminitis with hyperbilirubinemia (likely due to alcoholic hepatitis in the setting of alcoholic cirrhosis)
#Moderate-severe COPD with air trapping (last FEV1 was 1.61L / 50% predicted via spirometry from 02/2023) with suspected recent acute exacerbation
#Severe ALCIDES (total index: 53 with O2 saturation jose: 87%) noncompliant to BiPAP (stopped in 2020 for unclear reasons)
Plan:
- Transferred to the ICU for close monitoring and initiation of Precedex
- Continue MSAS with prn ativan
- Continue NPO until mentation improves; continue aspiration precautions; keep head of bed >30-45�
- Dobbhoff tube inserted today for initiation of tube feeds and to start PO meds
- He is more awake today but still remains drowsy; continue to reassess throughout the day and if he awakens further then we can remove restraints and Dobbhoff tube and do LARGE SHEETFED PRESS OPERATOR evaluation
- Thiamine + folic acid
- Restraints as needed with 4 rails
- Ammonia level 25 on AM of 12/12/2023; trend LFTs, INR, AST, ALT, T. bili and GGT
- MELD-Na is 16 from 12/13/2023
- GI consulted --> rifxamin + lactulose started
- Regarding his COPD, he follows with us in the office with Dr. García, last office visit in February 2020. He is Rx Trelegy 100mcg with prn levalbuterol HFA
- Considering patient remains drowsy, on 12/10 I changed inhalers to nebs with atrovent/xopenex+ budesonide --> on 12/12 I changed atrovent/xopenex to Duonebs BID
- Maintain SpO2 >88% and <96%
- Steroids stopped in setting of his worsening agitation and AMS
- Continue antibiotics with ceftriaxone + doxycycline and will treat for at least 7 days total (antibiotics started on 12/07/2023) ---> last day of ABx today
- Maintain SpO2 >90-94%
- Cultures have not been obtained this hospitalization
- If patient spikes a fever then gonzalez-culture at that time
- He will need repeat imaging with CXR in about 6 weeks to follow-up left-sided pneumonia to resolution
- Heart rate control with goal HR <110
- Continue Cardizem drip, wean as tolerated
- Once Dobbhoff tube is inserted, start PO metoprolol + PO Cardizem and wean off cardizem gtt
- Replete electrolytes with K>4, Mg>2
- Maintain MAP>65
- Maintain euglycemia with goal BG 140-180
- He also qualifies for LDCT Chest for lung cancer screening until 2034 (he quit smoking in 2019) - this can be discussed in the office when he follows with Dr. García
- DVT ppx
Critical care statement: A total of 38 minutes of critical care time was provided for this patient today. This includes management of unstable vital signs, evaluation of the patient at bedside, reviewing the patient's pertinent medical records
including radiographs, microbiology, laboratory evaluations, and discussion with primary team, consultants, pharmacy, nutrition, physical therapy, case management, charge nurse, critical care nursing, and respiratory therapy.
Data:
Abdominal ultrasound 12/11/2023:
1. SEVERE HEPATIC CIRRHOSIS.
2. No sonographic evidence for cholelithiasis or biliary obstruction.
3. Mild splenomegaly secondary to portal hypertension.
4. Small volume of ascites.
Transthoracic echocardiogram 12/08/2023:
Left ventricular ejection fraction is 60-65%, by visual assessment. Grossly
normal regional wall motion.
Normal right ventricular size and function.
Trace mitral regurgitation.
Aortic sclerosis without stenosis.
Trace tricuspid regurgitation. Estimated pulmonary artery pressure of 25-30
mmHg.
No significant change since the prior study of 04/10/2023.
CXR 12/06/2023:
Parenchymal opacity within the left mid to lower lung, increasing when comparing to to most recent chest radiographs. Finding would be suggestive of pneumonia, although atelectasis could have a similar appearance.
No convincing evidence for pulmonary edema pattern.
Subjective Dataa
Subjective Data
Date of Service:
Date of Service: December 14, 2023
Chief Complaint: Equipment Operator/Laborer/Supervisor Follow Up
Subjective:
Patient seen and evaluated today. He is much more awake today, speaking to me, wants the restraints off if possible, he is calm, says that he does want to stop drinking once he is back home, and denies headache, chest pain, shortness of breath,
abdominal pain, fevers or chills. Heart rate 98, BP 120/71, and saturating 93% on 2L/min. Remains on precedex at 0.1mcg/kg/hr. remains on Cardizem gtt @ 5 mg/hr.
Review of Systems
General: Other (Negative unless mentioned above)
Objective Data
Data Reviewed
Vital Signs / I&O / Oxygen:
Vital Signs
Temp Pulse Resp BP Pulse Ox
97.5 F 111 14 92/64 93
12/14/23 07:12 12/14/23 09:30 12/14/23 09:30 12/14/23 09:00 12/14/23 09:30
Intake and Output
12/13/23 12/14/2324
06:59 06:59 06:59
Intake Total 791.2 / 815.2 728.0 / 746.5 52.8 / 52.8
Output Total 595 / 1095 1850 / 1850 250 / 250
Balance 196.2 / -279.8 -1122.0 / -1103.5 -197.2 / -197.2
SaO2 93
Nasal Cannula flow liters per 2
minute
Physical Exam
General: Respiratory Distress (Negative) and Comfortable
HEENT: Normocephalic and Other (Icteric bulbar conjunctiva bilaterally)
Cardiovascular: Irregular Rhythm and Peripheral Edema (Negative)
Respiratory: Wheeze (Negative), Crackles (negative), Rhonchi (Negative) and Non-Labored Respirations
GI: Soft, Non Distended, Non Tender and Normal Bowel Sounds
Neurology: Awake and Lethargic (Drowsy, answering questions appropriately)
Skin: Warm, Dry and Jaundice (negative)
Labs/Micro/Reports
Lab Data
12/14/23 03:52
12/14/23 03:52
[2023-12-14] MEDS: ROCEPHIN 1000 MG IV (09:44)
[2023-12-14] MEDS: STERILE WATER FOR INJECTION 10 ML IV (09:44)
[2023-12-14] MEDS: CARDIZEM 125 IV (10:10)
[2023-12-14] MEDS: DULCOLAX 10 MG RECTAL (11:17)
--- NOTE | 2023-12-14 11:42 | W.PN.CD ---
Today's Communication / Plan
-
- Speech swallow eval
- If ok to swallow then can switch IV dilt to PO
Impression / Plan
-
Tachy Kavon syndrome
- Bradycardia -acute upon arrival in the ER rates in the 30s and 40s.
- Resolved after correction of hypothermia
- Patient remains NPO; still not fully lucid. on precedex for agitation
- Continue Cardizem drip; transition to Cardizem CD 180 mg daily when tolerating PO intake.
- If swallowing remains an issue, can consider leadless PPM with AVJ ablation per EP Cardiology.
- ECHO 12/08/23 - LVEF 60%.
Atrial fibrillation -slow ventricular response on arrival. Persistent A-fib. Patient's had a history of atrial fibrillation and was in atrial fibrillation on prior ECGs including a ECGs in September.
-Diltiazem and Toprol previously listed as meds held given bradycardia; unclear which meds he was taking as outpatient.
-[id number] score is 1, due to prior GI bleed/anemia and EtOH abuse-->no OAC therapy.
-Continue Cardizem drip until tolerating PO.
Leukopenia
- abx per primary for PNA
Hypertension -
-Currently controlled.
COPD - acute exacerbation per hospitalist.
ALCIDES - stable on CPAP, continue
EtOH abuse - chronic, drinks 2 bottles of wine daily.
Appears to now be in full blown alcohol withdrawal
plan per IM
Anemia/prior GI bleed - stable H/H. Hb 12.1 -->13.7.
Echo: CONCLUSIONS
Left ventricular ejection fraction is 60-65%, by visual assessment. Grossly
normal regional wall motion.
Normal right ventricular size and function.
Trace mitral regurgitation.
Aortic sclerosis without stenosis.
Trace tricuspid regurgitation. Estimated pulmonary artery pressure of 25-30
mmHg.
No significant change since the prior study of 04/10/2023.
Subjective: No major events overnight. not agitated with Precedex
Physical Exam
Vital Signs/Labs
Vital Signs
Temp Pulse Resp BP Pulse Ox
97.9 F 111 14 92/64 93
12/14/23 11:02 12/14/23 09:30 12/14/23 09:30 12/14/23 09:00 12/14/23 09:30
12/13/23 12/14/23 12/15/23
06:59 06:59 06:59
Actual Weight 108 kg 106.6 kg
12/14/23 03:52
12/14/23 03:52
PT 18.6 Sec (11.4-14.6) H 12/11/23 17:28
INR 1.57 12/11/23 17:28
APTT 30.2 Sec (23.4-35.0) 12/11/23 17:28
Magnesium 1.8 mg/dl (1.6-2.3) 12/14/23 03:52
TSH 1.52 uIU/ml (0.47-4.68) 12/04/23 23:00
Free T4 1.29 ng/dl (0.78-2.19) 12/05/23 05:17
12/04/23 12/06/23
23:00 17:56
[id number] Pept 438 1020
Physical Exam
Constitutional: No acute distress and Comfortable
EENT: Anicteric and Moist mucous membranes
Cardiovascular: Rhythm/rate is irregular, JVD present and Systolic murmur present
Respiratory: Respiratory effort normal and Crackles Present
GI: Soft, Non tender and Normal bowel sounds
Neuro/Psych: Alert and Other (following commands)
Data Reviewed
-
Date of Service: December 14, 2023
Medical Decision Making: Reviewed Test Results, Independent Historian Assessment and Test Interpretation
EKG: Tracing Personally Visualized and interpreted
Echo: Report Reviewed by me
Labs: Labs Reviewed by me
Old Records: Reviewed
Critical Care Time (in minutes): 31
[2023-12-14 11:50] LABS: Glucose - Point of Care 94 mg/dl (70-99)
--- NOTE | 2023-12-14 11:55 | PTCARENOTE ---
Addendum entered by Dian Garcia RN 12/14/23 14:24:
fecal management system inserted for administration of lactulose enema. cardizem gtt off per orders. remains on precedex per work list. orders noted.
Original Note:
patient reassessed. weaning precedex per work list. dobhoff inserted right nare. confirmation xray taken, awaiting report. tiger text to cash processor to request tube feed recommendations. awaiting response. dulcolax suppository given. no stool noted in
rectal vault.
--- NOTE | 2023-12-14 12:05 | PTOTSP ---
Reviewed chart and noted pt transferred to ICU over the weekend. Pt remains in restraints and not appropriate to participate in skilled PT services. He has been on hold for 7 consecutive days for same. Will DC PT services as pt continues to be not
appropriate to participate in skilled PT activity.
--- NOTE | 2023-12-14 12:22 | CON.GI ---
Addendum entered and electronically signed by Anjel Witt MD 12/14/23 18:46:
I saw and examined the patient.
The SEA KAYAKING GUIDE or PA's note was reviewed and I agree with the note.
Comment: 63-year-old male past medical history of alcoholic cirrhosis with large varices banded May 2022, A-fib and a flutter on anticoagulation due to bleeding risk, history of duodenal ulcers, Coles's esophagus, ongoing alcohol use
presenting with shortness of breath after drinking excessively. He was found to be bradycardic. He is being treated for alcohol intoxication on a Precedex drip currently. GIs been consulted for altered mental status. He has not had a bowel
movement in a few days. A Dobbhoff was placed for enteral nutrition and done without bleeding or issue. I recommended a one-time lactulose enema. He was given lactulose this afternoon and will get another dose tonight. He is currently on light
ultras twice daily if he is not having enough bowel movements, may need to increase it to 3 times daily. He did have a large bowel movement when I saw him. He was oriented to place and name but not year. He does have a rising bilirubin but if he
and if he did had acute alcoholic hepatitis there is concern about aspiration pneumonia and he is on antibiotics so this would not be recommended. He has noncompliance and does not follow-up with a computer systems integrator or salt cutter and as above
has ongoing alcohol use. I discussed with him the importance of quitting alcohol. D/w hospitalist and RN at bedside.
Original Note:
Consultation
-
Date/Time Consultation Requested: 12/14/23 @ 10:48
Date/Time Consultation Performed: 12/14/23 @ 12:30
Requesting Provider: Dr. Jackson
Performing Provider: WADE Paige; Dr. Abril Witt
Reason for Consultation: Hepatic Encephalopathy unsafe for oral intake VSS on precedex
Medical History
Chief Complaint / HPI
Chief Complaint: shortness of breath
History of Present Illness:
The patient is a 63-year-old male with a past medical history significant for alcoholic liver cirrhosis with large esophageal varices (05/2022) with bleeding, hypertension, paroxysmal atrial fibrillation/atrial flutter (not on AC due to bleeding
risk), carotid artery stenosis, COPD, ALCIDES with CPAP non-compliance, GERD, Coles's esophagus without dysplasia, history of GI bleeding secondary to duodenal ulcers (2021), PMR, sciatica, with ongoing alcohol abuse, who presented to the ER initially
on 12/04 with complaints of shortness of breath. At that time had admitted he had drank excessive alcohol prior to coming to the hospital but had been having shortness of breath for the past week, which had acutely worsened. Upon initial evaluation
he was hypoxic in the 80s and placed on supplemental oxygen. He was found to have concerns for possible left sided pneumonia and was placed on antibiotics. He was also was found to be bradycardic on admission in the 30's and was given a dose of
atropine with improvement. He has a known hx of Afib/Aflutter and has since admission been intermittently tachycardic. He is being treated for acute alcohol intoxication and alcohol withdrawal, which has led to progressive worsening mentation
concerning for hepatic encephalopathy. He required transfer to the ICU for Precedex drip and MSAS monitoring. We are being asked to evaluate for concern for HE given his altered mentation and history of liver disease. On admission his alcohol level
was in the 300s. He had completed a phenobarbital taper and is currently on a Precedex drip. He has been n.p.o. given his altered mentation, and is pending speech therapy evaluation. He has had mild elevation of his LFTs during his
hospitalization likely secondary to his liver disease but up-trending bilirubin. Abdominal ultrasound obtained on 12/11/2023 did show severe hepatic cirrhosis with mild splenomegaly secondary to portal hypertension and a small volume of ascites. A
Dobbhoff tube was placed today for enteral nutrition. Upon review of prior records, an EGD was done in May 2022 which showed large esophageal varices with possible fibrin clot which were banded. Other findings include erythematous mucosa in the
gastric fundus, portal hypertensive gastropathy with normal evaluation of the duodenum. No specimens were collected given GI bleeding at that time. He was advised to follow-up in 4 weeks for repeat EGD although he did not follow-up. Noted he had
an endoscopy done in 2021 which showed duodenal ulcers and Coles's esophagus without dysplasia. The patient is lethargic but is able to answer some questions. He notes that he has been drinking 2 bottles of wine daily for quite some time. He
notes chronic alcohol use greater than 10 years heavily. He overall has no GI complaints such as nausea, vomiting, abdominal pain, dysphagia, odynophagia, diarrhea, or weight loss. He denies any signs of bleeding. Nursing staff notes he has not had
a bowel movement in 5 days and is pending initiation of lactulose with an enema. The patient has been intermittently awake and lethargic but continues on low-dose Precedex due to his agitation. He is currently restrained given he has attempted to
hit nursing staff. I spoke to the patient's sister who was at the bedside, who reports that they have tried to get him into alcohol rehab in the past but he has refused. He does not follow with a GI doctor or salt cutter. Labs are reviewed from
today showing a WBC 4.2, hemoglobin 13.9, platelets 82,000, sodium 134, potassium 4.0, BUN 19, creatinine 0.5, total bilirubin 4.0, AST 71, ALT 55, alk phos 206, albumin 2.9. INR from 12/10 was 1.57. Calculated discriminant function from 12/10 was
28.4. Pending repeat PTT/INR today. Calculated MELD 3.0 score 14 (from 12/10 labs).
Past Medical History
Past Medical History: Arrhythmias (Afib/aflutter not on AC due to bleeding risk), COPD, GERD, HTN and Other (ETOH abuse, suspected alcoholic liver cirrhosis with hx bleeding esophageal varices (05/2022), Coles's esophagus, Carotid artery stenosis,
PMR, sciatica, ALCIDES)
Social History
Tobacco: Former Smoker
Alcohol: Chronic Alcoholic
Drug: None
Personal:
Living: With Family
Family History
Family History: Reviewed & Not Pertinent
Allergies / Home Medications
Allergy/AdvReac Type Severity Reaction Status Date / Time
No Known Allergies Allergy Verified 11/09/23 13:26
�Medication �Instructions �Recorded
metoprolol succinate 100 mg 100 mg PO DAILY #30 tabs 07/28/23
tablet,extended release 24 hr
aspirin 81 mg tablet,delayed 81 mg PO DAILY Blood Clot 09/14/23
release Prevention/Tx #30 tabs
diltiazem HCl 120 mg 120 mg PO DAILY #90 caps 09/14/23
capsule,extended release 24 hr
fluticasone fur. 100 mcg-umeclid 1 inh inhalation R DAILY 09/14/23
62.5 mcg-vilant 25 mcg Lung/Breathing Issues #90 ea
inhalat.powder (Trelegy Ellipta)
levalbuterol tartrate 45 1 puff inhalation R Q6HPRN PRN sob 09/14/23
mcg/actuation aerosol inhaler #90 grams
Unknown Eye Drops 1 drp BOTH EYES DAILY dry eyes 11/09/23
levalbuterol tartrate 45 2 puff inhalation R DAILY 11/09/23
mcg/actuation aerosol inhaler Lung/Breathing Issues
pantoprazole 40 mg tablet,delayed 40 mg PO DAILY Gastrointestinal 11/09/23
release Issue
thiamine HCl (vitamin B1) 100 mg 100 mg PO DAILY Supplement 11/10/23
tablet
Review of Systems
-
Unable to obtain full review of systems at this time due to: Acuity
All other systems: A 12 pt ROS was Negative except as stated above in HPI
Vital Signs
Temp Pulse Resp BP Pulse Ox
97.9 F 109 21 99/73 93
12/14/23 11:02 12/14/23 12:00 12/14/23 12:00 12/14/23 12:00 12/14/23 12:00
Physical Exam
Exam
General: No Apparent Distress, Comfortable and Other (chronically ill appearing male, restless)
HEENT: Normocephalic, Anicteric and Atraumatic
Respiratory: Clear (overall diminished bilaterally)
Cardiac: S1/S2, Irregular Rhythm and Other (tachycardic on tele monitoring)
GI: Soft, Non Tender, Non Distended and Normal Bowel Sounds
Rectal: Deferred by Provider
Musculoskeletal: No Edema
Skin: Warm and Dry
Neuro: Other (Drowsy but arousable, able to answer some questions appropriately)
Psych: Calm
Results
WBC 4.2 10^3/uL (4.8-10.8) L 12/14/23 03:52
Hgb 13.9 g/dL (13.0-18.0) 12/14/23 03:52
Hct 39.5 % (39.0-52.0) 12/14/23 03:52
MCV 91.6 fL (80.0-94.0) 12/14/23 03:52
Plt Count 82 10^3/uL (130-400) L 12/14/23 03:52
Absolute Neuts (auto) 6.5 10^3/uL (1.4-6.5) 12/04/23 23:00
PT 18.6 Sec (11.4-14.6) H 12/11/23 17:28
INR 1.57 12/11/23 17:28
APTT 30.2 Sec (23.4-35.0) 12/11/23 17:28
Sodium 134 mmol/L (135-145) L 12/14/23 03:52
Potassium 4.0 mmol/L (3.5-5.1) 12/14/23 03:52
Chloride 103 mmol/L (98-107) 12/14/23 03:52
Carbon Dioxide 27 mmol/L (22-30) 12/14/23 03:52
BUN 19 mg/dl (9-20) 12/14/23 03:52
Creatinine 0.5 mg/dL (0.7-1.3) L 12/14/23 03:52
Calcium 7.8 mg/dl (8.4-10.2) L 12/14/23 03:52
Total Bilirubin 4.0 mg/dl (0.2-1.3) H 12/14/23 03:52
AST 71 U/L (17-59) H 12/14/23 03:52
ALT 55 U/L (0-50) H 12/14/23 03:52
Alkaline Phosphatase 206 U/L (38-126) H 12/14/23 03:52
Diagnostic Image Results:
12/14/23 Abdominal XR: Dobbhoff tube terminates in the expected location of the distal gastric body.
12/12/23 CT head: IMPRESSION: No acute intracranial abnormality noted. Mild atrophy. Stable. Mild acute left maxillary sinusitis. New.
12/11/23 US abdomen: IMPRESSION:
1. SEVERE HEPATIC CIRRHOSIS.
2. No sonographic evidence for cholelithiasis or biliary obstruction.
3. Mild splenomegaly secondary to portal hypertension.
4. Small volume of ascites.
Prior GI Procedures:
EGD: 06/03/22 Dr. Olsen: Large (> 5 mm) esophageal varices with possible fibrin clot. Banded. Incompletely eradicated. No blood or clot noted in the stomach. Erythematous mucosa in the gastric fundus. Portal hypertensive gastropathy. Normal duodenal
bulb, first portion of the duodenum and second portion of the duodenum. No specimens collected.
08/28/2021 Dr. Blandon: Mcgregor-colored mucosa suspicious for short-segment Coles's esophagus. Biopsied. Small hiatal hernia. Gastritis. Biopsied. Mild duodenitis, no ulcers. Path showing focal cystic glandular changes within the body of the
stomach with no intestinal metaplasia. H. pylori negative. 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
06/26/2021 Dr. Blandon: Mcgregor-colored mucosa suspicious for short-segment Coles's esophagus. Biopsied. Gastritis. Biopsied. Non-bleeding duodenal ulcer. Path showing chronic inactive gastritis/reactive gastropathy negative for H. pylori. Distal
esophageal biopsy showing Coles's, indefinite for dysplasia
Colonoscopy: none on record
Assessment / Plan
-
The patient is a 63-year-old male with a past medical history significant for alcoholic liver cirrhosis with large esophageal varices (05/2022) with bleeding, hypertension, paroxysmal atrial fibrillation/atrial flutter (not on AC due to bleeding
risk), carotid artery stenosis, COPD, ALCIDES with CPAP non-compliance, GERD, Coles's esophagus without dysplasia, history of GI bleeding secondary to duodenal ulcers (2021), PMR, sciatica, with ongoing alcohol abuse, who presented to the ER initially
on 12/04 with complaints of shortness of breath found to have suspected left-sided pneumonia, now with worsening mentation after going through alcohol withdrawal requiring ICU evaluation and management of Precedex. There is also concern for hepatic
encephalopathy given ultrasound imaging showing findings consistent with severe hepatic cirrhosis likely secondary to chronic alcohol abuse. He is somewhat more alert today as his Precedex has been reduced. He remains in restraints given he has
attempted to hit nursing staff. His ammonia levels have been normal throughout his hospitalization, but given his history of liver disease, cannot rule out HE. His discriminant function was 28.4 calculated on 12/10, with PT/INR pending today to
recalculate his score. His MELD 3.0 score was 14. He does have a history of bleeding esophageal varices in 2022 but did not follow-up after that for repeat EGD for banding. He continues to drink alcohol 2 bottles of wine daily. His LFTs,
primarily bilirubin is trending upward. He is currently completing a course of antibiotics for pneumonia. He Dobbhoff tube was placed for medications and lactulose.
Problem list:
-Acute hypoxic respiratory failure secondary to pneumonia
-Encephalopathy, suspected to be secondary to medications versus HE (normal ammonia level)
-Chronic alcohol abuse
-Ultrasound imaging showing hepatic cirrhosis with portal hypertension and splenomegaly
-History of GI bleed secondary to esophageal varices in 2022, and duodenal ulcer in 2021
-Constipation
-COPD, with possible exacerbation
-Bradycardia, A-fib w/ RVR on diltiazem gtt
-Elevated LFTs, likely secondary to liver disease
-chronic thrombocytopenia
Other pertinent medical hx:
-ALCIDES
-COPD
-Carotid artery stenosis
-HTN
-GERD
-Coles's esophagus
-PMR
-sciatica
Recommendations:
-Etiology of encephalopathy is likely multifactorial given alcohol withdrawal versus liver cirrhosis with possible hepatic encephalopathy versus metabolic encephalopathy given infection versus other.
-Agree with continuing lactulose 20 g twice daily and titrating pending his mentation and bowel movement (2-3 daily). Also started on Xifaxan via dobhoff.
-Will start with 1 lactulose enema given he has not had a bowel movement in 5 days, then continue lactulose via his Dobbhoff tube ongoing as above
-I did advise the nurse that she should not manipulate the Dobbhoff tube given his history of esophageal varices that were large in size on prior endoscopy and lack of follow-up on rebanding. He is at higher risk for bleeding. She should call GI
on-call if the tube becomes clogged and leave it in place. He has no signs of bleeding at this time.
-Will check repeat INR/PT given his rising total bilirubin to recalculate his discriminant function and MELD score. Based on his discriminant function from 12/10 he is not a candidate for steroids (28.2) for acute alcoholic hepatitis although he just
completed antibiotics for pneumonia therefore this would likely contraindicate starting steroids (will review with Dr. Witt). Compliance would also be an issue given his continued alcohol use.
-Continue to trend LFT's/MELD labs daily
-No appreciable ascites on US or exam
-Alcohol withdrawal protocol as per primary team
-He needs PPI daily for hx Coles's
-Management of pneumonia/hypoxia per hospitalist/ICU team
-I reinforced with him that he will need to abstain from alcohol indefinitely given his liver cirrhosis as if he continues to drink this may lead to
-He should consider inpatient alcohol rehab at discharge
-He will need close follow-up for cirrhosis with GI/hepatology. Also will need eventual repeat EGD for varices surveillance/banding
-Further management pending above
-
-
Thank you for consultation and allowing me to participate in the patient's care. Please call the documentation engineer GI physician during the after hours with any questions or concerns.
[2023-12-14] MEDS: CARDIZEM 30 MG TUBE ×3 (12:41→23:55)
[2023-12-14] MEDS: LOPRESSOR 50 MG TUBE ×2 (12:42→19:55)
[2023-12-14] MEDS: LACTULOSE ENEMA 300 ML RECTAL ×2 (12:42→13:07)
[2023-12-14] MEDS: XIFAXAN 550 MG TUBE ×2 (12:42→19:55)
[2023-12-14] MEDS: DUPHALAC/CHRONULAC 20 GRAMS PO ×2 (12:42→20:07)
[2023-12-14 13:50] LABS: INR 1.56; PT 18.5 Sec (11.4-14.6)
--- NOTE | 2023-12-14 14:53 | CM ---
CM following re: discharge planning.
Reviewed pt's chart, met with pt.
Per Rounds meeting, pt remains in restraints for safety, weaning Precedex per work list. Dobbhoff inserted right nare, continue supportive care.
PT and OT on hold till medical improvement.
CM will make a referral to [facility] when clinically appropriate.
D/C plan: uncertain at this time and will depend on pt's progress.
CM will follow with discharge plan updates as hospitalization progresses
--- NOTE | 2023-12-14 14:59 | PTCARENOTE ---
tube feeds initiated. fecal management system removed after lactulose enema dwell time completed
--- NOTE | 2023-12-14 16:43 | PTCARENOTE ---
patient reassessed. oriented to person and place 'hospital' asking if he has to stay overnight, still having visual hallucinations, 'who are those two jerk off's standing over there?'. no insight to current situation. precedex remains@2mcq. wrist
restraints remain for patient safety. incontinent large amount stool, hard brown stool mixed with liquid stool. complete care, linens changed. GI at bedside, no new orders at this time
[2023-12-14] MEDS: LOVENOX 40 MG SC (17:26)
[2023-12-14] MEDS: ATIVAN 1 MG IV (17:39)
[2023-12-14] MEDS: NSS (PRESERVATIVE FREE) 1 ML IV ×3 (17:42→23:53)
[2023-12-14 17:55] LABS: Glucose - Point of Care 122 mg/dl (70-99)
--- NOTE | 2023-12-14 17:55 | PTCARENOTE ---
patient with vacillating mental status, at times oriented to self only, other times able to state he was in a hospital. calling staff expletives at times. becoming aggressive when care attempted. medicated with Ativan 1mg per orders. patient now
calm, spouse at bedside. updated with plan of care
[2023-12-14] MEDS: VITAMIN B1 100 MG PO (19:55)
--- NOTE | 2023-12-14 20:00 | PTCARENOTE ---
Resumed care of pt this evening. Received pt on precedex gtt infusing at 0.2 mcg/kg/hr via rt midline. Pt is A&Ox2, confused to place and time. Pt has a wet gurgly voice, and has confused converstions. Pt is exhibiting visual hallucinations
evidenced by asking 'Who are those people in the room?' when just myself and the pt are in the room. Pt also gets agitated and uncooperative during care. PRN dose of ativan administered by this RN for agitation. Pt is able to move all 4
extremities. Pt is in A-fib on the tele monitor, has +1 GA, and weak but palpable pedal pulses. Pt tolerating tube feeding, has a round obese abdomen w/ active BS, and is incontinent of bowel. Pt also incontinent of bladder, voiding billie colored
urine. Pt has some excoriation on penis related to condom cath from previous shifts. Condom cath is now off.
[2023-12-14 21:39] LABS: Glucose - Point of Care 117 mg/dl (70-99)
[2023-12-14 23:39] LABS: Glucose - Point of Care 121 mg/dl (70-99)
[2023-12-15] VITALS (23 sets, daily range): BP systolic 103–164; BP diastolic 63–97; BMI 34.1
--- NOTE | 2023-12-15 00:30 | PTCARENOTE ---
Upon reassessment pt continues to be confused and gets agitated/uncooperative w/ care. PRN dose of ativan administered by this RN for agitation. Pt passed a large loose brown BM after lactulose administration. Pt remains in restraints per order.
[2023-12-15 04:15] LABS: Hemoglobin 13.6 g/dL (13.0-18.0); Mean Corp Hgb Conc. 34.9 g/dL (33.0-37.0); Mean Corpuscular Hgb 32.4 pg (27.0-31.0); Mean Corpuscular Volume 92.9 fL (80.0-94.0); Mean Platelet Volume 10.1 fL (7.4-10.4); Platelet Count 101 10^3/uL (130-400); Red Cell Dist. Width 15.2 % (11.5-14.5); White Blood Cell Count 6.3 10^3/uL (4.8-10.8)
[2023-12-15 04:38] LABS: ALT (SGPT) 56 U/L (0-50); AST (SGOT) 70 U/L (17-59); Albumin 2.8 g/dl (3.5-5.0); Alkaline Phosphatase 264 U/L (38-126); Blood Urea Nitrogen 14 mg/dl (9-20); Calcium 7.8 mg/dl (8.4-10.2); Carbon Dioxide 27 mmol/L (22-30); Chloride 103 mmol/L (98-107); Estimated Creatinine Clearance > 125 ml/min; Glucose 129 mg/dl (70-99); Magnesium 1.7 mg/dl (1.6-2.3); Phosphorus 2.7 mg/dl (2.5-4.5); Potassium 3.3 mmol/L (3.5-5.1); Sodium 135 mmol/L (135-145); Total Bilirubin 3.5 mg/dl (0.2-1.3); Total Protein 5.5 g/dl (6.3-8.2); eGFR > 60.00
[2023-12-15] MEDS: KCL ELIXIR 40 MEQ TUBE (05:13)
[2023-12-15] MEDS: CARDIZEM 30 MG TUBE (05:13)
[2023-12-15] MEDS: ATIVAN 1 MG IV ×2 (05:14→20:41)
[2023-12-15] MEDS: NSS (PRESERVATIVE FREE) 0.5 ML IV ×2 (05:14→20:42)
--- NOTE | 2023-12-15 06:00 | PTCARENOTE ---
Mental status unchanged from previous assessment. Pt continues to have loose brown BMs.
[2023-12-15 06:47] LABS: Glucose - Point of Care 125 mg/dl (70-99)
[2023-12-15] MEDS: NOVOLOG FLEXPEN-LOW RESISTANCE SC ×3 (06:48→23:46)
--- NOTE | 2023-12-15 07:12 | W.PN.HOSP.TC ---
Today's Communication/Plan
-
wean precedex restraints as tolerated
tube feeds as per ICU
Speech eval
cont lactulos xifaxan
MSAS protocol
Assessment / Plan
Assessment / Plan
Physical Exam
General: no acute distress appears comfortable obese
HEENT: Thick neck. MMM
Respiratory: Decreased BS no wheezing noted
Cardiac: S1/S2 and Irregular Irregular tachy; No Murmur
GI: Non Tender, Non Distended, Normal Bowel Sounds Umbilical hernia that is soft, nontender and easily reducible
Musculoskeletal: No Clubbing, No Cyanosis and No Edema
Neuro: Lethargic but arousable disoriented to place and time follows simple commands negative asterixis. Speech seems more fluent verbose compared to yesterday's mumbling paucity of speech
Psych: Calm
A/P: Patient is a 63y M with PMH significant for COPD, A-Fib, HTN and alcohol use disorder who presents to ED complaining of SOB.
Alcohol Use Disorder
Acute Intoxication, now withdrawal
Acute Alcoholic Hepatitis
Alcoholic Cirrhosis with Esophageal Varices, Thrombocytopenia, etc
Initially Acute Metabolic Encephalopathy d/t Intoxication later Withdrawal and currently likely Hepatic Encephalopathy no bowel movement in 5 days
- Patient reports drinking 3 bottles of wine prior to arrival. Typically drinks 2 bottles daily ever day.
- alcohol level appreciated 300s on admission
- cont MSAS protocol
-phenobarbital taper completed, currently on precedex gtt
� Cont to attempt to wean off dexmedetomidine in ICU
-Curtain Fitter eval appreciated
- Thiamine, folate, MVI replacement.
- Encourage alcohol cessation efforts.
- trend LFTs mild persistent transaminitis
-CIWA, ativan IV PRN
-NPO pending improvement in mental status speech eval
-NGT tube feeds as per ICU
-started Lactulose Rifaximin if cleared for oral intake
-GI eval appreciated once Lactulose enema given
Acute Hypoxemic Respiratory Failure
COPD
Pneumonia
-Continue IV steroids, nebs, supplemental O2, taper as tolerated - completed empiric IV steroids 12/11
-Duonebs switched to Xopenex d/t tachycardia
- Speech therapy eval appreciated appropriate for reg diet, aspiration precautions.
-BIPAP prn sob
-Completed 8 days Ceftriaxone, Doxycycline
Paroxysmal Atrial Fibrillation
Bradycardia
- Patient with HR in the 30s on initial presentation.
- suspect bradycardia related to hypothermia vs ETOH intoxication since resolved.
- Patient is not on chronic OAC due to history of GI bleeding / ongoing alcohol abuse.
- restarted on Dilt ggt as NPO transitioned back to PO with started NGT as per ICU
-F/u ECHO - 60-65%
#mild Transaminitis
#Severe hepatic cirrhosis
� Small volume ascites
-most likely 2/2 to alcoholic hepatitis
�LFTs overall improving though mild persistent elevation
-recent coags wnl
Hypothermia suspect due to ETOH intoxication
-resolved
Hypokalemia
-monitor and replete
Pancytopenia
-most likely 2/2 to EtOH abuse +/- acute infection vs cirrhosis
-ctm
LORENZO
- SCr = 1.7 compared to baseline of 0.6.
- Likely pre-renal
- Resolved with IVF
ASCVD / Carotid Stenosis
Hypertension
-Home Cardizem resumed short acting 30 mg QID given recent Bradycardia d/t ETOH intoxication vs ETOH interaction with medications
-eventually long acting Cardizem was resumed and titrated up as per Cardiology. Converted back to gtt due to worsening mental status NPO transfer to ICU as above. PO restarted as per ICU following start NGT
-Metoprolol as per ICU
-IV lopressor prn
Obesity due to excess calories
ALCIDES - Not compliant with PAP therapy
- Affects all aspects of care.
- Patient states that he no longer has PAP machine at home.
- Encourage cessation of alcohol intake, healthy diet and increased physical activity with goal of weight reduction.
DVT Prophylaxis: HSQ
Code Status: Full
Total Critical Care Time__40___ minutes. I was immediately available to the patient and staff. I personally examined, reviewed labs, diagnostic images/reports, interpretations, treatment plans, discussed patient care with other providers and
patient's Laurence (patient is unable to make decisions at this time), entered orders as appropriate and documented the medical record.
Anticipated Discharge: > 48 hours
Subjective/Interval History
-
Date of Service: December 15, 2023
Confusion appears improved though remains disoriented to place and time (reporting state as [place] and Year as 1993). Speech is however more fluent. Asterixis resolved.
Objective Data
-
Labs:
Laboratory Results
12/15/23
04:02
WBC 6.3
Hgb 13.6
Hct 39.0
Plt Count 101 L D
Sodium 135
Potassium 3.3 L
Chloride 103
Carbon Dioxide 27
BUN 14
Creatinine 0.6 L
Glucose 129 H
Calcium 7.8 L
Total Bilirubin 3.5 H
AST 70 H
ALT 56 H
Alkaline Phosphatase 264 H
Vital Signs:
Vital Signs
Temp Pulse Resp BP Pulse Ox
99.4 F 123 22 142/95 94
12/14/23 23:46 12/15/23 06:30 12/15/23 06:30 12/15/23 06:00 12/15/23 06:30
I&O
12/14/23 12/15/23 12/16/23
06:59 06:59 06:59
Intake Total 728.0 / 746.5 1282.4 / 1282.4
Output Total 1850 / 1850 250 / 250
Balance -1122.0 / -1103.5 1032.4 / 1032.4
[2023-12-15] MEDS: DUONEB 3 ML INH ×3 (07:25→19:40)
[2023-12-15] MEDS: PULMICORT 0.5 MG INH ×2 (07:25→19:44)
--- NOTE | 2023-12-15 08:25 | W.PN.INTV ---
Today's Communication / Plan
Recommendations
Precedex
MSAS with prn Ativan
Restraints as needed
Trend LFTs
Psych consult once more awake
Repletion of electrolytes
Heart rate control with goal <110
Low threshold to intubate although apparently he has advanced directive which had previously brought in; brought in copy --> considering the patient is not in a terminal condition, it is appropriate to maintain full code
Aspiration precautions
Continue Dobbhoff tube for tube feeds and PO meds
Once drowsiness resolves and he continues to awaken, will potentially remove restraints, and DHT and check KNITTING INSPECTOR evaluation
Assessment
-
Assessment: 63-year-old male former tobacco smoker with a past medical history of COPD, lung nodules, severe ALCIDES noncompliant with CPAP, alcoholic cirrhosis, chronic alcoholism, hypertension, history of GI bleed with history of duodenal
ulcer/esophageal varices, polymyalgia rheumatica and sciatica who presented with shortness of breath on 12/05/2023. He drank 3 bottles of wine on the day of admission. His breathing has been poor about a week or so prior to him come to the ER. He
was initially admitted for possible COPD exacerbation with IV steroids, nebs and oxygen. He also was bradycardic into the 30s initially during his hospitalization and received atropine in the ER. He was started on MSAS protocol with phenobarbital
taper. Patient also started on antibiotics for left mid�lower lung pneumonia. Patient was having worsening alcohol withdrawal symptoms and was n.p.o., starting on Cardizem drip for his A-fib with RVR. He has been receiving prn Ativan since
admission with high MSAS scores, and is now being transferred to the ICU for Precedex initiation. Critical care services consulted for additional management/recommendations.
Conditions present prior admission:
Discharged from the hospital 07/2023.
Hypertension
Carotid stenosis
COPD-follows up with Dr. García maintained on Trelegy, albuterol nebulizer as needed.
History of pulmonary nodule
History of paroxysmal atrial fibrillation
Severe obstructive sleep apnea noncompliant with CPAP
GERD/Coles's esophagus
Diverticular disease
Alcoholic cirrhosis
History of duodenal ulcer/esophageal varices and GI bleeding
Sciatica pain
Polymyalgia rheumatica
Chronic alcohol use-prior history of delirium.
Bilateral hip replacement
Bilateral retinal surgery.
Former smoker [id number] history quit in 2019.
Impression:
#Alcohol withdrawal with suspected DT now on precedex gtt
#Left sided pneumonia/CAP
#Atrial fibrillation with RVR now HR controlled on PO BB+ CCB
#Alcoholic cirrhosis with ascites, portal hypertension and history of esophageal varices with UGIB
#Thrombocytopenia (due to cirrhosis)
#Transaminitis with hyperbilirubinemia (likely due to alcoholic hepatitis in the setting of alcoholic cirrhosis)
#Moderate-severe COPD with air trapping (last FEV1 was 1.61L / 50% predicted via spirometry from 02/2023) with suspected recent acute exacerbation
#Severe ALCIDES (total index: 53 with O2 saturation jose: 87%) noncompliant to BiPAP (stopped in 2020 for unclear reasons)
Plan:
- Transferred to the ICU for close monitoring and initiation of Precedex
- Continue MSAS with prn ativan
- Continue NPO until mentation improves; continue aspiration precautions; keep head of bed >30-45�
- Dobbhoff tube inserted on 12/13 for initiation of tube feeds and to start PO meds
- He has been more awake since 12/13 but still remains drowsy with occasional agitation requiring Ativan; continue to reassess throughout the day and if he awakens further then we can remove restraints and Dobbhoff tube and do KNITTING INSPECTOR evaluation
- Thiamine + folic acid
- Restraints as needed with 4 rails
- Ammonia level 25 on AM of 12/12/2023; trend LFTs, INR, AST, ALT, T. bili and GGT
- MELD-Na is 16 from 12/13/2023
- GI consulted --> rifxamin + lactulose started; hold lactulose for diarrheas, and titrate to 3�4 loose but formed bowel movements per day
- Regarding his COPD, he follows with us in the office with Dr. García, last office visit in February 2020. He is Rx Trelegy 100mcg with prn levalbuterol HFA
- Considering patient remains drowsy, on 12/10 I changed inhalers to nebs with atrovent/xopenex+ budesonide --> on 12/12 I changed atrovent/xopenex to Duonebs BID; raise to TID given he has wet sounding cough
- Add mucinex
- Maintain SpO2 >88% and <96%
- Steroids stopped in setting of his worsening agitation and AMS
- Continue antibiotics with ceftriaxone + doxycycline and will treat for at least 7 days total (antibiotics started on 12/07/2023) ---> last day of ABx on 12/13
- Maintain SpO2 >90-94%
- Cultures have not been obtained this hospitalization
- If patient spikes a fever then gonzalez-culture at that time
- He will need repeat imaging with CXR in about 6 weeks to follow-up left-sided pneumonia to resolution
- Heart rate control with goal HR <110
- Continue Cardizem drip, wean as tolerated
- Once Dobbhoff tube is inserted, start PO metoprolol + PO Cardizem and wean off cardizem gtt
- Replete electrolytes with K>4, Mg>2
- Maintain MAP>65
- Maintain euglycemia with goal BG 140-180
- He also qualifies for LDCT Chest for lung cancer screening until 2034 (he quit smoking in 2019) - this can be discussed in the office when he follows with Dr. García
- DVT ppx
Critical care statement: A total of 40 minutes of critical care time was provided for this patient today. This includes management of unstable vital signs, evaluation of the patient at bedside, reviewing the patient's pertinent medical records
including radiographs, microbiology, laboratory evaluations, and discussion with primary team, consultants, pharmacy, nutrition, physical therapy, case management, charge nurse, critical care nursing, and respiratory therapy.
Data:
Abdominal ultrasound 12/11/2023:
1. SEVERE HEPATIC CIRRHOSIS.
2. No sonographic evidence for cholelithiasis or biliary obstruction.
3. Mild splenomegaly secondary to portal hypertension.
4. Small volume of ascites.
Transthoracic echocardiogram 12/08/2023:
Left ventricular ejection fraction is 60-65%, by visual assessment. Grossly
normal regional wall motion.
Normal right ventricular size and function.
Trace mitral regurgitation.
Aortic sclerosis without stenosis.
Trace tricuspid regurgitation. Estimated pulmonary artery pressure of 25-30
mmHg.
No significant change since the prior study of 04/10/2023.
CXR 12/06/2023:
Parenchymal opacity within the left mid to lower lung, increasing when comparing to to most recent chest radiographs. Finding would be suggestive of pneumonia, although atelectasis could have a similar appearance.
No convincing evidence for pulmonary edema pattern.
Subjective Dataa
Subjective Data
Date of Service:
Date of Service: December 15, 2023
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
Subjective:
Patient seen and evaluated today at bedside. Remains on Precedex at 0.3mcg/kg/hour. SpO2 94% on room air. HR 91 and BP 119/81. FMS placed this AM. Patient was sleeping this morning, but when I went to evaluate him he was awake, speaking to me
without any distress. He still confused, AAOx0-1.
Review of Systems
General: Other (Unable to obtain given patient's mental status)
Objective Data
Data Reviewed
Vital Signs / I&O / Oxygen:
Vital Signs
Temp Pulse Resp BP Pulse Ox
97.8 F 109 23 142/95 93
12/15/23 07:59 12/15/23 07:28 12/15/23 07:28 12/15/23 06:00 12/15/23 07:28
Intake and Output
12/14/23 12/15/23 12/16/23
06:59 06:59 06:59
Intake Total 728.0 / 746.5 1282.4 / 1362.8 308.8 / 308.8
Output Total 1850 / 1850 250 / 250
Balance -1122.0 / -1103.5 1032.4 / 1112.8 308.8 / 308.8
SaO2 93
Nasal Cannula flow liters per 2
minute
Physical Exam
General: Respiratory Distress (Negative) and Comfortable
HEENT: Normocephalic and Other (Icteric bulbar conjunctiva bilaterally)
Cardiovascular: Irregular Rhythm and Peripheral Edema (Negative)
Respiratory: Wheeze (Negative), Crackles (Left base), Rhonchi (Negative), Non-Labored Respirations and Other (Poor inspiratory effort)
GI: Soft, Non Distended, Non Tender and Normal Bowel Sounds
Neurology: Awake and Lethargic (Drowsy\\)
Skin: Warm, Dry and Jaundice (negative)
Labs/Micro/Reports
Lab Data
12/15/23 04:02
12/15/23 04:02
Laboratory Results
12/14/23
13:05
PT 18.5 H
INR 1.56
[2023-12-15] MEDS: XIFAXAN 550 MG TUBE ×2 (08:35→20:34)
[2023-12-15] MEDS: FOLVITE 1 MG PO (08:35)
[2023-12-15] MEDS: ASPIR LOW (ENTERIC COATED) 81 MG PO (08:35)
[2023-12-15] MEDS: DUPHALAC/CHRONULAC 20 GRAMS PO (08:35)
[2023-12-15] MEDS: VITAMIN B1 100 MG PO ×2 (08:35→20:33)
[2023-12-15] MEDS: LOPRESSOR 50 MG TUBE ×2 (08:35→20:33)
[2023-12-15] MEDS: PROTONIX IV 40 MG IV (08:36)
[2023-12-15] MEDS: NSS (PRESERVATIVE FREE) 10 ML IV (08:36)
--- NOTE | 2023-12-15 09:25 | W.PN.CD ---
Today's Communication / Plan
-
- On Dilt 30 mg TID with tachycardia noted - increase to 60 mg TID
Impression / Plan
-
Tachy Kavon syndrome
- Bradycardia -acute upon arrival in the ER rates in the 30s and 40s.
- Resolved after correction of hypothermia
- With Dobhoff tube in place now, can switch to Dilt 60 mg TID
- Patient remains NPO; still not fully lucid. on precedex for agitation
- transition to Cardizem CD 180 mg daily when tolerating PO intake.
- If swallowing remains an issue, can consider leadless PPM with AVJ ablation per EP Cardiology.
- ECHO 12/08/23 - LVEF 60%.
Atrial fibrillation
-Permanent AF with slow ventricular response on arrival. Permanent / Persistent A-fib. Patient's had a history of atrial fibrillation and was in atrial fibrillation on prior ECGs including a ECGs in September.
-Diltiazem and Toprol previously listed as meds - Possible non-compliance.
-[id number] score is 1, due to prior GI bleed/anemia and EtOH abuse-->no OAC therapy.
-Continue Cardizem
Leukopenia
- abx per primary for PNA
Hypertension -
-Currently controlled.
COPD - acute exacerbation per hospitalist.
ALCIDES - stable on CPAP, continue
EtOH abuse - chronic, drinks 2 bottles of wine daily.
Appears to now be in full blown alcohol withdrawal
plan per IM
Anemia/prior GI bleed - stable H/H. Hb 12.1 -->13.7.
Echo: CONCLUSIONS
Left ventricular ejection fraction is 60-65%, by visual assessment. Grossly
normal regional wall motion.
Normal right ventricular size and function.
Trace mitral regurgitation.
Aortic sclerosis without stenosis.
Trace tricuspid regurgitation. Estimated pulmonary artery pressure of 25-30
mmHg.
No significant change since the prior study of 04/10/2023.
Subjective: No major events overnight. not agitated with Precedex
Physical Exam
Vital Signs/Labs
Vital Signs
Temp Pulse Resp BP Pulse Ox
97.8 F 109 23 142/95 93
12/15/23 07:59 12/15/23 07:28 12/15/23 07:28 12/15/23 06:00 12/15/23 07:28
12/14/23 12/15/23 12/16/23
06:59 06:59 06:59
Actual Weight 106.6 kg 104.7 kg
12/15/23 04:02
12/15/23 04:02
PT 18.5 Sec (11.4-14.6) H 12/14/23 13:05
INR 1.56 12/14/23 13:05
APTT 30.2 Sec (23.4-35.0) 12/11/23 17:28
Magnesium 1.7 mg/dl (1.6-2.3) 12/15/23 04:02
TSH 1.52 uIU/ml (0.47-4.68) 12/04/23 23:00
Free T4 1.29 ng/dl (0.78-2.19) 12/05/23 05:17
12/04/23 12/06/23
23:00 17:56
Xwh-Z-[id number] Pept 438 1020
Physical Exam
Constitutional: No acute distress, Confusion and Other (Mild agitated - in soft restraints. )
EENT: Anicteric and Moist mucous membranes
Cardiovascular: JVD pressure is normal, Rhythm/rate is irregular and Systolic murmur present
Respiratory: Respiratory effort normal, Wheeze Absent and Crackles Absent
GI: Soft and Non tender
Neuro/Psych: Other (confused. )
Data Reviewed
-
Date of Service: December 15, 2023
Medical Decision Making: Reviewed Test Results, Independent Historian Assessment, Test Interpretation and Review of Case with other Provider
EKG: Tracing Personally Visualized and interpreted
Echo: Report Reviewed by me
Labs: Labs Reviewed by me
Old Records: Reviewed
Critical Care Time (in minutes): 30
--- NOTE | 2023-12-15 10:39 | PTCARENOTE ---
Pt AAOx1-2. Follows commands but uncooperative with care at times. Weaning Precedex. Afib 80-100. HR up to 130 with agitation. SpO2 97% on RA at this time. Moist cough. Tube feed almost at goal. Speech therapist assessing pt at this time.
Incontinent of urine. Rectal trumpet placed for loose stools. All other assessments unchanged.
[2023-12-15] MEDS: KCL ELIXIR 20 MEQ TUBE (11:32)
[2023-12-15] MEDS: SEROQUEL 25 MG PO ×2 (11:32→20:33)
[2023-12-15] MEDS: NEUTRA-PHOS POWDER PACKET 500 MG TUBE (11:32)
[2023-12-15] MEDS: CARDIZEM 60 MG TUBE ×2 (11:32→18:15)
[2023-12-15 11:53] LABS: Glucose - Point of Care 191 mg/dl (70-99)
[2023-12-15] MEDS: MAGNESIUM SULFATE 50 IV (12:09)
[2023-12-15] MEDS: NOVOLOG FLEXPEN-LOW RESISTANCE 1 UNITS SC (12:09)
[2023-12-15] MEDS: ROBITUSSIN 400 MG TUBE ×3 (14:06→20:34)
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
--- NOTE | 2023-12-15 17:26 | PTCARENOTE ---
Pt found to have slid down in bed and pulled out DHT while in restraints. Pt did not recall pulling tube. Pt apologized and became tearful.
Per order, RN not to replace d/t hx esophageal varices. Spoke with GI (Gaudencio) agreeable to allow Dr Etienne replace DHT. Niece at bedside who stated she would prefer to wait until arrives to agree to replace tube. to arrive in 15min.
Precedex off around noon.
Pt continues to have loose brown stools via rectal tube. Voiding in large amounts, requiring brief change about every hour. Purewick placed.
All other assessments unchanged.
[2023-12-15 17:29] LABS: Glucose - Point of Care 123 mg/dl (70-99)
[2023-12-15] MEDS: LOVENOX 40 MG SC (18:15)
[2023-12-15] MEDS: DUPHALAC/CHRONULAC 10 GRAMS PO (20:32)
[2023-12-15 23:52] LABS: Glucose - Point of Care 141 mg/dl (70-99)
[2023-12-16] VITALS (22 sets, daily range): BP systolic 115–166; BP diastolic 64–95; PULSE 91; O2SAT 93; BMI 33.8
[2023-12-16] MEDS: CARDIZEM 60 MG TUBE ×5 (00:42→23:05)
[2023-12-16] MEDS: NSS (PRESERVATIVE FREE) 0.5 ML IV (01:44)
[2023-12-16] MEDS: ATIVAN 1 MG IV ×2 (01:44→22:59)
[2023-12-16 06:21] LABS: Hematocrit 41.3 % (39.0-52.0); Hemoglobin 14.4 g/dL (13.0-18.0); Mean Corp Hgb Conc. 34.9 g/dL (33.0-37.0); Mean Corpuscular Hgb 32.2 pg (27.0-31.0); Mean Corpuscular Volume 92.4 fL (80.0-94.0); Mean Platelet Volume 10.4 fL (7.4-10.4); Platelet Count 141 10^3/uL (130-400); Red Blood Cell Count 4.47 10^6/uL (4.70-6.10); Red Cell Dist. Width 15.6 % (11.5-14.5); White Blood Cell Count 11.3 10^3/uL (4.8-10.8)
[2023-12-16 06:22] LABS: INR 1.29
[2023-12-16 07:19] LABS: ALT (SGPT) 74 U/L (0-50); AST (SGOT) 90 U/L (17-59); Albumin 3.2 g/dl (3.5-5.0); Alkaline Phosphatase 361 U/L (38-126); Blood Urea Nitrogen 7 mg/dl (9-20); Calcium 8.3 mg/dl (8.4-10.2); Carbon Dioxide 27 mmol/L (22-30); Chloride 105 mmol/L (98-107); Estimated Creatinine Clearance > 125 ml/min; Glucose 138 mg/dl (70-99); Magnesium 1.8 mg/dl (1.6-2.3); Phosphorus 2.8 mg/dl (2.5-4.5); Sodium 136 mmol/L (135-145); eGFR > 60.00
[2023-12-16] MEDS: NOVOLOG FLEXPEN-LOW RESISTANCE SC ×4 (07:19→23:08)
--- NOTE | 2023-12-16 07:20 | PTCARENOTE ---
Received pt with bilateral soft wrist restraints with MITTs to his hands sitting up 33 degrees. He is awake and alert however he is hallucinating. He is seeing people in the room and talking to himself. He is following some commands, cooperative for
the most part. He was oriented to the events of his hospitalization. He does not recall any event of his hospitalization and has no situational awareness. Moist non-productive cough, he has white phlegm on his chin. AM care performed. Right upper
arm midline and right FA#20g protective catheter both flushed and patent. Clarifying with pharmacy folic acid route and some medications that need to be changed to via 'Tube'. Palpable peripheral pulses. Trace anasarca. Room air pulse ox 92%.
Diminished breath sounds in the bases. +BSx4. Abdomen large soft and round. Rectal trumpet HI. Cleansed. Calazime to surrounding skin. Meatus red excoriated. Cleansed, moisture barrier applied. Purwick changed for UOP measurement. Urine billie in
color noted in brief. Liquid stool via nasal trumpet. Right lateral lower leg with SBD clean dry and intact. Knee-hi scd's intact. Right lateral Knee with ecchymotic area. Pt denies any pain there. Right NARE DHT secured 65cm. 10ml residual.
Tolerating tube feeds at goal. He was informed of the plan of care and our goal for the day would be for him to be more aware of his situation and hopefully pass a swallow exam. Safe environment maintained. Aspiration precautions maintained.
[2023-12-16 07:28] LABS: Glucose - Point of Care 149 mg/dl (70-99)
--- NOTE | 2023-12-16 07:33 | W.PN.HOSP.TC ---
Today's Communication/Plan
-
Stable for downgrade to IMU
ativan restraints prn
cont lactulos xifaxan
pureed diet with supplemental tube feeds
digoxin as per cardio
Assessment / Plan
Assessment / Plan
Physical Exam
General: no acute distress appears comfortable obese
HEENT: Thick neck. MMM
Respiratory: Decreased BS no wheezing noted
Cardiac: S1/S2 and Irregular Irregular tachy; No Murmur
GI: Non Tender, Non Distended, Normal Bowel Sounds Umbilical hernia that is soft, nontender and easily reducible
Musculoskeletal: No Clubbing, No Cyanosis and No Edema
Neuro: AOx2 disoriented to time
Psych: Calm
A/P: Patient is a 63y M with PMH significant for COPD, A-Fib, HTN and alcohol use disorder who presents to ED complaining of SOB.
Alcohol Use Disorder
Acute Intoxication, now withdrawal
Acute Alcoholic Hepatitis
Alcoholic Cirrhosis with Esophageal Varices, Thrombocytopenia, etc
Initially Acute Metabolic Encephalopathy d/t Intoxication later Withdrawal and currently likely Hepatic Encephalopathy no bowel movement in 5 days
- Patient reports drinking 3 bottles of wine prior to arrival. Typically drinks 2 bottles daily ever day.
- alcohol level appreciated 300s on admission
- cont MSAS protocol
-phenobarbital taper completed, weaned off prexedex
-Counter Maker eval appreciated
- Thiamine, folate, MVI replacement.
- Encourage alcohol cessation efforts.
- trend LFTs mild persistent transaminitis
- ativan IV PRN
-speech eval appreciated diet advanced to pureed, supplemental tube feeds to continue pending further improvement mental status
-cont Lactulose Rifaximin
-GI eval appreciated once Lactulose enema given prior to start Lactulose Rifaximin as above
Acute Hypoxemic Respiratory Failure
COPD
Pneumonia
-Continue IV steroids, nebs, supplemental O2, taper as tolerated - completed empiric IV steroids 8/3
-Duonebs switched to Xopenex d/t tachycardia
- Speech therapy eval appreciated appropriate for reg diet, aspiration precautions.
-BIPAP prn sob
-Completed 8 days Ceftriaxone, Doxycycline
Paroxysmal Atrial Fibrillation
Bradycardia
Afib rvr
- Patient with HR in the 30s on initial presentation.
- suspect bradycardia related to hypothermia vs ETOH intoxication since resolved.
- Patient is not on chronic OAC due to history of GI bleeding / ongoing alcohol abuse.
- restarted on Dilt ggt as NPO transitioned back to PO with started NGT as per ICU
-F/u ECHO - 60-65%
-Cardio eval appreciated started on digoxin
#mild Transaminitis
#Severe hepatic cirrhosis
� Small volume ascites
-most likely 2/2 to alcoholic hepatitis
�LFTs overall improving though mild persistent elevation
-recent coags wnl
Initial Hypothermia suspect due to ETOH intoxication
-resolved
Hypokalemia
-monitor and replete
Pancytopenia
-most likely 2/2 to EtOH abuse +/- acute infection vs cirrhosis
-ctm
LORENZO
- SCr = 1.7 compared to baseline of 0.6.
- Likely pre-renal
- Resolved with IVF
ASCVD / Carotid Stenosis
Hypertension
-Home Cardizem resumed short acting 30 mg QID given recent Bradycardia d/t ETOH intoxication vs ETOH interaction with medications
-eventually long acting Cardizem was resumed and titrated up as per Cardiology. Converted back to gtt due to worsening mental status NPO transfer to ICU as above. PO restarted as per ICU following start NGT
-Metoprolol as per ICU
-IV lopressor prn
Obesity due to excess calories
ALCIDES - Not compliant with PAP therapy
- Affects all aspects of care.
- Patient states that he no longer has PAP machine at home.
- Encourage cessation of alcohol intake, healthy diet and increased physical activity with goal of weight reduction.
DVT Prophylaxis: HSQ
Code Status: Full
Stable for downgrade to IMU
Patient's Laurence updated
I spent a total of 55 minutes with the patient or on the floor. More than 50% of this time involved counseling and coordination of care.
Anticipated Discharge: > 48 hours
Subjective/Interval History
-
Date of Service: December 16, 2023
Seen and examined at bedside in no acute distress. More alert conversant though some confusion persists AOx2 disoriented to time. Weaned off precedex
Objective Data
-
Labs:
Laboratory Results
12/16/23
06:03
WBC 11.3 H
Hgb 14.4
Hct 41.3
Plt Count 141 D
PT 16.0 H
INR 1.29
Sodium 136
Potassium 4.0
Chloride 105
Carbon Dioxide 27
BUN 7 L
Creatinine 0.6 L
Glucose 138 H
Calcium 8.3 L
Total Bilirubin 3.0 H
AST 90 H
ALT 74 H
Alkaline Phosphatase 361 H
Vital Signs:
Vital Signs
Temp Pulse Resp BP Pulse Ox
97.8 F 126 20 162/95 94
12/16/23 01:44 12/16/23 05:49 12/16/23 01:30 12/16/23 05:49 12/16/23 01:30
I&O
12/15/23 12/16/23 12/17/23
06:59 06:59 06:59
Intake Total 1282.4 / 1362.8 1723.5 / 1723.5
Output Total 250 / 250 900 / 900
Balance 1032.4 / 1112.8 823.5 / 823.5
[2023-12-16] MEDS: DUONEB 3 ML INH ×3 (07:49→20:07)
[2023-12-16] MEDS: PULMICORT 0.5 MG INH ×2 (07:49→20:07)
[2023-12-16] MEDS: XIFAXAN 550 MG TUBE ×2 (07:54→20:38)
[2023-12-16] MEDS: DUPHALAC/CHRONULAC 10 GRAMS PO (07:54)
[2023-12-16] MEDS: VITAMIN B1 100 MG PO (07:54)
[2023-12-16] MEDS: SEROQUEL 25 MG PO (07:54)
[2023-12-16] MEDS: FOLVITE 1 MG PO (07:54)
[2023-12-16] MEDS: ROBITUSSIN 400 MG TUBE ×4 (07:54→20:39)
--- NOTE | 2023-12-16 07:54 | W.PN.CD ---
Today's Communication / Plan
-
- Add Digoxin - IV now and daily oral
Impression / Plan
-
Tachy Kavon syndrome
- Bradycardia -acute upon arrival in the ER rates in the 30s and 40s.
- Resolved after correction of hypothermia
- With Dobhoff tube in place now, now on Dilt 60 QID and Metoprolol 50 BID
- Still RVR noted to 130s.
- With bradycardia at presentation, will not increase Dilt and Metoprolol any more. Will add Digoxin (Cr is 0.6 and K is 4.0)
- Patient remains NPO; still not fully lucid. on precedex for agitation
- If swallowing remains an issue, can consider leadless PPM with AVJ ablation.
- ECHO 12/08/23 - LVEF 60%.
Atrial fibrillation
-Permanent AF with slow ventricular response on arrival. Permanent / Persistent A-fib. Patient's had a history of atrial fibrillation and was in atrial fibrillation on prior ECGs including a ECGs in September.
-Diltiazem and Toprol previously listed as meds - Possible non-compliance.
-[id number] score is 1, due to prior GI bleed/anemia and EtOH abuse-->no OAC therapy.
-Continue Cardizem
Leukopenia
- abx per primary for PNA
Hypertension -
-Currently controlled.
COPD - acute exacerbation per hospitalist.
ALCIDES - stable on CPAP, continue
EtOH abuse - chronic, drinks 2 bottles of wine daily.
Appears to now be in full blown alcohol withdrawal
plan per IM
Anemia/prior GI bleed - stable H/H. Hb 12.1 -->13.7.
Echo: CONCLUSIONS
Left ventricular ejection fraction is 60-65%, by visual assessment. Grossly
normal regional wall motion.
Normal right ventricular size and function.
Trace mitral regurgitation.
Aortic sclerosis without stenosis.
Trace tricuspid regurgitation. Estimated pulmonary artery pressure of 25-30
mmHg.
No significant change since the prior study of 04/10/2023.
Subjective: No major events overnight. no tolerating tube feeds and oral meds via tube.
Physical Exam
Vital Signs/Labs
Vital Signs
Temp Pulse Resp BP Pulse Ox
97.8 F 123 19 162/95 91
12/16/23 01:44 12/16/23 07:52 12/16/23 07:52 12/16/23 05:49 12/16/23 07:52
12/15/23 12/16/23 12/17/23
06:59 06:59 06:59
Actual Weight 104.7 kg 103.7 kg
12/16/23 06:03
12/16/23 06:03
PT 16.0 Sec (11.4-14.6) H 12/16/23 06:03
INR 1.29 12/16/23 06:03
APTT 30.2 Sec (23.4-35.0) 12/11/23 17:28
Magnesium 1.8 mg/dl (1.6-2.3) 12/16/23 06:03
TSH 1.52 uIU/ml (0.47-4.68) 12/04/23 23:00
Free T4 1.29 ng/dl (0.78-2.19) 12/05/23 05:17
12/04/23 12/06/23
23:00 17:56
Hjz-I-Vazuokxinbm Pept 438 1020
Physical Exam
Constitutional: No acute distress, Comfortable and Confusion
EENT: Anicteric and Moist mucous membranes
Cardiovascular: Rhythm/rate is irregular, JVD present and Systolic murmur present
Respiratory: Respiratory effort normal
GI: Soft and Non tender
Neuro/Psych: Alert
Data Reviewed
-
Date of Service: December 16, 2023
Medical Decision Making: Reviewed Test Results and Independent Historian Assessment
EKG: Tracing Personally Visualized and interpreted (RVR noted on telemetry despite taking meds via dobhoff)
Echo: Tracing Personally Visualized and interpreted
Labs: Labs Reviewed by me
Old Records: Reviewed
Critical Care Time (in minutes): 35
[2023-12-16] MEDS: LOPRESSOR 50 MG TUBE ×2 (07:55→20:38)
[2023-12-16] MEDS: PROTONIX IV 40 MG IV (07:55)
[2023-12-16] MEDS: NSS (PRESERVATIVE FREE) 10 ML IV (07:55)
[2023-12-16] MEDS: LOW STRENGTH ASPIRIN 81 MG TUBE (07:58)
--- NOTE | 2023-12-16 08:28 | W.PN.INTV ---
Today's Communication / Plan
Recommendations
Precedex weaned off since 12/14
Continue prn Ativan
Restraints as needed
Trend LFTs
Psych consult once more awake
Repletion of electrolytes
Heart rate control with goal <110
Aspiration precautions
Continue Dobbhoff tube for tube feeds and PO meds; he passed ELECTRO WINNING OPERATOR eval today as well
Patient stable for downgrade out of ICU to IMU. Compressor Station Operator/Pulmonary service will briefly follow.
Assessment
-
Assessment: 63-year-old male former tobacco smoker with a past medical history of COPD, lung nodules, severe ALCIDES noncompliant with CPAP, alcoholic cirrhosis, chronic alcoholism, hypertension, history of GI bleed with history of duodenal
ulcer/esophageal varices, polymyalgia rheumatica and sciatica who presented with shortness of breath on 12/05/2023. He drank 3 bottles of wine on the day of admission. His breathing has been poor about a week or so prior to him come to the ER. He
was initially admitted for possible COPD exacerbation with IV steroids, nebs and oxygen. He also was bradycardic into the 30s initially during his hospitalization and received atropine in the ER. He was started on MSAS protocol with phenobarbital
taper. Patient also started on antibiotics for left mid�lower lung pneumonia. Patient was having worsening alcohol withdrawal symptoms and was n.p.o., starting on Cardizem drip for his A-fib with RVR. He has been receiving prn Ativan since
admission with high MSAS scores, and is now being transferred to the ICU for Precedex initiation. Critical care services consulted for additional management/recommendations.
Conditions present prior admission:
Discharged from the hospital 07/2023.
Hypertension
Carotid stenosis
COPD-follows up with Dr. García maintained on Trelegy, albuterol nebulizer as needed.
History of pulmonary nodule
History of paroxysmal atrial fibrillation
Severe obstructive sleep apnea noncompliant with CPAP
GERD/Coles's esophagus
Diverticular disease
Alcoholic cirrhosis
History of duodenal ulcer/esophageal varices and GI bleeding
Sciatica pain
Polymyalgia rheumatica
Chronic alcohol use-prior history of delirium.
Bilateral hip replacement
Bilateral retinal surgery.
Former smoker [id number] history quit in 2019.
Impression:
#Alcohol withdrawal with suspected DT now off precedex gtt
#Left sided pneumonia/CAP
#Atrial fibrillation with RVR now HR controlled on PO BB+ CCB
#Alcoholic cirrhosis with ascites, portal hypertension and history of esophageal varices with UGIB
#Thrombocytopenia (due to cirrhosis) - improving
#Transaminitis with hyperbilirubinemia (likely due to alcoholic hepatitis in the setting of alcoholic cirrhosis)
#Moderate-severe COPD with air trapping (last FEV1 was 1.61L / 50% predicted via spirometry from 02/2023) with suspected recent acute exacerbation
#Severe ALCIDES (total index: 53 with O2 saturation jose: 87%) noncompliant to BiPAP (stopped in 2020 for unclear reasons)
Plan:
- Transferred to the ICU for close monitoring and initiation of Precedex
- Precedex has now been resolved
- Continue with prn ativan
- Pt passed ELECTRO WINNING OPERATOR eval this AM -> start IDDSI level 4pur�e and continue aspiration precautions; keep head of bed >30-45�
- Dobbhoff tube inserted on 12/13 for initiation of tube feeds and started PO meds; considering he continues to be drowsy and may not have adequate PO intake of calories, maintain DHT for now until his oral intake improves, at which time we will
remove the Dobbhoff tube that
- He has been more awake since 12/13 but still remains drowsy with occasional agitation requiring Ativan; continue to reassess throughout the day and if he awakens further then we can remove restraints and Dobbhoff tube and do ELECTRO WINNING OPERATOR evaluation
- Thiamine + folic acid
- Restraints as needed with 4 rails
- Ammonia level 25 on AM of 12/12/2023; trend LFTs, INR, AST, ALT, T. bili and GGT
- MELD-Na is 16 from 12/13/2023
- GI consulted --> rifxamin + lactulose started; hold lactulose for diarrhea, and titrate to 3�4 loose but formed bowel movements per day
- Regarding his COPD, he follows with us in the office with Dr. García, last office visit in February 2020. He is Rx Trelegy 100mcg with prn levalbuterol HFA
- Considering patient remains drowsy, on 12/10 I changed inhalers to nebs with atrovent/xopenex+ budesonide --> on 12/12 I changed atrovent/xopenex to Duonebs BID; raised to TID given he had wet sounding cough
- Added mucinex
- Maintain SpO2 >88% and <96%
- Steroids stopped in setting of his worsening agitation and AMS
- s/p antibiotics with ceftriaxone + doxycycline and treated for at least 7 days total (antibiotics started on 12/07/2023) ---> last day of ABx on 12/13
- Maintain SpO2 >90-94%
- Cultures have not been obtained this hospitalization
- If patient spikes a fever then gonzalez-culture at that time
- He will need repeat imaging with CXR in about 6 weeks to follow-up left-sided pneumonia to resolution
- Heart rate control with goal HR <110
- Off Cardizem drip, wean as tolerated
- Continue PO metoprolol + PO Cardizem; weaned off cardizem gtt
- Replete electrolytes with K>4, Mg>2
- Maintain MAP>65
- Maintain euglycemia with goal BG 140-180
- He also qualifies for LDCT Chest for lung cancer screening until 2034 (he quit smoking in 2019) - this can be discussed in the office when he follows with Dr. García
- DVT ppx
Patient stable for downgrade out of ICU to IMU. Compressor Station Operator/Pulmonary service will briefly follow.
Total time spent today was 75 minutes for this encounter. Time includes reviewing laboratory test/imaging results, reviewing pertinent medical records, obtaining and reviewing medical history, performing an appropriate exam, ordering medications,
tests and procedures. Time also includes documentation of this encounter, coordinating patient care and communicating with other healthcare professionals. Total time does not include separately billed tests performed on this date of service.
Data:
Abdominal ultrasound 12/11/2023:
1. SEVERE HEPATIC CIRRHOSIS.
2. No sonographic evidence for cholelithiasis or biliary obstruction.
3. Mild splenomegaly secondary to portal hypertension.
4. Small volume of ascites.
Transthoracic echocardiogram 12/08/2023:
Left ventricular ejection fraction is 60-65%, by visual assessment. Grossly
normal regional wall motion.
Normal right ventricular size and function.
Trace mitral regurgitation.
Aortic sclerosis without stenosis.
Trace tricuspid regurgitation. Estimated pulmonary artery pressure of 25-30
mmHg.
No significant change since the prior study of 04/10/2023.
CXR 12/06/2023:
Parenchymal opacity within the left mid to lower lung, increasing when comparing to to most recent chest radiographs. Finding would be suggestive of pneumonia, although atelectasis could have a similar appearance.
No convincing evidence for pulmonary edema pattern.
Subjective Dataa
Subjective Data
Date of Service:
Date of Service: December 16, 2023
Chief Complaint: Compressor Station Operator Follow Up
Subjective:
Patient seen and evaluated at bedside. Earlier this AM he went into rapid A-fib and given Digoxin 250mcg x1. Passed ELECTRO WINNING OPERATOR this AM, diet to be started. HR 107, BP 121/91, SpO2 93% on room air. He is much more awake and alert this morning, eating
pur�ed, without any coughing afterwards or shortness of breath reported. He denies chest pain, abdominal pain, shakiness, fevers or chills.
Review of Systems
General: Other (Unable to obtain given patient is drowsy/poor mental status)
Objective Data
Data Reviewed
Vital Signs / I&O / Oxygen:
Vital Signs
Temp Pulse Resp BP Pulse Ox
98.2 F 104 17 115/71 93
12/16/23 07:55 12/16/23 09:00 12/16/23 09:00 12/16/23 09:00 12/16/23 09:00
Intake and Output
12/15/23 12/16/23 12/17/23
06:59 06:59 06:59
Intake Total 1282.4 / 1362.8 2103.5 / 2198.5 1096 / 1096
Output Total 250 / 250 1150 / 1150 400 / 400
Balance 1032.4 / 1112.8 953.5 / 1048.5 696 / 696
SaO2 93
Nasal Cannula flow liters per 2
minute
Physical Exam
General: Respiratory Distress (Negative) and Comfortable
HEENT: Normocephalic and Other (Icteric bulbar conjunctiva bilaterally)
Cardiovascular: Irregular Rhythm and Peripheral Edema (Negative)
Respiratory: Wheeze (Negative), Crackles (Left base), Rhonchi (Negative), Non-Labored Respirations and Other (Poor inspiratory effort)
GI: Soft, Non Distended, Non Tender and Normal Bowel Sounds
Neurology: Awake, Tremors (Negative ) and Lethargic (Drowsy but improved compared to yesterday)
Skin: Warm, Dry and Jaundice (negative on extremities however he does have icterus bilaterally)
Labs/Micro/Reports
Lab Data
12/16/23 06:03
12/16/23 06:03
Laboratory Results
12/16/23
06:03
PT 16.0 H
INR 1.29
[2023-12-16] MEDS: LANOXIN 250 MCG IV (08:30)
[2023-12-16] MEDS: FOLVITE 50.2 MG IV (08:34)
--- NOTE | 2023-12-16 08:42 | PTOTSP ---
Dysphagia Therapy
Patient is at risk for fluctuations in his dysphagia given alcohol withdrawal. However, today he demonstrated appropriate mentation and oral control for puree and thin liquids without signs of aspiration. Consider ordering an oral diet (puree,
thin) to allow PO with strategies below when calm/lucid. Consider continued use of DHT for nutrition/hydration/medication administration for periods of time when patient is not presenting with appropriate level of alertness or mentation. Discussed
with hospitalist, podiatry assistant, and nurse.
Recommend:
1. IDDSI Level 4 Puree, IDDSI Level 0 Thin Liquids when awake/alert/lucid; supplemental non-oral means when not awake/alert/lucid
2. Strategies: upright to 90 degrees, small single sips, small single bites, slow rate
3. Medications - via DHT and/or in puree if mentation appropriate
4. Oral care 3x daily
5. Dysphagia therapy at the acute care level.
--- NOTE | 2023-12-16 11:10 | PTCARENOTE ---
He was a total feed for breakfast. He tolerated it well. Intermittent cough through out the meal. Pulse oximetry 93% on RA. He was conversive during the meal. We discussed possibly allowing him to feed himself for dinner. He nodded his head.
[2023-12-16] MEDS: LANOXIN 250 MCG TUBE (11:46)
[2023-12-16 12:06] LABS: Glucose - Point of Care 131 mg/dl (70-99)
--- NOTE | 2023-12-16 12:10 | PTCARENOTE ---
Repositioned pt in bed. He is conversive, and tearful at times. He had made a passive comment about doing a line of 'Coke' as he was attempting to bring his left hand up to his face. I had asked him why he drinks alcohol like he does and he stated
'so I can forget'. He verbalized he lost his job. Supportive care provided. Safe environment maintained. Will continue to monitor.
--- NOTE | 2023-12-16 13:19 | CM ---
CM following re: discharge planning.
Reviewed pt's chart, met with pt and pt's sister Dunia at bedside.
Pt is able to stay in conversation today, admitted to drink 3 bottles of wine daily, went to 3 different D&A rehab in the past: [facility], in [facility], [facility] in [place]. Pt expressed his understanding regarding working on his sobriety and to stay
sober. Pt expressed his agreement to meet with [facility] team. Referral to [facility] made, spoke to CRS Kendall and he will meet with the pt tomorrow morning.
PT and OT will evaluate the pt to determine a level of care at discharge.
D/C plan: most likely SNF level of care with further plan to g to inpatient D&A rehab. Awaiting for PT/OT evaluations.
CM will follow with discharge plan updates as hospitalization progresses
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
--- NOTE | 2023-12-16 14:51 | PTCARENOTE ---
Pt verbalized to RN, 'vomillicenta on the rocks, keep the change'. I reoriented him to place and the events of his hospitalization. He was not convinced.
--- NOTE | 2023-12-16 15:00 | PTCARENOTE ---
No changes in assessment. Remains disoriented to place, time and events. His is at the bedside and he told her he was going home with her and taking the bed with them. He was informed that he would stay here in the hospital. Repositioned in the
bed. Supportive care given.
[2023-12-16] MEDS: LOVENOX 40 MG SC (18:39)
[2023-12-16 18:52] LABS: Glucose - Point of Care 143 mg/dl (70-99)
--- NOTE | 2023-12-16 20:00 | PTCARENOTE ---
shoe associate, pt oriented to self at times, otherwise disoriented conversation. CONTEH. AFib HR low 100s. RA IV, R midline WNL. RA Sat 94%. R dht with TF infusing per work list. RT WNL. mouth care done, attempts made to reorient.
[2023-12-16] MEDS: DUPHALAC/CHRONULAC 10 GRAMS TUBE (20:37)
[2023-12-16] MEDS: VITAMIN B1 100 MG TUBE (20:38)
[2023-12-16] MEDS: SEROQUEL 25 MG TUBE (20:38)
[2023-12-16 23:19] LABS: Glucose - Point of Care 122 mg/dl (70-99)
[2023-12-17] VITALS (12 sets, daily range): BP systolic 126–163; BP diastolic 70–96; BMI 33.6
[2023-12-17 03:47] LABS: Hematocrit 42.8 % (39.0-52.0); Hemoglobin 14.4 g/dL (13.0-18.0); Mean Corp Hgb Conc. 33.6 g/dL (33.0-37.0); Mean Corpuscular Hgb 32.9 pg (27.0-31.0); Mean Corpuscular Volume 97.7 fL (80.0-94.0); Mean Platelet Volume 10.5 fL (7.4-10.4); Platelet Count 130 10^3/uL (130-400); Red Blood Cell Count 4.38 10^6/uL (4.70-6.10); Red Cell Dist. Width 15.8 % (11.5-14.5); White Blood Cell Count 9.5 10^3/uL (4.8-10.8)
[2023-12-17 04:07] LABS: ALT (SGPT) 92 U/L (0-50); AST (SGOT) 92 U/L (17-59); Albumin 3.2 g/dl (3.5-5.0); Alkaline Phosphatase 346 U/L (38-126); Blood Urea Nitrogen 8 mg/dl (9-20); Calcium 8.6 mg/dl (8.4-10.2); Carbon Dioxide 30 mmol/L (22-30); Chloride 104 mmol/L (98-107); Estimated Creatinine Clearance > 125 ml/min; Glucose 116 mg/dl (70-99); Magnesium 1.7 mg/dl (1.6-2.3); Phosphorus 3.1 mg/dl (2.5-4.5); Potassium 3.8 mmol/L (3.5-5.1); Sodium 138 mmol/L (135-145); Total Bilirubin 2.7 mg/dl (0.2-1.3); eGFR > 60.00
[2023-12-17 04:59] LABS: AFP Male/Tumor Marker 2.74 ng/ml
[2023-12-17] MEDS: NOVOLOG FLEXPEN-LOW RESISTANCE SC ×3 (05:30→22:25)
[2023-12-17] MEDS: CARDIZEM 60 MG TUBE (06:26)
--- NOTE | 2023-12-17 07:24 | W.PN.HOSP.TC ---
Today's Communication/Plan
-
ST/PT/OT
ativan seroquel restraints prn
Psych Eval
monitor replete electrolytes
Rate Rhythm control as per Cardiology
Lactulose Xifaxan
Assessment / Plan
Assessment / Plan
Physical Exam
General: no acute distress appears comfortable obese
HEENT: Thick neck. MMM
Respiratory: Decreased BS no wheezing noted
Cardiac: S1/S2 and Irregular Irregular tachy; No Murmur
GI: Non Tender, Non Distended, Normal Bowel Sounds Umbilical hernia that is soft, nontender and easily reducible
Musculoskeletal: No Clubbing, No Cyanosis and No Edema
Neuro: AOx2 disoriented to time
Psych: Calm
A/P: Patient is a 63y M with PMH significant for COPD, A-Fib, HTN and alcohol use disorder who presents to ED complaining of SOB.
Alcohol Use Disorder
Acute Intoxication
Alcohol Withdrawal
Acute Alcoholic Hepatitis
Alcoholic Cirrhosis with Esophageal Varices, Thrombocytopenia, etc
Hepatic Encephalopathy
- Patient reports drinking 3 bottles of wine prior to arrival. Typically drinks 2 bottles daily ever day.
- alcohol level appreciated 300s on admission
- MSAS protocol
-phenobarbital taper completed, transferred to ICU for precedex since weaned off downgraded back to IMU
-Furnace Combustion Analyst eval appreciated
- Thiamine, folate, MVI replacement.
- Encourage alcohol cessation efforts.
- trend LFTs mild persistent transaminitis
- ativan IV PRN
-speech eval appreciated diet advanced to pureed, supplemental tube feeds briefly continued until patient pulled it out
-cont Lactulose Rifaximin
-GI eval appreciated once Lactulose enema given prior to start Lactulose Rifaximin as above, outpatient follow-up EGD for variceal surveillance, since signed off
-Psych Eval Appreciated scheduled seroquel converted to PRN
Acute Hypoxemic Respiratory Failure
COPD
Pneumonia
-nebs, supplemental O2, taper as tolerated - completed empiric IV steroids 12/11
-Duonebs switched to Xopenex d/t tachycardia
- Speech therapy eval appreciated appropriate for reg diet, aspiration precautions.
-BIPAP prn sob
-Completed 8 days Ceftriaxone, Doxycycline
Paroxysmal Atrial Fibrillation
Bradycardia
Afib rvr
- Patient with HR in the 30s on initial presentation.
- suspect bradycardia related to hypothermia vs ETOH intoxication since resolved.
- Patient is not on chronic OAC due to history of GI bleeding / ongoing alcohol abuse.
- restarted on Dilt ggt as NPO transitioned back to PO with start NGT and metoprolol added as per ICU
-F/u ECHO - 60-65%
-Cardio eval appreciated digoxin added, cont
#mild Transaminitis
#Severe hepatic cirrhosis
� Small volume ascites
-most likely 2/2 to alcoholic hepatitis
�LFTs overall improving though mild persistent elevation
-recent coags wnl
Initial Hypothermia suspect due to ETOH intoxication
-resolved
Hypokalemia
-monitor and replete
Pancytopenia
-most likely 2/2 to EtOH abuse +/- acute infection vs cirrhosis
-ctm
LORENZO
- SCr = 1.7 compared to baseline of 0.6.
- Likely pre-renal
- Resolved with IVF
ASCVD / Carotid Stenosis
Hypertension
-Home Cardizem resumed short acting 30 mg QID given recent Bradycardia d/t ETOH intoxication vs ETOH interaction with medications
-eventually long acting Cardizem was resumed and titrated up as per Cardiology. Converted back to gtt due to worsening mental status NPO transfer to ICU as above. PO restarted as per ICU following start NGT
-Metoprolol as per ICU
-IV lopressor prn
Obesity due to excess calories
ALCIDES - Not compliant with PAP therapy
- Affects all aspects of care.
- Patient states that he no longer has PAP machine at home.
- Encourage cessation of alcohol intake, healthy diet and increased physical activity with goal of weight reduction.
DVT Prophylaxis: HSQ
Code Status: Full
Patient's Laurence updated
I spent a total of 55 minutes with the patient or on the floor. More than 50% of this time involved counseling and coordination of care.
Anticipated Discharge: > 48 hours
Subjective/Interval History
-
Date of Service: December 17, 2023
More alert conversant coherent but still confused. AOx2 disoriented to time. Pulled out his Dobhoff. Otherwise tolerating diet so far.
Objective Data
-
Labs:
Laboratory Results
12/17/23
03:21
WBC 9.5
Hgb 14.4
Hct 42.8
Plt Count 130
Sodium 138
Potassium 3.8
Chloride 104
Carbon Dioxide 30
BUN 8 L
Creatinine 0.6 L
Glucose 116 H
Calcium 8.6
Total Bilirubin 2.7 H
AST 92 H
ALT 92 H
Alkaline Phosphatase 346 H
Vital Signs:
Vital Signs
Temp Pulse Resp BP Pulse Ox
98.7 F 110 20 138/87 94
12/16/23 23:04 12/17/23 06:00 12/17/23 06:00 12/17/23 06:00 12/17/23 06:00
I&O
12/16/23 12/17/23 12/18/23
06:59 06:59 06:59
Intake Total 2103.5 / 2198.5 2711 / 2711
Output Total 1150 / 1150 2200 / 2200
Balance 953.5 / 1048.5 511 / 511
[2023-12-17] MEDS: DUONEB 3 ML INH ×3 (08:11→19:38)
[2023-12-17] MEDS: PULMICORT 0.5 MG INH ×2 (08:18→19:38)
--- NOTE | 2023-12-17 08:43 | W.PN.CD ---
Today's Communication / Plan
-
Continue metoprolol, diltiazem, digoxin: A fib rates better today in the 90s to low 100s
trend tele
Impression / Plan
-
Tachy Kavon syndrome
- ECHO 12/08/23 - LVEF 60%.
- Bradycardia -acute upon arrival in the ER rates in the 30s and 40s.
- Resolved after correction of hypothermia
- patient pulled out his Dobhoff
- on Dilt 60 QID and Metoprolol 50 BID: crushing pills
- Added digoxin 12/15 250 mcg daily
Atrial fibrillation
-Permanent AF with slow ventricular response on arrival. Permanent / Persistent A-fib. Patient's had a history of atrial fibrillation and was in atrial fibrillation on prior ECGs including a ECGs in September.
-Diltiazem and Toprol previously listed as meds - Possible non-compliance.
-[id number] score is 1, due to prior GI bleed/anemia and EtOH abuse-->no OAC therapy.
-Continue metoprolol, diltiazem, digoxin: A fib rates better today in the 90s to low 100s
Hypertension -
-overall stable
COPD - acute exacerbation per hospitalist.
ALCIDES - stable on CPAP, continue
EtOH abuse - chronic, drinks 2 bottles of wine daily.
-Appears to have withdrawal
-plan per IM
Anemia/prior GI bleed - stable H/H. Hb 12.1 -->13.7.
Studies
Echo: CONCLUSIONS
Left ventricular ejection fraction is 60-65%, by visual assessment. Grossly
normal regional wall motion.
Normal right ventricular size and function.
Trace mitral regurgitation.
Aortic sclerosis without stenosis.
Trace tricuspid regurgitation. Estimated pulmonary artery pressure of 25-30
mmHg.
No significant change since the prior study of 04/10/2023.
Subjective: He pulled out his Dobhoff
Physical Exam
Vital Signs/Labs
Vital Signs
Temp Pulse Resp BP Pulse Ox
98.7 F 95 17 138/87 92
12/16/23 23:04 12/17/23 08:13 12/17/23 08:13 12/17/23 06:00 12/17/23 08:13
12/16/23 12/17/23 12/18/23
06:59 06:59 06:59
Actual Weight 103.7 kg 103 kg
12/17/23 03:21
12/17/23 03:21
PT 16.0 Sec (11.4-14.6) H 12/16/23 06:03
INR 1.29 12/16/23 06:03
APTT 30.2 Sec (23.4-35.0) 12/11/23 17:28
Magnesium 1.7 mg/dl (1.6-2.3) 12/17/23 03:21
TSH 1.52 uIU/ml (0.47-4.68) 12/04/23 23:00
Free T4 1.29 ng/dl (0.78-2.19) 12/05/23 05:17
12/04/23 12/06/23
23:00 17:56
[id number] Pept 438 1020
Physical Exam
Constitutional: Confusion
EENT: Moist mucous membranes
Cardiovascular: Pedal edema is absent, JVD pressure is normal, Systolic murmur absent and Rhythm/rate is irregular
Respiratory: Respiratory effort normal and Lungs clear to auscul.
GI: Soft and Distention absent
Neuro/Psych: Alert
Data Reviewed
-
Date of Service: December 17, 2023
EKG: Other (Tele: A fib 90s-100s)
Labs: Labs Reviewed by me
--- NOTE | 2023-12-17 08:50 | W.PN.PUL3 ---
Today's Communication / Plan
-
Precedex weaned off since 12/14
Continue prn Ativan
Restraints as needed
Trend LFTs
Psych consult once more awake
[facility] saw pt today
Repletion of electrolytes
Heart rate control with goal <110
Aspiration precautions
Diet as per NETWORK SYSTEMS INTEGRATOR
Patient is doing well, is on room air breathing comfortably and cough has also improved. No additional recommendations at this time. Pulmonary service will now sign off. Please reconsult if there are any additional questions/concerns, or if
patient's respiratory status deteriorates.
Assessment
-
Assessment: 63-year-old male former tobacco smoker with a past medical history of COPD, lung nodules, severe ALCIDES noncompliant with CPAP, alcoholic cirrhosis, chronic alcoholism, hypertension, history of GI bleed with history of duodenal
ulcer/esophageal varices, polymyalgia rheumatica and sciatica who presented with shortness of breath on 12/05/2023. He drank 3 bottles of wine on the day of admission. His breathing has been poor about a week or so prior to him come to the ER. He
was initially admitted for possible COPD exacerbation with IV steroids, nebs and oxygen. He also was bradycardic into the 30s initially during his hospitalization and received atropine in the ER. He was started on MSAS protocol with phenobarbital
taper. Patient also started on antibiotics for left mid�lower lung pneumonia. Patient was having worsening alcohol withdrawal symptoms and was n.p.o., starting on Cardizem drip for his A-fib with RVR. He has been receiving prn Ativan since
admission with high MSAS scores, and is now being transferred to the ICU for Precedex initiation. Critical care services consulted for additional management/recommendations.
Conditions present prior admission:
Discharged from the hospital 07/2023.
Hypertension
Carotid stenosis
COPD-follows up with Dr. García maintained on Trelegy, albuterol nebulizer as needed.
History of pulmonary nodule
History of paroxysmal atrial fibrillation
Severe obstructive sleep apnea noncompliant with CPAP
GERD/Coles's esophagus
Diverticular disease
Alcoholic cirrhosis
History of duodenal ulcer/esophageal varices and GI bleeding
Sciatica pain
Polymyalgia rheumatica
Chronic alcohol use-prior history of delirium.
Bilateral hip replacement
Bilateral retinal surgery.
Former smoker [id number] history quit in 2019.
Impression:
#Alcohol withdrawal with suspected DT now off precedex gtt
#Left sided pneumonia/CAP
#Atrial fibrillation with RVR now HR controlled on PO BB+ CCB
#Alcoholic cirrhosis with ascites, portal hypertension and history of esophageal varices with UGIB
#Thrombocytopenia (due to cirrhosis) - improved
#Transaminitis with hyperbilirubinemia (likely due to alcoholic hepatitis in the setting of alcoholic cirrhosis)
#Moderate-severe COPD with air trapping (last FEV1 was 1.61L / 50% predicted via spirometry from 02/2023) with suspected recent acute exacerbation
#Severe ALCIDES (total index: 53 with O2 saturation jose: 87%) noncompliant to BiPAP (stopped in 2020 for unclear reasons)
Plan:
- Transferred to the ICU for close monitoring and initiation of Precedex
- He has been off Precedex for >48 hrs now
- Continue with prn ativan
- Pt passed NETWORK SYSTEMS INTEGRATOR eval yesterday AM -> started IDDSI level 4pur�e and continue aspiration precautions; keep head of bed >30-45�
- Dobbhoff tube inserted on 12/13 for initiation of tube feeds and started PO meds; considering he continues to be drowsy and may not have adequate PO intake of calories, we maintained DHT until his oral intake improves, at which time we will remove
the Dobbhoff tube that - he removed the Dobbhoff tube and we will keep it out for now and re-assess daily if needs to be reinserted based on his PO intake
- Thiamine + folic acid
- Restraints as needed with 4 rails
- Ammonia level 25 on AM of 12/12/2023; trend LFTs, INR, AST, ALT, T. bili and GGT
- MELD-Na is 16 from 12/13/2023
- GI consulted --> rifxamin + lactulose started; hold lactulose for diarrhea, and titrate to 3�4 loose but formed bowel movements per day
- Regarding his COPD, he follows with us in the office with Dr. García, last office visit in February 2020. He is Rx Trelegy 100mcg with prn levalbuterol HFA
- Considering patient remains drowsy, on 12/10 I changed inhalers to nebs with atrovent/xopenex+ budesonide --> on 12/12 I changed atrovent/xopenex to Duonebs BID; raised to TID given he had wet sounding cough
- Added mucinex
- Maintain SpO2 >88% and <96%
- Steroids stopped in setting of his worsening agitation and AMS
- s/p antibiotics with ceftriaxone + doxycycline and treated for at least 7 days total (antibiotics started on 12/07/2023) ---> last day of ABx on 12/13
- Maintain SpO2 >90-94%
- Cultures have not been obtained this hospitalization
- If patient spikes a fever then gonzalez-culture at that time
- He will need repeat imaging with CXR in about 6 weeks to follow-up left-sided pneumonia to resolution
- Heart rate control with goal HR <110
- Off Cardizem drip, wean as tolerated
- Continue PO metoprolol + PO Cardizem; weaned off cardizem gtt
- Replete electrolytes with K>4, Mg>2
- Maintain MAP>65
- Maintain euglycemia with goal BG 140-180
- He also qualifies for LDCT Chest for lung cancer screening until 2034 (he quit smoking in 2019) - this can be discussed in the office when he follows with Dr. García
- DVT ppx
Patient is doing well, improving mental status as he is more oriented today than he has been over the last week. On room air breathing comfortably and cough has also improved. No additional recommendations at this time. Pulmonary service will now
sign off. Thank you for allowing us to be involved in the care of this patient. Please reconsult if there are any additional questions/concerns, or if patient's respiratory status deteriorates.
Total time spent today was 35 minutes for this encounter. Time includes reviewing laboratory test/imaging results, reviewing pertinent medical records, obtaining and reviewing medical history, performing an appropriate exam, ordering medications,
tests and procedures. Time also includes documentation of this encounter, coordinating patient care and communicating with other healthcare professionals. Total time does not include separately billed tests performed on this date of service.
Data:
Abdominal ultrasound 12/11/2023:
1. SEVERE HEPATIC CIRRHOSIS.
2. No sonographic evidence for cholelithiasis or biliary obstruction.
3. Mild splenomegaly secondary to portal hypertension.
4. Small volume of ascites.
Transthoracic echocardiogram 12/08/2023:
Left ventricular ejection fraction is 60-65%, by visual assessment. Grossly
normal regional wall motion.
Normal right ventricular size and function.
Trace mitral regurgitation.
Aortic sclerosis without stenosis.
Trace tricuspid regurgitation. Estimated pulmonary artery pressure of 25-30
mmHg.
No significant change since the prior study of 04/10/2023.
CXR 12/06/2023:
Parenchymal opacity within the left mid to lower lung, increasing when comparing to to most recent chest radiographs. Finding would be suggestive of pneumonia, although atelectasis could have a similar appearance.
No convincing evidence for pulmonary edema pattern.
Subjective Data
-
Date of Service:
Date of Service: December 17, 2023
Chief Complaint: Pulmonary Follow Up and Pneumonia Follow Up
Subjective:
Patient seen and evaluated today at bedside. Currently on room air saturating 94%, BP 142/96 and heart rate 83. He is sleeping when I walked in the room but is easily arousable to voice, and is more oriented today than I have seen him over the
last few days. He denies CP, shortness of breath, abdominal pain, fevers or chills. He would like the restraints taken off.
Review of Systems
General: Other (Negative unless mentioned above)
Objective Data
Data Reviewed
Vital Signs / I&O / Oxygen:
Vital Signs
Temp Pulse Resp BP Pulse Ox
98.7 F 126 17 142/80 92
12/16/23 23:04 12/17/23 09:29 12/17/23 08:13 12/17/23 09:29 12/17/23 08:13
Intake and Output
12/16/23 12/17/23 12/18/23
06:59 06:59 06:59
Intake Total 2103.5 / 2198.5 2711 / 2711
Output Total 1150 / 1150 2200 / 2200
Balance 953.5 / 1048.5 511 / 511
SaO2 92
Nasal Cannula flow liters per 2
minute
Physical Exam
General: Respiratory Distress (Negative) and Comfortable
HEENT: Normocephalic and Other (Mild icterus bilaterally)
Cardiovascular: Irregular Rhythm and Peripheral Edema (Negative)
Respiratory: Wheeze (Negative), Crackles (Left base), Rhonchi (Negative) and Accessory Resp Muscle Use (Negative)
GI: Soft, Distended (Abdominal obesity), Non Tender and Normal Bowel Sounds
Neurology: Other (Sleeping but easily arousable to voice and following all commands, answering questions appropriately with slight slurring of speech)
Skin: Warm, Dry and Jaundice (Negative)
Labs/Micro/Reports
Lab Data
12/17/23 03:21
12/17/23 03:21
[2023-12-17] MEDS: FOLVITE 1 MG TUBE (09:10)
[2023-12-17] MEDS: LOPRESSOR 50 MG TUBE (09:10)
[2023-12-17] MEDS: SEROQUEL 25 MG TUBE (09:10)
[2023-12-17] MEDS: XIFAXAN 550 MG TUBE (09:11)
[2023-12-17] MEDS: LOW STRENGTH ASPIRIN 81 MG TUBE (09:11)
[2023-12-17] MEDS: ROBITUSSIN TUBE (09:12)
[2023-12-17] MEDS: PROTONIX IV 40 MG IV (09:15)
[2023-12-17] MEDS: NSS (PRESERVATIVE FREE) 10 ML IV (09:15)
[2023-12-17] MEDS: DUPHALAC/CHRONULAC TUBE (09:16)
[2023-12-17] MEDS: FLUSH (NSS) 1 FLUSH IV (09:16)
[2023-12-17] MEDS: VITAMIN B1 100 MG TUBE (09:18)
[2023-12-17] MEDS: LOPRESSOR 5 MG IV (09:29)
--- NOTE | 2023-12-17 09:36 | PTCARENOTE ---
0700 patient seen in bed . AAO x3. Afib with intermittent confusion 120-132 BP 142/80 MAP 99. 92% RA . Soft b/L Restraints and b/l mitts in place. Dophoff pulled out by patient . Rectal Trumpet in place draining. Refused breakfast . Refused
lactulose. Metoprolol 5 mg IV per prn order adm for HR 120-132. Call pate within reach
--- NOTE | 2023-12-17 10:14 | CM ---
CM following re: discharge planning.
Reviewed pt's chart, met with pt.
PT and OT evaluations noted - SNF level of care recommended. Pt is aware, expressed his agreement. A list of SNFs provided. pt preferred: [facility], [facility], [facility]. Referral to above SNFs made.
DANIEL Argueta will meet with pt today to discuss options of D&A treatment programs after the completion of a short term physical rehabilitation.
D/C plan: preferred SNF for a short term rehab with further plan to follow up with DANIEL regarding D&A treatment programs.
CM will follow to assist pt with discharge plan updates as hospitalization progresses
[2023-12-17 12:30] LABS: Glucose - Point of Care 124 mg/dl (70-99)
[2023-12-17] MEDS: CARDIZEM 60 MG PO ×3 (12:54→22:53)
[2023-12-17] MEDS: LANOXIN 250 MCG PO (12:54)
[2023-12-17] MEDS: ROBITUSSIN 400 MG PO ×3 (12:54→20:47)
--- NOTE | 2023-12-17 15:24 | CON.MD ---
Consultation - Medical
-
patient seen chart reviewed. spoke with nursing the patient is a 63 year old male w hx of etoh abuse. he comes to hospital w SOB on 12/04. at the time of admit po2 was in the 80's. it has since improved. he admitted to having imbibed three bottles
of wine. he required phenobarb detox as well as msas. he did not clear and had periods of agitation and for a time he was maintained on precedex which has at this point been tapered but he remains confused. he was placed on seroquel 25 mg bid.
nursing tells me he does continue to have periods of agitation and was eg in restraints this am but overall has improved tdday. he is eating. he has had periods where he has been able to be appropriate in his interaction. when i saw him it was a
struggle for him to stay awake. he did tell me he lived in [place]. he told me he had come to bc 'my sister' wanted him to come here. 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 he is not . then the information he gave me be comes suspect. he told me
he had a 'one year old' after telling me he had no children. he also told me he was '27' then '47' . when i pointed out he was 63 he fell asleep again. clearly he remains confused but he was calm throughout. further hx could not be obtained from
patient
past medical hx see above patient during his stay required phenobarb msas and precedex through the etoh wd period. he has hx a fib copd hld htn gerd fatty liver obesity donita polymyalgia rheumatica ascvd cartotid stenosis liver enzymes have
improved since admit although bili still elevated patient had been prescribed iv steroids during this stay not currently tsh ok qtc currently 465
family hx unknown
substance abuse admitted to three bottles etoh on admit and has hx of etoh detox here at
social see above details not available currently
mse alert to person patient is intermittently nodding out. see above re some of the answers to questions. clearly he remains confused. no evidence of hallucinations or delusions currently insight judgment lacking.
dx encephalpathy secondary to etoh withdrawal and multiple medical factors
plan at this point there is no psychiatric medication that will speed the recovery process. i have seen people remain in similar state when withdrawing for a month or more w gradual improvement to baseline or near it. would use seroquel on a prn
basis rather than a straight order 25 mg as at this moment he looks a little oversedated. check b12 folate vit d2 if not already done. will follow
[2023-12-17 17:05] LABS: Glucose - Point of Care 101 mg/dl (70-99)
[2023-12-17] MEDS: NOVOLOG FLEXPEN-LOW RESISTANCE 1 UNITS SC (17:29)
[2023-12-17] MEDS: LOVENOX 40 MG SC (17:32)
--- NOTE | 2023-12-17 18:18 | PTCARENOTE ---
patient in bed . Alert to himself . some s/s of been restless noted . pt cooperative . Good appetite . Afib stable .
[2023-12-17] MEDS: LOPRESSOR 50 MG PO (20:46)
[2023-12-17] MEDS: DUPHALAC/CHRONULAC 10 GRAMS PO (20:47)
[2023-12-17] MEDS: XIFAXAN 550 MG PO (20:47)
[2023-12-17] MEDS: VITAMIN B1 100 MG PO (20:47)
[2023-12-17] MEDS: SEROQUEL 25 MG PO (20:49)
--- NOTE | 2023-12-17 21:00 | PTCARENOTE ---
vital signs captured from previous shift- can not verify accuracy of vitals [id number]. 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 POC discussed w/patient. AFib HR 99, RA Sat 94%. RA IV, RUE midline
WNL. bed alarm on, call pate with pt.
[2023-12-17 22:19] LABS: Glucose - Point of Care 136 mg/dl (70-99)
[2023-12-17] MEDS: ATIVAN 1 MG IV (22:53)
[2023-12-18] VITALS (17 sets, daily range): BP systolic 93–162; BP diastolic 61–112; BMI 32.6
--- NOTE | 2023-12-18 03:00 | PTCARENOTE ---
pt attempting to get OOB on own multiple times t/o shift, attempts made to reorient about plan for PT eval/assisting pt OOB to chair during day. B/L UE soft restraints applied- new order obtained from Margo MONTEJO. no further changes.
[2023-12-18 03:03] LABS: Hematocrit 41.1 % (39.0-52.0); Hemoglobin 13.7 g/dL (13.0-18.0); Mean Corp Hgb Conc. 33.3 g/dL (33.0-37.0); Mean Corpuscular Hgb 32.9 pg (27.0-31.0); Mean Corpuscular Volume 98.6 fL (80.0-94.0); Mean Platelet Volume 10.6 fL (7.4-10.4); Platelet Count 149 10^3/uL (130-400); Red Blood Cell Count 4.17 10^6/uL (4.70-6.10); Red Cell Dist. Width 15.6 % (11.5-14.5); White Blood Cell Count 13.4 10^3/uL (4.8-10.8)
[2023-12-18 03:20] LABS: ALT (SGPT) 98 U/L (0-50); AST (SGOT) 109 U/L (17-59); Albumin 3.1 g/dl (3.5-5.0); Alkaline Phosphatase 325 U/L (38-126); Blood Urea Nitrogen 9 mg/dl (9-20); Calcium 8.4 mg/dl (8.4-10.2); Carbon Dioxide 29 mmol/L (22-30); Chloride 103 mmol/L (98-107); Estimated Creatinine Clearance > 125 ml/min; Glucose 95 mg/dl (70-99); Magnesium 1.6 mg/dl (1.6-2.3); Phosphorus 3.5 mg/dl (2.5-4.5); Sodium 136 mmol/L (135-145); Total Bilirubin 2.7 mg/dl (0.2-1.3); Total Protein 5.9 g/dl (6.3-8.2); eGFR > 60.00
[2023-12-18] MEDS: NOVOLOG FLEXPEN-LOW RESISTANCE SC ×2 (04:34→12:14)
[2023-12-18] MEDS: ATIVAN 1 MG IV ×3 (05:22→22:07)
--- NOTE | 2023-12-18 05:22 | PTCARENOTE ---
pt removing tele monitor, pulse ox, agitated, disoriented, combative/cursing at staff- repositioned, B/L UE restraints reinforced, attempts made to reorient, prn Ativan per MAR. bed alarm on.
[2023-12-18] MEDS: CARDIZEM 60 MG PO (05:26)
--- NOTE | 2023-12-18 07:15 | W.PN.HOSP.TC ---
Today's Communication/Plan
-
cardizem gtt
ativan seroquel restraints prn
cont lactulose xifaxan as tolerated
minimize extraneous stimuli as possible
discontinue routine FS, unnecessary at this time.
Assessment / Plan
Assessment / Plan
Physical Exam
General: no acute distress appears comfortable obese
HEENT: Thick neck. MMM
Respiratory: Decreased BS no wheezing noted
Cardiac: S1/S2 and Irregular Irregular tachy; No Murmur
GI: Non Tender, Non Distended, Normal Bowel Sounds Umbilical hernia that is soft, nontender and easily reducible
Musculoskeletal: No Clubbing, No Cyanosis and No Edema
Neuro: AOx2 disoriented to time
Psych: Calm
A/P: Patient is a 63y M with PMH significant for COPD, A-Fib, HTN and alcohol use disorder who presents to ED complaining of SOB.
Alcohol Use Disorder
Acute Intoxication
Alcohol Withdrawal
Acute Alcoholic Hepatitis
Alcoholic Cirrhosis with Esophageal Varices, Thrombocytopenia, etc
Hepatic Encephalopathy
Delirium
- Patient reports drinking 3 bottles of wine prior to arrival. Typically drinks 2 bottles daily ever day.
- alcohol level appreciated 300s on admission
- MSAS protocol
-phenobarbital taper completed, transferred to ICU for precedex since weaned off downgraded back to IMU
-Sorting Machine Attendant eval appreciated
- Thiamine, folate, MVI replacement.
- Encourage alcohol cessation efforts.
- trend LFTs mild persistent transaminitis
- ativan IV PRN
-speech eval appreciated diet advanced to pureed, supplemental tube feeds briefly continued until patient pulled it out
-cont Lactulose Rifaximin
-GI eval appreciated once Lactulose enema given prior to start Lactulose Rifaximin as above, outpatient follow-up EGD for variceal surveillance, since signed off
-Psych Eval Appreciated cont Seroquel PRN
Acute Hypoxemic Respiratory Failure
COPD
Pneumonia
-nebs, supplemental O2, taper as tolerated - completed empiric IV steroids 12/11
-Duonebs switched to Xopenex d/t tachycardia
- Speech therapy eval appreciated appropriate for reg diet, aspiration precautions.
-BIPAP prn sob
-Completed 8 days Ceftriaxone, Doxycycline
ASCVD / Carotid Stenosis
Hypertension
Paroxysmal Atrial Fibrillation
Bradycardia
Afib rvr
- Patient with HR in the 30s on initial presentation.
- bradycardia related to hypothermia vs ETOH intoxication since resolved.
- Patient is not on chronic OAC due to history of GI bleeding / ongoing alcohol abuse.
- restarted on Dilt ggt as NPO transitioned back to PO with start NGT and metoprolol added as per ICU
-F/u ECHO - 60-65%
-Cardio eval appreciated digoxin added, cont
-patient however intermittently confused agitated refusing oral meds, cardizem gtt subsequently restarted
#mild Transaminitis
#Severe hepatic cirrhosis
� Small volume ascites
-most likely 2/2 to alcoholic hepatitis
�LFTs overall improving though mild persistent elevation
-recent coags wnl
Initial Hypothermia suspect due to ETOH intoxication
-resolved
Hypokalemia
-monitor and replete
Pancytopenia
-most likely 2/2 to EtOH abuse +/- acute infection vs cirrhosis
-ctm
LORENZO
- SCr = 1.7 compared to baseline of 0.6.
- Likely pre-renal
- Resolved with IVF
Obesity due to excess calories
ALCIDES - Not compliant with PAP therapy
- Affects all aspects of care.
- Patient states that he no longer has PAP machine at home.
- Encourage cessation of alcohol intake, healthy diet and increased physical activity with goal of weight reduction.
DVT Prophylaxis: HSQ
Code Status: Full
Patient's Laurence updated
I spent a total of 55 minutes with the patient or on the floor. More than 50% of this time involved counseling and coordination of care.
Anticipated Discharge: > 48 hours
Subjective/Interval History
-
Date of Service: December 18, 2023
Awake Alert Conversant oriented to person only. Intermittently confused agitated throughout the day refusing oral med requiring prn ativan.
Objective Data
-
Labs:
Laboratory Results
12/18/23
02:49
WBC 13.4 H
Hgb 13.7
Hct 41.1
Plt Count 149
Sodium 136
Potassium 4.0
Chloride 103
Carbon Dioxide 29
BUN 9
Creatinine 0.6 L
Glucose 95
Calcium 8.4
Total Bilirubin 2.7 H
AST 109 H
ALT 98 H
Alkaline Phosphatase 325 H
Vital Signs:
Vital Signs
Temp Pulse Resp BP Pulse Ox
98.9 F 100 18 151/72 93
12/17/23 21:00 12/18/23 06:04 12/18/23 06:04 12/18/23 06:04 12/18/23 06:04
I&O
12/17/23 12/18/23 12/19/23
06:59 06:59 06:59
Intake Total 2711 / 2711 580 / 580
Output Total 2200 / 2200 2250 / 2250
Balance 511 / 511 -1670 / -1670
[2023-12-18] MEDS: PROTONIX IV 40 MG IV (07:30)
[2023-12-18] MEDS: PULMICORT 0.5 MG INH ×2 (07:30→20:35)
[2023-12-18] MEDS: DUONEB 3 ML INH ×3 (07:30→20:34)
[2023-12-18] MEDS: NSS (PRESERVATIVE FREE) 10 ML IV (07:31)
--- NOTE | 2023-12-18 07:38 | PTCARENOTE ---
Trialed pt out of restraints - immediately grabbing at staff and trying to climb out of bed. Pt agitated/uncooperative. Refusing temperature and meds. Unable to reason w/ pt. Oriented only to self. Does not believe he is at the hospital.
[2023-12-18] MEDS: CARDIZEM 125 IV (09:09)
[2023-12-18] MEDS: FOLVITE PO (09:16)
[2023-12-18] MEDS: LOPRESSOR PO ×2 (09:16→20:05)
[2023-12-18] MEDS: DUPHALAC/CHRONULAC PO (09:16)
[2023-12-18] MEDS: ROBITUSSIN PO (09:16)
[2023-12-18] MEDS: LOW STRENGTH ASPIRIN PO (09:16)
[2023-12-18] MEDS: VITAMIN B1 PO (09:17)
[2023-12-18] MEDS: XIFAXAN PO (09:17)
--- NOTE | 2023-12-18 11:04 | W.PN.CD ---
Today's Communication / Plan
-
As he is reluctant to accept oral medications, continued the diltiazem drip
When able resume his prior oral medication regimen for atrial fibrillation.
At this moment not providing any expert recommendations.
Will sign off but happy to return if further assistance required.
Impression / Plan
-
Tachy Kavon syndrome
- ECHO 12/08/23 - LVEF 60%.
- Bradycardia -acute upon arrival in the ER rates in the 30s and 40s.
- Resolved after correction of hypothermia
- patient pulled out his Dobhoff and now refusing pills, continue on diltiazem gtt
Atrial fibrillation
-Permanent AF with slow ventricular response on arrival. Permanent / Persistent A-fib. Patient's had a history of atrial fibrillation and was in atrial fibrillation on prior ECGs including a ECGs in September.
-Diltiazem and Toprol previously listed as meds - Possible non-compliance.
-[id number] score is 1, due to prior GI bleed/anemia and EtOH abuse-->no OAC therapy.
-For now continue IV diltiazem, when he is agreeable to taking oral medications would resume metoprolol, diltiazem, digoxin: A fib rates better today in the 90s to low 100s
Hypertension -
-overall stable
COPD - acute exacerbation per hospitalist.
ALCIDES - stable on CPAP, continue
EtOH abuse - chronic, drinks 2 bottles of wine daily.
-Appears to have withdrawal with AMS
-plan per IM/psych
Anemia/prior GI bleed - stable H/H. Hb 12.1 -->13.7.
Studies
Echo: CONCLUSIONS
Left ventricular ejection fraction is 60-65%, by visual assessment. Grossly
normal regional wall motion.
Normal right ventricular size and function.
Trace mitral regurgitation.
Aortic sclerosis without stenosis.
Trace tricuspid regurgitation. Estimated pulmonary artery pressure of 25-30
mmHg.
No significant change since the prior study of 04/10/2023.
Subjective: He pulled out a Dobbhoff tube yesterday, today he is refusing oral medications. He does not know the year. He is not making much sense in his conversation to me today.
Physical Exam
Vital Signs/Labs
Vital Signs
Temp Pulse Resp BP Pulse Ox
98.9 F 101 24 151/72 94
12/17/23 21:00 12/18/23 07:33 12/18/23 07:33 12/18/23 06:04 12/18/23 10:16
12/17/23 12/18/23 12/19/23
06:59 06:59 06:59
Actual Weight 103 kg 100.1 kg
12/18/23 02:49
12/18/23 02:49
PT 16.0 Sec (11.4-14.6) H 12/16/23 06:03
INR 1.29 12/16/23 06:03
APTT 30.2 Sec (23.4-35.0) 12/11/23 17:28
Magnesium 1.6 mg/dl (1.6-2.3) 12/18/23 02:49
TSH 1.52 uIU/ml (0.47-4.68) 12/04/23 23:00
Free T4 1.29 ng/dl (0.78-2.19) 12/05/23 05:17
12/04/23 12/06/23
23:00 17:56
Qfx-[id number]-[id number] Pept 438 1020
Physical Exam
Constitutional: No acute distress
Cardiovascular: Pedal edema is absent, JVD pressure is normal and Rhythm/rate is irregular
Respiratory: Respiratory effort normal, Lungs clear to auscul., Wheeze Absent, Crackles Absent and Rhonchi Absent
Neuro/Psych: AO x 3
Data Reviewed
-
Date of Service: December 18, 2023
EKG: Other (tele: afib with reasonable control)
--- NOTE | 2023-12-18 11:18 | PTCARENOTE ---
Pt from ICU,, bilateral upper ext. restraints , sleeping at this time had Ativan at 0930
[2023-12-18] MEDS: SEROQUEL 25 MG PO ×2 (11:40→17:45)
[2023-12-18] MEDS: LANOXIN 250 MCG PO (11:40)
--- NOTE | 2023-12-18 12:00 | PTCARENOTE ---
Talked with PT removed restraints for a triel. Pt Understands he needs to behave . at beside.
[2023-12-18 12:10] LABS: Glucose - Point of Care 117 mg/dl (70-99)
--- NOTE | 2023-12-18 13:25 | W.PN.UPDATE ---
Update Note
Progress Note Update
patient seen chart reviewed. spoke with nursing. and sister at bedside. patient has had moments of confusion and agitation since yesterday and while he remains confused at the time i saw him he was pleasantly so. he was unable to tell me he
was in a hospital and said it was 1824. i explained to family that sometimes it takes weeks to clear given his etoh use/wd etc. did not make any changes in his meds. would continue w standing order of seroquel and prn. psych will follow
--- NOTE | 2023-12-18 13:37 | CM ---
CM following re: discharge planning.
Reviewed pt's chart, met with pt.
PT and OT continue to recommend SNF level of care and pt agrees with going to a SNF.
[facility] and [facility]F reviewing pt's case and determination regarding offering a bed will be made closer to pt's discharge.
DANIEL Argueta discussing options of D&A treatment programs after the completion of a short term physical rehabilitation.
D/C plan: preferred SNF for a short term rehab with further plan to follow up with [facility] regarding D&A treatment programs.
CM will follow to assist pt with discharge plan updates as hospitalization progresses
[2023-12-18] MEDS: ROBITUSSIN 400 MG PO ×3 (13:42→22:15)
--- NOTE | 2023-12-18 15:39 | PTCARENOTE ---
Pt remains out of retraints without incident. Taking pills and eating. Now watching TV
[2023-12-18] MEDS: NOVOLOG FLEXPEN-LOW RESISTANCE 1 UNITS SC (16:35)
[2023-12-18 16:50] LABS: Glucose - Point of Care 195 mg/dl (70-99)
[2023-12-18] MEDS: LOVENOX 40 MG SC (17:24)
[2023-12-18] MEDS: ATIVAN 2 MG IV (17:59)
[2023-12-18] MEDS: ZYPREXA 10 MG IM (18:00)
[2023-12-18] MEDS: STERILE WATER FOR INJECTION 2.1 ML IM (18:00)
[2023-12-18] MEDS: NSS (PRESERVATIVE FREE) 1 ML IV (18:01)
--- NOTE | 2023-12-18 18:01 | PTCARENOTE ---
called to pt room as pt was becoming unruly, pt attempting to get OOB to leave hospital very aggitated and combative. most of staff assisiting called for ICU staff and called security who got control of pt and placed in 4 pt soft limb restraints ,
Dr Mcgarry responded ordered meds . Meds Given Pt now calm
--- NOTE | 2023-12-18 20:10 | PTCARENOTE ---
Received pt from day shift. AAOx1 (only to self). Cardizem gtt running at 5 mL/hr. Afib on monitor with hr 90-110s. In four pt soft limb restraints due to code purple during day shift. Pt resting calmly in bed and non-combative. Call pate in reach.
[2023-12-18] MEDS: DUPHALAC/CHRONULAC 10 GRAMS PO (20:16)
[2023-12-18] MEDS: VITAMIN B1 100 MG PO (20:16)
[2023-12-18] MEDS: XIFAXAN 550 MG PO (20:16)
[2023-12-18] MEDS: NSS (PRESERVATIVE FREE) 0.5 ML IV (22:07)
--- NOTE | 2023-12-18 22:30 | PTCARENOTE ---
Pt's heart rate sustained in 150s, Cardizem gtt increased to 10 mL/hr @ 21:30 per Rx. Pt's HR remained high (140s). Cardizem gtt increased to 15 mL/hr @ 22:15 per Rx. Pt restless, PRN Ativan given, see MAR.
[2023-12-19] VITALS (12 sets, daily range): BP systolic 116–143; BP diastolic 42–82; BMI 33.0
[2023-12-19] MEDS: CARDIZEM 125 IV ×3 (00:42→23:52)
--- NOTE | 2023-12-19 02:07 | PTCARENOTE ---
Pt resting in bed. Trialed off LE restraints and remained calm. Bilateral soft wrist restraints on patient, tolerating well. Reached out to ODD BUNDLE WORKER and new order obtained at 01:39. Call pate in reach.
[2023-12-19] MEDS: NSS (PRESERVATIVE FREE) 0.5 ML IV (03:11)
[2023-12-19] MEDS: ATIVAN 1 MG IV ×2 (03:11→06:13)
[2023-12-19] MEDS: TYLENOL ORAL SOLUTION 650 MG PO (03:14)
--- NOTE | 2023-12-19 03:50 | PTCARENOTE ---
Pt became combative while changing soiled brief at 0300. Pt began shouting and attempted to kick staff, LE restraints reapplied. Rx for 4 pt restraints ordered at 03:31.
--- NOTE | 2023-12-19 06:21 | PTCARENOTE ---
pt very combative this morning. trying to hit staff, spitting at staff, trying to kick staff. not due for any IV ativan at this time. notified covering HAIRSPRING ASSEMBLER, orders given for extra ativan. medication given per JUL. care ongoing.
--- NOTE | 2023-12-19 07:11 | W.PN.HOSP.TC ---
Today's Communication/Plan
-
cardizem gtt
ativan seroquel restraints prn, scheduled Bedtime seroquel resumed
cont lactulose xifaxan as tolerated
minimize extraneous stimuli as possible
Thiamine switched to IV 200 mg TID suspect Wernicke Encephalopathy (patient Confabulating)
Assessment / Plan
Assessment / Plan
Physical Exam
General: no acute distress appears comfortable obese
HEENT: Thick neck. MMM
Respiratory: Decreased BS no wheezing noted
Cardiac: S1/S2 and Irregular Irregular tachy; No Murmur
GI: Non Tender, Non Distended, Normal Bowel Sounds Umbilical hernia that is soft, nontender and easily reducible
Musculoskeletal: No Clubbing, No Cyanosis and No Edema
Neuro: AOx3 but confused confabulating reporting memories that don't exist (such as reporting having breakfast instead of confirmed and witnessed refusal of meal/meds)
Psych: Calm
A/P: Patient is a 63y M with PMH significant for COPD, A-Fib, HTN and alcohol use disorder who presents to ED complaining of SOB.
Alcohol Use Disorder
Acute Intoxication
Alcohol Withdrawal
Acute Alcoholic Hepatitis
Alcoholic Cirrhosis with Esophageal Varices, Thrombocytopenia, etc
Hepatic Encephalopathy
Delirium
Possible Wernicke Encephalopathy (patient confabulating)
- Patient reports drinking 3 bottles of wine prior to arrival. Typically drinks 2 bottles daily ever day.
- alcohol level appreciated 300s on admission
-completed MSAS Protocol phenobarbital taper, transferred to ICU for precedex since weaned off downgraded back to IMU
-Securities Broker eval appreciated signed off
- Folate, MVI replacement.
- Encourage alcohol cessation efforts.
- trend LFTs mild persistent transaminitis
- ativan IV PRN
-speech eval appreciated diet advanced to pureed, supplemental tube feeds briefly continued until patient pulled it out
-cont Lactulose Rifaximin
-GI eval appreciated once Lactulose enema given prior to start Lactulose Rifaximin as above, outpatient follow-up EGD for variceal surveillance, since signed off
-Psych Eval Appreciated cont Seroquel PRN
-scheduled bedtime seroquel restarted
-12/19/23 Thiamine switched to IV 200 mg TID planned for 2-7 days before reducing to 250 mg 3-5 days, followed by Maintenance Therapy
Acute Hypoxemic Respiratory Failure
COPD
Pneumonia
-nebs, supplemental O2, taper as tolerated - completed empiric IV steroids 12/11
-Duonebs switched to Xopenex d/t tachycardia
- Speech therapy eval appreciated appropriate for reg diet, aspiration precautions.
-BIPAP prn sob
-Completed 8 days Ceftriaxone, Doxycycline
ASCVD / Carotid Stenosis
Hypertension
Paroxysmal Atrial Fibrillation
Bradycardia
Afib rvr
- Patient with HR in the 30s on initial presentation.
- bradycardia related to hypothermia vs ETOH intoxication since resolved.
- Patient is not on chronic OAC due to history of GI bleeding / ongoing alcohol abuse.
- restarted on Dilt ggt as NPO transitioned back to PO with start NGT and metoprolol added as per ICU
-F/u ECHO - 60-65%
-Cardio eval appreciated digoxin added, cont
-patient however intermittently confused agitated refusing oral meds, cardizem gtt subsequently restarted
#mild Transaminitis
#Severe hepatic cirrhosis
� Small volume ascites
-most likely 2/2 to alcoholic hepatitis
�LFTs overall improving though mild persistent elevation
-recent coags wnl
Initial Hypothermia suspect due to ETOH intoxication
-resolved
Hypokalemia
-monitor and replete
Pancytopenia
-most likely 2/2 to EtOH abuse +/- acute infection vs cirrhosis
-ctm
LORENZO
- SCr = 1.7 compared to baseline of 0.6.
- Likely pre-renal
- Resolved with IVF
Obesity due to excess calories
ALCIDES - Not compliant with PAP therapy
- Affects all aspects of care.
- Patient states that he no longer has PAP machine at home.
- Encourage cessation of alcohol intake, healthy diet and increased physical activity with goal of weight reduction.
DVT Prophylaxis: HSQ
Code Status: Full
Patient's Laurence updated
I spent a total of 55 minutes with the patient or on the floor. More than 50% of this time involved counseling and coordination of care.
Anticipated Discharge: > 48 hours
Subjective/Interval History
-
Date of Service: December 19, 2023
Seen and examined at bedside on 4 point restraints. Required earlier in morning combative spitting on staff. Patient AOx3 but confused confabulating reports having breakfast earlier with 'two eggs over easy.' Nurse confirms patient refused morning
med and breakfast.
Objective Data
-
Labs:
Laboratory Results
12/19/23
06:00
WBC Pending
Hgb Pending
Hct Pending
Plt Count Pending
Sodium Pending
Potassium Pending
Chloride Pending
Carbon Dioxide Pending
BUN Pending
Creatinine Pending
Glucose Pending
Calcium Pending
Total Bilirubin Pending
AST Pending
ALT Pending
Alkaline Phosphatase Pending
Vital Signs:
Vital Signs
Temp Pulse Resp BP Pulse Ox
100.6 F H 108 19 116/67 90
12/19/23 03:29 12/19/23 06:00 12/19/23 06:00 12/19/23 06:00 12/19/23 06:00
I&O
12/18/23 12/19/23 12/20/23
06:59 06:59 06:59
Intake Total 580 / 580 223 / 223
Output Total 2250 / 2250 400 / 400
Balance -1670 / -1670 -177 / -177
[2023-12-19] MEDS: DUONEB 3 ML INH ×3 (07:17→21:04)
[2023-12-19] MEDS: PULMICORT 0.5 MG INH ×2 (07:18→21:04)
[2023-12-19] MEDS: SEROQUEL 25 MG PO ×3 (07:59→22:50)
--- NOTE | 2023-12-19 08:03 | PTCARENOTE ---
Pt in 4 point jaylin restraints agitated refusing to take meds by mouth. Finally took seroquel for me. Pt was spitting earlier. Cardizem gtt as ordered
[2023-12-19] MEDS: FOLVITE PO (09:06)
[2023-12-19] MEDS: DUPHALAC/CHRONULAC PO (09:06)
[2023-12-19] MEDS: XIFAXAN PO (09:07)
[2023-12-19] MEDS: LOPRESSOR PO (09:07)
[2023-12-19] MEDS: ROBITUSSIN PO ×2 (09:07→17:19)
[2023-12-19] MEDS: LOW STRENGTH ASPIRIN PO (09:07)
[2023-12-19] MEDS: NSS (PRESERVATIVE FREE) 10 ML IV (09:08)
[2023-12-19] MEDS: PROTONIX IV 40 MG IV (09:08)
[2023-12-19] MEDS: VITAMIN B1 PO (09:16)
--- NOTE | 2023-12-19 09:16 | PTCARENOTE ---
Pt continues to refuse meds and lab work still agitated refusing to eat
[2023-12-19] MEDS: LANOXIN 250 MCG PO (12:22)
[2023-12-19] MEDS: ROBITUSSIN 400 MG PO ×2 (12:23→22:48)
--- NOTE | 2023-12-19 15:13 | PTCARENOTE ---
Pt remains agitated and restrained. Refuses to eat
[2023-12-19] MEDS: THIAMINE INJECTION 200 MG IV ×2 (15:19→22:49)
[2023-12-19] MEDS: LOVENOX 40 MG SC (17:17)
--- NOTE | 2023-12-19 18:22 | PTCARENOTE ---
Pt drank apple juice and ate kenny pudding refused everything else
--- NOTE | 2023-12-19 22:00 | PTCARENOTE ---
Resumed care of pt this evening. Received pt on cardizem gtt infusing at 5mg/hr via right midline. Also received pt in 4 point restraints w/ 4 side rails. Pt is A&Ox1 to self, agitated, uncooperative, and confused/forgetful. Pt yells out
occasionally and talks to self. Pt is in A-fib on tele monitor, has trace B/L edema, and palpable pedal pulses. Pt is on RA satting at 94% pulse ox. Pt lungs sound diminished at the bases but is otherwise clear. Pt has round obese abdomen w/ active
BS. Pt incontinent of both bowel and bladder. Pt voiding billie colored urine. Pt has silicone boarder foam on rt lower leg for skin tear.
[2023-12-19] MEDS: DUPHALAC/CHRONULAC 10 GRAMS PO (22:47)
[2023-12-19] MEDS: LOPRESSOR 50 MG PO (22:49)
[2023-12-19] MEDS: XIFAXAN 550 MG PO (22:49)
[2023-12-20] VITALS (9 sets, daily range): BP systolic 102–122; BP diastolic 52–75; BMI 31.9
[2023-12-20] MEDS: ATIVAN 1 MG IV (04:12)
[2023-12-20] MEDS: NSS (PRESERVATIVE FREE) 0.5 ML IV (04:12)
[2023-12-20 04:52] LABS: Hematocrit 37.8 % (39.0-52.0); Hemoglobin 13.1 g/dL (13.0-18.0); Mean Corp Hgb Conc. 34.7 g/dL (33.0-37.0); Mean Corpuscular Hgb 32.4 pg (27.0-31.0); Mean Corpuscular Volume 93.6 fL (80.0-94.0); Mean Platelet Volume 10.7 fL (7.4-10.4); Platelet Count 192 10^3/uL (130-400); Red Blood Cell Count 4.04 10^6/uL (4.70-6.10); Red Cell Dist. Width 15.4 % (11.5-14.5); White Blood Cell Count 15.4 10^3/uL (4.8-10.8)
[2023-12-20 05:13] LABS: ALT (SGPT) 62 U/L (0-50); AST (SGOT) 55 U/L (17-59); Albumin 3.2 g/dl (3.5-5.0); Alkaline Phosphatase 322 U/L (38-126); Blood Urea Nitrogen 10 mg/dl (9-20); Calcium 8.7 mg/dl (8.4-10.2); Carbon Dioxide 23 mmol/L (22-30); Chloride 107 mmol/L (98-107); Estimated Creatinine Clearance > 125 ml/min; Glucose 119 mg/dl (70-99); Magnesium 1.5 mg/dl (1.6-2.3); Phosphorus 3.4 mg/dl (2.5-4.5); Potassium 4.2 mmol/L (3.5-5.1); Sodium 135 mmol/L (135-145); Total Bilirubin 3.2 mg/dl (0.2-1.3); Total Protein 6.1 g/dl (6.3-8.2); eGFR > 60.00
--- NOTE | 2023-12-20 07:53 | W.PN.HOSP.TC ---
Today's Communication/Plan
-
cardizem gtt discontinued, monitor off, HR controlled w/ metoprolol and digoxin
digoxin level check tomorrow AM
ativan seroquel restraints prn, scheduled Bedtime Seroquel cont
cont lactulose xifaxan as tolerated
Cont Thiamine IV 200 mg TID suspected Wernicke Encephalopathy (patient Confabulating, Horizontal Vertical Nystagmus present)
Assessment / Plan
Assessment / Plan
Physical Exam
General: no acute distress appears comfortable obese
HEENT: Thick neck. MMM Horizontal and Vertical Nystagmus present
Respiratory: Decreased BS no wheezing noted
Cardiac: S1/S2 and Irregular Irregular tachy; No Murmur
GI: Non Tender, Non Distended, Normal Bowel Sounds Umbilical hernia that is soft, nontender and easily reducible
Musculoskeletal: No Clubbing, No Cyanosis and No Edema
Neuro: AOx2 disoriented to place, confabulating, fluctuating mental status throughout day, consistently oriented to self at least
Psych: Calm
A/P: Patient is a 63y M with PMH significant for COPD, A-Fib, HTN and alcohol use disorder who presents to ED complaining of SOB.
Alcohol Use Disorder
Acute Intoxication
Alcohol Withdrawal
Acute Alcoholic Hepatitis
Alcoholic Cirrhosis with Esophageal Varices, Thrombocytopenia, etc
Hepatic Encephalopathy
Delirium
Possible Wernicke Encephalopathy (patient confabulating, nystagmus noted horizontal and Vertical, gait not assessed)
- Patient reports drinking 3 bottles of wine prior to arrival. Typically drinks 2 bottles daily ever day.
- alcohol level appreciated 300s on admission
-completed MSAS Protocol phenobarbital taper, transferred to ICU for precedex since weaned off downgraded back to IMU
-Specimen Processor eval appreciated signed off
- Folate, MVI replacement.
- Encourage alcohol cessation efforts.
- trend LFTs mild persistent transaminitis
- ativan IV PRN
-speech eval appreciated diet advanced to pureed, supplemental tube feeds briefly continued until patient pulled it out
-cont Lactulose Rifaximin
-GI eval appreciated once Lactulose enema given prior to start Lactulose Rifaximin as above, outpatient follow-up EGD for variceal surveillance, since signed off
-Psych Eval Appreciated
-cont Seroquel PRN and scheduled bedtime
-12/19/23 Thiamine switched to IV 200 mg TID planned for 2-7 days before reducing to 250 mg 3-5 days, followed by Maintenance Therapy
-Patient improving
12/19 New Episode of Coughing Leukocytosis
suspect aspiration during episode severe agitation confusion requiring 4 point restraints
Empiric Augmentin started planned for 5 days
Confusion/agitation since improved diet advanced to soft bite sized as per speech eval
Acute Hypoxemic Respiratory Failure
COPD
Pneumonia
-nebs, supplemental O2, taper as tolerated - completed empiric IV steroids 12/11
-Duonebs switched to Xopenex d/t tachycardia
- Speech therapy eval appreciated appropriate for reg diet, aspiration precautions.
-BIPAP prn sob
-Completed 8 days Ceftriaxone, Doxycycline
ASCVD / Carotid Stenosis
Hypertension
Paroxysmal Atrial Fibrillation
Bradycardia
Afib rvr
- Patient with HR in the 30s on initial presentation.
- bradycardia related to hypothermia vs ETOH intoxication since resolved.
- Patient is not on chronic OAC due to history of GI bleeding / ongoing alcohol abuse.
- restarted on Dilt ggt as NPO transitioned back to PO with start NGT and metoprolol added as per ICU
-F/u ECHO - 60-65%
-Cardio eval appreciated digoxin added, cont
-patient however intermittently confused agitated refusing oral meds, cardizem gtt subsequently restarted
-HR since improved on Metoprolol and Digoxin, cardizem gtt discontinued monitor off
-check Digoxin lvl in AM
#mild Transaminitis
#Severe hepatic cirrhosis
� Small volume ascites
-most likely 2/2 to alcoholic hepatitis
�LFTs overall improving though mild persistent elevation
-recent coags wnl
Initial Hypothermia due to ETOH intoxication
-resolved
Hypokalemia
-monitor and replete
Pancytopenia
-most likely 2/2 to EtOH abuse +/- acute infection vs cirrhosis
-ctm
LORENZO
- SCr = 1.7 compared to baseline of 0.6.
- Likely pre-renal
- Resolved with IVF
Obesity due to excess calories
ALCIDES - Not compliant with PAP therapy
- Affects all aspects of care.
- Patient states that he no longer has PAP machine at home.
- Encourage cessation of alcohol intake, healthy diet and increased physical activity with goal of weight reduction.
DVT Prophylaxis: Lovenox
Code Status: Full
Patient's Laurence updated daily
I spent a total of 55 minutes with the patient or on the floor. More than 50% of this time involved counseling and coordination of care.
Anticipated Discharge: > 48 hours
Subjective/Interval History
-
Date of Service: December 20, 2023
more calm and cooperative today. remains confused, oriented to self but was able to report year as 2023. Continues to confabulate. Asked what he had for dinner last night, patient reported that he was 'out in the streets.' Otherwise coherent
conversive fluent. Noted coughing with intermittent low grade fevers leukocytosis.
Objective Data
-
Labs:
Laboratory Results
12/20/23
04:34
WBC 15.4 H
Hgb 13.1
Hct 37.8 L
Plt Count 192 D
Sodium 135
Potassium 4.2
Chloride 107
Carbon Dioxide 23
BUN 10
Creatinine 0.6 L
Glucose 119 H
Calcium 8.7
Total Bilirubin 3.2 H
AST 55
ALT 62 H
Alkaline Phosphatase 322 H
Vital Signs:
Vital Signs
Temp Pulse Resp BP Pulse Ox
99.1 F 100 25 120/67 90
12/20/23 03:13 12/20/23 03:00 12/20/23 03:00 12/20/23 00:00 12/20/23 03:00
I&O
12/19/23 12/20/23 12/21/23
06:59 06:59 06:59
Intake Total 223 / 223 480 / 480
Output Total 400 / 400
Balance -177 / -177 480 / 480
[2023-12-20] MEDS: PULMICORT 0.5 MG INH ×2 (08:00→19:54)
[2023-12-20] MEDS: DUONEB 3 ML INH ×3 (08:00→19:51)
[2023-12-20] MEDS: DUPHALAC/CHRONULAC 10 GRAMS PO ×2 (09:08→21:40)
[2023-12-20] MEDS: PROTONIX IV 40 MG IV (09:10)
[2023-12-20] MEDS: NSS (PRESERVATIVE FREE) 10 ML IV (09:10)
[2023-12-20] MEDS: THIAMINE INJECTION 200 MG IV ×3 (09:11→21:40)
[2023-12-20] MEDS: ROBITUSSIN 400 MG PO ×4 (09:13→21:41)
[2023-12-20] MEDS: LOPRESSOR 50 MG PO ×2 (09:14→21:41)
[2023-12-20] MEDS: LOW STRENGTH ASPIRIN 81 MG PO (09:14)
[2023-12-20] MEDS: XIFAXAN 550 MG PO ×2 (09:14→21:41)
[2023-12-20] MEDS: FOLVITE 1 MG PO (09:15)
--- NOTE | 2023-12-20 10:54 | PTOTSP ---
Speech Therapy
Presentation: Patient was seen positioned upright in his bed. Patient was alert, oriented, communicative, and following directions. Patient's overall appearance improved greatly since 12/19/23.
Swallowing Function: Patient was observed with several sips of thin liquids and bites of puree, mechanical soft, advanced mechanical soft, and regular consistency solids in which patient appeared to tolertae all presentations as he did not exhibit
any overt clinical s/sx of aspiration. Patient did, of note, demonstrate mild prolonged mastication and increased RR with regular consistency solids trials. Patient self-fed.
Given the above information and wax/wane alertness, recommend trial of IDDSI level 6 and thin liquids with assistance as needed.
Recommendations:
1) Trial of diet advancement to IDDSI Level 6 and thin liquids
2) Aspiration precautions
3) PO only when alert
4) Assistance with PO as needed
5) Medications as tolerated
Plan: DOCUMENT CONTROL CLERK will continue to follow; pending hospitalization.
--- NOTE | 2023-12-20 13:15 | PTCARENOTE ---
patient is interactive and conversant. oriented to self, sometimes place and time. He is easily re-oriented but short term memory deficits. following commands and pleasant. making appropriate jokes. calm. at bedside this afternoon. heart rate
80's after morning metoprolol given. cardizem drip discontinued; heart rate at goal. continuing to monitor
[2023-12-20] MEDS: MAGNESIUM SULFATE 100 IV (14:05)
[2023-12-20] MEDS: LANOXIN 250 MCG PO (14:09)
--- NOTE | 2023-12-20 14:26 | W.PN.UPDATE ---
Update Note
Progress Note Update
Patient is still disoriented in time, states the president is CHARLENE , but knows he is in hospital but not which one. On the positive end he is not agitated or combative. Hopefully his cognition will improve when withdrawal period is over.
Would continue current treatment for now.
--- NOTE | 2023-12-20 15:04 | CM ---
Chart reviewed and business case analyst spoke with patient and spouse today, patient is off restraints, and will need to wait on updated PT/OT evaluations to see if patient still requires skilled placement, per patient and spouse their first choice is
[facility], [facility], [facility], and [facility].
Plan; Skilled placement when stable.
[2023-12-20] MEDS: LOVENOX 40 MG SC (18:11)
[2023-12-20] MEDS: AUGMENTIN 875 MG/125 MG 1 TABLET PO (21:41)
[2023-12-20] MEDS: SEROQUEL 25 MG PO (21:41)
[2023-12-21] VITALS (7 sets, daily range): BP systolic 85–126; BP diastolic 47–94; PULSE 106–115; BMI 32.0
--- NOTE | 2023-12-21 03:56 | PTCARENOTE ---
Oskar was able to swallow his pills whole with applesauce; aspiration precautions in place. He was forgetful overnight; woke up at midnight attempting to get up to 'go to the shower'. Re-oriented to place, time and situation; he does follow commands
and was cooperative. Pt slept on/off. Turns self while in bed. SCDs on. Assisted to BSC for a BM; patient's legs are weak and knees buckle easily. Voiding via urinal; no incontinence. Tele showing Afib heart rates 80-120. Bed alarm set for safety.
Call pate within reach; reinforced the importance and use of the call pate. RN sitting outside closest nursing station.
[2023-12-21 05:49] LABS: Hematocrit 37.5 % (39.0-52.0); Hemoglobin 12.6 g/dL (13.0-18.0); Mean Corp Hgb Conc. 33.6 g/dL (33.0-37.0); Mean Corpuscular Hgb 32.1 pg (27.0-31.0); Mean Corpuscular Volume 95.7 fL (80.0-94.0); Mean Platelet Volume 11.1 fL (7.4-10.4); Platelet Count 155 10^3/uL (130-400); Red Blood Cell Count 3.92 10^6/uL (4.70-6.10); Red Cell Dist. Width 15.2 % (11.5-14.5)
[2023-12-21 06:08] LABS: ALT (SGPT) 58 U/L (0-50); AST (SGOT) 60 U/L (17-59); Alkaline Phosphatase 274 U/L (38-126); Blood Urea Nitrogen 10 mg/dl (9-20); Carbon Dioxide 28 mmol/L (22-30); Chloride 104 mmol/L (98-107); Estimated Creatinine Clearance > 125 ml/min; Glucose 91 mg/dl (70-99); Magnesium 1.8 mg/dl (1.6-2.3); Phosphorus 3.5 mg/dl (2.5-4.5); Potassium 3.9 mmol/L (3.5-5.1); Sodium 136 mmol/L (135-145); Total Bilirubin 2.1 mg/dl (0.2-1.3); Total Protein 5.7 g/dl (6.3-8.2); eGFR > 60.00
[2023-12-21 06:19] LABS: Digoxin 0.4 ng/ml (0.8-2.0)
[2023-12-21] MEDS: DUONEB 3 ML INH ×3 (07:26→19:24)
[2023-12-21] MEDS: PULMICORT 0.5 MG INH ×2 (07:26→19:24)
[2023-12-21] MEDS: FOLVITE 1 MG PO (08:10)
[2023-12-21] MEDS: LOPRESSOR 50 MG PO ×2 (08:10→20:42)
[2023-12-21] MEDS: XIFAXAN 550 MG PO ×2 (08:10→20:42)
[2023-12-21] MEDS: AUGMENTIN 875 MG/125 MG 1 TABLET PO ×2 (08:10→20:42)
[2023-12-21] MEDS: LOW STRENGTH ASPIRIN 81 MG PO (08:10)
[2023-12-21] MEDS: THIAMINE INJECTION 200 MG IV (08:18)
[2023-12-21] MEDS: PROTONIX IV 40 MG IV (08:18)
[2023-12-21] MEDS: NSS (PRESERVATIVE FREE) 10 ML IV (08:19)
[2023-12-21] MEDS: ROBITUSSIN PO ×2 (08:19→18:23)
[2023-12-21] MEDS: DUPHALAC/CHRONULAC PO ×2 (08:19→20:52)
--- NOTE | 2023-12-21 09:00 | PTCARENOTE ---
Patient received from shift supervisor melting. Patient resting comfortably in bed. AAO, VSS. No events noted overnight. No complaints of pain at this time. Patient currently out of restraints, will continue to monitor and assess for need. Patient at this
time is pleasant and cooperative. Patient was a little impulsive in needing to use the restroom and setting off bed alarm, instructed patient to use call pate. Call pate in reach.
--- NOTE | 2023-12-21 11:38 | PTOTSP ---
Dysphagia Therapy
Patient is appropriate to advance to a regular, thin liquid diet at this time given his improved mentation and oral motor skills. Cognitive changes persist and he would likely benefit from further cognitive linguistic evaluation at the acute care
level and after D/C from the acute care.
Recommend:
1. Regular, Thin Liquids
2. Medications as best tolerated
3. Distant supervision
4. Consider cognitive linguistic evaluation in f/u session.
--- NOTE | 2023-12-21 11:45 | PTOTSP ---
Dysphagia Therapy
Patient is appropriate to advance to a regular, thin liquid diet at this time given his improved mentation and oral/motor skills.
Recommend:
1. Regular, Thin Liquids
2. Medications as best tolerated
3. Distant supervision
4. Brief follow up via chart review, discussion with nursing re: diet tolerance given risk for fluctuations in mentation and dysphagia severity with alcohol withdrawal.
[2023-12-21] MEDS: ROBITUSSIN 400 MG PO ×2 (12:26→20:42)
[2023-12-21] MEDS: LANOXIN 250 MCG PO (12:26)
--- NOTE | 2023-12-21 15:16 | W.PN.HOSP.TC ---
Today's Communication/Plan
-
Thiamine IV
CXR
Cont abx
monitor mental status and hopeful to remain off restraints
Assessment / Plan
Assessment / Plan
Physical Exam
General: no acute distress appears comfortable obese
HEENT: Thick neck. MMM Horizontal and Vertical Nystagmus present
Respiratory: Decreased BS no wheezing noted
Cardiac: S1/S2 and Irregular Irregular tachy; No Murmur
GI: Non Tender, Non Distended, Normal Bowel Sounds Umbilical hernia that is soft, nontender and easily reducible
Musculoskeletal: No Clubbing, No Cyanosis and No Edema
Neuro: AOx2 disoriented to place, confabulating, fluctuating mental status throughout day, consistently oriented to self at least
Psych: Calm
A/P: Patient is a 63y M with PMH significant for COPD, A-Fib, HTN and alcohol use disorder who presents to ED complaining of SOB.
Alcohol Use Disorder
Acute Intoxication
Alcohol Withdrawal
Acute Alcoholic Hepatitis
Alcoholic Cirrhosis with Esophageal Varices, Thrombocytopenia, etc
Hepatic Encephalopathy
Delirium
Possible Wernicke Encephalopathy (patient confabulating, nystagmus noted horizontal and Vertical, gait not assessed)
- Patient reports drinking 3 bottles of wine prior to arrival. Typically drinks 2 bottles daily ever day.
- alcohol level appreciated 300s on admission
-completed MSAS Protocol phenobarbital taper, transferred to ICU for precedex since weaned off downgraded back to IMU
-Rail Splitter eval appreciated signed off
- Folate, MVI replacement.
- Encourage alcohol cessation efforts.
- trend LFTs mild persistent transaminitis
- ativan IV PRN
-speech eval appreciated diet advanced to pureed, supplemental tube feeds briefly continued until patient pulled it out
-cont Lactulose Rifaximin
-GI eval appreciated once Lactulose enema given prior to start Lactulose Rifaximin as above, outpatient follow-up EGD for variceal surveillance, since signed off
-Psych Eval Appreciated
-cont Seroquel PRN and scheduled bedtime
-12/21/23 Thiamine switched to IV 500 mg TID planned for 3-5 additional days before reducing to 250 mg 3-5 days, followed by Maintenance Therapy
-Patient improving
#12/19 New Episode of Coughing Leukocytosis
-Pneumonia v Bronchitis
suspect aspiration during episode severe agitation confusion requiring 4 point restraints
Empiric Augmentin started planned for 5 days (d2)
Confusion/agitation since improved diet advanced to soft bite sized as per speech eval
CXR ordered
#Acute Hypoxemic Respiratory Failure
#COPD
#Pneumonia
-nebs, supplemental O2, taper as tolerated - completed empiric IV steroids 12/11
-Duonebs switched to Xopenex d/t tachycardia
- Speech therapy eval appreciated appropriate for reg diet, aspiration precautions.
-BIPAP prn sob
-Completed 8 days Ceftriaxone, Doxycycline
ASCVD / Carotid Stenosis
Hypertension
Paroxysmal Atrial Fibrillation
Bradycardia
Afib rvr
- Patient with HR in the 30s on initial presentation.
- bradycardia related to hypothermia vs ETOH intoxication since resolved.
- Patient is not on chronic OAC due to history of GI bleeding / ongoing alcohol abuse.
- restarted on Dilt ggt as NPO transitioned back to PO with start NGT and metoprolol added as per ICU
-F/u ECHO - 60-65%
-Cardio eval appreciated digoxin added, cont
-patient however intermittently confused agitated refusing oral meds, cardizem gtt subsequently restarted
-HR since improved on Metoprolol and Digoxin, cardizem gtt discontinued monitor off
-f/u cards outpatient
-Cont digoxin
#mild Transaminitis
#Severe hepatic cirrhosis
� Small volume ascites
-most likely 2/2 to alcoholic hepatitis
�LFTs overall improving though mild persistent elevation
-recent coags wnl
Initial Hypothermia due to ETOH intoxication
-resolved
Hypokalemia
-monitor and replete
Pancytopenia
-most likely 2/2 to EtOH abuse +/- acute infection vs cirrhosis
-ctm
LORENZO
- SCr = 1.7 compared to baseline of 0.6.
- Likely pre-renal
- Resolved with IVF
Obesity due to excess calories
ALCIDES - Not compliant with PAP therapy
- Affects all aspects of care.
- Patient states that he no longer has PAP machine at home.
- Encourage cessation of alcohol intake, healthy diet and increased physical activity with goal of weight reduction.
DVT Prophylaxis: Lovenox
Code Status: Full
Anticipated Discharge: > 48 hours
Subjective/Interval History
-
Date of Service: December 21, 2023
improved although still disoriented
Objective Data
-
Labs:
Laboratory Results
12/21/23
04:49
WBC 8.0
Hgb 12.6 L
Hct 37.5 L
Plt Count 155
Sodium 136
Potassium 3.9
Chloride 104
Carbon Dioxide 28
BUN 10
Creatinine 0.6 L
Glucose 91
Calcium 8.0 L
Total Bilirubin 2.1 H
AST 60 H
ALT 58 H
Alkaline Phosphatase 274 H
Vital Signs:
Vital Signs
Temp Pulse Resp BP Pulse Ox
98.2 F 95 14 118/79 92
12/21/23 11:27 12/21/23 14:06 12/21/23 14:06 12/21/23 08:10 12/21/23 14:22
I&O
12/20/23 12/21/23 12/22/23
06:59 06:59 06:59
Intake Total 480 / 480 1180 / 1180
Output Total 900 / 900 200 / 200
Balance 480 / 480 280 / 280 -200 / -200
Review of Systems
-
History Source: Patient
All other systems: Not reviewed unless documented
Physical Exam
-
General: Well Nourished, No Apparent Distress and Obese
HEENT: Normocephalic and Atraumatic
Respiratory: Clear to Auscultation
Cardiac: Regular Rhythm and S1/S2
GI: Soft, Nontender, Nondistended and Normal Bowel Sounds
Musculoskeletal: No Edema
Neuro: Awake, Alert, Oriented, AO x 3 and Nonfocal/Grossly Intact; Negative Tremors
Psych: Calm
Data Reviewed
-
Diagnostic Radiology: Image personally visualized and interpreted and Report Reviewed by me
Labs: Labs Reviewed by me
[2023-12-21] MEDS: LOVENOX 40 MG SC (17:32)
[2023-12-21] MEDS: THIAMINE INJECTION 255 MG IV (17:32)
[2023-12-21] MEDS: SEROQUEL 25 MG PO (20:42)
[2023-12-22] VITALS (8 sets, daily range): BP systolic 112–136; BP diastolic 66–82; BMI 32.6
[2023-12-22] MEDS: THIAMINE INJECTION 255 MG IV ×3 (00:46→15:56)
[2023-12-22 05:22] LABS: Hematocrit 37.2 % (39.0-52.0); Hemoglobin 12.7 g/dL (13.0-18.0); Mean Corp Hgb Conc. 34.1 g/dL (33.0-37.0); Mean Corpuscular Hgb 32.1 pg (27.0-31.0); Mean Corpuscular Volume 93.9 fL (80.0-94.0); Mean Platelet Volume 10.5 fL (7.4-10.4); Platelet Count 168 10^3/uL (130-400); Red Blood Cell Count 3.96 10^6/uL (4.70-6.10); Red Cell Dist. Width 14.9 % (11.5-14.5); White Blood Cell Count 6.1 10^3/uL (4.8-10.8)
[2023-12-22 05:46] LABS: ALT (SGPT) 51 U/L (0-50); AST (SGOT) 53 U/L (17-59); Albumin 2.9 g/dl (3.5-5.0); Alkaline Phosphatase 266 U/L (38-126); Blood Urea Nitrogen 7 mg/dl (9-20); Calcium 8.4 mg/dl (8.4-10.2); Carbon Dioxide 26 mmol/L (22-30); Chloride 105 mmol/L (98-107); Estimated Creatinine Clearance > 125 ml/min; Glucose 94 mg/dl (70-99); Magnesium 1.7 mg/dl (1.6-2.3); Phosphorus 3.4 mg/dl (2.5-4.5); Potassium 3.9 mmol/L (3.5-5.1); Sodium 136 mmol/L (135-145); Total Bilirubin 2.5 mg/dl (0.2-1.3); Total Protein 5.7 g/dl (6.3-8.2); eGFR > 60.00
--- NOTE | 2023-12-22 06:15 | PTCARENOTE ---
Patient was cooperative overnight, A/O x3. Tele showing Afib. Voiding via urinal. On RA Sp02 92-95%; cough less frequent. No BM. Tolerating IV thiamine. Swallowed pills whole with water w/o issues. Midline intact and patent. Labs drawn this morning.
Able to sleep on/off throughout the night. Call pate within reach. Bed alarm set for safety.
[2023-12-22] MEDS: PULMICORT 0.5 MG INH ×2 (07:27→19:39)
[2023-12-22] MEDS: DUONEB 3 ML INH ×3 (07:27→19:39)
[2023-12-22] MEDS: DUPHALAC/CHRONULAC 10 GRAMS PO (07:50)
[2023-12-22] MEDS: NSS (PRESERVATIVE FREE) 10 ML IV (07:51)
[2023-12-22] MEDS: ROBITUSSIN 400 MG PO ×2 (07:51→18:40)
[2023-12-22] MEDS: XIFAXAN 550 MG PO ×2 (07:51→20:38)
[2023-12-22] MEDS: LOW STRENGTH ASPIRIN 81 MG PO (07:51)
[2023-12-22] MEDS: FOLVITE 1 MG PO (07:51)
[2023-12-22] MEDS: AUGMENTIN 875 MG/125 MG 1 TABLET PO ×2 (07:51→20:38)
[2023-12-22] MEDS: LOPRESSOR 50 MG PO ×2 (07:51→20:37)
[2023-12-22] MEDS: PROTONIX IV 40 MG IV (07:51)
--- NOTE | 2023-12-22 09:00 | PTCARENOTE ---
Patient received from motor equipment commanding officer. Patient resting comfortably in bed. AAO, VSS. No events noted overnight. No complaints of pain at this time. Patient remains out of restraints and remains pleasant and cooperative. Patient compliant with
using the call pate. Will attempt to walk around today and get OOB to chair. Call pate in reach.
--- NOTE | 2023-12-22 11:33 | CM ---
Addendum entered by Yamila Aburto 12/22/23 16:04:
Patient's Laurence called and is agreeable for patient to go to SNF when discharged.
Original Note:
Patient seen at bedside. No restraints noted.
Discussed the SNF referrals that were sent in care port & the responses.
Will check bed availability as closer to discharge.
Also expressed interest in [facility] resources & potential inpatient.
Kendall from [facility] notified.
CM to follow and review updated therapy notes.
PLAN: Discharge when stable.
PT recommended SNF
--- NOTE | 2023-12-22 11:41 | CM ---
Spoke with Kendall from [facility]
Kendall spoke with patient on Thursday.
Patient is interested in [facility]- was there before.
If patient needs skilled rehab prior to ETOH rehab, just let Kendall know which facility he will be going to and he or someone from [facility] will reach out to the security shift manager at the skilled facility to facilitate admission to ETOH rehab.
Kendall will continue to follow.
[2023-12-22] MEDS: LANOXIN 250 MCG PO (11:47)
[2023-12-22] MEDS: ROBITUSSIN PO ×2 (13:00→20:38)
--- NOTE | 2023-12-22 13:26 | W.PN.UPDATE ---
Update Note
Progress Note Update
Pr seen, resting in bed, calm, alert, more oriented today. Sensorium appears much more clear than noted previously. Pt acknowledges his behavior was agitated, expressed remorse. Pt states his main problem is alcohol use. Pt states he plans to
return home when medically stable. No further agitation noted the past 2 days. Cognition appears to be slowly improving.
Imp: Encephalopathy secondary to etoh withdrawal and multiple medical factors, resolving
Alcohol use d/o, severe
Rec: taper off prn Ativan (receiving once per day). continue low dose of Seroquel for now on prn basis
Psychiatry will sign off; please re-consult for any new concerns
--- NOTE | 2023-12-22 15:06 | W.PN.HOSP.TC ---
Today's Communication/Plan
-
Thiamine IV
Cont abx
monitor mental status and hopeful to remain off restraints - tentative planning for dc starting in 24 hours if mental status remains stable
Assessment / Plan
Assessment / Plan
Physical Exam
General: no acute distress appears comfortable obese
HEENT: Thick neck. MMM Horizontal and Vertical Nystagmus present
Respiratory: Decreased BS no wheezing noted
Cardiac: S1/S2 and Irregular Irregular tachy; No Murmur
GI: Non Tender, Non Distended, Normal Bowel Sounds Umbilical hernia that is soft, nontender and easily reducible
Musculoskeletal: No Clubbing, No Cyanosis and No Edema
Neuro: AOx2 disoriented to place, confabulating, fluctuating mental status throughout day, consistently oriented to self at least
Psych: Calm
A/P: Patient is a 63y M with PMH significant for COPD, A-Fib, HTN and alcohol use disorder who presents to ED complaining of SOB.
Alcohol Use Disorder
Acute Intoxication
Alcohol Withdrawal
Acute Alcoholic Hepatitis
Alcoholic Cirrhosis with Esophageal Varices, Thrombocytopenia, etc
Hepatic Encephalopathy
Delirium
Possible Wernicke Encephalopathy (patient confabulating, nystagmus noted horizontal and Vertical, gait not assessed)
- Patient reports drinking 3 bottles of wine prior to arrival. Typically drinks 2 bottles daily ever day.
- alcohol level appreciated 300s on admission
-completed MSAS Protocol phenobarbital taper, transferred to ICU for precedex since weaned off downgraded back to IMU
-Rn Employee Health eval appreciated signed off
- Folate, MVI replacement.
- Encourage alcohol cessation efforts.
- trend LFTs mild persistent transaminitis
- ativan IV PRN
-speech eval appreciated diet advanced to pureed, supplemental tube feeds briefly continued until patient pulled it out
-cont Lactulose, Rifaximin
-GI eval appreciated once Lactulose enema given prior to start Lactulose Rifaximin as above, outpatient follow-up EGD for variceal surveillance, since signed off
-Psych Eval Appreciated
-cont Seroquel PRN and scheduled bedtime
-12/21/23 Thiamine switched to IV 500 mg TID planned for 1 additional days before reducing to 250 mg 3-5 days, followed by Maintenance Therapy
-Patient improving
#12/19 New Episode of Coughing Leukocytosis
-Pneumonia
suspect aspiration during episode severe agitation confusion requiring 4 point restraints
Empiric Augmentin started planned for 5 days (d3)
Confusion/agitation since improved diet advanced to soft bite sized as per speech eval
#Acute Hypoxemic Respiratory Failure
#COPD
#Pneumonia
-nebs, supplemental O2, taper as tolerated - completed empiric IV steroids 12/11
-Duonebs switched to Xopenex d/t tachycardia
- Speech therapy eval appreciated appropriate for reg diet, aspiration precautions.
-BIPAP prn sob
-Completed 8 days Ceftriaxone, Doxycycline
ASCVD / Carotid Stenosis
Hypertension
Paroxysmal Atrial Fibrillation
Bradycardia
Afib rvr
- Patient with HR in the 30s on initial presentation.
- bradycardia related to hypothermia vs ETOH intoxication since resolved.
- Patient is not on chronic OAC due to history of GI bleeding / ongoing alcohol abuse.
-F/u ECHO - 60-65%
-Cardio eval appreciated digoxin added, cont
-HR since improved on Metoprolol and Digoxin, cardizem gtt discontinued monitor off
-f/u cards outpatient
-Cont digoxin
#mild Transaminitis
#Severe hepatic cirrhosis
� Small volume ascites
-most likely 2/2 to alcoholic hepatitis
�LFTs overall improving though mild persistent elevation
-recent coags wnl
Initial Hypothermia due to ETOH intoxication
-resolved
Hypokalemia
-monitor and replete
Pancytopenia
-most likely 2/2 to EtOH abuse +/- acute infection vs cirrhosis
-ctm
LORENZO
- SCr = 1.7 compared to baseline of 0.6.
- Likely pre-renal
- Resolved with IVF
Obesity due to excess calories
ALCIDES - Not compliant with PAP therapy
- Affects all aspects of care.
- Patient states that he no longer has PAP machine at home.
- Encourage cessation of alcohol intake, healthy diet and increased physical activity with goal of weight reduction.
DVT Prophylaxis: Lovenox
Code Status: Full
Anticipated Discharge: 24 - 48 hours
Subjective/Interval History
-
Date of Service: December 22, 2023
much improved
Objective Data
-
Labs:
Laboratory Results
12/22/23
05:03
WBC 6.1
Hgb 12.7 L
Hct 37.2 L
Plt Count 168
Sodium 136
Potassium 3.9
Chloride 105
Carbon Dioxide 26
BUN 7 L
Creatinine 0.6 L
Glucose 94
Calcium 8.4
Total Bilirubin 2.5 H
AST 53
ALT 51 H
Alkaline Phosphatase 266 H
Vital Signs:
Vital Signs
Temp Pulse Resp BP Pulse Ox
98.7 F 102 16 136/72 94
12/22/23 11:14 12/22/23 14:39 12/22/23 14:39 12/22/23 07:51 12/22/23 14:39
I&O
12/21/23 12/22/23 12/23/23
06:59 06:59 06:59
Intake Total 1180 / 1180 490 / 490
Output Total 900 / 900 1250 / 1250 100 / 100
Balance 280 / 280 -760 / -760 -100 / -100
Review of Systems
-
History Source: Patient
All other systems: Not reviewed unless documented
Data Reviewed
-
Diagnostic Radiology: Image personally visualized and interpreted and Report Reviewed by me
Labs: Labs Reviewed by me
[2023-12-22] MEDS: LOVENOX 40 MG SC (18:40)
[2023-12-22] MEDS: DUPHALAC/CHRONULAC PO (20:38)
[2023-12-23] VITALS (8 sets, daily range): BP systolic 92–133; BP diastolic 66–87; PULSE 94–109; O2SAT 95; BMI 32.5
[2023-12-23] MEDS: THIAMINE INJECTION 255 MG IV ×2 (00:57→08:12)
--- NOTE | 2023-12-23 05:29 | PTCARENOTE ---
No acute changes overnight. Pt cooperative with care. Able to sleep on/off throughout the night. Tele showing Afib. Denies any pain. Voiding via urinal, no incontinence. BM yesterday. Swallowing pills whole w/ water. Call pate within reach. Bed
alarm set for safety. Pt has been calling for assistance appropriately.
[2023-12-23 06:32] LABS: Hematocrit 37.5 % (39.0-52.0); Hemoglobin 12.6 g/dL (13.0-18.0); Mean Corp Hgb Conc. 33.6 g/dL (33.0-37.0); Mean Corpuscular Hgb 32.2 pg (27.0-31.0); Mean Corpuscular Volume 95.9 fL (80.0-94.0); Mean Platelet Volume 10.6 fL (7.4-10.4); Platelet Count 173 10^3/uL (130-400); Red Blood Cell Count 3.91 10^6/uL (4.70-6.10); Red Cell Dist. Width 14.6 % (11.5-14.5)
[2023-12-23 06:47] LABS: ALT (SGPT) 47 U/L (0-50); AST (SGOT) 50 U/L (17-59); Albumin 2.9 g/dl (3.5-5.0); Alkaline Phosphatase 277 U/L (38-126); Blood Urea Nitrogen 4 mg/dl (9-20); Calcium 8.3 mg/dl (8.4-10.2); Carbon Dioxide 25 mmol/L (22-30); Chloride 107 mmol/L (98-107); Estimated Creatinine Clearance > 125 ml/min; Glucose 99 mg/dl (70-99); Magnesium 1.8 mg/dl (1.6-2.3); Phosphorus 3.6 mg/dl (2.5-4.5); Potassium 3.9 mmol/L (3.5-5.1); Sodium 136 mmol/L (135-145); Total Protein 5.7 g/dl (6.3-8.2); eGFR > 60.00
[2023-12-23] MEDS: DUONEB 3 ML INH ×2 (08:07→14:00)
[2023-12-23] MEDS: PULMICORT 0.5 MG INH (08:07)
[2023-12-23] MEDS: AUGMENTIN 875 MG/125 MG 1 TABLET PO (08:10)
[2023-12-23] MEDS: PROTONIX IV 40 MG IV (08:10)
[2023-12-23] MEDS: ROBITUSSIN 400 MG PO (08:10)
[2023-12-23] MEDS: NSS (PRESERVATIVE FREE) 10 ML IV (08:10)
[2023-12-23] MEDS: LOPRESSOR 50 MG PO (08:12)
[2023-12-23] MEDS: LOW STRENGTH ASPIRIN 81 MG PO (08:12)
[2023-12-23] MEDS: XIFAXAN 550 MG PO (08:12)
[2023-12-23] MEDS: DUPHALAC/CHRONULAC 10 GRAMS PO (08:12)
[2023-12-23] MEDS: FOLVITE 1 MG PO (08:12)
--- NOTE | 2023-12-23 11:30 | PTCARENOTE ---
Received patient from IMU. Patient ambulate from stretcher to bed with supervision. Patient's gait a bit unsteady at times. Bed and chair alarm on. patient has no c/o pain, lungs clear, diminished, A-IRR 84-121. Patient has a jay complexion.
Patient forgetful at times, Call pate in reach.
[2023-12-23] MEDS: LANOXIN 250 MCG PO (12:03)
[2023-12-23] MEDS: ROBITUSSIN PO (12:03)
--- NOTE | 2023-12-23 13:33 | CM ---
Addendum entered by Silvia Kraft RN 12/23/23 17:13:
Spoke with DANIEL Argueta; patient declines to do inpatient Etoh program. He provided outpatient resources.
Spoke with Laurence, patient's ; she was dissapointed that patient declined to do an inpatient Etoh program but accepted outpatient resources. She agrees to receiving a script for outpatient PT/OT. She will provide transport home today.
Plan home today with script for outpatient PT/OT.
Original Note:
Patient with Dx Alcohol Use Disorder, Acute Intoxication, Alcohol Withdrawal. Room air. PT & OT recommend outpatient therapy.
Spoke with Laurence, patient's ; she is hoping patient will go to an inpatient Etoh program.
Spoke with DANIEL Argueta; he will see the patient and confirm he still will go to [facility]. He requests fax of clinicals to [phone].
Plan follow up with DANIEL.
--- NOTE | 2023-12-23 14:06 | W.PN.HOSP.TC ---
Addendum entered and electronically signed by Denver Gold MD 12/23/23 17:11:
[id number]
Addendum entered and electronically signed by Denver Gold MD 12/23/23 14:36:
thiamine 100 mg daily
Addendum entered and electronically signed by Denver Gold MD 12/23/23 14:34:
More than 30 minutes spent in discharge including
Final examination of the patient
Summarizing hospital stay
Instructions for continuing care to all relevant caregivers
Preparation of discharge records, prescriptions, and referral forms
Total time spent (35 in minutes):
DC on Augmentin to complete 5 day course; Resume back digoxin, BB, Cardizem
Lactulose, Rifaximin
EtOH cessation
Patient refusing inpatient etoh rehab
Original Note:
Today's Communication/Plan
-
IV thiamine
augmentin
DC ready - CM aware
Assessment / Plan
Assessment / Plan
Physical Exam
General: no acute distress appears comfortable obese
HEENT: Thick neck. MMM Horizontal and Vertical Nystagmus present
Respiratory: Decreased BS no wheezing noted
Cardiac: S1/S2 and Irregular Irregular tachy; No Murmur
GI: Non Tender, Non Distended, Normal Bowel Sounds Umbilical hernia that is soft, nontender and easily reducible
Musculoskeletal: No Clubbing, No Cyanosis and No Edema
Neuro: AOx2 disoriented to place, confabulating, fluctuating mental status throughout day, consistently oriented to self at least
Psych: Calm
A/P: Patient is a 63y M with PMH significant for COPD, A-Fib, HTN and alcohol use disorder who presents to ED complaining of SOB.
Alcohol Use Disorder
Acute Intoxication
Alcohol Withdrawal
Acute Alcoholic Hepatitis
Alcoholic Cirrhosis with Esophageal Varices, Thrombocytopenia, etc
Hepatic Encephalopathy
Delirium
Possible Wernicke Encephalopathy (patient confabulating, nystagmus noted horizontal and Vertical, gait not assessed)
- Patient reports drinking 3 bottles of wine prior to arrival. Typically drinks 2 bottles daily ever day.
- alcohol level appreciated 300s on admission
-completed MSAS Protocol phenobarbital taper, transferred to ICU for precedex since weaned off downgraded back to IMU
-[employer] eval appreciated signed off
- Folate, MVI replacement.
- Encourage alcohol cessation efforts.
- trend LFTs mild persistent transaminitis
- ativan IV PRN
-speech eval appreciated diet advanced to pureed, supplemental tube feeds briefly continued until patient pulled it out
-cont Lactulose, Rifaximin
-GI eval appreciated once Lactulose enema given prior to start Lactulose Rifaximin as above, outpatient follow-up EGD for variceal surveillance, since signed off
-Psych Eval Appreciated
-cont Seroquel PRN and scheduled bedtime
-12/21/23 Thiamine switched to IV 500 mg TID planned for today, before reducing to 250 mg 3-5 days, followed by Maintenance Therapy
-Patient improving
#12/19 New Episode of Coughing Leukocytosis
-Pneumonia
suspect aspiration during episode severe agitation confusion requiring 4 point restraints
Empiric Augmentin started planned for 5 days (d4)
Confusion/agitation since improved diet advanced to soft bite sized as per speech eval
#Acute Hypoxemic Respiratory Failure
#COPD
#Pneumonia
-nebs, supplemental O2, taper as tolerated - completed empiric IV steroids 12/11
-Duonebs switched to Xopenex d/t tachycardia
- Speech therapy eval appreciated appropriate for reg diet, aspiration precautions.
-BIPAP prn sob
-Completed 8 days Ceftriaxone, Doxycycline
ASCVD / Carotid Stenosis
Hypertension
Paroxysmal Atrial Fibrillation
Bradycardia
Afib rvr
- Patient with HR in the 30s on initial presentation.
- bradycardia related to hypothermia vs ETOH intoxication since resolved.
- Patient is not on chronic OAC due to history of GI bleeding / ongoing alcohol abuse.
-F/u ECHO - 60-65%
-Cardio eval appreciated digoxin added, cont
-HR since improved on Metoprolol and Digoxin, cardizem gtt discontinued monitor off
-f/u cards outpatient
-Cont digoxin
#mild Transaminitis
#Severe hepatic cirrhosis
� Small volume ascites
-most likely 2/2 to alcoholic hepatitis
�LFTs overall improving though mild persistent elevation
-recent coags wnl
Initial Hypothermia due to ETOH intoxication
-resolved
Hypokalemia
-monitor and replete
Pancytopenia
-most likely 2/2 to EtOH abuse +/- acute infection vs cirrhosis
-ctm
LORENZO
- SCr = 1.7 compared to baseline of 0.6.
- Likely pre-renal
- Resolved with IVF
Obesity due to excess calories
ALCIDES - Not compliant with PAP therapy
- Affects all aspects of care.
- Patient states that he no longer has PAP machine at home.
- Encourage cessation of alcohol intake, healthy diet and increased physical activity with goal of weight reduction.
DVT Prophylaxis: Lovenox
Code Status: Full
Anticipated Discharge: Within 24 hours
Subjective/Interval History
-
Date of Service: December 23, 2023
No acute events, doing well off restraints
Objective Data
-
Labs:
Laboratory Results
12/23/23
06:00
WBC 5.0
Hgb 12.6 L
Hct 37.5 L
Plt Count 173
Sodium 136
Potassium 3.9
Chloride 107
Carbon Dioxide 25
BUN 4 L
Creatinine 0.6 L
Glucose 99
Calcium 8.3 L
Total Bilirubin 2.0 H
AST 50
ALT 47
Alkaline Phosphatase 277 H
Vital Signs:
Vital Signs
Temp Pulse Resp BP Pulse Ox
98 F 74 18 125/66 96
12/23/23 11:55 12/23/23 12:03 12/23/23 11:55 12/23/23 11:55 12/23/23 11:55
I&O
12/22/23 12/23/23 12/24/23
06:59 06:59 06:59
Intake Total 490 / 490 1550 / 1550
Output Total 1250 / 1250 2590 / 2590 200 / 200
Balance -760 / -760 -1040 / -1040 -200 / -200
Review of Systems
-
History Source: Patient
All other systems: Not reviewed unless documented
Physical Exam
-
General: Well Nourished, No Apparent Distress and Obese
HEENT: Normocephalic and Atraumatic
Respiratory: Clear to Auscultation
Cardiac: Regular Rhythm and S1/S2
GI: Soft, Nontender, Nondistended and Normal Bowel Sounds
Musculoskeletal: No Edema
Neuro: Awake, Alert, Oriented, AO x 3 and Nonfocal/Grossly Intact; Negative Tremors
Psych: Calm
Data Reviewed
-
Diagnostic Radiology: Image personally visualized and interpreted and Report Reviewed by me
Labs: Labs Reviewed by me
--- NOTE | 2023-12-23 14:34 | W.DS.TRANS ---
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
-
Discharge Instructions:
Discharge Diagnosis/Procedures Alcohol Use Disorder
Acute Intoxication
Alcohol Withdrawal
Acute Alcoholic Hepatitis
Alcoholic Cirrhosis with Esophageal Varices,
Thrombocytopenia, etc
Hepatic Encephalopathy
Delirium
Possible Wernicke Encephalopathy
#Acute Hypoxemic Respiratory Failure
#COPD
#Pneumonia
#Afib rvr
#Severe hepatic cirrhosis
#Pancytopenia
#LORENZO
Diet Low Cholesterol,Low Fat
Additional Diets no Alcohol
Activity As tolerated
Driving Restrictions Not until seen by your Dr
Blood Work cbc, cmp in 1 week
Instructions:
Stand-Alone Forms:
Changes to Home Medications: Yes
Discharge Medications:
DC Medications w/original date entered in [facility]
aspirin 81 mg tablet,delayed release 81 mg PO DAILY Blood Clot Prevention/Tx #30 tabs 09/14/23
diltiazem HCl 120 mg capsule,extended release 24 hr 120 mg PO DAILY #90 caps 09/14/23
fluticasone fur. 100 mcg-umeclid 62.5 mcg-vilant 25 mcg inhalat.powder (Trelegy Ellipta) 1 inh inhalation R DAILY Lung/Breathing Issues #90 ea 09/14/23
levalbuterol tartrate 45 mcg/actuation aerosol inhaler 1 puff inhalation R Q6HPRN PRN sob #90 grams 09/14/23
Unknown Eye Drops 1 drp BOTH EYES DAILY dry eyes 11/09/23
levalbuterol tartrate 45 mcg/actuation aerosol inhaler 2 puff inhalation R DAILY Lung/Breathing Issues 11/09/23
pantoprazole 40 mg tablet,delayed release 40 mg PO DAILY Gastrointestinal Issue 11/09/23
amoxicillin 875 mg-potassium clavulanate 125 mg tablet 1 tab PO Q12 2 days #4 tabs 12/23/23
digoxin 250 mcg (0.25 mg) tablet 250 mcg PO NOON 30 days #30 tabs 12/23/23
folic acid 1 mg tablet 1 mg PO DAILY 30 days #30 tabs 12/23/23
lactulose 20 gram/30 mL oral solution 10 g (15 mL) PO BID #3,000 mL 12/23/23
metoprolol tartrate 50 mg tablet 50 mg PO BID 30 days #60 tabs 12/23/23
rifaximin 550 mg tablet (Xifaxan) 550 mg PO BID 30 days #60 tabs 12/23/23
thiamine HCl (vitamin B1) 100 mg tablet 100 mg PO DAILY Supplement 30 days #0 tabs 12/23/23
Home Medication Changes
amoxicillin 875 mg-potassium clavulanate 125 mg tablet 1 tab PO Q12 2 days #4 tabs 12/23/23
digoxin 250 mcg (0.25 mg) tablet 250 mcg PO NOON 30 days #30 tabs 12/23/23
folic acid 1 mg tablet 1 mg PO DAILY 30 days #30 tabs 12/23/23
lactulose 20 gram/30 mL oral solution 10 g (15 mL) PO BID #3,000 mL 12/23/23
metoprolol tartrate 50 mg tablet 50 mg PO BID 30 days #60 tabs 12/23/23
rifaximin 550 mg tablet (Xifaxan) 550 mg PO BID 30 days #60 tabs 12/23/23
Pending Results: No
[2023-12-23] MEDS: THIAMINE INJECTION IV (16:00)
== END 2023-12-23 17:46 | disposition home or self-care (01) | DRG 190 ==
LOC: 4 EAST ACU 03:20
PROVIDERS: Internal Medicine; Internal Medicine Gastroenterology; Nurse Practitioner Adult Health; Nurse Practitioner Family; Radiology Diagnostic Radiology; Registered Nurse; Student in an Organized Health Care Education/Training Program; ADMITTING PHYSICIAN Hospitalist; ATTENDING PHYSICIAN Internal Medicine; CONSULT PHYSICIAN Internal Medicine Cardiovascular Disease; CONSULT PHYSICIAN Internal Medicine Critical Care Medicine; CONSULT PHYSICIAN Internal Medicine Gastroenterology; EMERGENCY PHYSICIAN Emergency Medicine
PROC: 0DH67UZ Insertion of Feeding Device into Stomach, Via Natural or Artificial Opening (ICD-10-PCS; 2023-12-15)
DX: J44.1 Chronic obstructive pulmonary disease with (acute) exacerbation (principal); G93.41 Metabolic encephalopathy; J18.9 Pneumonia, unspecified organism; J96.01 Acute respiratory failure with hypoxia; F10.230 Alcohol dependence with withdrawal, uncomplicated; I85.10 Secondary esophageal varices without bleeding; I48.19 Other persistent atrial fibrillation; D61.818 Other pancytopenia; N17.9 Acute kidney failure, unspecified; F10.221 Alcohol dependence with intoxication delirium; E51.2 Wernicke's encephalopathy; J44.0 Chronic obstructive pulmonary disease with (acute) lower respiratory infection; K70.11 Alcoholic hepatitis with ascites; K70.31 Alcoholic cirrhosis of liver with ascites; K76.82 Hepatic encephalopathy; Y90.8 Blood alcohol level of 240 mg/100 ml or more; E66.09 Other obesity due to excess calories; G47.33 Obstructive sleep apnea (adult) (pediatric); I10 Essential (primary) hypertension; Z68.32 Body mass index [BMI] 32.0-32.9, adult
CPT/HCPCS: 70450; 71045; 74018; 76700; 80048; 80053; 80076; 80162; 81003; 82077; 82105; 82140; 82248; 82533; 82805; 82962; 82977; 83735; 83880; 84100; 84439; 84443; 84484; 85025; 85027; 85610; 85730; 86022; 87811; 92526; 92610; 93005; 93306; 94640; 94644; 96361; 96365; 96375; 96376; 97116; 97163; 97164; 97166; 97168; 97530; 97535; 99291; J1160; J2358

== ENCOUNTER → 2024-01-27 07:17 | Outpatient (REF) | payer OTHER, SELFPAY | LOC: HWRAD 07:17 | PROVIDERS: ATTENDING PHYSICIAN Internal Medicine; FAMILY PHYSICIAN Nurse Practitioner Family | DX: K74.60 Unspecified cirrhosis of liver (principal) | CPT/HCPCS: 76700; 93975 ==

== ENCOUNTER → 2024-02-02 08:05 | Outpatient (REF) | payer OTHER, SELFPAY | LOC: RCS 08:05 | PROVIDERS: ATTENDING PHYSICIAN Nurse Practitioner; FAMILY PHYSICIAN Nurse Practitioner Family | DX: I48.21 Permanent atrial fibrillation (principal) | CPT/HCPCS: 93225; 93226 ==

== ENCOUNTER 2024-02-04 06:15 | Day surgery (SDC) | payer OTHER, SELFPAY ==
[2024-02-04 09:09] VITALS: BMI 31.5
[2024-02-04 09:20] VITALS: BP 141/71
[2024-02-04 09:25] VITALS: BMI 31.5
[2024-02-04 10:53] VITALS: BP 121/75
[2024-02-04 11:00] VITALS: BP 130/80
[2024-02-04 11:15] VITALS: BP 131/62
[2024-02-04 11:21] VITALS: BP 134/65
== END 2024-02-04 11:25 | disposition home or self-care (01) ==
LOC: SDS 06:15
PROVIDERS: ATTENDING PHYSICIAN Internal Medicine
DX: I85.00 Esophageal varices without bleeding (principal)
CPT/HCPCS: 43244

== ENCOUNTER 2024-06-02 06:13 | Day surgery (SDC) | payer MEDICARE, SELFPAY | END 2024-06-02 13:00 | disposition home or self-care (01) | LOC: GI 06:13 | PROVIDERS: ATTENDING PHYSICIAN Internal Medicine | DX: Z12.11 Encounter for screening for malignant neoplasm of colon (principal); K57.30 Diverticulosis of large intestine without perforation or abscess without bleeding; K29.70 Gastritis, unspecified, without bleeding; I85.00 Esophageal varices without bleeding; D12.4 Benign neoplasm of descending colon; D12.3 Benign neoplasm of transverse colon; D12.2 Benign neoplasm of ascending colon; D12.0 Benign neoplasm of cecum; D12.5 Benign neoplasm of sigmoid colon | CPT/HCPCS: 45385; 45380; 43239; 88305; 88342 ==

== ENCOUNTER → 2024-10-05 06:59 | Outpatient (REF) | payer MEDICARE, SELFPAY | LOC: RAD 06:59 | PROVIDERS: ATTENDING PHYSICIAN Surgery; FAMILY PHYSICIAN Nurse Practitioner Family | DX: K70.30 Alcoholic cirrhosis of liver without ascites (principal); K42.9 Umbilical hernia without obstruction or gangrene | CPT/HCPCS: 74177; Q9967 ==

== ENCOUNTER → 2024-11-07 07:44 | Outpatient (REF) | payer MEDICARE, SELFPAY | LOC: SDSPAT 07:44 | PROVIDERS: ATTENDING PHYSICIAN Surgery; FAMILY PHYSICIAN Nurse Practitioner Family | DX: K42.9 Umbilical hernia without obstruction or gangrene (principal) | CPT/HCPCS: 36415; 93005 ==

== ENCOUNTER 2024-11-29 06:18 | Day surgery (SDC) | payer MEDICARE, SELFPAY ==
[2024-11-07 14:16] VITALS: BMI 36.0
[2024-11-29] VITALS (12 sets, daily range): BP systolic 110–148; BP diastolic 66–97; BMI 36.0
[2024-11-29] MEDS: TYLENOL 1000 MG PO (08:25)
[2024-11-29] MEDS: NORMOSOL-R/PLASMALYTE-A 1000 IV (08:25)
[2024-11-29] MEDS: HEPARIN 5000 UNITS SC (08:26)
[2024-11-29 09:00] LABS: Hematocrit 41.0 % (39.0-52.0); Hemoglobin 14.0 g/dL (13.0-18.0); Mean Corp Hgb Conc. 34.1 g/dL (33.0-37.0); Mean Corpuscular Volume 90.9 fL (80.0-94.0); Red Cell Dist. Width 13.3 % (11.5-14.5)
[2024-11-29 09:08] LABS: Platelet Count 84 10^3/uL (130-400)
--- NOTE | 2024-11-29 13:50 | OR.RPT ---
Addendum entered and electronically signed by Ganesh Fisher MD 11/30/24 13:30:
DOS 11/29/24
Original Note:
Operative Report
Operative Report
Primary Surgeon: Natalia
Assisting: Germania MARTIN
Pre-op Diagnosis: Incarcerated umbilical hernia
Post-op Diagnosis: Same
Procedure Performed: Robotic repair of incarcerated umbilical hernia (rTAPP)
Anesthesia Type: GETA + TAP block
Specimen / Cultures: None
Estimated Blood Loss: 15cc
Complications: None immediate
Operative Findings: 3.5 x 2.5 defect with incarcerated fat; 15cm x 15cm bard soft mesh
Indications: This 64M developed symptomatic incarcerated umbilical hernia. Robot assisted laparoscopic repair was elected
Description of procedure:� The patient was taken to the operating room and positioned into supine position. The patient�s abdomen was prepped and draped in standard sterile fashion. A time-out was completed verifying correct patient, procedure,
site, positioning, and implants and special equipment prior to beginning this procedure.
A stab incision was made in the left upper quadrant, a Veress needle was inserted and proper position was confirmed by aspiration and saline drop test. Following this, pneumoperitoneum was created with insufflation of carbon dioxide to 12 mmHg. Then
a 8mm robotic trocar was inserted above and to the left of the umbilicus. A laparoscope was inserted and the area of initial trocar entry and Veress needle placement were both inspected and no injuries were found. Two 8mm trocars were then placed
lateral to the rectus sheath under direct visualization.
Attention was turned to the ventral defect. An incision was made in the peritoneum several cm superior to the defect and a flap was developed in caudad direction. The defect was identified and measured as above. The incarcerated fat was reduced and
the defect was closed with 0 PDS stratafix suture. A 15cm x 15cm bard soft mesh was passed into the abdomen and placed into the preperitoneal space, flush against the abdominal wall and centered on the defect. The mesh was secured in place with 3-0
vicryl suture under the defect and at all four corners. The peritoneal flap was then closed over the mesh and secured to the abdominal wall with 2-0 monocryl suture. Several small rents in the flap were repaired with 2-0 monocryl stratafix suture.
A 14g angiocath was used to decompress the preperitoneal space revealing good seal and all mesh in good position without folding or curling.
After ensuring adequate hemostasis, the trocars were removed and the pneumoperitoneum allowed to escape. The trocar incisions were closed at the skin level using 4-0 monocryl and topical skin adhesive. All counts were correct and the patient
tolerated the procedure well and was taken to the postanesthesia care unit in stable condition.
The assistance of Germania MARTIN was required due to the complexity of the procedure. During the procedure she assisted with retraction, resection, and closure of the wound.
--- NOTE | 2024-11-29 15:57 | PTCARENOTE ---
Addendum...mild umbilical swelling noted , ice applied. Dr Fisher made aware will order abdominal binder and discharge to [facility]. Patient without C/O. report to [facility] RN
== END 2024-11-29 16:28 | disposition home or self-care (01) ==
LOC: SDS 06:18
PROVIDERS: ATTENDING PHYSICIAN Surgery; FAMILY PHYSICIAN Nurse Practitioner Family
DX: K42.0 Umbilical hernia with obstruction, without gangrene (principal)
CPT/HCPCS: 49594; 85027; C1781

== ENCOUNTER 2025-02-02 06:20 | Day surgery (SDC) | payer MEDICARE, SELFPAY | END 2025-02-02 10:35 | disposition home or self-care (01) | LOC: GI 06:20 | PROVIDERS: ATTENDING PHYSICIAN Internal Medicine | DX: Z12.11 Encounter for screening for malignant neoplasm of colon (principal); D12.0 Benign neoplasm of cecum; D12.2 Benign neoplasm of ascending colon; D12.3 Benign neoplasm of transverse colon; D12.7 Benign neoplasm of rectosigmoid junction; K57.30 Diverticulosis of large intestine without perforation or abscess without bleeding; K64.8 Other hemorrhoids; Z86.0100 Personal history of colon polyps, unspecified | CPT/HCPCS: 45385; 45380; 88305 ==

== ENCOUNTER 2025-03-18 11:51 | Inpatient (IN) | payer MEDICARE, SELFPAY ==
[2025-03-18] VITALS (9 sets, daily range): BP systolic 128–174; BP diastolic 67–97; BMI 39.5; BMI 38.1
--- NOTE | 2025-03-18 08:29 | ED.GENMED ---
History of Present Illness
General
Chief Complaint: Alcohol Problem
Source: patient
Time Seen by Provider: 03/18/25 08:02
History of Present Illness
History of Present Illness:
This patient is a 64-year-old male presents emergency department via EMS due to concerns regarding his excessive alcohol intake over the past 2 weeks. Patient states he has been sober for over a year,' picked up', meaning started drinking again
approximately 2 weeks ago. He describes consuming two 1 L bottles of wine per day, most recently this morning. He denies trauma, chest pain. He does note recent cough and mild dyspnea. He denies fever, chills, sore throat. He reports poor p.o.
intake but denies vomiting, bleeding, diarrhea, abdominal pain, back pain, headache, neck pain. Patient does have a history of COPD, cirrhosis, A-fib but is not anticoagulated beyond antiplatelet/aspirin given his history of cirrhosis, varices,
etc. Patient appears to be intoxicated, is tearful at times, and does express thoughts of SI without a specific plan.
Past History
Past History
ED Past Medical History: Arrthythmia (A-fib, not on anticoagulation due to esophageal varices history), Asthma, CHF, COPD, HTN and Hypercholesterolemia
ED Past Surgical History: Appendectomy, Orthopedic and Other
Patient has exhibited threatening behavior?: No
Social History
Tobacco: Former smoker
Alcohol: Chronic alcoholic
Drug: None
Personal:
Living: with family
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
Family History
Family History: Other (Non-contributory)
Phy Exam
Physical Exam
Physical Exam:
GENERAL: Alert , in no apparent distress
EYE: pupils equal and reactive, conjunctive up
NECK: Supple, no significant adenopathy.
ENT: o/p clr, mm very dry
CARDIAC: Irregularly irregular
LUNGS: Decreased breath sounds bilaterally, no acute respiratory distress, scattered wheezes and rhonchi, no stridor, no obvious cough
ABDOMEN: Soft, without focal tenderness, no r/g, no cvat
NEUROLOGICAL: Alert and oriented, appears intoxicated, moves all extremities equally, no facial droop, grossly intact neurologically
SKIN: Warm and dry, skin intact.
MUSCULOSKELETAL: No edema, well perfused.
PSYCH: Tearful at times.
Scores
Withdrawal Assessment of Alcohol
Withdrawal Assessment Completed?: Not applicable
Sepsis
Sepsis Screening
Sepsis Assessment: Sepsis Ruled Out
Sepsis Screen
Sepsis Screen: Sepsis Ruled Out
Date: 03/18/25
Time: 10:48
Course
Orders/Labs/Results
Orders:
Orders
03/18/25 08:26
Cardiac Monitoring- Treatment ONCE
Urinalysis Reflex To Culture Urgent
Dexamethasone Sod Phosphate [Decadron] 10 mg IV NOW STA
Ipratropium/Albuterol Sulfate [Duoneb] 3 ml INH R NOW STA
Thiamine Injection 200 mg IV NOW STA
Pulse Ox/cont/shift [RESP] Stat
Quantity: 1
03/18/25 08:27
Electrocardiogram (*1) Stat
Reason for Study: Other
Other Reason for Exam: pneumonia
Crisis Consult Urgent
Reason for Consult: alcoholism; depression with SI
EKG- Treatment ONCE
03/18/25 08:28
CR Chest - 2 Views Urgent
Comment:
Reason For Exam: sob, hx copd
03/18/25 08:30
Lactic Acid Q4H
Comment: CANCEL 2nd LACTIC ACID IF 1st LACTIC ACID IS LESS THAN 2
03/18/25 08:37
Alcohol Urgent
CBC/With Diff [Complete Blood Count/With Diff] Urgent
COVID-19 Antigen Urgent
Source: Nasal Swab
Comprehensive Metabolic Panel Urgent
Lactic Acid Q4H
Comment: CANCEL 2nd LACTIC ACID IF 1st LACTIC ACID IS LESS THAN 2
Magnesium Urgent
NT-proBNP Urgent
Phosphorus Urgent
Prothrombin Time Urgent
Troponin I Urgent
Blood Culture Q30M
RYLEE Source: Blood/Venous
Specimen Description:
Influenza A+B Rapid Molecular Urgent
RYLEE Source: Nasal Swab
Specimen Description:
03/18/25 08:56
FOLic ACID [Folvite] 1 mg 0.9% Sodium Chloride 50 ml [Nss] 50 ml IV NOW
03/18/25 09:09
Blood Culture Q30M
RYLEE Source: Blood/Venous
Specimen Description:
03/18/25 09:59
CT Head W/o Iv Contrast Urgent
Comment:
Reason For Exam: DIFFICULTY WALKING, HX ETOH
03/18/25 10:00
Azithromycin 500 mg/250 ml [Zithromax Infusion] 500 mg in 250 ml IV NOW
CefTRIAXone [Rocephin] 1,000 mg IV NOW STA
Abnormal Lab Results
03/18/25
08:37
RBC 4.24 L 10^6/uL
(4.70-6.10)
MCV 96.5 H fL
(80.0-94.0)
MCHC 31.8 L g/dL
(33.0-37.0)
Plt Count 67 L 10^3/uL
(130-400)
PT 16.0 H Sec
(11.4-14.6)
Carbon Dioxide 32 H mmol/L
(22-30)
Glucose 138 H mg/dl
(70-99)
Calcium 7.9 L mg/dl
(8.4-10.2)
Phosphorus 4.6 H mg/dl
(2.5-4.5)
AST 119 H U/L
(17-59)
ALT 68 H U/L
(0-50)
Alkaline Phosphatase 309 H U/L
(38-126)
Alcohol, Quantitative 484 H* mg/dl
03/18/25 08:37
03/18/25 08:37
Vital Signs
Initial and Last Documented VS:
Initial Vital Signs
Temp Pulse Ox
97 F 91
03/18/25 08:00 03/18/25 08:00
Last Documented Vital Signs
Temp Pulse Resp BP Pulse Ox
97 F 95 13 139/83 94
03/18/25 08:00 03/18/25 10:08 03/18/25 10:08 03/18/25 10:08 03/18/25 10:08
*Pulse Oximetry
SaO2: 94
Nasal Cannula flow liters per minute: 4
Patient hypoxic: yes
*Critical Care Note
Total Time (30-74mins, 75-104mins- exclusive of procedures): 31
Update Note
Update Note:
Patient presents to the Emergency Department with ___reported alcohol intoxication
Number and Complexity of Problems Addressed at the Encounter
� Chronic conditions affecting care:
� Acute Exacerbation and/or Progression of Chronic Illness:
� Differential Diagnosis includes: But not limited to pneumonia, COPD exacerbation, depression, anxiety, alcohol withdrawal, etc. etc.
Amount and/or Complexity of Data to be Reviewed and Analyzed
� I performed an independent evaluation of and my interpretation is:
EKG: Atrial fibrillation, normal rate, right axis deviation, no acute ischemia
CT:
Xrays: Chest x-ray possible right lower lobe atelectasis versus infiltrate
Laboratory Studies: Baseline abnormalities noted, example thrombocytopenia, slightly elevated LFTs from baseline, BMP unremarkable
Other:
� Review of other/old records reveals: Patient admitted 2023 with very similar presentation
� Clinical information was obtained by an independent historian: Cricket from [facility] inform me that is in the process of submitting a 302 given ongoing alcohol intake and concern for his safety. I did inform him that patient
will likely be medically admitted. 9:36 AM at bedside Long discussion with her she states patient was sober for some time until approximately 2 weeks ago he started drinking consistently every day and states that she called EMS today because
he was 'out of control'. She describes him as having episodes of confusion, and expressing depressive thoughts to her. He is awake alert and oriented at this time which she agrees with.
� Prescriptions/Medications Considered but not given:
� Further testing considered but not performed:
Risk of Complications and/or Morbidity or Mortality of Patient Management
� Social determinants of health affecting care:
� Discussion with other providers (PCP, Hospitalists, Consultants, etc):
� Escalation of care including admission/observation vs risk of discharge considered: Alcohol level noted, patient remarkably awake and alert. Given history of episodes of confusion and urinary incontinence this morning, I have
ordered a head CT, low clinical suspicion for acute bleed or stroke. Patient will be admitted for suspected pneumonia, COPD exacerbation with associated hypoxia, caution regarding impending alcohol withdrawal, and psychiatric attention to patient's
passive SI. All discussed with hospitalist via [place] text
Update head ct NAD (chronic sinusitis)
Case d/w resident also.
ED Attending Note
-
Portions of this chart may have been created with voice recognition software.� Occasional wrong word or��sound alike� substitutions may have occurred due to the inherent limitations of voice recognition software.
Discharge Plan
Departure
Patient Disposition: Admit
Date of Disposition: 03/18/25
Time of Disposition: 10:03
Admit to: Telemetry
Presentation/result/management discussed w/ accepting MD/DO: Hospitalist
Condition: Fair
Discharge Problem:
Pneumonia
Prescriptions:
No Action
aspirin 81 mg tablet,delayed release (DR/EC)
81 mg PO DAILY Qty: 30 0RF
Trelegy Ellipta 100-62.5-25 mcg Blister With Device
1 inh INHALATION R DAILY Qty: 90 0RF
metoprolol succinate 50 mg Capsule,Sprinkle,Er 24hr
50 mg PO BID
B Complex
1 tab PO DAILY
Vitamin D3
1 cap PO DAILY
turmeric
1 tab PO DAILY
levalbuterol tartrate 45 mcg/actuation HFA aerosol inhaler
1 puff INHALATION DAILY
tramadol 50 mg tablet
50 - 100 mg PO Q6H PRN (Reason: Pain) Qty: 30 0RF
Referrals:
UNKNOWN - PT DOES,NOT KNOW [Unknown Provider]
Interventions
Interventions:
*Risk Screen - Suicide Last Done: 03/18/25 08:21
*General Assessment Last Done: 03/18/25 08:21
*Neglect/Abuse Screening Last Done: 03/18/25 08:21
*ED- Fall Risk Assessment Last Done: 03/18/25 08:21
*ED COVID-19 Vaccine History Last Done: 03/18/25 08:21
*ED Influenza Vaccine History Last Done: 03/18/25 08:21
ED- Neurological Assessment Last Done: 03/18/25 08:21
ED-Psychological Assessment Last Done: 03/18/25 08:21
Discharge Date and Time
Print Language: GERMAN
[2025-03-18] MEDS: THIAMINE INJECTION 200 MG IV ×2 (08:53→16:48)
[2025-03-18] MEDS: DECADRON 10 MG IV (08:53)
[2025-03-18] MEDS: DUONEB 3 ML INH (08:53)
[2025-03-18 09:00] LABS: INR 1.26; PT 16.0 Sec (11.4-14.6)
[2025-03-18 09:01] LABS: Hematocrit 40.9 % (39.0-52.0); Hemoglobin 13.0 g/dL (13.0-18.0); Mean Corp Hgb Conc. 31.8 g/dL (33.0-37.0); Mean Corpuscular Volume 96.5 fL (80.0-94.0); Nucleated Red Blood Cells % 0 % (-); Red Cell Dist. Width 14.4 % (11.5-14.5)
[2025-03-18 09:10] LABS: ALT (SGPT) 68 U/L (0-50); AST (SGOT) 119 U/L (17-59); Albumin 3.9 g/dl (3.5-5.0); Alkaline Phosphatase 309 U/L (38-126); Blood Urea Nitrogen 9 mg/dl (9-20); COVID-19 Antigen Negative (Negative); Calcium 7.9 mg/dl (8.4-10.2); Carbon Dioxide 32 mmol/L (22-30); Chloride 103 mmol/L (98-107); Estimated Creatinine Clearance > 125 ml/min; Glucose 138 mg/dl (70-99); Magnesium 1.9 mg/dl (1.6-2.3); Potassium 4.0 mmol/L (3.5-5.1); Sodium 142 mmol/L (135-145); Total Protein 7.2 g/dl (6.3-8.2); eGFR > 60.00
[2025-03-18 09:35] LABS: Troponin I 0.015 ng/ml
[2025-03-18 09:48] LABS: Platelet Count 67 10^3/uL (130-400)
[2025-03-18] MEDS: ZITHROMAX INFUSION 250 IV (10:10)
[2025-03-18] MEDS: FOLVITE 50.2 MG IV (10:10)
[2025-03-18] MEDS: ROCEPHIN 1000 MG IV (10:10)
--- NOTE | 2025-03-18 10:17 | HPS.HSE ---
Addendum entered and electronically signed by Sherif Cabrera MD 03/18/25 13:47:
I personally performed a history and physical exam of the patient and discussed management with the resident. I reviewed the resident's note and agree with the documented findings and plan of care HPI/CC.
64 male past medical history of alcohol use who is presenting from home with excess alcohol intake. Patient was sober for approximately a year and then started drinking heavily. Patient usually drinks wine. Patient passively mention he did not
want to live. Patient was also found to be mildly hypoxic. Patient currently states he is feeling tremulous.
General: Conversant, Morbidly Obese and Other (Appears very anxious)
HEENT: NormoCephalic, Atraumatic and Other (On 2 L nasal cannula, very dry mucous membranes)
Respiratory: Clear
Cardiac: S1/S2 and Irregular Rhythm
GI: Soft, Normal Bowel Sounds and Distended
Skin: Warm and Dry
Neuro: Awake, Alert, Oriented, AO x 3 and Nonfocal/grossly intact, tremolous,
Psych: Anxious and Depressed
A/P
Acute alcohol intoxication
Alcohol use disorder
Paroxysmal atrial fibrillation
COPD
Morbid obesity likely due to excess calories
Hepatic cirrhosis with esophageal varices and portal hypertension and thrombocytopenia
Obstructive sleep apnea noncompliant with CPAP therapy
Mild transaminitis likely secondary alcohol abuse/cirrhosis
Plan
Start patient on IV fluids
Full liquids for now
Start patient antibiotic
No active bronchospasm can continue with bronchodilators as needed
Start patient on phenobarbital and MSAS protocol
Speech therapy evaluation
Monitor mentation closely
Continue with beta-blockers. Monitor heart rate on telemetry. Not on anticoagulation due to active alcohol usage. High risk of falls leading to bleeding complication. Can also risk patient evaluated as outpatient once sober.
Also with passive complaints of suicidal ideation. One-to-one for now until psych evaluation
DVT prophylaxis SCDs in the setting of thrombocytopenia
I spent a total of 80 minutes with the patient or on the floor. More than 50% of this time involved counseling and coordination of care.
Original Note:
Family Physician
-
Family Physician: Fide Ziegler
Chief Complaint
-
.
History of Present Illness
64-year-old male with history of 64-year-old male with history of cirrhosis/esophageal varices, COPD, A-fib not on anticoagulation, CHF, hypertension, hypercholesterolemia presents to the ER concerned about his excessive alcohol intake over the past
2 weeks. Patient has been sober for an year, and started drinking 2 weeks ago. He takes 2 L bottle of wine per day. Patient has been drinking from the past 24 hours continuously. He appears to be intoxicated, anxious and has thoughts of suicidal
ideation without a specific plan. He stated�' I do not want to live '. He reports having cough and mild SOB, from the past 2 weeks. Patient denies fever/chills, chest pain, hematemesis, melena, nausea/vomiting, diarrhea, abdominal pain,
headaches, no sick contacts.
'As per ER� mentions episodes of confusion this morning.'
ED course�BP 159/97, heart rate 104, afebrile.
CBC unremarkable, renal function�9/0.7, glucose 138, calcium 7.9, phosphorus 4.6, AST/ALT�119/68, alkaline phosphatase�309, troponins negative, BNP�186
Blood alcohol level�484
COVID/flu�negative
EKG�atrial fibrillation.
Chest x-ray with evidence of right LL pneumonia
CT head�negative
Medical History
Past Medical History
Past Medical History: Reports Other (cirrhosis/esophageal varices, COPD, A-fib not on anticoagulation, CHF, hypertension, hypercholesterolemia)
Past Surgical History: Reports Other (Robotic repair of incarcerated umbilical hernia.)
Social History
Tobacco: Former Smoker
Alcohol: Binge drinker
Drug: None
Personal:
Living: With Family
Family History
Family History: Not pertinent
Allergies / Home Medications
Allergies reflects when Allergies were last updated in [employer].
Home Medications with original date entered in [employer]
Allergy/Medication List:
Allergies
Allergy/AdvReac Type Severity Reaction Status Date / Time
No Known Allergies Allergy Verified 11/22/24 08:17
Home Medications
aspirin 81 mg tablet,delayed release 81 mg PO DAILY Blood Clot Prevention/Tx #30 tabs 09/14/23
fluticasone fur. 100 mcg-umeclid 62.5 mcg-vilant 25 mcg inhalat.powder (Trelegy Ellipta) 1 inh inhalation R DAILY Lung/Breathing Issues #90 ea 09/14/23
metoprolol succinate 50 mg capsule sprinkle, ext. release 24 hr 50 mg PO BID 02/04/24
B Complex 1 tab PO DAILY 11/22/24
Vitamin D3 1 cap PO DAILY 11/22/24
levalbuterol tartrate 45 mcg/actuation aerosol inhaler 1 puff inhalation DAILY 11/22/24
turmeric 1 tab PO DAILY 11/22/24
tramadol 50 mg tablet 50 - 100 mg (1 - 2 x 50 mg) PO Q6H PRN Pain #30 tabs 11/29/24
Review of Systems
-
A 12 point ROS was completed and negative except as noted: Yes
Physical Exam
Vital Signs
Vital Signs
Temp Pulse Resp BP Pulse Ox
97 F 95 13 139/83 94
03/18/25 08:00 03/18/25 10:08 03/18/25 10:08 03/18/25 10:08 03/18/25 10:08
Physical Exam
General: Conversant, Morbidly Obese and Other (Appears very anxious)
HEENT: NormoCephalic, Atraumatic and Other (On 2 L nasal cannula, very dry mucous membranes)
Respiratory: Clear
Cardiac: S1/S2 and Irregular Rhythm
GI: Soft, Normal Bowel Sounds and Distended
Skin: Warm and Dry
Neuro: Awake, Alert, Oriented, AO x 3 and Nonfocal/grossly intact
Psych: Anxious and Depressed
Laboratory Results
-
03/18/25 08:37
03/18/25 08:37
Laboratory Results
PT 16.0 Sec (11.4-14.6) H 03/18/25 08:37
INR 1.26 03/18/25 08:37
Lactic Acid 2.0 mmol/L (0.7-2.0) 03/18/25 08:37
Total Bilirubin 1.1 mg/dl (0.2-1.3) 03/18/25 08:37
AST 119 U/L (17-59) H 03/18/25 08:37
ALT 68 U/L (0-50) H 03/18/25 08:37
Alkaline Phosphatase 309 U/L (38-126) H 03/18/25 08:37
Troponin I 0.015 ng/ml 03/18/25 08:37
Impression/Plan
-
IMPRESSION:
64-year-old male with history of 64-year-old male with history of cirrhosis/esophageal varices, COPD, A-fib not on anticoagulation, CHF, hypertension, hypercholesterolemia presents to the ER concerned about his excessive alcohol intake over the past
2 weeks.
PLAN:
#Acute hypoxic respiratory insufficiency
Likely secondary to pneumonia versus COPD exacerbation
Chest x-ray with evidence of RLL pneumonia
Continue supplemental oxygen, wean as tolerated, keep O2 saturation between 88 to 92%
Will start antibiotics
Check sputum culture
Check blood culture
DuoNebs as needed
Will hold off on steroids
Continue home Trelegy
Monitor fever curve, CBC
#Acute alcohol intoxication
M sas protocol with phenobarbital taper
Patient with suicidal ideation, very tearful and depressed
Psych consult
Monitor BMP
Speech eval
Will start IV fluids
#Permanent A-fib
Currently patient is A-fib, Not on anticoagulation
CHADS2 Vascore�2
With alcohol history there would be concern regarding safety of anticoagulation and risk of bleeding versus benefit
Can follow-up with cardiology as outpatient for starting DOAC's
Rate under control now
Continue metoprolol
Monitor telemetry
#Mild transaminitis
Likely from alcohol abuse
Patient with cirrhosis
Will monitor LFTs for now
#Hypertension
Continue metoprolol
#Cirrhosis with esophageal varices
No active bleeding
No active sites of bleeding noted from prior colonoscopy/EGD
Will monitor
DVT prophylaxis�SCDs
Diet�full liquids pending speech eval
Full code
[2025-03-18] MEDS: NSS 500 IV (11:09)
[2025-03-18 11:45] LABS: Urine Character Clear (Clear)
[2025-03-18 11:59] LABS: Urine Red Blood Cell 16-20 /HPF (0-2); Urine White Cell 0-2 /HPF (0-5)
--- NOTE | 2025-03-18 13:37 | CS.PSYCHR ---
Consult Summary - Psychiatry
-
pt seen in consultation due to statements about wanting to kill himself
64 yo man brought to ED by his due to excessive drinking, ultimately unable to walk. EtOH level 484. Admitted for detox.
Has history last year of severe alcohol withdrawal requiring precedex drip as well as phenobarbital. At that time admitted drinking 3 bottles per day; today does not even want to estimate.
Has been to rehab at least 4 times, with varying success--longest sobriety 1.5 years
Has been drinking heavily since high school, has had one DUI, as well as an episode of GI bleeding
Other medical issues include obstructive sleep apnea, COPD (quit smoking 6 years ago) polymyalgia rhematica, a flutter, GERD
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 Spends most of the day at a gym with friends who thinks he is stupid for drinking so much. Drinks alone
Born and raised in [facility], on of 5 sons, has a sister. Parents both alcoholics per pt. Father owned oil [employer] business; much bad blood in family over how business decisions got made.
x 2, first marriage lasted just 3 years, has 38 yo son with severe cerebral palsy
Current 'is an simone' has 3 stepchildren, hopes to attend wedding of one in [place] in May
Currently denies suicidal thoughts, says he will not harm himself here. Aware he is currently intoxicated
MSE: heavy set man sitting on bed with O2 by nasal cannula, tearful at times, alert and oriented. Answers questions coherently and logically, no signs of cognitive impairment, no signs of psychosis. Insight and judment limited (does not want to go
to rehab, though is ok being here to detox.)
No history of suicide in family, strong family history of substance use.
Pt denies prior suicide attampts
Impression: alcohol use disorder, severe, currently intoxicated
Red: No need for 1:1 from standpoint of suicide, but will need to be watched closely due to history of rough withdrawal in past (needed restraint in ICU on precedex drip.) Aggressive use of phenobarb, benzos
[2025-03-18] MEDS: PHENOBARBITAL 104 MG IV (15:01)
[2025-03-18] MEDS: NSS 1000 IV (15:36)
[2025-03-18] MEDS: UNASYN IV ×2 (15:40→20:39)
[2025-03-18 16:40] LABS: GGTP 915 U/L (15-73)
[2025-03-18] MEDS: ATIVAN 1 MG PO ×2 (16:47→22:05)
[2025-03-18 17:12] LABS: Urine Character Clear (Clear)
[2025-03-18 17:19] LABS: Urine Red Blood Cell 21-25 /HPF (0-2)
[2025-03-18] MEDS: VALIUM INJECTION 5 MG IV (17:50)
[2025-03-18] MEDS: LOPRESSOR 5 MG IV (17:50)
[2025-03-18] MEDS: TOPROL XL 50 MG PO (19:46)
[2025-03-18] MEDS: SYMBICORT 80/4.5 MCG INHALER 2 PUFF INH (19:59)
--- NOTE | 2025-03-18 20:19 | PTCARENOTE ---
Pt rec'd from ED, oriented to room and unit. Pt MSAS initially a 3, then a 7. SOB, SPEARS, hypertensive, tachycardic. TT to Dr. Cabrera. valium and metoprolol ordered and provided. Medication follow up,, pt sleeping and appeart comfortable. call pate is
within reach, pt rings appp, afib on tele. will cont to monitor.
[2025-03-18] MEDS: PHENOBARBITAL 97.5 MG IV (21:57)
[2025-03-19] VITALS (8 sets, daily range): BP systolic 103–160; BP diastolic 64–97; PULSE 86; O2SAT 95
[2025-03-19] MEDS: THIAMINE INJECTION 200 MG IV ×4 (00:41→23:48)
[2025-03-19] MEDS: ATIVAN 1 MG IV (02:24)
[2025-03-19] MEDS: NSS (PRESERVATIVE FREE) 0.5 ML IV (02:25)
[2025-03-19] MEDS: UNASYN IV ×4 (02:25→21:41)
[2025-03-19] MEDS: NSS 1000 IV ×2 (04:16→16:28)
[2025-03-19] MEDS: SPIRIVA RESPIMAT 2.5 MCG 2 PUFF INH (07:44)
[2025-03-19] MEDS: SYMBICORT 80/4.5 MCG INHALER 2 PUFF INH (07:45)
[2025-03-19 08:27] LABS: Hematocrit 37.4 % (39.0-52.0); Hemoglobin 12.5 g/dL (13.0-18.0); Mean Corp Hgb Conc. 33.4 g/dL (33.0-37.0); Mean Corpuscular Volume 95.9 fL (80.0-94.0); Red Cell Dist. Width 14.4 % (11.5-14.5)
[2025-03-19 08:54] LABS: Nucleated Red Blood Cells % 0 % (-); Platelet Count 31 10^3/uL (130-400)
[2025-03-19] MEDS: TOPROL XL 50 MG PO ×2 (09:02→19:44)
[2025-03-19] MEDS: PHENOBARBITAL 97.5 MG IV ×3 (09:02→21:39)
[2025-03-19] MEDS: PROTONIX 40 MG PO (09:03)
[2025-03-19] MEDS: VITAMIN D3 (cholecalciferol) 25 MCG PO (09:03)
[2025-03-19 09:23] LABS: ALT (SGPT) 57 U/L (0-50); AST (SGOT) 95 U/L (17-59); Albumin 3.5 g/dl (3.5-5.0); Alkaline Phosphatase 299 U/L (38-126); Blood Urea Nitrogen 10 mg/dl (9-20); Calcium 7.9 mg/dl (8.4-10.2); Carbon Dioxide 28 mmol/L (22-30); Chloride 103 mmol/L (98-107); Estimated Creatinine Clearance > 125 ml/min; Glucose 143 mg/dl (70-99); Magnesium 1.8 mg/dl (1.6-2.3); Potassium 3.7 mmol/L (3.5-5.1); Sodium 138 mmol/L (135-145); Total Protein 6.6 g/dl (6.3-8.2); eGFR > 60.00
--- NOTE | 2025-03-19 12:24 | W.PN.HOSP.TC ---
Today's Communication/Plan
-
Continue with phenobarbital taper protocol
Ativan per the protocol
IV fluids can be discontinued later
Upgrade diet and await speech eval
Continue with IV antibiotic
Bronchodilators
Assessment / Plan
Assessment / Plan
General: Conversant, Morbidly Obese and Other (Appears very anxious)
HEENT: NormoCephalic, Atraumatic and Other (On 2 L nasal cannula,
Respiratory: mild expiratory wheezing
Cardiac: S1/S2 and Irregular Rhythm
GI: Soft, Normal Bowel Sounds and Distended
Skin: Warm and Dry
Neuro: Awake, Alert, Oriented, AO x 3 and Nonfocal/grossly intact
Psych: Anxious, tremors noted
64-year-old male with history of 64-year-old male with history of cirrhosis/esophageal varices, COPD, A-fib not on anticoagulation, CHF, hypertension, hypercholesterolemia presents to the ER concerned about his excessive alcohol intake over the past
2 weeks.
PLAN:
#Acute hypoxic respiratory insufficiency
Likely secondary to pneumonia versus COPD exacerbation
Chest x-ray with evidence of RLL pneumonia
Continue supplemental oxygen, wean as tolerated, keep O2 saturation between 88 to 92%
Will start antibiotics
Check sputum culture-prelim with staph
Check blood culture-neg so far
DuoNebs as needed and standing
Will hold off on steroids
hold Trelegy
Monitor fever curve, CBC
Speech eval
#Acute alcohol intoxication
#Alcohol use disorder
# Acute alcohol withdrawal
Msas protocol with phenobarbital taper
Severely elevated alcohol level on admission
Monitor BMP
Ativan if required. [place] use of meds to prevent severe withdrawal as in past required ICU tx and precedex gtt etc.
Will start IV fluids
#Permanent A-fib
Currently patient is A-fib, Not on anticoagulation
CHADS2 Vascore�2
With alcohol history there would be concern regarding safety of anticoagulation and risk of bleeding versus benefit
Can follow-up with cardiology as outpatient for starting DOAC's
Rate under control now
Continue metoprolol
Monitor telemetry
#Mild transaminitis
Likely from alcohol abuse
Patient with cirrhosis
Will monitor LFTs for now
#Hypertension
Continue metoprolol
#Hepatic cirrhosis with esophageal varices and portal hypertension and thrombocytopenia
No active bleeding
No active sites of bleeding noted from prior colonoscopy/EGD
Will monitor
DVT prophylaxis�SCDs
Full code
d/w with spouse at bedside in details
Anticipated Discharge: > 48 hours
Subjective/Interval History
-
Date of Service: March 19, 2025
states less tremulous today
states of shortness of breath
Objective Data
-
Labs:
Laboratory Results
03/19/25
07:25
WBC 3.7 L
Hgb 12.5 L
Hct 37.4 L
Plt Count 31 L D
Sodium 138
Potassium 3.7
Chloride 103
Carbon Dioxide 28
BUN 10
Creatinine 0.6 L
Glucose 143 H
Calcium 7.9 L
Total Bilirubin 1.7 H
AST 95 H
ALT 57 H
Alkaline Phosphatase 299 H
Vital Signs:
Vital Signs
Temp Pulse Resp BP Pulse Ox
98.5 F 98 20 124/65 96
03/19/25 11:12 03/19/25 11:12 03/19/25 11:12 03/19/25 11:12 03/19/25 11:12
I&O
03/18/25 03/19/25 03/20/25
06:59 06:59 06:59
Intake Total 480 / 480
Output Total 1800 / 1800
Balance -1320 / -1320
Data Reviewed
-
Total Time Spent with Patient (in minutes): 55
--- NOTE | 2025-03-19 13:04 | CM ---
server manager reviewed patient's chart and met with patient and patient lives with spouse in a one story home one step to enter, patient is independent with adl's and ambulation, no dme, patient drives, nurse case management received a consult for substance
abuse counseling, nurse case management reviewed with patient possible referral to [facility] for support treatment options and patient declined. Patient is currently on Phenobarbital taper and 3 liters of oxygen, 96% patient did not have oxygen in home.
Plan; Home with spouse when stable, patient has declined [facility] referral.
[2025-03-19] MEDS: ATIVAN 1 MG PO (15:02)
[2025-03-19] MEDS: ZOFRAN 4 MG IV (15:03)
[2025-03-19] MEDS: DUONEB 3 ML INH ×2 (15:32→19:56)
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
[2025-03-20] MEDS: UNASYN IV ×4 (02:51→20:04)
[2025-03-20] MEDS: NSS 1000 IV (02:51)
[2025-03-20 03:11] VITALS: BP 142/76
[2025-03-20 06:43] VITALS: BMI 37.9
[2025-03-20 07:06] VITALS: BP 132/59
[2025-03-20] MEDS: DUONEB 3 ML INH ×4 (07:36→20:21)
[2025-03-20 08:33] LABS: Hematocrit 38.4 % (39.0-52.0); Hemoglobin 12.3 g/dL (13.0-18.0); Mean Corp Hgb Conc. 32.0 g/dL (33.0-37.0); Mean Corpuscular Volume 97.5 fL (80.0-94.0); Nucleated Red Blood Cells % 0 % (-); Platelet Count 34 10^3/uL (130-400); Red Cell Dist. Width 14.4 % (11.5-14.5)
[2025-03-20] MEDS: PHENOBARBITAL 97.5 MG IV ×2 (08:33→16:17)
[2025-03-20] MEDS: PROTONIX 40 MG PO (08:34)
[2025-03-20] MEDS: THIAMINE INJECTION 200 MG IV (08:34)
[2025-03-20] MEDS: TOPROL XL 50 MG PO ×2 (08:34→20:04)
[2025-03-20] MEDS: VITAMIN D3 (cholecalciferol) 25 MCG PO (08:34)
[2025-03-20 09:20] LABS: ALT (SGPT) 60 U/L (0-50); AST (SGOT) 100 U/L (17-59); Albumin 3.2 g/dl (3.5-5.0); Alkaline Phosphatase 258 U/L (38-126); Blood Urea Nitrogen 14 mg/dl (9-20); Calcium 7.6 mg/dl (8.4-10.2); Carbon Dioxide 28 mmol/L (22-30); Chloride 106 mmol/L (98-107); Estimated Creatinine Clearance > 125 ml/min; Glucose 111 mg/dl (70-99); Magnesium 1.9 mg/dl (1.6-2.3); Potassium 3.7 mmol/L (3.5-5.1); Sodium 134 mmol/L (135-145); Total Protein 6.2 g/dl (6.3-8.2); eGFR > 60.00
--- NOTE | 2025-03-20 10:06 | PTOTSP ---
Speech Therapy Evaluation:
Pt with chronic risk factors of dysphagia (esophageal varices, COPD, GERD, CHF) and acute risk factors of dysphagia (COPD exacerbation vs PNA). At bedside, oropharyngeal swallow appeared WFL. No overt s/sx of aspiration, however cannot r/o
pharyngeal component with current atelectasis vs PNA.
Recommend:
1. Regular solids and thin liquids
2. Meds as tolerated
3. General aspiration and reflux precautions
4. CHEF PASSENGER VESSEL to follow to monitor tolerance of diet and determine if pt would benefit from objective assessment
--- NOTE | 2025-03-20 11:01 | W.PN.HOSP.TC ---
Today's Communication/Plan
-
monitor for withdrawal-cont phenobarbital
IV abx for now
Psych recs
Assessment / Plan
Assessment / Plan
General: Conversant, Morbidly Obese and Other (Appears very anxious)
HEENT: NormoCephalic, Atraumatic and Other (On 2 L nasal cannula,
Respiratory: mild expiratory wheezing
Cardiac: S1/S2 and Irregular Rhythm
GI: Soft, Normal Bowel Sounds and Distended
Skin: Warm and Dry
Neuro: Awake, Alert, Oriented, AO x 3 and Nonfocal/grossly intact
Psych: Anxious, tremors noted
64-year-old male with history of 64-year-old male with history of cirrhosis/esophageal varices, COPD, A-fib not on anticoagulation, CHF, hypertension, hypercholesterolemia presents to the ER concerned about his excessive alcohol intake over the past
2 weeks.
PLAN:
#Acute hypoxic respiratory insufficiency
Likely secondary to MSSA pneumonia
Chest x-ray with evidence of RLL pneumonia
Continue supplemental oxygen, wean as tolerated, keep O2 saturation between 88 to 92%
Will start antibiotics
Check sputum culture-MSSA.
Check blood culture-neg so far
DuoNebs as needed and standing
Will hold off on steroids
hold Trelegy
Monitor fever curve, CBC
Speech eval regular diet
off oxygen. breathing improving
#Acute alcohol intoxication
#Alcohol use disorder
# Acute alcohol withdrawal
Msas protocol with phenobarbital taper
Severely elevated alcohol level on admission
Monitor BMP
Ativan if required. [place] use of meds to prevent severe withdrawal as in past required ICU tx and precedex gtt etc.
tolerating diet
MSAS score improving.
#Passive SI on admission-could be due to intoxication
Psych evaluate. 1:1 Dced. No furthe concern/thoughts.
Psych following.
#Permanent A-fib
Currently patient is A-fib, Not on anticoagulation
With alcohol history there would be concern regarding safety of anticoagulation and risk of bleeding versus benefit
Can follow-up with cardiology as outpatient for starting DOAC's
Rate under control now
Continue metoprolol
Monitor telemetry
#Mild transaminitis
Likely from alcohol abuse
Patient with cirrhosis
Will monitor LFTs for now
#Hypertension
Continue metoprolol
#Hepatic cirrhosis with esophageal varices and portal hypertension and thrombocytopenia
No active bleeding
No active sites of bleeding noted from prior colonoscopy/EGD
Will monitor
#Mild hyponatremia
monitor for now
DVT prophylaxis�SCDs in setting of thrombocytopenia.
Full code
PT recs-Home PT vs. SNF. Will await further clarification
d/w with spouse at bedside in details on 03/19
Refused [facility] eval.
Refused to go to detox rehab.
Anticipated Discharge: 24 - 48 hours
Subjective/Interval History
-
Date of Service: March 20, 2025
states improvement in breathing
off oxygen
states shakes/tremors are improving
Objective Data
-
Labs:
Laboratory Results
03/20/25
07:46
WBC 3.7 L
Hgb 12.3 L
Hct 38.4 L
Plt Count 34 L
Sodium 134 L
Potassium 3.7
Chloride 106
Carbon Dioxide 28
BUN 14
Creatinine 0.7
Glucose 111 H
Calcium 7.6 L
Total Bilirubin 2.0 H
AST 100 H
ALT 60 H
Alkaline Phosphatase 258 H
Vital Signs:
Vital Signs
Temp Pulse Resp BP Pulse Ox
97.7 F 94 16 132/59 92
03/20/25 07:06 03/20/25 08:34 03/20/25 07:38 03/20/25 08:34 03/20/25 07:38
I&O
03/19/25 03/20/25 03/21/25
06:59 06:59 06:59
Intake Total 480 / 480 480 / 480
Output Total 1800 / 1800 1720 / 1720
Balance -1320 / -1320 -1240 / -1240
Data Reviewed
-
Total Time Spent with Patient (in minutes): 55
[2025-03-20 11:33] VITALS: BP 130/63
[2025-03-20] MEDS: ATIVAN 1 MG PO (14:44)
[2025-03-20 15:40] VITALS: BP 103/72
[2025-03-20 19:40] VITALS: BP 137/57
[2025-03-20] MEDS: LUMINAL 64.8 MG PO (21:13)
--- NOTE | 2025-03-20 21:35 | W.PN.UPDATE ---
Update Note
Progress Note Update
pt seen for assessment. discussed with him the effect his alcohol use has had on his (share with him my discussion with her yesterday) confronted on his insistence that he not return to rehab as would like. detox progressing smoothly, will
still hold off on antidepressants for now until out of danger of seizure
[2025-03-20 23:22] VITALS: BP 156/85
[2025-03-21 03:03] VITALS: BP 154/74
[2025-03-21] MEDS: UNASYN IV ×4 (03:10→20:31)
[2025-03-21] MEDS: DUONEB 3 ML INH (07:28)
[2025-03-21 07:35] VITALS: BP 172/109
[2025-03-21] MEDS: VITAMIN D3 (cholecalciferol) 25 MCG PO (08:03)
[2025-03-21] MEDS: PROTONIX 40 MG PO (08:03)
[2025-03-21 08:04] LABS: Hematocrit 38.8 % (39.0-52.0); Hemoglobin 13.0 g/dL (13.0-18.0); Mean Corp Hgb Conc. 33.5 g/dL (33.0-37.0); Mean Corpuscular Volume 95.6 fL (80.0-94.0); Nucleated Red Blood Cells % 0 % (-); Platelet Count 34 10^3/uL (130-400); Red Cell Dist. Width 14.2 % (11.5-14.5)
[2025-03-21] MEDS: ATIVAN 1 MG PO (08:04)
[2025-03-21] MEDS: LUMINAL 64.8 MG PO ×3 (08:05→21:28)
[2025-03-21] MEDS: TOPROL XL 50 MG PO ×2 (08:05→20:31)
[2025-03-21 08:32] LABS: ALT (SGPT) 56 U/L (0-50); AST (SGOT) 76 U/L (17-59); Albumin 3.3 g/dl (3.5-5.0); Alkaline Phosphatase 252 U/L (38-126); Blood Urea Nitrogen 12 mg/dl (9-20); Calcium 7.6 mg/dl (8.4-10.2); Carbon Dioxide 29 mmol/L (22-30); Chloride 102 mmol/L (98-107); Estimated Creatinine Clearance > 125 ml/min; Glucose 108 mg/dl (70-99); Magnesium 1.8 mg/dl (1.6-2.3); Potassium 3.4 mmol/L (3.5-5.1); Sodium 135 mmol/L (135-145); Total Protein 6.2 g/dl (6.3-8.2); eGFR > 60.00
[2025-03-21 08:35] VITALS: BMI 37.3
[2025-03-21] MEDS: KCL 40 MEQ PO (09:24)
[2025-03-21 12:03] VITALS: BP 119/61
--- NOTE | 2025-03-21 12:21 | W.PN.HOSP.TC ---
Today's Communication/Plan
-
monitor HR
Cont with phenobarbital
trend cbc
psych following
Assessment / Plan
Assessment / Plan
General: Conversant, Morbidly Obese and Other (Appears very anxious)
HEENT: NormoCephalic, Atraumatic and Other
Respiratory: mild rhonchi but no exp wheezing
Cardiac: S1/S2 and Irregular Rhythm, mildly tachycardiac
GI: Soft, Normal Bowel Sounds and Distended
Skin: Warm and Dry
Neuro: Awake, Alert, Oriented, AO x 3 and Nonfocal/grossly intact
Psych: Anxious, tremors noted
64-year-old male with history of 64-year-old male with history of cirrhosis/esophageal varices, COPD, A-fib not on anticoagulation, CHF, hypertension, hypercholesterolemia presents to the ER concerned about his excessive alcohol intake over the past
2 weeks.
PLAN:
#Acute hypoxic respiratory insufficiency
Likely secondary to MSSA pneumonia
Chest x-ray with evidence of RLL pneumonia
Continue supplemental oxygen, wean as tolerated, keep O2 saturation between 88 to 92%
Will start antibiotics-cont Unsayn
Check sputum culture-MSSA.
Check blood culture-neg so far
DuoNebs as needed. Hold standing for now
Will hold off on steroids
restart Trelegy
Monitor fever curve, CBC
Speech eval regular diet
off oxygen. breathing improving
#Acute alcohol intoxication
#Alcohol use disorder
# Acute alcohol withdrawal
Msas protocol with phenobarbital taper
Severely elevated alcohol level on admission
Monitor BMP
Ativan if required. [place] use of meds to prevent severe withdrawal as in past required ICU tx and precedex gtt etc.
tolerating diet
MSAS score improving.
#Passive SI on admission-could be due to intoxication
#Suspected underlying ?depression
Psych evaluate. 1:1 Dced. No further concern/thoughts.
Psych following.
#Permanent A-fib
Currently patient is A-fib, Not on anticoagulation
With alcohol history there would be concern regarding safety of anticoagulation and risk of bleeding versus benefit
Can follow-up with cardiology as outpatient for starting DOAC's
Rate under control now
Continue toprol 50mg BID. May need to consider increasing dose. However, some component of tachycardia could be from albuterol and Etoh withdrawal.
Monitor telemetry
#Mild transaminitis
Likely from alcohol abuse
Patient with cirrhosis
Will monitor LFTs for now
#Hypertension
Continue metoprolol
BP well controlled
#Hepatic cirrhosis with esophageal varices and portal hypertension and thrombocytopenia
No active bleeding
No active sites of bleeding noted from prior colonoscopy/EGD
Will monitor
trend platelets for now
#Mild hyponatremia
resolved
DVT prophylaxis�SCDs in setting of thrombocytopenia.
Full code
PT recs-Home PT vs. SNF. Will await further clarification
d/w with spouse at bedside in details on 03/19
Refused [facility] eval.
Refused to go to detox rehab.
Anticipated Discharge: 24 - 48 hours
Subjective/Interval History
-
Date of Service: March 21, 2025
elevated MSAS score this morning
states breathing has improved
was tachycardiac with activity earlier today
Objective Data
-
Labs:
Laboratory Results
03/21/25
07:17
WBC 4.1 L
Hgb 13.0
Hct 38.8 L
Plt Count 34 L
Sodium 135
Potassium 3.4 L
Chloride 102
Carbon Dioxide 29
BUN 12
Creatinine 0.7
Glucose 108 H
Calcium 7.6 L
Total Bilirubin 2.0 H
AST 76 H
ALT 56 H
Alkaline Phosphatase 252 H
Vital Signs:
Vital Signs
Temp Pulse Resp BP Pulse Ox
97.1 F 106 18 119/61 93
03/21/25 12:03 03/21/25 12:03 03/21/25 12:03 03/21/25 12:03 03/21/25 12:03
I&O
03/20/25 03/21/25 03/22/25
06:59 06:59 06:59
Intake Total 480 / 480 1920 / 1920
Output Total 1720 / 1720 2375 / 2375 200 / 200
Balance -1240 / -1240 -455 / -455 -200 / -200
Data Reviewed
-
Total Time Spent with Patient (in minutes): 55
[2025-03-21 15:33] VITALS: BP 156/80
[2025-03-21] MEDS: SYMBICORT 80/4.5 MCG INHALER 2 PUFF INH (20:00)
[2025-03-21 20:06] VITALS: BP 138/66
[2025-03-21] MEDS: VITAMIN B1 100 MG PO (20:30)
[2025-03-21 23:53] VITALS: BP 136/76
[2025-03-22] VITALS (7 sets, daily range): BP systolic 131–158; BP diastolic 68–91
[2025-03-22] MEDS: UNASYN IV ×4 (03:52→21:05)
[2025-03-22] MEDS: SYMBICORT 80/4.5 MCG INHALER 2 PUFF INH ×2 (07:39→20:01)
[2025-03-22] MEDS: VITAMIN D3 (cholecalciferol) 25 MCG PO (08:37)
[2025-03-22] MEDS: TOPROL XL 50 MG PO ×2 (08:37→21:05)
[2025-03-22] MEDS: PROTONIX 40 MG PO (08:37)
[2025-03-22] MEDS: VITAMIN B1 100 MG PO ×2 (08:37→21:05)
[2025-03-22] MEDS: LUMINAL 64.8 MG PO ×2 (08:37→15:04)
[2025-03-22 08:46] LABS: Hematocrit 40.3 % (39.0-52.0); Hemoglobin 13.2 g/dL (13.0-18.0); Mean Corp Hgb Conc. 32.8 g/dL (33.0-37.0); Mean Corpuscular Volume 96.2 fL (80.0-94.0); Nucleated Red Blood Cells % 0 % (-); Platelet Count 53 10^3/uL (130-400); Red Cell Dist. Width 14.3 % (11.5-14.5)
[2025-03-22 09:32] LABS: ALT (SGPT) 49 U/L (0-50); AST (SGOT) 59 U/L (17-59); Albumin 3.4 g/dl (3.5-5.0); Alkaline Phosphatase 249 U/L (38-126); Blood Urea Nitrogen 14 mg/dl (9-20); Calcium 8.0 mg/dl (8.4-10.2); Carbon Dioxide 27 mmol/L (22-30); Chloride 104 mmol/L (98-107); Estimated Creatinine Clearance > 125 ml/min; Glucose 106 mg/dl (70-99); Potassium 3.5 mmol/L (3.5-5.1); Sodium 134 mmol/L (135-145); Total Protein 6.4 g/dl (6.3-8.2); eGFR > 60.00
[2025-03-22] MEDS: SPIRIVA RESPIMAT 2.5 MCG 2 PUFF INH (11:08)
--- NOTE | 2025-03-22 11:37 | W.PN.UPDATE ---
Update Note
Progress Note Update
patient seen chart reviewed spoke with nursing and w dr nguyen. the patient is well known to me from prior admits to for etoh wd. he has been stabilizing vis a vis vital signs. ativan use less frequent. he is proceding through phenobarb taper.
he was in no distress this am. he was a little tired appearing. he admits that etoh is wrecking his life and points to the fact that he had two years sober until last march. he recognizes the deleterious effects of etoh on his life. i told him
if he expects to get sober again e needs a plan. i asked him to describe his day. he goes to the gym at 7. he is out by 9 or so. he will head to the liquor store on the way home and buy a several bottles of wine. he will go home and and walk his
dog then begin to drink .usually done drinking by one and goes to sleep. suggested to him that he go to the gym without his wallet and money..only his driving license. after walking his dog he needs another activity ?volunteering somewhere. seeing
a friend...all his friends drink. i asked if any of his friends would agree NOT TO DRINK with him. he does not know. he actually returns to the gym in the afternoon and the cylce begins anew. he typically does not drink at night. says now
he has to go to at night but he does not like talking about his problems. he has refused rehab in [facility] or out pt which i recommended to him. i asked him if he know etoh will propel him to an early and he said yes. i asked him if he wanted
to . he said 'i don't care' and so ensued a discussion of whether he is depressed. he did not think so but he admitted his drinking depresses him . will talk more about whether antidep might help. said drinks. suggested that he will never
get sober if there is etoh in the home and is drinking. i offered to call him and her to discuss making a plan together for sobriety but he said no. he initially declined [facility]. will talk to him again tomorrow and i told him i would 'juarez
him some more' to which he did smile. no changes made in his meds.
--- NOTE | 2025-03-22 12:30 | W.PN.HOSP.TC ---
Today's Communication/Plan
-
Monitor vital signs see plan
Continue with phenobarbital
Continue metoprolol
Monitor platelets
Hopeful discharge soon
Assessment / Plan
Assessment / Plan
General: Conversant, Morbidly Obese and Other (Appears anxious)
HEENT: NormoCephalic, Atraumatic and Other
Respiratory: mild rhonchi but no exp wheezing
Cardiac: S1/S2 and Irregular Rhythm, mildly tachycardiac
GI: Soft, Normal Bowel Sounds and Distended
Skin: Warm and Dry
Neuro: Awake, Alert, Oriented, AO x 3 and Nonfocal/grossly intact
Psych: Anxious
64-year-old male with history of 64-year-old male with history of cirrhosis/esophageal varices, COPD, A-fib not on anticoagulation, CHF, hypertension, hypercholesterolemia presents to the ER concerned about his excessive alcohol intake over the past
2 weeks.
PLAN:
#Acute hypoxic respiratory insufficiency
Likely secondary to MSSA pneumonia
Chest x-ray with evidence of RLL pneumonia
Continue supplemental oxygen, wean as tolerated, keep O2 saturation between 88 to 92%
cont Unsayn
sputum culture-MSSA.
Check blood culture-neg so far
DuoNebs as needed. Hold standing for now
Will hold off on steroids
restarted Trelegy
Monitor fever curve, CBC
Speech eval regular diet
off oxygen. breathing improving
#Acute alcohol intoxication
#Alcohol use disorder
# Acute alcohol withdrawal
Msas protocol with phenobarbital taper
Severely elevated alcohol level on admission
Monitor BMP
Ativan if required. [place] use of meds to prevent severe withdrawal as in past required ICU tx and precedex gtt etc.
tolerating diet
MSAS score improving.
#Passive SI on admission-could be due to intoxication
#Suspected underlying ?depression
Psych evaluate. 1:1 Dced. No further concern/thoughts.
Psych following.
#Permanent A-fib
Currently patient is A-fib, Not on anticoagulation
With alcohol history there would be concern regarding safety of anticoagulation and risk of bleeding versus benefit
Can follow-up with cardiology as outpatient for starting DOAC's
Rate under control now
Continue toprol 50mg BID. May need to consider increasing dose. However, some component of tachycardia could be from albuterol and Etoh withdrawal.
Monitor telemetry
#Mild transaminitis
Likely from alcohol abuse
Patient with cirrhosis
Will monitor LFTs for now
#Hypertension
Continue metoprolol
BP well controlled
#Hepatic cirrhosis with esophageal varices and portal hypertension and thrombocytopenia
No active bleeding
No active sites of bleeding noted from prior colonoscopy/EGD
Will monitor
trend platelets for now, Improving
#Mild hyponatremia
Monitor
DVT prophylaxis�SCDs in setting of thrombocytopenia.
Full code
PT recs-Home
dr whipple d/w with spouse at bedside in details on 03/19
Refused [facility] eval.
Refused to go to detox rehab.
Anticipated Discharge: 24 - 48 hours
Subjective/Interval History
-
Date of Service: March 22, 2025
Denies pain
Objective Data
-
Labs:
Laboratory Results
03/22/25
08:17
WBC 4.4 L
Hgb 13.2
Hct 40.3
Plt Count 53 L D
Sodium 134 L
Potassium 3.5
Chloride 104
Carbon Dioxide 27
BUN 14
Creatinine 0.7
Glucose 106 H
Calcium 8.0 L
Total Bilirubin 1.8 H
AST 59
ALT 49
Alkaline Phosphatase 249 H
Vital Signs:
Vital Signs
Temp Pulse Resp BP Pulse Ox
97.4 F 92 18 157/91 94
03/22/25 11:35 03/22/25 11:35 03/22/25 11:35 03/22/25 11:35 03/22/25 11:35
I&O
03/21/25 03/22/25 03/23/25
06:59 06:59 06:59
Intake Total 1920 / 1920 2640 / 2640
Output Total 2375 / 2375 950 / 950
Balance -455 / -455 1690 / 1690
[2025-03-22] MEDS: LUMINAL 32.4 MG PO (21:05)
[2025-03-23 04:01] VITALS: BP 148/81
[2025-03-23] MEDS: UNASYN IV ×2 (04:36→08:07)
[2025-03-23] MEDS: SPIRIVA RESPIMAT 2.5 MCG 2 PUFF INH (07:57)
[2025-03-23] MEDS: SYMBICORT 80/4.5 MCG INHALER 2 PUFF INH (07:57)
[2025-03-23] MEDS: TOPROL XL 50 MG PO (08:07)
[2025-03-23] MEDS: VITAMIN D3 (cholecalciferol) 25 MCG PO (08:07)
[2025-03-23] MEDS: LUMINAL 32.4 MG PO (08:08)
[2025-03-23] MEDS: VITAMIN B1 100 MG PO (08:08)
[2025-03-23] MEDS: PROTONIX 40 MG PO (08:08)
[2025-03-23 08:13] VITALS: BP 161/82
[2025-03-23 08:20] LABS: ALT (SGPT) 50 U/L (0-50); AST (SGOT) 58 U/L (17-59); Albumin 3.8 g/dl (3.5-5.0); Alkaline Phosphatase 259 U/L (38-126); Blood Urea Nitrogen 15 mg/dl (9-20); Calcium 8.2 mg/dl (8.4-10.2); Carbon Dioxide 26 mmol/L (22-30); Chloride 104 mmol/L (98-107); Estimated Creatinine Clearance > 125 ml/min; Glucose 106 mg/dl (70-99); Potassium 3.7 mmol/L (3.5-5.1); Sodium 132 mmol/L (135-145); Total Protein 7.3 g/dl (6.3-8.2); eGFR > 60.00
[2025-03-23 08:51] LABS: Hematocrit 43.2 % (39.0-52.0); Hemoglobin 14.2 g/dL (13.0-18.0); Mean Corp Hgb Conc. 32.9 g/dL (33.0-37.0); Mean Corpuscular Volume 96.0 fL (80.0-94.0); Nucleated Red Blood Cells % 0 % (-); Platelet Count 76 10^3/uL (130-400); Red Cell Dist. Width 14.6 % (11.5-14.5)
[2025-03-23 11:23] VITALS: BP 134/73
--- NOTE | 2025-03-23 11:26 | W.PN.UPDATE ---
Update Note
Progress Note Update
patient seen chart reviewed. discussed with nursing. spoke with dr alas. mr lamar is in good spirits today anticipating ar. continue to discuss with him what will be different this time and what is his plan for sobriety. he says he will go to
and has agreed to go with him. strongly advise that no etoh be in the home and that when he goes to the gym he leaves money and credit card at home as it is his habit to stop at state store after he exercises and buy 'two bottles' he has had
many periods of several months sobriety and two years at one point. i asked him to think about what leads to relapse. he said once he decided 'i could just drink beer' that of course did not go well. he said he also gets to thinking he can drink
sensibly after some months of sobriety which of course does not go well either. we talked about his powerlessness when it comes to etoh. asked him to talk with juan c . i spoke to juan c nelson about seeing mr lamar today and left him a message today
to see mr lamar. i am hoping he can provide mr lamar w a backup plan if sobriety does not go as planned. also suggested to mr lamar that if he finds himself depressed he should talk to his pcp about an antidepressant. he did not appear depressed
today. would continue w his phenobarb detox at ar.
--- NOTE | 2025-03-23 12:31 | W.PN.HOSP.TC ---
Today's Communication/Plan
-
Monitor vitals see plan
No need for further phenobarb taper
Discharge today
Refusing rehab
Time of discharge 38 minutes
Assessment / Plan
Assessment / Plan
General: Conversant, Morbidly Obese and Other (Appears anxious)
HEENT: NormoCephalic, Atraumatic and Other
Respiratory: mild rhonchi but no exp wheezing
Cardiac: S1/S2 and Irregular Rhythm, mildly tachycardiac
GI: Soft, Normal Bowel Sounds and Distended
Skin: Warm and Dry
Neuro: Awake, Alert, Oriented, AO x 3 and Nonfocal/grossly intact
Psych: Anxious
64-year-old male with history of 64-year-old male with history of cirrhosis/esophageal varices, COPD, A-fib not on anticoagulation, CHF, hypertension, hypercholesterolemia presents to the ER concerned about his excessive alcohol intake over the past
2 weeks.
PLAN:
#Acute hypoxic respiratory insufficiency
Likely secondary to MSSA pneumonia
Chest x-ray with evidence of RLL pneumonia
Now on room air
Switch to p.o. antibiotic to complete the course
sputum culture-MSSA.
Check blood culture-neg so far
DuoNebs as needed. Hold standing for now
Will hold off on steroids
restarted Trelegy
Monitor fever curve, CBC
Speech eval regular diet
off oxygen. breathing improving
#Acute alcohol intoxication
#Alcohol use disorder
# Acute alcohol withdrawal
No need for further phenobarb taper
Severely elevated alcohol level on admission
Monitor BMP
Now improving, refusing inpatient rehab. Psych following. Discharge today
tolerating diet
MSAS score improving.
#Passive SI on admission-could be due to intoxication
#Suspected underlying ?depression
Psych evaluate. 1:1 Dced. No further concern/thoughts.
Psych following.
#Permanent A-fib
Currently patient is A-fib, Not on anticoagulation
With alcohol history there would be concern regarding safety of anticoagulation and risk of bleeding versus benefit
Can follow-up with cardiology as outpatient for starting DOAC's
Rate under control now
Continue toprol 50mg BID. May need to consider increasing dose. However, some component of tachycardia could be from albuterol and Etoh withdrawal.
Monitor telemetry
#Mild transaminitis
Likely from alcohol abuse
Patient with cirrhosis
Will monitor LFTs for now
#Hypertension
Continue metoprolol
BP well controlled
#Hepatic cirrhosis with esophageal varices and portal hypertension and thrombocytopenia
No active bleeding
No active sites of bleeding noted from prior colonoscopy/EGD
Will monitor
trend platelets for now, Improving
#Mild hyponatremia
Monitor
DVT prophylaxis�SCDs in setting of thrombocytopenia.
Full code
PT recs-Home
dr whipple d/w with spouse at bedside in details on 03/19
Refused BCAREs eval.
Refused to go to detox rehab.
Anticipated Discharge: Today
Subjective/Interval History
-
Date of Service: March 23, 2025
Denies pain
Objective Data
-
Labs:
Laboratory Results
03/23/25
07:35
WBC 6.4
Hgb 14.2
Hct 43.2
Plt Count 76 L D
Sodium 132 L
Potassium 3.7
Chloride 104
Carbon Dioxide 26
BUN 15
Creatinine 0.7
Glucose 106 H
Calcium 8.2 L
Total Bilirubin 1.8 H
AST 58
ALT 50
Alkaline Phosphatase 259 H
Vital Signs:
Vital Signs
Temp Pulse Resp BP Pulse Ox
97.5 F 84 17 134/73 97
03/23/25 11:23 03/23/25 11:23 03/23/25 11:23 03/23/25 11:23 03/23/25 11:23
I&O
03/22/25 03/23/25 03/24/25
06:59 06:59 06:59
Intake Total 2640 / 2640 960 / 960 840 / 840
Output Total 950 / 950 700 / 700
Balance 1690 / 1690 260 / 260 840 / 840
--- NOTE | 2025-03-23 12:39 | W.DCSUMMARY ---
Discharge Summary
Discharge Data
Date of Admission: 03/18/25
Date of Discharge: 03/23/25
-
Pending Results: No
Hospital Course
64 old male with past medical history of cirrhosis/esophageal varices, COPD, A-fib, CHF, pretension, hyperlipidemia came to the hospital with acute alcohol intoxication initially and later developed alcohol withdrawal. Patient required
phenobarbital taper along with Ativan if needed. Patient continued to improve regarding his alcohol withdrawal. Patient denied any inpatient rehab at this time and wanted to follow-up outpatient. Patient also denied passive suicidal ideation
reported and was seen by psychiatry who after examination discontinued one-to-one. Patient also had acute hypoxic respiratory insufficiency which was likely thought was secondary to MSSA pneumonia. Initially patient required IV antibiotic which
was later transitioned to p.o. antibiotics prior to discharge. Once his symptoms continue to improve, he was then discharged home with instructions to follow-up with all his physicians outpatient.
Discharge Plan
-
Patient Disposition: Home (Routine Discharge)
Discharge Diagnosis/Procedures: Acute hypoxic respiratory insufficiency Likely secondary to MSSA pneumonia
Acute alcohol intoxication
Alcohol use disorder
Acute alcohol withdrawal
Condition: Fair
Diet: Regular
Activity: As tolerated
Driving Restrictions: As prior to admission
Referrals:
Fide Ziegler MD [Family Provider, [employer] Grade [employer]] - in less than 1 week
Prescriptions:
New
amoxicillin-pot clavulanate 875-125 mg tablet
1 tab PO BID Qty: 4 0RF
Continued
aspirin 81 mg tablet,delayed release (DR/EC)
81 mg PO DAILY Qty: 30 0RF
Trelegy Ellipta 100-62.5-25 mcg Blister With Device
1 inh INHALATION R DAILY Qty: 90 0RF
metoprolol succinate 50 mg Capsule,Sprinkle,Er 24hr
50 mg PO BID
levalbuterol tartrate 45 mcg/actuation HFA aerosol inhaler
1 puff INHALATION DAILY
polyvinyl alcohol [Artificial Tears (polyvin alc)] 1.4 % Drops
1 drp OPHTHALMIC (EYE) DAILY PRN (Reason: dry eyes)
therapeutic multivitamin Tablet
1 tab PO DAILY
pantoprazole 40 mg tablet,delayed release (DR/EC)
40 mg PO DAILY
vitamin B complex Tablet
1 tab PO DAILY
cholecalciferol (vitamin D3) 25 mcg (1,000 unit) Tablet
25 mcg PO DAILY
turmeric 400 mg Capsule
400 mg PO DAILY
Discharge Orders:
Discharge Patient (As Directed); Ordered 03/23/25
Ordered By: Lawrence Fitzpatrick
Discharge Date and Time
Discharge Date/Time: 03/23/25 15:11
Print Language: GERMAN
--- NOTE | 2025-03-23 13:18 | CM ---
Chart reviewed. Patient will d/c home today
Met w/ patient bedside, offered home PT per therapy recommendation. Patient declined. Patient stated he and his will be going to AA
Declined [facility] referral
IMM verbally reviewed, copy provided, copy on chart
Plan: Home, no needs
[2025-03-23 14:53] VITALS: BP 131/85
== END 2025-03-23 15:11 | disposition home or self-care (01) | DRG 896 ==
LOC: 4 WEST ACU 11:51
PROVIDERS: Student in an Organized Health Care Education/Training Program; ADMITTING PHYSICIAN Hospitalist; ATTENDING PHYSICIAN Internal Medicine; CONSULT PHYSICIAN Psychiatry & Neurology Psychiatry; EMERGENCY PHYSICIAN Emergency Medicine; FAMILY PHYSICIAN Pediatrics
DX: F10.229 Alcohol dependence with intoxication, unspecified (principal); J15.211 Pneumonia due to Methicillin susceptible Staphylococcus aureus; I85.10 Secondary esophageal varices without bleeding; K76.6 Portal hypertension; I48.21 Permanent atrial fibrillation; E87.1 Hypo-osmolality and hyponatremia; R45.851 Suicidal ideations; Z11.52 Encounter for screening for COVID-19; F10.239 Alcohol dependence with withdrawal, unspecified; E66.01 Morbid (severe) obesity due to excess calories; D69.6 Thrombocytopenia, unspecified; G47.33 Obstructive sleep apnea (adult) (pediatric); K74.60 Unspecified cirrhosis of liver; Z91.199 Patient's noncompliance with other medical treatment and regimen due to unspecified reason; R09.02 Hypoxemia; R06.89 Other abnormalities of breathing; I11.0 Hypertensive heart disease with heart failure; Z68.37 Body mass index [BMI] 37.0-37.9, adult; Z87.891 Personal history of nicotine dependence
CPT/HCPCS: 70450; 71046; 80053; 81003; 81015; 82010; 82077; 82977; 83605; 83735; 83880; 84100; 84484; 85025; 85610; 87040; 87070; 87147; 87186; 87205; 87502; 87811; 92610; 93005; 94640; 96361; 96365; 96375; 97116; 97163; 99291